=== PATIENT | male | born 1945 | race Caucasian/White ===

== ENCOUNTER 2023-11-10 14:08 | Outpatient (OUT) | payer MEDICARE, SELFPAY ==
[2023-11-10 14:46] LABS: Bilirubin Urine NEGATIVE (NEGATIVE); Blood Urine NEGATIVE (NEGATIVE); Clarity Urine CLEAR (CLEAR); Color Urine YELLOW (YELLOW); Glucose Urine UA 100 mg/dL (NEGATIVE); Ketones Urine NEGATIVE (NEGATIVE); Leukocyte Esterase Urine NEGATIVE (NEGATIVE); Nitrite Urine NEGATIVE (NEGATIVE); Protein Urine NEGATIVE (NEG/TRACE); Specific Gravity Urine >=1.030 (1.005-1.025); Urobilinogen Urine 0.2 EU/dL (0.2-1.0); pH Urine 5.5 (5.0-9.0)
== END 2023-11-10 14:09 | disposition home or self-care (01) ==
LOC: LAB 14:12
PROVIDERS: PCP Nurse Practitioner Family; Visit Provider Nurse Practitioner Family
DX: R41.3 Other amnesia (principal)
CPT/HCPCS: 81003; 87086

== ENCOUNTER 2023-11-19 08:59 | Outpatient (OUT) | payer MEDICARE, SELFPAY ==
--- NOTE | 2023-11-19 09:12 | MR_ITS ---
The [address] [address] Patient Name: ELISABETH SQUIRES MRN: [id number] date: 1945 Sex: M Assigned Patient Location: LAB Current Patient Location: LAB Accession/Order Number: [id number] Exam Date: 11/19/2023 09:40 Report Date: 11/19/2023 10:55 At the request of: JULIUS MIRANDA Procedure: MR angio head wo con EXAM: MR angio head wo con, MR head/brain wo/w con HISTORY: Balance Problems R26.89, Recurrent falls R29.6 COMPARISON: None. TECHNIQUE: Multiplanar multisequence MR imaging of the brain was performed with and without intravenous contrast. 3-D qopq-jg-[id number] noncontrast MRA imaging of the head was performed with maximum intensity projection reformats. FINDINGS: Motion artifact mildly degrades evaluation. Calvarium/skull base: No focal marrow replacing lesion suggestive of neoplasm. Partial bilateral mastoid effusions, greater on the left. Orbits: Bilateral kake ocular lens replacements. Paranasal sinuses: Imaged portions clear Brain: No restricted diffusion. Relatively mild T2 FLAIR signal hyperintensities involving the central pontine and supratentorial white matter which in this age are most commonly relates to sequela small vessel disease. No abnormal intracranial enhancement. Parenchymal volume is grossly appropriate. No mass effect, hemorrhage, or hydrocephalus. Grossly normal flow-related signal in the dural venous sinuses. Anterior circulation: No evidence of aneurysm, significant stenosis, or occlusion. Suspected extremely hypoplastic versus absent right A1 anterior cerebral artery segment. Vertebrobasilar system: No evidence of aneurysm, significant stenosis, or occlusion. Hypoplastic appearance of the partially visualized right V4 vertebral artery. Mild irregular stenosis involving the basilar artery. MR/MR angio head wo con IMPRESSION: 1. No acute ischemia. 2. No large vessel occlusion or hemodynamically significant stenosis involving the intracranial arteries. No visible aneurysm. 3. Minimal senescent change. 4. Nonspecific bilateral mastoid effusions. Electronically authenticated by: ASIF MARRUFO Date: 11/19/2023 10:55
--- NOTE | 2023-11-19 09:13 | MR_ITS ---
The [address] [address] Patient Name: ELISABETH SQUIRES MRN: [id number] date: 1945 Sex: M Assigned Patient Location: LAB Current Patient Location: LAB Accession/Order Number: [id number] Exam Date: 11/19/2023 09:40 Report Date: 11/19/2023 10:55 At the request of: JULIUS MIRANDA Procedure: MR head/brain wo/w con EXAM: MR angio head wo con, MR head/brain wo/w con HISTORY: Balance Problems R26.89, Recurrent falls R29.6 COMPARISON: None. TECHNIQUE: Multiplanar multisequence MR imaging of the brain was performed with and without intravenous contrast. 3-D kbic-rd-sonhlj noncontrast MRA imaging of the head was performed with maximum intensity projection reformats. FINDINGS: Motion artifact mildly degrades evaluation. Calvarium/skull base: No focal marrow replacing lesion suggestive of neoplasm. Partial bilateral mastoid effusions, greater on the left. Orbits: Bilateral [place] ocular lens replacements. Paranasal sinuses: Imaged portions clear Brain: No restricted diffusion. Relatively mild T2 FLAIR signal hyperintensities involving the central pontine and supratentorial white matter which in this age are most commonly relates to sequela small vessel disease. No abnormal intracranial enhancement. Parenchymal volume is grossly appropriate. No mass effect, hemorrhage, or hydrocephalus. Grossly normal flow-related signal in the dural venous sinuses. Anterior circulation: No evidence of aneurysm, significant stenosis, or occlusion. Suspected extremely hypoplastic versus absent right A1 anterior cerebral artery segment. Vertebrobasilar system: No evidence of aneurysm, significant stenosis, or occlusion. Hypoplastic appearance of the partially visualized right V4 vertebral artery. Mild irregular stenosis involving the basilar artery. MR/MR head/brain wo/w con IMPRESSION: 1. No acute ischemia. 2. No large vessel occlusion or hemodynamically significant stenosis involving the intracranial arteries. No visible aneurysm. 3. Minimal senescent change. 4. Nonspecific bilateral mastoid effusions. Electronically authenticated by: ASIF MARRUFO Date: 11/19/2023 10:55
[2023-11-19 09:20] LABS: Estimated GFR (African America >60 (>=60); Estimated GFR (Non-African Ame >60 (>=60)
== END 2023-11-19 09:00 | disposition home or self-care (01) ==
LOC: LAB 09:00
PROVIDERS: PCP Nurse Practitioner Family; Visit Provider Nurse Practitioner Family
DX: R26.89 Other abnormalities of gait and mobility (principal); R29.6 Repeated falls; R47.01 Aphasia; R41.3 Other amnesia
CPT/HCPCS: 36415; 70544; 70553; 82565; A9575

== ENCOUNTER 2023-12-16 09:15 | Outpatient (OUT) | payer MEDICARE, SELFPAY ==
[2023-12-17 15:08] LABS: Albumin 3.6 g/dL (2.9-4.4); Alpha-1-Globulin 0.2 g/dL (0.0-0.4); Alpha-2-Globulin 0.8 g/dL (0.4-1.0); Gamma Globulin 1.1 g/dL (0.4-1.8); Protein, Total 6.6 g/dL (6.0-8.5)
== END 2023-12-16 09:16 | disposition home or self-care (01) ==
LOC: LAB 09:20
PROVIDERS: PCP Nurse Practitioner Family; Visit Provider Psychiatry & Neurology Neurology
DX: G30.9 Alzheimer's disease, unspecified (principal); F02.80 Dementia in other diseases classified elsewhere, unspecified severity, without behavioral disturbance, psychotic disturbance, mood disturbance, and anxiety; R26.89 Other abnormalities of gait and mobility
CPT/HCPCS: 36415; 82607; 82746; 84155; 84165; 84443

== ENCOUNTER 2024-01-27 10:31 | Outpatient (OUT) | payer MEDICARE, SELFPAY ==
--- NOTE | 2024-01-27 10:48 | US_ITS ---
The [address] [address] Patient Name: ELISABETH SQUIRES MRN: [id number] date: 1945 Sex: M Assigned Patient Location: LAB Current Patient Location: Accession/Order Number: [id number] Exam Date: 01/27/2024 11:10 Report Date: 01/28/2024 05:51 At the request of: MARTA LUCAS Procedure: US scrotum EXAMINATION: US scrotum HISTORY: Scrotal Abscess COMPARISON: No relevant comparison available. TECHNIQUE: High-resolution sonographic imaging of the scrotum and contents was performed. FINDINGS: RIGHT: TESTICLE: Homogeneous echotexture. No visible mass. Color Doppler flow is present. Spectral Doppler demonstrates normal arterial waveform and flow, 6/2 cm/s (PSV/EDV), and normal venous wave flow averaging 2 cm/s. EPIDIDYMIS: Heterogeneous increased echogenicity of epididymis. OTHER: 6 x 4 x 3 mm mobile echogenic structure within hemiscrotum, likely a scrotal david. Small hydrocele. LEFT: TESTICLE: Homogeneous echotexture. No visible mass. Color Doppler flow is present. Spectral Doppler demonstrates arterial waveform and flow, 4/2 cm/s (PSV/EDV), and normal venous flow averaging 2 cm/s. EPIDIDYMIS: Contains several small cysts within head of epididymis. Heterogeneous increased echogenicity of epididymis. OTHER: Small hydrocele Final images demonstrate a heterogeneous hypoechoic mass or focal area of skin thickening, 6.2 x 4.4 x 1.8 cm. Some images suggest this is on the right other suggests this is on the left, and may be within the scrotum. US/US scrotum IMPRESSION: 1. Small hydroceles bilaterally. 2. Heterogeneous epididymides bilaterally; nonspecific. 3. Large heterogeneous masslike structure corresponding to area of concern. Today's images do not clearly identify where this area of concern is. Repeat imaging should be performed if needed. Electronically authenticated by: CARRIE SCRUGGS Date: 01/28/2024 05:51
[2024-01-27 11:10] LABS: Hematocrit 39.2 % (42.0-54.0); Mean Corpuscular HGB Conc 33.2 g/dL (29.9-35.2); Mean Corpuscular Hemoglobin 31.7 pg (25.9-34.0); Mean Corpuscular Volume 95.6 fL (80.0-94.0); Mean Platelet Volume 9.8 fL (9.5-13.5); Platelet Count 303 10^3/uL (150-450); Red Cell Distribution Width 12.8 % (11.0-15.0); White Blood Count 19.1 10^3/uL (4.0-11.0)
[2024-01-27 12:50] LABS: Band Neutrophils Absolute 0.2 10^3/uL (0.0-0.3); Basophils Abs Manual 0.38 10^3/uL (0.00-0.10); Lymphocytes Absolute Manual 2.86 10^3/uL (1.20-3.80); Monocytes Absolute Manual 1.91 10^3/uL (0.30-0.80); Segmented Neut Absolute Manual 9.55 10^3/uL (1.4-6.5)
== END 2024-01-27 10:32 | disposition home or self-care (01) ==
LOC: LAB 10:32
PROVIDERS: PCP Nurse Practitioner Family; Visit Provider Urology
DX: N43.3 Hydrocele, unspecified (principal); N45.1 Epididymitis; D72.829 Elevated white blood cell count, unspecified
CPT/HCPCS: 36415; 76870; 85007; 85027

== ENCOUNTER 2024-06-24 09:19 | Outpatient (OUT) | payer OTHER, SELFPAY ==
--- OUTSIDE RECORDS SUMMARY | 2024-06-24 09:24 | XMS_ITS | CCD ---
Author Organization [facility] Care Team Providers Care Lottery Office Manager Name Role Phone AMILCAR MIDDLETON Primary Care Unavailable MISC, DOCTOR Attending Unavailable MISC, DOCTOR Consulting Unavailable MISC, DOCTOR Admitting Unavailable Sonia Salinas Unavailable RITIKA Salinas Primary Care Provider MD Samuel Coker Attending Provider RITIKA Salinas Primary Care Provider MD Samuel Coker Attending Provider AURELIA FRENCH Attending Unavailable RITIKA Salinas Primary Care Provider DO Nicko Grimm Emergency Provider Unavai DO Jc Magallanes Admit Provider DO Jc Brown Attending Provider [phone] RITIKA Salinas Primary Care Provider DO Nicko Grimm Emergency Provider Unavai DO Jc Magallanes Admit Provider MD Zachary Garcia Attending Provider DO Nic Leung Other Provider MD Dao Johnston Other Provider MD Nicko Galvan Admit Provider MD Nicko Galvan Attending Provider SONIA SALINAS Primary Care Physician Garfield LUCAS Attending Unavailable LUCAS, Garfield R Admitting Unavailable LUCAS, Garfield R Attending Unavailable LUCAS, Garfield R Attending Unavailable LUCAS, Garfield R Attending Unavailable LUCAS, Garfield R Admitting Unavailable AURELIA FRENCH Attending Unavailable CHRISSY, TRU Attending Unavailable CHRISSY, TRU Referring Unavailable CHRISSY, TRU Attending Unavailable CHRISSY, TRU Referring Unavailable Samuel Coker Admitting Unavailable John Paul, Samuel Streeter Attending Unavailable Sonia Salinas Primary Care Unavailable Moon Salinasfer Primary Care Unavailable Jc Brown Admitting Unavailable Zachary Garcia Attending UnavailNic Ybarra Consulting Unavailable Dao Johnston Unavailable Nicko Galvan Admitting UnavailNicko Lowry Attending Unavaillilli e Sonia Salinas Primary Care Unavailable Mckenna Campbell Admitting Unavailable Mckenna Campbell Attending Unavailable Sonia Salinas Primary Care Unavailable Brad BRICK BURNER, Sonia Sharif Unavailable Brad BRICK BURNERSonia Primary Care Provider Allergies Allergy Classification Reported Allergen(s) Allergy Type Date of Onset Reaction(s) Facility (1 source) No Known Medication Allergies; Translations: [No Known Medication Allergies] Propensity to adverse reactions (disorder) [facility] Repository Medications Current Medications Medication Drug Class(es) Dates Sig (Normalized) Sig (Original) amoxicillin 875 mg / clavulanate 125 mg oral tablet (1 source) Penicillin-class Antibacterial Start: 04-29-2023 take 1 tablet by mouth every twelve hours Amoxicillin-Pot Clavulanate 875-125 MG 1 tablet Orally every 12 hrs for 10 days Apr, Active aspirin 81 mg chewable tablet (14 sources) Platelet Aggregation Inhibitor, Nonsteroidal Anti-inflammatory Drug Start: 01-27-2024 take 1 mg by mouth every twenty-four hours aspirin 81 mg oral capsule mg cap(s), Oral, q24hr, Refills(s) 0 Start Date: 01/27/24 Status: Ordered Start: 01-13-2024 End: 01-31-2024 take 1 tablet by mouth once daily Aspirin (Children's Aspirin) 81 mg tablet,chewable Active 81 MG PO Daily 90 90 January 31, 2024 9:53am atorvastatin 80 mg oral tablet (14 sources) HMG-CoA Reductase Inhibitor Start: 01-13-2024 End: 01-31-2024 atorvastatin (Lipitor) 80 MG tablet Every evening 01/13/2024 Active azithromycin 250 mg oral tablet (1 source) Macrolide Antimicrobial Start: 07-09-2023 Azithromycin 250 MG 2 tablet on the first day, then 1 tablet daily for 4 days Orally Once a day for 5 day(s) Jul, Active Giselle Back & Body 500-32.5 MG (2 sources) Giselle Back & Bod y 500-32.5 MG as directed Orally Active cefdinir 300 mg oral capsule (6 sources) Cephalosporin Antibacterial Start: 01-27-2024 End: 02-10-2024 take 1 capsule by mouth every twelve hours cefdinir 300 mg Cap 300 mg = 1 cap(s), Oral, q12hr, X 14 day(s), # 28 cap(s), Refills(s) 0, Pharmacy: [facility]/pharmacy #[id number], 180, cm, 01/27/24 13:28:00 EDT, Height/Length Dosing, 101.5, kg, 01/27/24 13:28:00 EDT, Weight Dosing Start Date: 01/27/24 Stop Date: 02/10/24 Status: Ordered Start: 01-26-2024 End: 02-16-2024 take 300 mg by mouth twice daily Cefdinir Discontinued 300 MG PO Twice daily 28 05January 26, 2024 12:00am February 16, 2024 8:53am clopidogrel 75 mg oral tablet (14 sources) [id number] Platelet Inhibitor Start: 01-13-2024 End: 01-31-2024 clopidogrel (Plavix) 75 MG tablet Daily 01/13/2024 Active donepezil hydrochloride 5 mg oral tablet (8 sources) Start: 12-14-2023 End: 12-13-2024 take 5 mg by mouth once daily Donepezil Active 5 MG PO Daily January 26, 2024 12:00am lisinopril 10 mg oral tablet (14 sources) Angiotensin Converting Enzyme Inhibitor Start: 01-13-2024 End: 01-31-2024 lisinopril 10 MG tablet Daily 01/13/2024 Active 24 hr metFORMIN hydrochloride 500 mg extended release oral tablet (18 sources) Biguanide Start: 03-22-2024 take 1 tablet by mouth once daily Metformin Active 0 .ROUTE .COMPLEX March 22, 2024 8:50am TAKE 1 TABLET BY MOUTH DAILY Start: 02-23-2024 End: 03-22-2024 take 500 mg by mouth once daily Metformin Discontinued 500 MG PO Daily February 23, 2024 12:00am March 22, 2024 8:50am Start: 01-13-2024 End: 02-23-2024 metFORMIN (Glucophage) 500 M G tablet Twice daily with meals 01/13/2024 Active Completed/Discontinued Medications Medication Drug Class(es) Dates Sig (Normalized) Sig (Original) aspirin 500 mg / caffeine 32.5 mg oral tablet (9 sources) Platelet Aggregation Inhibitor, Nonsteroidal Anti-inflammatory Drug, Central Nervous System Stimulant, Methylxanthine Start: 10-04-2023 End: 01-13-2024 take 1 tablet by mouth once daily Aspirin-Caffeine (Giselle Back And Body) 500-32.5 mg tablet Discontinued 1 TAB PO Daily October 04, 2023 1:00am January 13, 2024 11:24am azelastine hydrochloride 0.137 mg/actuat metered dose nasal spray (10 sources) Histamine-1 Receptor Antagonist Start: 10-05-2023 End: 01-10-2024 take 137 ug nasal route every twelve hours Azelastine Discontinued 137 MCG INTRANASAL Every 12 hours October 05, 2023 1:00am January 10, 2024 10:31pm administer into each nostril take 1 spray(s) nasa l route in the morning azelastine (Astelin) 0.1 % nasal spray Administer 1 spray into each nostril in the morning and 1 spray before bedtime. Use in each nostril as directed. Active doxycycline hyclate 100 mg oral capsule (9 sources) Tetracycline-class Drug Start: 10-05-2023 End: 11-09-2023 take 100 mg by mouth every twelve hours Doxycycline Hyclate Discontinued 100 MG PO Every 12 hours 28 05October 05, 2023 1:00am November 09, 2023 2:54pm fluticasone propionate 0.05 mg/actuat metered dose nasal spray (12 sources) Corticosteroid Start: 10-04-2023 End: 01-10-2024 Fluticasone Propionate Discontinued 1 SPRAY INTRANASAL Daily October 04, 2023 1:00am January 10, 2024 10:31pm Start: 04-29-2023 take 1-2 spray(s) na riccardo route once daily Fluticasone Propionate 50 MCG/ACT 1-2 spray in each nostril Nasally Once a day for 30 days Apr, Active take 1 spray(s) nasa l route once daily fluticasone (Flonase) 50 MCG/ACT nasal spray Administer 1 spray into each nostril Daily Shake gently. Before first use, prime pump. After use, clean tip and replace cap. Active Problems Active Problems Problem Classification Problem Date Documented Date Episodic/Chronic Chronic obstructive pulmonary disease and bronchiectasis (1 source) Bronchitis, not specified as acute or chronic Episodic Delirium, dementia, and amnestic and other cognitive disorders (17 sources) Vascular dementia ; Translations: [Vascular dementia without behavioral disturbance] Onset: 01-11-2024 01-11-2024 Chronic Diabetes mellitus without complication (17 sources) Type 2 diabetes mellitus; Translations: [Type 2 diabetes mellitus without complications] Onset: 01-11-2024 01-11-2024 Chronic Diseases of white blood cells (8 sources) Leukocytosis; Translations: [Elevated white blood cell count, unspecified] Onset: 01-11-2024 01-13-2024 Chronic Essential hypertension (16 sources) Hypertensive disorder; Translations: [Essential (primary) hypertension] Onset: 01-11-2024 01-11-2024 Chronic Genitourinary symptoms and ill-defined conditions (1 source) Nocturia; Translations: [Nocturia] Onset: 01-27-2024 Episodic Hyperplasia of prostate (3 sources) Benign prostatic hypertrophy with outflow obstruction; Translations: [Benign prostatic hyperplasia with lower urinary tract symptoms] Onset: 01-27-2024 Chronic Occlusion or stenosis of precerebral arteries (20 sources) Carotid artery stenosis; Translations: [Occlusion and stenosis of unspecified carotid artery] Onset: 01-11-2024 01-11-2024 Chronic Other and ill-defined cerebrovascular disease (10 sources) Cerebral atherosclerosis; Translations: [Cerebral atherosclerosis] 01-11-2024 Chronic Other and ill-defined cerebrovascular disease (7 sources) Cerebral atherosclerosis; Translations: [Cerebral atherosclerosis] Onset: 01-11-2024 01-13-2024 Chronic Other circulatory disease (1 source) Stented artery; Translations: [Presence of other vascular implants and grafts] 05-25-2024 Chronic Other circulatory disease (1 source) History of cardiovascular surgery; Translations: [Peripheral vascular angioplasty status] 05-25-2024 Episodic Other circulatory disease (1 source) Peripheral vascular angioplasty status; Translations: [Other postprocedural status] 05-25-2024 Episodic Other connective tissue disease (12 sources) Recurrent falls ; Translations: [Repeated falls] 11-09-2023 Episodic Other diseases of kidney and ureters (1 source) Urinary tract obstruction; Translations: [Other obstructive and reflux uropathy] Onset: 01-27-2024 Episodic Other eye disorders (4 sources) Unspecified ectropion of unspecified eye, unspecified eyelid; Translations: [UNS ECTROPION UNS EYE UNS EYELID] Onset: 06-22-2020 Episodic Other lower respiratory disease (2 sources) Snoring; Translations: [Other respiratory abnormalities] Episodic Other lower respiratory disease (1 source) Apnea, not elsewhere classified Episodic Other lower respiratory disease (9 sources) Snoring; Translations: [Snoring] 10-06-2023 Episodic Other nervous system disorders (11 sources) Aphasia; Translations: [Aphasia] Onset: 12-13-2023 11-09-2023 Chronic Other nervous system disorders (6 sources) Aphasia; Translations: [Aphasia] 11-09-2023 Chronic Other nervous system disorders (7 sources) Other abnormalities of gait and mobility; Translations: [Other symptoms involving nervous and musculoskeletal systems] Onset: 05-25-2024 11-09-2023 Episodic Other screening for suspected conditions (not mental disorders or infectious disease) (12 sources) Encounter for screening for malignant neoplasm of colon; Translations: [Patient encounter status] Onset: 01-27-2024 Episodic Other upper respiratory disease (9 sources) Rhinitis medicamentosa; Translations: [Chronic rhinitis] 10-05-2023 Chronic Other upper respiratory disease (1 source) Chronic rhinitis; Translations: [Chronic rhinitis] 10-05-2023 Chronic Other upper respiratory infections (10 sources) Maxillary sinusitis; Translations: [Chronic maxillary sinusitis] 10-05-2023 Chronic Other upper respiratory infections (1 source) Acute maxillary sinusitis, unspecified Episodic Residual codes; unclassified (1 source) Hypersomnia; Translations: [Hypersomnia, unspecified] 03-07-2024 Chronic Residual codes; unclassified (1 source) Amnesia; Translations: [Other amnesia] 03-07-2024 Episodic Screening and history of mental health and substance abuse codes (2 sources) Ex-smoker; Translations: [Personal history of nicotine dependence] 02-16-2024 Episodic Transient cerebral ischemia (7 sources) Transient cerebral ischemia; Translations: [Transient cerebral ischemic attack, unspecified] Onset: 01-11-2024 01-11-2024 Chronic Past or Other Problems Problem Classification Problem Date Documented Date Episodic/Chronic Inflammatory conditions of male genital organs (11 sources) Abscess of scrotum; Translations: [Inflammatory disorders of scrotum] Onset: 01-25-2024 01-26-2024 Episodic Other connective tissue disease (13 sources) Repeated falls; Translations: [History of fall] Onset: 01-11-2024 11-09-2023 Episodic Other connective tissue disease (2 sources) Falls; Translations: [Repeated falls] Onset: 12-13-2023 12-13-2023 Episodic Other nervous system disorders (11 sources) Impairment of balance; Translations: [Other abnormalities of gait and mobility] Onset: 12-13-2023 11-09-2023 Episodic Other nervous system disorders (2 sources) Abnormal gait; Translations: [Unsteadiness on feet] Onset: 12-13-2023 12-13-2023 Episodic Other non-epithelial cancer of skin (4 sources) Basal cell carcinoma of skin; Translations: [Basal cell carcinoma of skin of left lower eyelid, including canthus] Onset: 09-22-2023 01-27-2024 Episodic Residual codes; unclassified (6 sources) Memory impairment; Translations: [Other amnesia] Onset: 12-13-2023 11-09-2023 Episodic Residual codes; unclassified (8 sources) Other amnesia; Translations: [Memory loss] Onset: 01-11-2024 11-09-2023 Episodic Results Test Name Value Interpretation Reference Range Facility Home sleep teston 06-15-2024 Insufficient data wi th less than 1 hour obtained... Test will need to be repeated. [facility] carotid doppler BIon 10- US carotid doppler [facility] [address] [place], [place] [id number] Ultrasound Report Signed Patient: Dagoberto Squires MR#: [id number] : 1945 Acct:[id number] Age/Sex: 79 / M ADM Date: 05/25/24 Loc: [facility] Room: Type: [facility] Attending Dr: Mckenna Campbell BRICK BURNER-C Ordering Provider: Mckenna Campbell APRN Date of Service: 05/25/24 US/US carotid doppler BI: R26.89 - Other abnormalities of gait and mobility Copies to: Mckenna Campbell APRN CAROTID DUPLEX INDICATION: Surveillance study after right carotid stent. PROCEDURE: Color-flow duplex scanning is used to interrogate the extracranial carotid arterial system, as well as both vertebral arteries. The proximal right internal carotid artery shows a highest peak systolic velocity of 44.5 cm/s with an end-diastolic velocity of 11.2 cm/s . The mid internal carotid artery measures 35 cm/s peak systolic with an end-diastolic velocity of 10.5 cm/s . The distal segment measures 22.4 cm/s peak systolic with an end diastolic velocity of 6.31 cm/s . The velocities of the right common carotid artery are 107 cm/s peak systolic and 13 cm/s end- diastolic proximally and 53.9 cm/s peak systolic and 8.06 cm/s end-diastolic distally. The peak systolic velocity ratio of the internal to the common carotid artery is 0.42 . The right external carotid artery measures 108 cm/s peak systolic. The right vertebral artery is not visualized. The proximal left internal carotid artery shows a highest peak systolic velocity of 89.5 cm/s with an end-diastolic velocity of 20.5 cm/s . The mid internal carotid artery measures 76.4 cm/s peak systolic with an end-diastolic velocity of 24.2 cm/s . The distal segment measures 85.7 cm/s peak systolic with an end diastolic velocity of 25.5 cm/s . The velocities of the left common carotid artery are 101 cm/s peak systolic and 16.8 cm/s end-diastolic proximally and 78.6 cm/s peak systolic and 14.3 cm/s end-diastolic distally. The peak systolic velocity ratio of the internal to the common carotid artery is 0.89 . The left external carotid artery measures 116 cm/s peak systolic. The left vertebral artery is patent at 46.5 cm/s peak systolic with antegrade flow. US/US carotid doppler BI IMPRESSION: NO HEMODYNAMICALLY SIGNIFICANT STENOSIS OF EITHER EXTRACRANIAL INTERNAL CAROTID ARTERY. BOTH VERTEBRAL ARTERIES ARE PATENT WITH ANTEGRADE FLOW. Impression dictated by: Nicko Galvan MD05/26/2024 9:33 AM Dictation Location: [facility]-04 Tech: Venecia Carter Transcribed By: ALEA 05/26/24932 Dictated By: Nicko Galvan MD 05/26/24931 Signed By: 05/26/24932 Normal [facility] Ambulatory Visit Summaryon 0 02-25-2024 Ambulatory Visit Summary Ambulatory Visit Summary DAGOBERTO SQUIRES :1945 Visit Date:02/25/2024 Ambulatory Visit Instructions Your Diagnosis Scrotal abscess BPH with urinary obstruction Your Care Team Attending Physician - Garfield LUCAS MD Primary Care Physician - SONIA SALINAS CNP This Is Your Medications List Contact prescribing physician if questions or concerns aspirin (aspirin 81 mg oral capsule) atorvastatin (atorvastatin 80 mg Tab) clopidogrel (clopidogrel 75 mg Tab) donepezil (donepezil 5 mg Tab) lisinopril (lisinopril 10 mg Tab) metformin (metformin 500 mg ER Tab) Procedures Performed Carotid artery stent (01/25/2024), CE - Cataract extraction. Discharge Vitals Temperature (Temporal Artery) 37 ?C Heart Rate (Peripheral) 68 Respiratory Rate 16 Blood Pressure 134/69 Height 180 cm Height 71 in Weight 101 kg Weight 222.2 lb BMI 31.17 What to do next You Need to Schedule the Following Appointments Follow Up with Garfield LUCAS MD, URL When: Where: [address] [place] [address]- Medications What How Much When Instructions Unchanged aspirin (aspirin 81 mg oral capsule) By Mouth Every 24 hours Contact prescribing physician if questions or concerns Unchanged atorvastatin (atorvastatin 80 mg Tab) By Mouth Every day Contact prescribing physician if questions or concerns Unchanged clopidogrel (clopidogrel 75 mg Tab) By Mouth Every day Contact prescribing physician if questions or concerns Unchanged donepezil (donepezil 5 mg Tab) By Mouth Once a day (at bedtime) Contact prescribing physician if questions or concerns Unchanged lisinopril (lisinopril 10 mg Tab) By Mouth Every day Contact prescribing physician if questions or concerns Unchanged metformin (metformin 500 mg ER Tab) 1 Tablets By Mouth 2 times a day Contact prescribing physician if questions or concerns Allergies No Known Medication Allergies Problems Ongoing - Any problem that you are currently receiving treatment for. Atherosclerotic cerebrovascular disease Basal cell carcinoma BPH with urinary obstruction Frequent falls Hypertension Scrotal abscess Type 2 diabetes mellitus Vascular dementia Patient Survey You may receive a survey via text or e-mail asking about your office visit. Please share your experience with us by completing your survey. We appreciate your feedback and thank you for choosing us for your care. Education Materials Testicular Self-Exam A self-examination of your testicles (testicular self-exam) involves looking at and feeling your testicles for abnormal lumps or swelling. Several things can cause swelling, lumps, or pain in your testicles. Some of these causes are: ? Injuries. ? Inflammation. ? Infection. ? Buildup of fluids around the testicle (hydrocele). ? Twisted testicles (testicular torsion). ? Testicular cancer. You may be at risk for testicular cancer if you have: ? An undescended testicle (cryptorchidism). ? A history of previous testicular cancer. ? A family history of testicular cancer. General tips and recommendations ? The testicles are easiest to examine after a warm bath or shower. They are more difficult to examine when you are cold because the muscles attached to the testicles retract and pull them up higher or into the abdomen. ? A normal testicle is egg-shaped and feels firm. It is smooth and not tender. ? It is normal to feel a firm, spaghetti-like cord at the back of your testicle. This is the spermatic cord. How to do a testicular self-exam 1. Stand and hold your penis away from your body. 2. Look at each testicle to check for changes in appearance, such as swelling or changes in size or shape. 3. Roll each testicle between your thumb and forefinger, feeling the entire testicle. Feel for: ? Lumps. ? Swelling. ? Discomfort. 4. Check the groin area between your abdomen and upper thighs on both sides of your body. Look and feel for any swelling or bumps that are tender. These could be enlarged lymph nodes. Contact a health care provider if: ? You find any bumps or lumps, such as a small, hard, pea-sized lump. ? You find swelling, pain, or soreness. ? You see or feel any other changes in your testicles. Summary ? A self-examination of your testicles (testicular self-exam) involves looking at and feeling your testicles for any changes. ? Check each of your testicles for lumps, swelling, or discomfort. These changes can be caused by many things. ? Check for swelling or tender bumps in your groin area between your lower abdomen and upper thighs. This information is not intended to replace advice given to you by your health care provider. Make sure you discuss any questions you have with your health care provider. Document Revised: 07/01/2020 Document Reviewed: 07/01/2020 [facility] Patient Educati (more content not included)... Normal [facility] Urology Office/Clinic Noteon 02-25-2024 Urology Office/Clinic Note Urology Office/Clinic Note Chief Complaint BPH HPI Staff 1 month to re-examine scrotal abscess. Prior OV: cont Cefdinir 300 mg BID x 2 more weeks due to scrotal abscess. Previous Dx: scrotal abscess, nocturia, BPH with LUTS, Dementia. No urologic procedures. *No maintenance urologic meds. PSA: 01/27/24 - 2.9 Dysuria: no Incomplete bladder emptying: no Hematuria: no Frequency: no Urgency: no Nocturia: pt gets up multiple x throughout the night Stream: good strong Leaking: no Post void dripping: no Wearing pads/ Depends: no Urge incontinence: no Stress incontinence: no Incontinence without Sensory Awareness: no Abdominal pain: no Flank pain: no Sexual complaints: no History of Present Illness Tests reviewed: reviewed UA and PSA. I have reviewed the previous health record information and history for this patient from Dr. Lucas. I have reviewed and verified the staff HPI to be accurate for this encounter. There have been no associated fever, chills, flank pain, or blood in the urine. Denies any urinary infections since last encounter. Review of Systems PHQ Score Initial Depression Screen Score: 0 SCORE ROS - Provider Constitutional: denies weight loss, denies hot flashes. Eyes: denies eye problems. Gastrointestinal: denies nausea, denies vomiting. Cardiovascular: denies chest pain or angina. Integumentary: no dryness Musculoskeletal: denies musculoskeletal symptoms. ENMT: denies otolaryngeal symptoms. Respiratory: no shortness of breath. Heme/Lymph: denies easy bleeding tendency, denies easy bruising tendency. Psychiatric: no confusion, no anxiety. Genitourinary: See HPI. Physical Exam Vitals & Measurements T: 37 ?C(Temporal Artery) HR: 68(Peripheral) RR: 16 BP: 134/69 HT: 71 in HT: 180 cm WT: 101 kg WT: 222.2 lb BMI: 31.17 General Appearance: alert, no distress, well nourished, well developed male. Genitourinary: abscess not present upon exam. Assessment/Plan Pt has dementia. serves as chief historian. 1. Scrotal abscess (N49.2: Inflammatory disorders of scrotum) Hx of abscess. Two different occasions. Tx'd with Gentamicin 160mg IM 01/27/24 and Cefdinir. No concern for Lisseth's at that time. PE: abscess not present upon exam. No current issues or complaints. Follow up PRN or sooner if issues arise. 2. BPH with urinary obstruction (N40.1: Benign prostatic hyperplasia with lower urinary tract symptoms) PSA: 01/27/24 - 2.9 Advised pt and his that his PSA is normal. UA today neg. Not taking any BPH meds. No urinary concerns. Emptying well. Follow-up With When Contact Information SHAYY BARRETO, Garfield Cotter, URL [address] [place] [address]- Additional Instructions: PRN Patient Education Testicular Self-Exam Karuna Bradley, personally scribed for Dr. Lucas on 02/25/2024 09:25:10. . Documentation recorded by the scribKaruna burger, accurately reflects the services(s) I performed and decisions made by me. Authenticated by Dr. Lucas on 02/25/2024 09:27:43. Problem List/Past Medical History Ongoing Atherosclerotic cerebrovascular disease Basal cell carcinoma BPH with urinary obstruction Frequent falls Hypertension Scrotal abscess Type 2 diabetes mellitus Vascular dementia Historical No qualifying data Procedure/Surgical History Carotid artery stent (01/25/2024), CE - Cataract extraction. Medications aspirin 81 mg oral capsule, Oral, q24hr atorvastatin 80 mg Tab, Oral, Daily clopidogrel 75 mg Tab, Oral, Daily donepezil 5 mg Tab, Oral, Once a day (at bedtime) lisinopril 10 mg Tab, Oral, Daily metformin 500 mg ER Tab, 500 mg= 1 tab(s), Oral, BID Allergies No Known Medication Allergies Social History Tobacco Former smoker, quit more than 30 days ago Tobacco Use:. Cigarettes, Household tobacco concerns: No. Yes, 02/25/2024 Family History Breast cancer: Sister. Lab Results Ambulatory Point of Care Results Bilirubin Urine Dipstick: Negative (02/25/24 08:47:00) Blood Urine Dipstick: Negative (02/25/24 08:47:00) Glucose Urine Dipstick: Trace 100 mg/dl (02/25/24 08:47:00) Ketones Urine Dipstick: Negative (02/25/24 08:47:00) Leukocytes Urine Dipstick: Negative (02/25/24 08:47:00) Nitrite Urine Dipstick: Negative (02/25/24 08:47:00) Protein Urine Dipstick: 1+ (30 mg/dl) (02/25/24 08:47:00) Specific [place] Urine Dipstick: >=1.030 (02/25/24 08:47:00) Urine Appearance Urine Dipstick: Clear (02/25/24 08:47:00) Urine Color Urine Dipstick: Yellow (02/25/24 08:47:00) Urobilinogen Urine Dipstick: Normal 0.2-1 EU/dl (02/25/24 08:47:00) pH Urine Dipstick: 5.5 (02/25/24 08:47:00) Normal [facility] Comment on above: Result Comment: Elec tronically Signed By: Garfield LUCAS MD\Date and Time Signed: 02/25/24 09:27 EDT\.br\Electronically Co-Signed By: Karuna Craias\Date and Time Co-Signed: 02/25/24 09:25 EDT Transfer Inon 02-02-2024 Transfer In [id number] Normal [facility] RAD - Ultrasound Reporton RAD - Ultrasound Report [id number] Normal [facility] Basophils/100 WBC Manual cnt (Bld)on 01-27-2024 Basophils/100 WBC (Bld) 2.0 % 0.2-2.0 [facility] CHEMISTRYOrdered By: SYSTEM SYSTEM on 01-27-2024 Prostate specific Ag [Mass/Vol] 2.9 ng/mL Normal 0.1 - 3.5 ng/mL [facility] Comment on above: Interpretive Data: T he concentration of PSA determined by different manufacturers can vary due to differences in assay methods and reagent specificity. Values obtained from different assay methods cannot be used interchangeably. The methodology used for this result was chemiluminescence using [employer] Access Hybritech PSA reagent. Eosinophils/100 WBC Manual c nt (Bld)on 01-27-2024 Eosinophils/100 WBC (Bld) 22.0 % High 0.9-7.0 [facility] Erythrocyte distribution wid th Auto (RBC) [Ratio]on 01-27-2024 Erythrocyte distribution width (RBC) [Ratio] 12.8 % 11.0-15.0 [facility] Hematocrit Auto (Bld) [Volum e fraction]on 01-27-2024 Hematocrit (Bld) [Volume fraction] 39.2 % Low 42.0-54.0 [facility] Hemoglobin [Mass/volume] in Bloodon 01-27-2024 Hemoglobin (Bld) [Mass/Vol] 13.0 g/dL Low 14.0-18.0 [facility] Laboratory - Hematology and Cell countson 01-27-2024 Band form neutrophils/100 WBC (Bld) 1.0 % 0-5 [facility] Lymphocytes/100 WBC (Bld) 15.0 % Low 20.5-60.0 [facility] Monocytes/100 WBC (Bld) 10.0 % 1.7-12.0 [facility] Leukocytes [#/volume] correc guillermina for nucleated erythrocytes in Blood by Automated counon 01-27-2024 WBC corrected for nucl RBC Auto (Bld) [#/Vol] 19.1 10 3/uL High 4.0-11.0 [facility] MCH Auto (RBC) [Entitic mass ]on 01-27-2024 MCH (RBC) [Entitic mass] 31.7 pg 25.9-34.0 [facility] MCHC Auto (RBC) [Mass/Vol]on 01-27-2024 MCHC (RBC) [Mass/Vol] 33.2 g/dL 29.9-35.2 [facility] MCV Auto (RBC) [Entitic vol] on 01-27-2024 MCV (RBC) [Entitic vol] 95.6 fL High 80.0-94.0 [facility] No Panel Informationon 01-26 Absolute Basophils (Manual) 0.38 10 3/uL High 0.00-0.10 [facility] Band Neutrophils # (Manual) 0.2 10 3/uL 0.0-0.3 [facility] Eosinophils # (Manual) 4.20 10 3/uL High 0.00-0.70 [facility] Lymphocytes # (Manual) 2.86 10 3/uL 1.20-3.80 [facility] Monocytes # (Manual) 1.91 10 3/uL High 0.30-0.80 [facility] Segmented Neutrophils # (Manual) 9.55 10 3/uL High 1.4-6.5 [facility] PSA Screen, Totalon 01-27-20 Prostate specific Ag [Mass/Vol] 2.9 ng/mL Normal 0.1-3.5 [facility] Comment on above: Result Comment: The concentration of PSA determined by different manufacturers can vary due to differences in assay methods and reagent specificity. Values obtained from different assay methods cannot be used interchangeably. The methodology used for this result was chemiluminescence using [employer]'s Access Hybritech PSA reagent. Performed By: #### 1 [id number] #### [facility] [address] [place] [address] Patient Educationon 01-27-20 Patient Education Urology Benign Prostatic Hyperplasia Benign prostatic hyperplasia (BPH) is an enlarged prostate gland that is caused by the normal aging process. The prostate may get bigger as a man gets older. The condition is not caused by cancer. The prostate is a walnut-sized gland that is involved in the production of semen. It is located in front of the rectum and below the bladder. The bladder stores urine. The urethra carries stored urine out of the body. An enlarged prostate can press on the urethra. This can make it harder to pass urine. The buildup of urine in the bladder can cause infection. Back pressure and infection may progress to bladder damage and kidney (renal) failure. What are the causes? This condition is part of the normal aging process. However, not all men develop problems from this condition. If the prostate enlarges away from the urethra, urine flow will not be blocked. If it enlarges toward the urethra and compresses it, there will be problems passing urine. What increases the risk? This condition is more likely to develop in men older than 50 years. What are the signs or symptoms? Symptoms of this condition include: ? Getting up often during the night to urinate. ? Needing to urinate frequently during the day. ? Difficulty starting urine flow. ? Decrease in size and strength of your urine stream. ? Leaking (dribbling) after urinating. ? Inability to pass urine. This needs immediate treatment. ? Inability to completely empty your bladder. ? Pain when you pass urine. This is more common if there is also an infection. ? Urinary tract infection (UTI). How is this diagnosed? This condition is diagnosed based on your medical history, a physical exam, and your symptoms. Tests will also be done, such as: ? A post-void bladder scan. This measures any amount of urine that may remain in your bladder after you finish urinating. ? A digital rectal exam. In a rectal exam, your health care provider checks your prostate by putting a lubricated, gloved finger into your rectum to feel the back of your prostate gland. This exam detects the size of your gland and any abnormal lumps or growths. ? An exam of your urine (urinalysis). ? A prostate specific antigen (PSA) screening. This is a blood test used to screen for prostate cancer. ? An ultrasound. This test uses sound waves to electronically produce a picture of your prostate gland. Your health care provider may refer you to a specialist in kidney and prostate diseases (urologist). How is this treated? Once symptoms begin, your health care provider will monitor your condition (active surveillance or watchful waiting). Treatment for this condition will depend on the severity of your condition. Treatment may include: ? Observation and yearly exams. This may be the only treatment needed if your condition and symptoms are mild. ? Medicines to relieve your symptoms, including: ? Medicines to shrink the prostate. ? Medicines to relax the muscle of the prostate. ? Surgery in severe cases. Surgery may include: ? Prostatectomy. In this procedure, the prostate tissue is removed completely through an open incision or with a laparoscope or robotics. ? Transurethral resection of the prostate (TURP). In this procedure, a tool is inserted through the opening at the tip of the penis (urethra). It is used to cut away tissue of the inner core of the prostate. The pieces are removed through the same opening of the penis. This removes the blockage. ? Transurethral incision (TUIP). In this procedure, small cuts are made in the prostate. This lessens the prostate's pressure on the urethra. ? Transurethral microwave thermotherapy (TUMT). This procedure uses microwaves to create heat. The heat destroys and removes a small amount of prostate tissue. ? Transurethral needle ablation (TUNA). This procedure uses radio frequencies to destroy and remove a small amount of prostate tissue. ? Interstitial laser coagulation (ILC). This procedure uses a laser to destroy and remove a small amount of prostate tissue. ? Transurethral electrovaporization (TUVP). This procedure uses electrodes to destroy and remove a small amount of prostate tissue. ? Prostatic urethral lift. This procedure inserts an implant to push the lobes of the prostate away from the urethra. Follow these instructions at home: ? Take tlak-grp-loaekhw and prescription medicines only as told by your health care provider. ? Monitor your symptoms for any changes. Contact your health care provider with any changes. ? Avoid drinking large amounts of liquid before going to bed or out in public. ? Avoid or reduce how much caffeine or alcohol you drink. ? Give yourself time when you urinate. ? Keep all follow-up visits. This is important. Contact a health care provider if: ? You have unexplained back pain. ? Your symptoms do not get better with treatment. ? You develop side effects from the medicine (more content not included)... Normal [facility] Physician Orderon 01-27-2024 Physician Order [id number] Normal [facility] Platelet mean volume Auto (B ld) [Entitic vol]on 01-27-2024 Platelet mean volume (Bld) [Entitic vol] 9.8 fL 9.5-13.5 [facility] Platelets Auto (Bld) [#/Vol] on 01-27-2024 Platelets (Bld) [#/Vol] 303 10 3/uL 150-450 [facility] RBC Auto (Bld) [#/Vol]on RBC (Bld) [#/Vol] 4.10 10 6/uL Low 4.70-6.10 [facility] Segmented neutrophils/100 WB C Manual cnt (Bld)on 01-27-2024 Segmented neutrophils/100 WBC (Bld) 50.0 % [facility] Urology Office/Clinic Noteon 01-27-2024 Urology Office/Clinic Note Chief Complaint scrotal abscess HPI Staff Referral for scrotal abscess from Sonia Salinas NP. Pt spouse states that he has had this abscess for quite a while and this is the second time that it has burst open. Dysuria: no Incomplete bladder emptying: no Hematuria: no Frequency: no Urgency: no Nocturia: multiple x Stream: good steady stream Leaking: no Post void dripping: no Wearing pads/ Depends: no Urge incontinence: no Stress incontinence: no Incontinence without Sensory Awareness: no Abdominal pain: no Flank pain: no Sexual complaints: no History of Present Illness I have reviewed and verified the staff HPI to be accurate for this encounter. [facility] records reviewed, labs, and Scrotal US films reviewed by Dr. Lucas. Review of Systems PHQ Score Initial Depression Screen Score: 0 SCORE ROS - Provider Constitutional: denies weight loss, denies hot flashes. Eyes: denies eye problems. Gastrointestinal: denies nausea, denies vomiting. Cardiovascular: denies chest pain or angina. Integumentary: no dryness Musculoskeletal: denies musculoskeletal symptoms. ENMT: denies otolaryngeal symptoms. Respiratory: no shortness of breath. Heme/Lymph: denies easy bleeding tendency, denies easy bruising tendency. Psychiatric: no confusion, no anxiety. Genitourinary: denies dysuria, denies hematuria, denies discharge, denies urinary frequency, denies urinary hesitancy, moderate nocturia, denies incontinence, denies genital sores, denies decreased libido, and denies erectile dysfunction. Physical Exam Vitals & Measurements T: 37 ?C(Temporal Artery) HR: 85(Peripheral) RR: 16 BP: 137/88 HT: 71 in HT: 180 cm WT: 101.5 kg WT: 223.3 lb BMI: 31.33 General Appearance: alert, no distress, well nourished, well developed male. Head: normocephalic . Eyes: normal orbit and globe. ENMT: normal examination of external ears. Chest: Lungs CTA, respirations demonstrate accessory muscle use. Cardiovascular: regular rate and rhythm. Abdomen: soft, non distended, no tenderness, no mass or organomegaly, no hernia. Genitourinary: normal scrotum, normal testes, normal urethra, normal epididymis, normal vas deferens/spermatic cord. Perineum has a 3 cm indurated subcutaneous collection with no fluctuance. Not currently draining. Below that is a 2cm indurated area without fluctuance that has redness on the skin and an opening that was previously draining. No necrotic areas. Flank Pain: none. Bladder: nonpalpable. Penis: normal shaft, normal glans Lymph Nodes: unremarkable palpation of the cervical area. Skin: warm, dry, no bruising. Psychiatric: cooperative, affect appropriate for age, normal judgement, euthymic mood. Assessment/Plan 1. Scrotal abscess (N49.2: Inflammatory disorders of scrotum) Patients Robyn states this is the second time he has had an abscess rupture. They did not seek treatment for this other than calling for abx. Previous episode was a few years ago. She denies any fever, chills. Patient has dementia, she is answering questions. Wound care evaluated patient, but advised he see her PCP. Patient saw Sonia Salinas CNP and was started on Cefdinir 300mg bid therapy x 10 days. Gentamicin 160mg IM given today in RT Glute. Patient to be on abx x 1 month, and then f/u. Will continue Cefdinir 300mg BID x 2 more weeks. No concern for Lisseth's at this time. 2. Nocturia (R35.1: Nocturia) Moderate, multiple times per night, 4 times per night per . 3. BPH with obstruction/lower urinary tract symptoms (N40.1: Benign prostatic hyperplasia with lower urinary tract symptoms) Patient is not currently taking any prostate medications. Will draw PSA level today. is unsure of last level. UA done today is negative for infection. Other obstructive and reflux uropathy (N13.8: Other obstructive and reflux uropathy) Patient to f/u in 1 month for re-exam. Follow-up With When Contact Information Garfield LUCAS MD, URL In 1 month [facility] [address], [place] [address] [phone] Additional Instructions: Patient Education Benign Prostatic Hyperplasia Testicular Self-Exam Cheyenne Bradley, personally scribed for Dr. Lucas on 01/27/2024 14:05:52. . Documentation recorded by the scriberakesh, accurately reflects the services(s) I performed and decisions made by me. Authenticated by Dr. Lucas on 01/27/2024 15:52:28. Problem List/Past Medical History Ongoing Atherosclerotic cerebrovascular disease Basal cell carcinoma Frequent falls Hypertension Type 2 diabetes mellitus Vascular dementia Historical No qualifying data Procedure/Surgical History Carotid artery stent (01/25/2024), CE - Cataract extraction. Medications aspirin 81 mg oral capsule, Oral, q24hr atorvastatin 80 mg Tab, Oral, Daily clopidogrel 75 mg Tab, Oral, Daily donepezil 5 mg Tab, Oral, Once a day (more content not included)... Normal [facility] Comment on above: Result Comment: Elec tronically Signed By: Garfield LUCAS MD\.br\Date and Time Signed: 01/27/24 15:52 EDT\.br\Electronically Co-Signed By: Cheyenne Morales\Herlindabr\Date and Time Co-Signed: 01/27/24 14:06 EDT Basophils Auto (Bld) [#/Vol] Ordered By: Nicko Galvan on 01-26-2024 Basophils (Bld) [#/Vol] N/A [facility] Basophils/100 WBC Auto (Bld) Ordered By: Nicko Galvan on 01-26-2024 Basophils/100 WBC (Bld) N/A [facility] Diff and CBCon 01-26-2024 Giant Platelet Tally 2 /100{WBC} Normal [facility] Comment on above: Performed By: #### D IFF CBC, PTT, CK, HS TROP, CMP, CBC, PT #### [facility] [address] [place] [address] Mean Corpuscular HGB Conc 33.3 g/dL Normal 32.5-35.6 [facility] Comment on above: Performed By: #### D IFF CBC, PTT, CK, HS TROP, CMP, CBC, PT #### [facility] [address] Platelet Estimate Normal Normal Normal [facility] Comment on above: Performed By: #### D IFF CBC, PTT, CK, HS TROP, CMP, CBC, PT #### [facility] [address] Platelet Morphology Normal Normal Normal [facility] Comment on above: Result Comment: PERF ORMED BY: [place] [address] PATHOLOGIST ASTHMA EDUCATOR DENNIS RODRIGUEZ M.D. Performed By: #### D IFF CBC, PTT, CK, HS TROP, CMP, CBC, PT #### [address] Eosinophils Auto (Bld) [#/Vo l]Ordered By: Nicko Galvan on 01-26-2024 Eosinophils (Bld) [#/Vol] N/A [facility] Eosinophils/100 WBC Auto (Bl d)Ordered By: Nicko Galvan on 01-26-2024 Eosinophils/100 WBC (Bld) N/A [facility] Eosinophils/100 leukocytes i n Blood by Manual countOrdered By: Nicko Galvan on 01-26-2024 Eosinophils/100 WBC (Bld) 15 % High 1-3 [facility] Comment on above: Performed By: #### D IFF CBC, PTT, CK, HS TROP, CMP, CBC, PT #### [facility] [address] Erythrocyte distribution wid th [Ratio] by Automated countOrdered By: Nicko Galvan on 01-26-2024 Erythrocyte distribution width (RBC) [Ratio] 13.8 % Normal 12.0-14.8 [facility] Comment on above: Performed By: #### D IFF CBC, PTT, CK, HS TROP, CMP, CBC, PT #### [facility] [address] Erythrocytes [#/volume] in B lood by Automated countOrdered By: Nicko Galvan on 01-26-2024 RBC (Bld) [#/Vol] 3.83 10*6/uL Low 3.90-5.60 [facility] Comment on above: Performed By: #### D IFF CBC, PTT, CK, HS TROP, CMP, CBC, PT #### [facility] [address] Giant platelets/100 leukocyt es [Ratio] in Blood by Manual countOrdered By: Nicko Galvan on 01-26-2024 Giant platelets/100 WBC Manual cnt (Bld) [Ratio] 2 /100{WBC} [facility] Hematocrit [Volume Fraction] of Blood by Automated countOrdered By: Nicko Galvan on 01-26-2024 Hematocrit (Bld) [Volume fraction] 35.9 % Low 38.8-50.0 [facility] Comment on above: Performed By: #### D IFF CBC, PTT, CK, HS TROP, CMP, CBC, PT #### [facility] [address] Hemoglobin [Mass/volume] in BloodOrdered By: Nicko Galvan on 01-26-2024 Hemoglobin (Bld) [Mass/Vol] 12.0 g/dL Low 13.0-17.0 [facility] Comment on above: Performed By: #### D IFF CBC, PTT, CK, HS TROP, CMP, CBC, PT #### [facility] [address] [place] [address] Leukocytes [#/volume] correc guillermina for nucleated erythrocytes in Blood by Automated counOrdered By: Nicko Galvan on 01-26-2024 WBC corrected for nucl RBC Auto (Bld) [#/Vol] 20.7 10*3/uL High 4.1-10.5 [facility] Leukocytes [#/volume] in Blo od by Automated countOrdered By: Nicko Galvan on 01-26-2024 WBC (Bld) [#/Vol] 20.7 10*3/uL High 4.1-10.5 [facility] Comment on above: Performed By: #### D IFF CBC, PTT, CK, HS TROP, CMP, CBC, PT #### [facility] [address] [place] [address] Lymphocytes Auto (Bld) [#/Vo l]Ordered By: Nicko Galvan on 01-26-2024 Lymphocytes (Bld) [#/Vol] N/A [facility] Lymphocytes/100 WBC Auto (Bl d)Ordered By: Nicko Galvan on 01-26-2024 Lymphocytes/100 WBC (Bld) N/A [facility] Lymphocytes/100 leukocytes i n Blood by Manual countOrdered By: Nicko Galvan on 01-26-2024 Lymphocytes/100 WBC (Bld) 7 % Low 18-42 [facility] Comment on above: Performed By: #### D IFF CBC, PTT, CK, HS TROP, CMP, CBC, PT #### [facility] [address] [place] [address] MCH [Entitic mass] by Automa guillermina countOrdered By: Nicko Galvan on 01-26-2024 MCH (RBC) [Entitic mass] 31.2 pg Normal 27.5-35.2 [facility] Comment on above: Performed By: #### D IFF CBC, PTT, CK, HS TROP, CMP, CBC, PT #### [facility] [address] [place] [address] MCHC Auto (RBC) [Mass/Vol]Or dered By: Nicko Galvan on 01-26-2024 MCHC (RBC) [Mass/Vol] 33.3 g/dL 32.5-35.6 [facility] MCV [Entitic volume] by Auto mated countOrdered By: Nicko Galvan on 01-26-2024 MCV (RBC) [Entitic vol] 93.7 fL Normal 83.5-101 [facility] Comment on above: Performed By: #### D IFF CBC, PTT, CK, HS TROP, CMP, CBC, PT #### [facility] [address] Manual blood segmented neutr ophils/100 leukocytesOrdered By: Nicko Galvan on 01-26-2024 Segmented neutrophils/100 WBC (Bld) 67 % Normal 50-70 [facility] Comment on above: Performed By: #### D IFF CBC, PTT, CK, HS TROP, CMP, CBC, PT #### [facility] [address] [place] [address] Monocytes Auto (Bld) [#/Vol] Ordered By: Nicko Galvan on 01-26-2024 Monocytes (Bld) [#/Vol] N/A [facility] Monocytes/100 WBC Auto (Bld) Ordered By: Nicko Galvan on 01-26-2024 Monocytes/100 WBC (Bld) N/A [facility] Monocytes/100 leukocytes in Blood by Manual countOrdered By: Nicko Galvan on 01-26-2024 Monocytes/100 WBC (Bld) 8 % Normal 2-11 [facility] Comment on above: Performed By: #### D IFF CBC, PTT, CK, HS TROP, CMP, CBC, PT #### [facility] [address] Neutrophils Auto (Bld) [#/Vo l]Ordered By: Nicko Glavan on 01-26-2024 Neutrophils (Bld) [#/Vol] N/A [facility] Neutrophils/100 WBC Auto (Bl d)Ordered By: Nicko Galvan on 01-26-2024 Neutrophils/100 WBC (Bld) N/A [facility] Nucleated erythrocytes [Pres ence] in Blood by Automated countOrdered By: Nicko Galvan on 01-26-2024 Nucleated RBC Auto Ql (Bld) N/A [facility] Peripheral white blood cell differential % bands, microscopic examOrdered By: Nicko Galvan on 01-26-2024 Band form neutrophils/100 WBC (Bld) 3 % Normal 0-5 [facility] Comment on above: Performed By: #### D IFF CBC, PTT, CK, HS TROP, CMP, CBC, PT #### [facility] [address] Platelet adequacy [Presence] in Blood by Light microscopyOrdered By: Nicko Galvan on 01-26-2024 Platelets LM Ql (Bld) Normal Normal [facility] Platelet mean volume [Entiti c volume] in Blood by Automated countOrdered By: Nicko Galvan on 01-26-2024 Platelet mean volume (Bld) [Entitic vol] 7.7 fL Normal 6.6-10.1 [facility] Comment on above: Result Comment: PERF ORMED BY: [place] [address] PATHOLOGIST ASTHMA EDUCATOR DENNIS RODRIGUEZ M.D. Performed By: #### D IFF CBC, PTT, CK, HS TROP, CMP, CBC, PT #### [address] Platelet morphology finding [Identifier] in BloodOrdered By: Nicko Galvan on 01-26-2024 Platelet morphology finding Nom (Bld) Normal Normal [facility] Platelets [#/volume] in Bloo d by Automated countOrdered By: Nicko Galvan on 01-26-2024 Platelets (Bld) [#/Vol] 276 10*3/uL Normal 150-450 [facility] Comment on above: Performed By: #### D IFF CBC, PTT, CK, HS TROP, CMP, CBC, PT #### [address] RBC morphologyOrdered By: Americo Galvan on 01-26-2024 RBC morphology finding Nom (Bld) Normal Normal Normal [facility] Comment on above: Performed By: #### D IFF CBC, PTT, CK, HS TROP, CMP, CBC, PT #### [facility] [address] [place] [id number] [place] Activated Clotting Timeon Activated Clotting Time POC 269 s High 90-139 [facility] Comment on above: Result Comment: Refe rence Range: 90-139 (Non-heparinized) PERFORMED BY: [place] [address] PATHOLOGIST ASTHMA EDUCATOR DENNIS RODRIGUEZ M.D. Performed By: #### D IFF CBC, PTT, CK, HS TROP, CMP, CBC, PT #### [facility] [address] [place] [id number] [facility] Activated Clotting Time POC 140 s High 90-139 [facility] Comment on above: Result Comment: Refe rence Range: 90-139 (Non-heparinized) PERFORMED BY: [place] [address] PATHOLOGIST ASTHMA EDUCATOR DENNIS RODRIGUEZ M.D. Performed By: #### D IFF CBC, PTT, CK, HS TROP, CMP, CBC, PT #### [place] [id number] [facility] Amphetamine Screen Ql (U)Ord ered By: ELIZABETH AGUILAR on 01-25-2024 Amphetamines Ql (U) Negative Negative [facility] Barbiturates [Presence] in U rine by Screen methodOrdered By: ELIZABETH AGUILAR on 01-25-2024 Barbiturates Screen Ql (U) Negative Negative [facility] Benzodiazepines Screen Ql (U )Ordered By: ELIZABETH AGUILAR on 01-25-2024 Benzodiazepines Ql (U) Negative Negative [facility] Benzoylecgonine [Presence] i n Urine by Screen methodOrdered By: ELIZABETH AGUILAR on 01-25-2024 Benzoylecgonine Screen Ql (U) Negative Negative [facility] Blood activated clotting ce e by coagulation assayOrdered By: Nicko Galvan on 01-25-2024 ACT Coag (Bld) 269 s High 90-139 [facility] Comment on above: Reference Range: 90- 139 (Non-heparinized) Cannabinoids [Presence] in U rine by Screen methodOrdered By: ELIZABETH AGUILAR on 01-25-2024 Cannabinoids Screen Ql (U) Positive High Negative [facility] Comment on above: These are unconfirme d results and should not be used for legal purposes. Drug Cut-Off Concentration: AMPH 1000 ng/mL NIMESH 200 ng/mL STEVEN 200 ng/mL COCM 300 ng/mL OP 300 ng/mL PCP 25 ng/mL THC 20 ng/mL Capillary blood glucose lupillo urement by glucometer (mass/volume)Ordered By: Nicko Galvan on 01-25-2024 Glucose [Mass/Vol] 121 mg/dL Normal [facility] Comment on above: Random Glucose Refer ence Range is dependent on time and content of last meal. Glucose of more than 200 mg/dL in a nonstressed, ambulatory subject supports the diagnosis of Diabetes Mellitus. Result Comment: [place] Glucose Reference Range is dependent on time and content of last meal. Glucose of more than 200 mg/dL in a nonstressed, ambulatory subject supports the diagnosis of Diabetes Mellitus. Performed By: #### D IFF CBC, PTT, CK, HS TROP, CMP, CBC, PT #### [facility] [address] [place] [address] [place] Drug Screen,Urineon 01-25-20 24 Amphetamine Screen,Urine Negative Normal Negative [facility] Comment on above: Performed By: #### U RDS #### [facility] [address] [place] [address] [place] Barbiturate Screen,Urine Negative Normal Negative [facility] Comment on above: Performed By: #### U RDS #### [facility] [address] [place] [address] [place] Benzodiazepines Screen,Urine Negative Normal Negative [facility] Comment on above: Performed By: #### U RDS #### [facility] [address] [place] [address] [place] Cannabinoid Screen,Urine Positive High Negative [facility] Comment on above: Result Comment: Thes e are unconfirmed results and should not be used for legal purposes. Drug Cut-Off Concentration: AMPH 1000 ng/mL NIMESH 200 ng/mL STEVEN 200 ng/mL COCM 300 ng/mL OP 300 ng/mL PCP 25 ng/mL THC 20 ng/mL PERFORMED BY: [place] [address] PATHOLOGIST ASTHMA EDUCATOR DENNIS RODRIGUEZ M.D. Performed By: #### U RDS #### [address] Cocaine Screen,Urine Negative Normal Negative [facility] Comment on above: Performed By: #### U RDS #### [address] Opiate Screen,Urine Negative Normal Negative [facility] Comment on above: Performed By: #### U RDS #### [address] Phencyclidine Screen,Urine Negative Normal Negative [facility] Comment on above: Performed By: #### U RDS #### [address] Glucose Poct Glucometerson 0 01-25-2024 Commemt1 Glu2: Cleaned Meter Normal [facility] Comment on above: Result Comment: PERF ORMED BY: [place] [address] PATHOLOGIST ASTHMA EDUCATOR DENNIS RODRIGUEZ M.D. Performed By: #### D IFF CBC, PTT, CK, HS TROP, CMP, CBC, PT #### [address] Commemt1 Glu2: Cleaned Meter Normal [facility] Comment on above: Result Comment: PERF ORMED BY: [place] [address] PATHOLOGIST ASTHMA EDUCATOR DENNIS RODRIGUEZ M.D. Performed By: #### D IFF CBC, PTT, CK, HS TROP, CMP, CBC, PT #### [address] Glucose [Mass/Vol] 124 mg/dL Normal [facility] Comment on above: Result Comment: [place] Glucose Reference Range is dependent on time and content of last meal. Glucose of more than 200 mg/dL in a nonstressed, ambulatory subject supports the diagnosis of Diabetes Mellitus. Performed By: #### D IFF CBC, PTT, CK, HS TROP, CMP, CBC, PT #### [facility] [address] No Panel InformationOrdered By: Nicko Galvan on 01-25-2024 Bedside Glucose Comment Glu2: cleaned meter [facility] Opiates [Presence] in Urine by Screen methodOrdered By: ELIZABETH AGUILAR on 01-25-2024 Opiates Screen Ql (U) Negative Negative [facility] Phencyclidine Screen Ql (U)O rdered By: ELIZABETH AGUILAR on 01-25-2024 Phencyclidine Ql (U) Negative Negative [facility] Automated basophil %Ordered By: Sabrina Lama on 01-13-2024 Basophils/100 WBC (Bld) 1.2 % Normal . [facility] Comment on above: Performed By: #### D IFF CBC, PTT, CK, HS TROP, CMP, CBC, PT #### [facility] [address] Automated basophil countOrde red By: Sabrina Lama on 01-13-2024 Basophils (Bld) [#/Vol] 0.2 10*3/uL Normal 0.0-0.2 [facility] Comment on above: Performed By: #### D IFF CBC, PTT, CK, HS TROP, CMP, CBC, PT #### [address] Automated blood monocyte cou ntOrdered By: Sabrina Lama on 01-13-2024 Monocytes (Bld) [#/Vol] 1.5 10*3/uL High 0.0-0.8 [facility] Comment on above: Performed By: #### D IFF CBC, PTT, CK, HS TROP, CMP, CBC, PT #### [facility] [address] Automated eosinophil %Ordere d By: Sabrina Lama on 01-13-2024 Eosinophils/100 WBC (Bld) 26.0 % Normal . [facility] Comment on above: Performed By: #### D IFF CBC, PTT, CK, HS TROP, CMP, CBC, PT #### [address] Automated eosinophil countOr dered By: Sabrinaletha Lama on 01-13-2024 Eosinophils (Bld) [#/Vol] 4.5 10*3/uL High 0.0-0.45 [facility] Comment on above: Performed By: #### D IFF CBC, PTT, CK, HS TROP, CMP, CBC, PT #### [address] Automated monocyte %Ordered By: Sabrina Lama on 01-13-2024 Monocytes/100 WBC (Bld) 8.9 % Normal . [facility] Comment on above: Performed By: #### D IFF CBC, PTT, CK, HS TROP, CMP, CBC, PT #### [address] Automated neutrophil %Ordere d By: Sabrina Lama on 01-13-2024 Neutrophils/100 WBC (Bld) 48.5 % Normal . [facility] Comment on above: Performed By: #### D IFF CBC, PTT, CK, HS TROP, CMP, CBC, PT #### [address] Basic Metabolic Panelon 06 Creatinine Clr Calc Pharmacy 61.15 Normal [facility] Comment on above: Result Comment: PERF ORMED BY: [place] [address] PATHOLOGIST ASTHMA EDUCATOR DENNIS RODRIGUEZ M.D. Performed By: #### D IFF CBC, PTT, CK, HS TROP, CMP, CBC, PT #### [address] GFR/1.73 sq M.predicted MDRD (S/P/Bld) [Vol rate/Area] 58.003 mL/min/{1.73_m2} Normal [facility] Comment on above: Performed By: #### D IFF CBC, PTT, CK, HS TROP, CMP, CBC, PT #### [facility] [address] Calcium [Mass/volume] in Ser um or PlasmaOrdered By: Sabrina Lama on 01-13-2024 Calcium [Mass/Vol] 9.3 mg/dL Normal 8.6-10.3 [facility] Comment on above: Performed By: #### D IFF CBC, PTT, CK, HS TROP, CMP, CBC, PT #### [facility] [address] Capillary blood glucose lupillo urement by glucometer (mass/volume)Ordered By: Zachary Garcia on 01-13-2024 Glucose [Mass/Vol] 239 mg/dL Normal [facility] Comment on above: Random Glucose Refer ence Range is dependent on time and content of last meal. Glucose of more than 200 mg/dL in a nonstressed, ambulatory subject supports the diagnosis of Diabetes Mellitus. Result Comment: [place] om Glucose Reference Range is dependent on time and content of last meal. Glucose of more than 200 mg/dL in a nonstressed, ambulatory subject supports the diagnosis of Diabetes Mellitus. PERFORMED BY: [place] [address] PATHOLOGIST ASTHMA EDUCATOR DENNIS RODRIGUEZ M.D. Performed By: #### D IFF CBC, PTT, CK, HS TROP, CMP, CBC, PT #### [facility] [address] Carbon dioxide, total [Moles /volume] in Serum or PlasmaOrdered By: Sabrina Lama on 01-13-2024 CO2 [Moles/Vol] 29.2 mmol/L Normal 21.0-31.0 [facility] Comment on above: Performed By: #### D IFF CBC, PTT, CK, HS TROP, CMP, CBC, PT #### [facility] [address] Chloride [Moles/volume] in S liza or PlasmaOrdered By: Sabrina Lama on 01-13-2024 Chloride [Moles/Vol] 102 mmol/L Normal 98-107 [facility] Comment on above: Performed By: #### D IFF CBC, PTT, CK, HS TROP, CMP, CBC, PT #### [facility] [address] Creatinine [Mass/volume] in Serum or PlasmaOrdered By: Sabrina Lama on 01-13-2024 Creatinine [Mass/Vol] 1.28 mg/dL Normal 0.70-1.30 [facility] Comment on above: Performed By: #### D IFF CBC, PTT, CK, HS TROP, CMP, CBC, PT #### [facility] [address] Erythrocyte distribution wid th [Ratio] by Automated countOrdered By: Sabrina Lama on 01-13-2024 Erythrocyte distribution width (RBC) [Ratio] 13.9 % Normal 12.0-14.8 [facility] Comment on above: Performed By: #### D IFF CBC, PTT, CK, HS TROP, CMP, CBC, PT #### [address] Erythrocytes [#/volume] in B lood by Automated countOrdered By: Sabrina Plascencia on 01-13-2024 RBC (Bld) [#/Vol] 4.92 10*6/uL Normal 3.90-5.60 [facility] Comment on above: Performed By: #### D IFF CBC, PTT, CK, HS TROP, CMP, CBC, PT #### [address] Glucose Poct Glucometerson 0 01-13-2024 Glucose [Mass/Vol] 155 mg/dL Normal [facility] Comment on above: Result Comment: [facility] Glucose Reference Range is dependent on time and content of last meal. Glucose of more than 200 mg/dL in a nonstressed, ambulatory subject supports the diagnosis of Diabetes Mellitus. PERFORMED BY: [place] [address] PATHOLOGIST ASTHMA EDUCATOR DENNIS RODRIGUEZ M.D. Performed By: #### D IFF CBC, PTT, CK, HS TROP, CMP, CBC, PT #### [facility] [address] [place] [address] [place] Glucose [Mass/volume] in Ser um or PlasmaOrdered By: Sabrina Lama on 01-13-2024 Glucose [Mass/Vol] 152 mg/dL High 70-100 [facility] Comment on above: ADA recommended refe rence rangeRandom Glucose Reference Range is dependent on time and content of last meal. Glucose of more than 200 mg/dL in a nonstressed, ambulatory subject supports the diagnosis of Diabetes Mellitus. Result Comment: [place] om Glucose Reference Range is dependent on time and content of last meal. Glucose of more than 200 mg/dL in a nonstressed, ambulatory subject supports the diagnosis of Diabetes Mellitus. ADA recommended reference range Performed By: #### D IFF CBC, PTT, CK, HS TROP, CMP, CBC, PT #### [facility] [address] Hematocrit [Volume Fraction] of Blood by Automated countOrdered By: Sabrina Laam on 01-13-2024 Hematocrit (Bld) [Volume fraction] 46.5 % Normal 38.8-50.0 [facility] Comment on above: Performed By: #### D IFF CBC, PTT, CK, HS TROP, CMP, CBC, PT #### [facility] [address] Hemoglobin [Mass/volume] in BloodOrdered By: Sabrina Lama on 01-13-2024 Hemoglobin (Bld) [Mass/Vol] 15.5 g/dL Normal 13.0-17.0 [facility] Comment on above: Performed By: #### D IFF CBC, PTT, CK, HS TROP, CMP, CBC, PT #### [facility] [address] [place] [address] [place] Leukocytes [#/volume] correc guillermina for nucleated erythrocytes in Blood by Automated counOrdered By: Sabrina Lama on 01-13-2024 WBC corrected for nucl RBC Auto (Bld) [#/Vol] 17.3 10*3/uL High 4.1-10.5 [facility] Leukocytes [#/volume] in Blo od by Automated countOrdered By: Sabrina Plascencia on 01-13-2024 WBC (Bld) [#/Vol] 17.3 10*3/uL High 4.1-10.5 [facility] Comment on above: Performed By: #### D IFF CBC, PTT, CK, HS TROP, CMP, CBC, PT #### [facility] [address] Lymphocytes [#/volume] in Bl ood by Automated countOrdered By: Sabrina Plascencia on 01-13-2024 Lymphocytes (Bld) [#/Vol] 2.7 10*3/uL Normal 1.00-4.8 [facility] Comment on above: Performed By: #### D IFF CBC, PTT, CK, HS TROP, CMP, CBC, PT #### [facility] [address] [place] [address] [place] Lymphocytes/100 leukocytes i n Blood by Automated countOrdered By: Sabrina Lama on 01-13-2024 Lymphocytes/100 WBC (Bld) 15.4 % Normal . [facility] Comment on above: Performed By: #### D IFF CBC, PTT, CK, HS TROP, CMP, CBC, PT #### [facility] [address] MCH [Entitic mass] by Automa guillermina countOrdered By: Sabrina Lama on 01-13-2024 MCH (RBC) [Entitic mass] 31.5 pg Normal 27.5-35.2 [facility] Comment on above: Performed By: #### D IFF CBC, PTT, CK, HS TROP, CMP, CBC, PT #### [facility] [address] MCHC Auto (RBC) [Mass/Vol]Or dered By: Sabrina Lama on 01-13-2024 MCHC (RBC) [Mass/Vol] 33.3 g/dL 32.5-35.6 [facility] MCV [Entitic volume] by Auto mated countOrdered By: Sabrina Lama on 01-13-2024 MCV (RBC) [Entitic vol] 94.6 fL Normal 83.5-101 [facility] Comment on above: Performed By: #### D IFF CBC, PTT, CK, HS TROP, CMP, CBC, PT #### [facility] [address] Neutrophils [#/volume] in Bl ood by Automated countOrdered By: Sabrina Plascencia on 01-13-2024 Neutrophils (Bld) [#/Vol] 8.4 10*3/uL High 1.8-7.7 [facility] Comment on above: Performed By: #### D IFF CBC, PTT, CK, HS TROP, CMP, CBC, PT #### [facility] [address] No Panel InformationOrdered By: Sabrina Lama on 01-13-2024 Estimated GFR (CKD-EPI) 58.003 mL/Min [facility] Creatinine Clearance (Chem 61.15 [facility] Nucleated erythrocytes [Pres ence] in Blood by Automated countOrdered By: Sabrina Lama on 01-13-2024 Nucleated RBC Auto Ql (Bld) 0.1 /100{WBC} 0-0.5 [facility] Platelet adequacy [Presence] in Blood by Light microscopyOrdered By: Sabrina Lama on 01-13-2024 Platelets LM Ql (Bld) Normal Normal [facility] Platelet mean volume [Entiti c volume] in Blood by Automated countOrdered By: Sabrina Lama on 01-13-2024 Platelet mean volume (Bld) [Entitic vol] 8.3 fL Normal 6.6-10.1 [facility] Comment on above: Performed By: #### D IFF CBC, PTT, CK, HS TROP, CMP, CBC, PT #### [facility] [address] [place] [address] Platelet morphology finding [Identifier] in BloodOrdered By: Sabrina Plascencia on 01-13-2024 Platelet morphology finding Nom (Bld) Normal Normal [facility] Platelets [#/volume] in Bloo d by Automated countOrdered By: Sabrina Lama on 01-13-2024 Platelets (Bld) [#/Vol] 256 10*3/uL Normal 150-450 [facility] Comment on above: Performed By: #### D IFF CBC, PTT, CK, HS TROP, CMP, CBC, PT #### [address] Potassium [Moles/volume] in Serum or PlasmaOrdered By: Sabrina Lama on 01-13-2024 Potassium [Moles/Vol] 4.2 mmol/L Normal 3.5-5.1 [facility] Comment on above: Performed By: #### D IFF CBC, PTT, CK, HS TROP, CMP, CBC, PT #### [address] RBC morphologyOrdered By: Jael Lama on 01-13-2024 RBC morphology finding Nom (Bld) Normal Normal Normal [facility] Comment on above: Performed By: #### D IFF CBC, PTT, CK, HS TROP, CMP, CBC, PT #### [facility] [address] [place] [address] Scan and CBCon 01-13-2024 Mean Corpuscular HGB Conc 33.3 g/dL Normal 32.5-35.6 [facility] Comment on above: Performed By: #### D IFF CBC, PTT, CK, HS TROP, CMP, CBC, PT #### [address] NRBC% 0.1 /100{WBC} Normal 0-0.5 [facility] Comment on above: Performed By: #### D IFF CBC, PTT, CK, HS TROP, CMP, CBC, PT #### [address] Platelet Estimate Normal Normal Normal [facility] Comment on above: Performed By: #### D IFF CBC, PTT, CK, HS TROP, CMP, CBC, PT #### [address] Platelet Morphology Normal Normal Normal [facility] Comment on above: Result Comment: PERF ORMED BY: [place] [address] PATHOLOGIST ASTHMA EDUCATOR DENNIS RODRIGUEZ M.D. Performed By: #### D IFF CBC, PTT, CK, HS TROP, CMP, CBC, PT #### [address] Serum or plasma anion gap de terminationOrdered By: Sabrina Lama on 01-13-2024 Anion gap [Moles/Vol] 10.0 mmol/L Normal 6.0-15.0 [facility] Comment on above: Performed By: #### D IFF CBC, PTT, CK, HS TROP, CMP, CBC, PT #### [address] Sodium [Moles/volume] in Ser um or PlasmaOrdered By: Sabrina Lama on 01-13-2024 Sodium [Moles/Vol] 137 mmol/L Normal 136-145 [facility] Comment on above: Performed By: #### D IFF CBC, PTT, CK, HS TROP, CMP, CBC, PT #### [address] US carotid doppler BIon 06-0 US carotid doppler BI [facility] Main [place] [address] [place] [address] Ultrasound Report Signed Patient: Dagoberto Squires MR#: [id number] : 1945 Acct:[id number] Age/Sex: 78 / M ADM Date: 01/11/24 Loc: Room: [address] [place] [address] Type: ADM IN Attending Dr: Zachary Garcia MD Ordering Provider: Sabrina Lama APRN Date of Service: 01/12/24 US/US carotid doppler BI: CVA, carotid stenosis Copies to: MD Sabrina Sanchez APRN CAROTID DUPLEX INDICATION: Stroke PROCEDURE: Color-flow duplex scanning is used to interrogate the extracranial carotid arterial system, as well as both vertebral arteries. Both carotid bifurcations show mild to moderate heterogeneous plaque formation. The proximal right internal carotid artery shows a highest peak systolic velocity of 217 cm/s with an end-diastolic velocity of 52.1 cm/s . The mid internal carotid artery measures 174 cm/s peak systolic and 35.7 cm/s end diastolic. The distal segment measures 64.5 cm/s peak systolic with an end diastolic velocity of 15.1 cm/s . The velocities of the right common carotid artery are 95.6 cm/s peak systolic and 12.5 cm/s end-diastolic proximally and 88.3 cm/s peak systolic and 14 cm/s end diastolic distally. The peak systolic velocity ratio of the internal to the common carotid artery is 2.46. The right external carotid artery measures 172 cm/s peak systolic. The right vertebral artery is not well visualized. The proximal left internal carotid artery shows a highest peak systolic velocity of 60.9 cm/s with an end-diastolic velocity of 13.7 cm/s . The mid internal carotid artery measures 70.2 cm/s peak systolic and 18.6 cm/s end diastolic. The distal segment measures 58.4 cm/s peak systolic with an end diastolic velocity of 14.9 cm/s . The velocities of the left common carotid artery are 107 cm/s peak systolic and 19.4 cm/s end-diastolic proximally and 98.2 cm/s peak systolic and 14.3 cm/s end diastolic distally. The peak systolic velocity ratio of the internal to the common carotid artery is 0.71 . The left external carotid artery measures 127 cm/s peak systolic. The left vertebral artery is patent at 39.1 cm/s with antegrade flow. US/US carotid doppler BI IMPRESSION: There is at least 50-69% stenosis of the right extracranial internal carotid artery and likely toward the higher end of that spectrum. There is less than 50% stenosis of the left extracranial internal carotid artery. The right vertebral artery is poorly visualized. The left vertebral artery is patent with antegrade flow. Impression dictated by: Dao Johnston M.D.01/13/2024 12:16 PM Dictation Location: [facility]-04 Tech: Kallieshanna Singh Transcribed By: ALEA 01/13/24 1216 Dictated By: Dao Johnston MD 01/13/24 1214 Signed By: 01/13/24 1216 Normal [facility] Urea nitrogen [Mass/volume] in Serum or PlasmaOrdered By: Sabrina Lama on 01-13-2024 Urea nitrogen [Mass/Vol] 18 mg/dL Normal 7-25 [facility] Comment on above: Performed By: #### D IFF CBC, PTT, CK, HS TROP, CMP, CBC, PT #### [facility] [address] [place] [id number] [facility] Glucose Poct Glucometerson 0 01-12-2024 Glucose [Mass/Vol] 211 mg/dL Normal [facility] Comment on above: Result Comment: [place] om Glucose Reference Range is dependent on time and content of last meal. Glucose of more than 200 mg/dL in a nonstressed, ambulatory subject supports the diagnosis of Diabetes Mellitus. PERFORMED BY: [place] [address] PATHOLOGIST ASTHMA EDUCATOR DENNIS RODRIGUEZ M.D. Performed By: #### D IFF CBC, PTT, CK, HS TROP, CMP, CBC, PT #### [facility] [address] [place] [id number] [facility] Glucose [Mass/Vol] 129 mg/dL Normal [facility] Comment on above: Result Comment: [place] om Glucose Reference Range is dependent on time and content of last meal. Glucose of more than 200 mg/dL in a nonstressed, ambulatory subject supports the diagnosis of Diabetes Mellitus. PERFORMED BY: [place] [address] PATHOLOGIST ASTHMA EDUCATOR DENNIS RODRIGUEZ M.D. Performed By: #### D IFF CBC, PTT, CK, HS TROP, CMP, CBC, PT #### [facility] [address] [place] [id number] [facility] Commemt1 Glu2: Cleaned Meter Normal [facility] Comment on above: Result Comment: PERF ORMED BY: [place] [address] PATHOLOGIST ASTHMA EDUCATOR DENNIS RODRIGUEZ M.D. Performed By: #### G LULS #### Point of Care testing , Glucose [Mass/Vol] 195 mg/dL Normal [facility] Comment on above: Result Comment: [place] om Glucose Reference Range is dependent on time and content of last meal. Glucose of more than 200 mg/dL in a nonstressed, ambulatory subject supports the diagnosis of Diabetes Mellitus. Performed By: #### G LULS #### Point of Care testing , Commemt1 Glu2: Cleaned Meter Normal [facility] Comment on above: Result Comment: PERF ORMED BY: [place] [address] PATHOLOGIST ASTHMA EDUCATOR DENNIS RODRIGUEZ M.D. Performed By: #### D IFF CBC, PTT, CK, HS TROP, CMP, CBC, PT #### [address] Glucose [Mass/Vol] 226 mg/dL Normal [facility] Comment on above: Result Comment: [place] om Glucose Reference Range is dependent on time and content of last meal. Glucose of more than 200 mg/dL in a nonstressed, ambulatory subject supports the diagnosis of Diabetes Mellitus. Performed By: #### D IFF CBC, PTT, CK, HS TROP, CMP, CBC, PT #### [address] Glucose [Mass/Vol] 156 mg/dL Normal [facility] Comment on above: Result Comment: [place] om Glucose Reference Range is dependent on time and content of last meal. Glucose of more than 200 mg/dL in a nonstressed, ambulatory subject supports the diagnosis of Diabetes Mellitus. PERFORMED BY: [place] [address] PATHOLOGIST ASTHMA EDUCATOR DENNIS RODRIGUEZ M.D. Performed By: #### D IFF CBC, PTT, CK, HS TROP, CMP, CBC, PT #### [address] No Panel InformationOrdered By: Zachary Garcia on 01-12-2024 Bedside Glucose Comment Glu2: cleaned meter [facility] A1C with Estimated Average Priya enriquez 01-11-2024 Glucose [Mass/Vol] 180 mg/dL Normal [facility] Comment on above: Result Comment: PERF ORMED BY: [place] [address] PATHOLOGIST ASTHMA EDUCATOR DENNIS RODRIGUEZ M.D. Performed By: #### D IFF CBC, PTT, CK, HS TROP, CMP, CBC, PT #### [address] Anisocytosis [Presence] in B lood by Light microscopyOrdered By: Faiza Mcdonald on 01-11-2024 Anisocytosis Ql (Bld) Slight Normal [facility] Comment on above: Performed By: #### D IFF CBC, PTT, CK, HS TROP, CMP, CBC, PT #### [address] BNP ser/plasOrdered By: Sabrina Lama on 01-11-2024 Natriuretic peptide B (Bld) [Mass/Vol] 38.0 pg/mL Normal 5-100 [facility] Comment on above: Order Comment: Comme nt add on to previuosly drawn labs this a.m. Result Comment: PERF ORMED BY: [place] [address] PATHOLOGIST ASTHMA EDUCATOR DENNIS RODRIGUEZ M.D. Performed By: #### D IFF CBC, PTT, CK, HS TROP, CMP, CBC, PT #### [place] [id number] [facility] Basic Metabolic Panelon Anion gap [Moles/Vol] 8.3 mmol/L Normal 6.0-15.0 [facility] Comment on above: Performed By: #### D IFF CBC, PTT, CK, HS TROP, CMP, CBC, PT #### [place] [id number] [facility] Calcium [Mass/Vol] 9.0 mg/dL Normal 8.6-10.3 [facility] Comment on above: Performed By: #### D IFF CBC, PTT, CK, HS TROP, CMP, CBC, PT #### [facility] [address] Chloride [Moles/Vol] 104 mmol/L Normal 98-107 [facility] Comment on above: Performed By: #### D IFF CBC, PTT, CK, HS TROP, CMP, CBC, PT #### [facility] [address] CO2 [Moles/Vol] 28.6 mmol/L Normal 21.0-31.0 [facility] Comment on above: Performed By: #### D IFF CBC, PTT, CK, HS TROP, CMP, CBC, PT #### [address] Creatinine [Mass/Vol] 1.22 mg/dL Normal 0.70-1.30 [facility] Comment on above: Performed By: #### D IFF CBC, PTT, CK, HS TROP, CMP, CBC, PT #### [address] Creatinine Clr Calc Pharmacy 63.72 Normal [facility] Comment on above: Performed By: #### D IFF CBC, PTT, CK, HS TROP, CMP, CBC, PT #### [address] GFR/1.73 sq M.predicted MDRD (S/P/Bld) [Vol rate/Area] mL/min/{1.73_m2} Normal [facility] Comment on above: Performed By: #### D IFF CBC, PTT, CK, HS TROP, CMP, CBC, PT #### [facility] [address] Glucose [Mass/Vol] 166 mg/dL Significant change up 70-100 [facility] Comment on above: Result Comment: [place] Glucose Reference Range is dependent on time and content of last meal. Glucose of more than 200 mg/dL in a nonstressed, ambulatory subject supports the diagnosis of Diabetes Mellitus. ADA recommended reference range Performed By: #### D IFF CBC, PTT, CK, HS TROP, CMP, CBC, PT #### [address] Potassium [Moles/Vol] 3.9 mmol/L Normal 3.5-5.1 [facility] Comment on above: Performed By: #### D IFF CBC, PTT, CK, HS TROP, CMP, CBC, PT #### [address] Sodium [Moles/Vol] 137 mmol/L Normal 136-145 [facility] Comment on above: Performed By: #### D IFF CBC, PTT, CK, HS TROP, CMP, CBC, PT #### [address] Urea nitrogen [Mass/Vol] 18 mg/dL Normal 7-25 [facility] Comment on above: Performed By: #### D IFF CBC, PTT, CK, HS TROP, CMP, CBC, PT #### [address] Basophils/100 leukocytes in Blood by Manual countOrdered By: Faiza Mcdonald on 01-11-2024 Basophils/100 WBC (Bld) 2 % Normal 0-2 [facility] Comment on above: Performed By: #### D IFF CBC, PTT, CK, HS TROP, CMP, CBC, PT #### [address] angio neckon 01-11-2024 CT angio neck [facility] [address] CT Scan Report Signed Patient: Dagoberto Squires MR#: [id number] : 1945 Acct:[id number] Age/Sex: 78 / M ADM Date: 01/11/24 Loc: Room: [address] [place] [address] Type: ADM INOo Attending Dr: Zachary Garcia MD Copies to: MD Nicko Sanchez DO Ordering Provider: Nicko Grimm DO Date of Service: 01/10/24 CT/CT angio neck: r/o stroke ([id number]) CT/CT angio head: r/o stroke CTA Head and Neck TECHNIQUE: Axial imaging of the head and neck with 2-D and 3-D reconstruction. 90cc of Isovue-370. The CT exam was performed using one or more the following dose reduction techniques: Automated exposure control, adjustment of the MA and/or Kv according to patient size, or use of the iterative reconstruction technique. Stenoses were measured using the NASCET criteria. COMPARISON: None HISTORY: Recent left-sided weakness. Confusion. The visualized aortic arch and great vessels are unremarkable. Subclavian arteries are patent atherosclerosis of aortic arch. Atherosclerosis of the proximal internal carotid arteries and carotid. Concern for high-grade stenosis of the right internal carotid artery at the level of the clinoid. High-grade stenosis proximal right internal carotid artery. No significant stenosis of the left carotid artery. 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 Occlusion of the right vertebral artery at the level of the foramen magnum with reconstitution distal aspect which appears to perfuse via of the PICA. Probable stenosis of the left vertebral artery. High-grade stenosis involves the basilar artery. There is seen with image 36 sequence 8. Large high-grade stenosis of the right P2 segment. Potential high-grade stenosis peripheral right posterior cerebral artery. No significant stenosis of left posterior cerebral artery.. High-grade stenosis of proximal right M2 segment. Image 418. Moderate stenosis branch of the right M2 segment seen with image 406. Moderate stenosis of the left M1 segment. High-grade stenosis left M2 segment at the sylvian fissure. On image 14. 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 Multifocal high-grade stenosis of the left anterior cerebral artery. High-grade stenosis of probable occlusion with reconstitution right anterior cerebral artery. High-grade stenosis peripheral branches left middle cerebral artery. No aneurysm. Occlusion of the right A1 segment.. CT/CT angio head IMPRESSION: Multiple levels of stenoses of the intra and extracranial circulation as stated above. Multiple levels of occlusion of the intracranial And extracranial circulation as stated above. Impression dictated by: Dao Toscano M.D.01/11/2024 8:25 AM Dictation Location: [place] [address] Transcribed By: [facility] 01/11/24 Dictated By: Dao Toscano DO 01/11/24 08 Signed By: 01/11/24 08 Normal [facility] CT head stroke alert wo cono n 01-11-2024 CT head stroke alert wo con [facility] Main [place] [address] [place], [place] [id number] CT Scan Report Signed Patient: Dagoberto Squires MR#: [id number] : 1945 Acct:[id number] Age/Sex: 78 / M ADM Date: 01/11/24 Loc: Room: [address] [place] [address] Type: ADM INOo Attending Dr: Zachary Garcia MD Copies to: MD Nicko Sanchez DO Ordering Provider: Nicko Grimm DO Date of Service: 01/10/24 CT/CT head stroke alert wo con: stroke Unenhanced head CTstroke alert TECHNIQUE: Contiguous axial imaging of the head. The CT exam was performed using one or more the following dose reduction techniques: Automated exposure control, adjustment of the MA and/or Kv according to patient size, or use of the iterative reconstruction technique. COMPARISON: None HISTORY: Fell. Recent left-sided weakness. VENTRICLES: Within normal limits ATROPHY: Mild atrophy BRAIN PARENCHYMA: Decreased density of the white matter is most consistent with chronic small vessel disease. Chronic infarct right basal ganglia. HEMORRHAGE: None HERNIATION: No mass effect or herniation INFARCTION: No recent vascular distribution infarction is seen. EXTRA-AXIAL FLUID COLLECTIONS None MIDBRAIN: Unremarkable BOB: Unremarkable MEDULLA: Unremarkable SINUSES: Unremarkable ORBITS: Grossly unremarkable MASTOIDS: Unremarkable BONY STRUCTURES Intact ADDITIONAL FINDINGS: CT/CT head stroke alert wo con IMPRESSION: No intracranial hemorrhage. Chronic infarct right basal ganglia. Concern for acute CVA may be assessed with MR. Preliminary given per [facility] report. Time report 01/10/2024 at 11:09 PM. Impression dictated by: Dao Toscano M.D.01/11/2024 8:11 AM Dictation Location: [place] [address] Transcribed By: [facility] 01/11/24 08 Dictated By: Dao Toscano DO 01/11/24 08 Signed By: 01/11/24 08 Normal [facility] CT head/brain perfusionon CT head/brain perfusion [facility] Main [place] [address] [place] [address] CT Scan Report Signed Patient: Dagoberto Squires MR#: [id number] : 1945 Acct:[id number] Age/Sex: 78 / M ADM Date: 01/11/24 Loc: 3T Room: [address] [place] [address] Type: ADM IN Attending Dr: Zachary Garcia MD Copies to: MD Faiza Sanchez APRN Ordering Provider: Faiza Mcdonald APRN Date of Service: 01/11/24 CT/CT head/brain perfusion: tia r/o cva CT head/brain perfusion 01/11/2024 1:13 PM SIGN AND SYMPTOMS: tia r/o cva CONTRAST: 15 mL of intravenous Isovue-370 TECHNIQUE: Multidetector CT axial slices of the brain were obtained without IV contrast. Sagittal, coronal, and 3-D reconstructions were performed and viewed on a separate workstation. Dynamic acquisition CT perfusion images were obtained in 18 seperate phases during and after administration of 50 mL Omnipaque 350 intravenously. Arterial and venous time activity curves were generated with regions of interest drawn over the arterial and venous circulations. Color maps for mean transit time, cerebral blood flow, cerebral perfusion, and time to peak perfusion were generated in the axial plane. Dynamic 3-D CT angiography images were reconstructed in sagittal coronal and axial plane and viewed on a separate workstation. CT was performed with one or more of the following dose reduction techniques: Automated exposure control, adjustment of the mA and/or kV according to patient size, or use of iterative reconstruction technique. COMPARISON: CT and CT angiography from the same date FINDINGS: Arterial input function LAURIE selected: Left ICA terminus. Venous outflow function LAURIE: Straight sinus. Parametric maps: CTP characteristics {for area of interest}: + CBF {cerebral blood flow}: Symmetric. + Tmax: Symmetric mild elevation of Tmax diffusely possibly secondary to poor global perfusion (potentially cardiac output related). This appears to be most pronounced along the MCA/ANGEL watershed territories bilaterally. + CBV {cerebral blood volume}: Symmetric. Vascular territory involved: None. Tissue involved: None. Mismatch volume: 183 mL Mismatch ratio: infinite CT/CT head/brain perfusion IMPRESSION: Symmetric mild elevation of Tmax diffusely possibly secondary to poor global perfusion (potentially cardiac output related). This appears to be most pronounced along the MCA/ANGEL watershed territories bilaterally. Mismatch volume: 1 83 mL Mismatch ratio: infinite Impression dictated by: Gómez Alan M.D.01/11/2024 4:36 PM Dictation Location: [place] [address] Transcribed By: ALEA 01/11/24 1636 Dictated By: Gómez Alan II, MD 01/11/24 1632 Signed By: 01/11/24 1636 Normal [facility] Cholesterol [Mass/volume] in Serum or PlasmaOrdered By: Faiza Mcdonald on 01-11-2024 Cholesterol [Mass/Vol] 172 mg/dL Normal 140-200 [facility] Comment on above: Chol less than 200 m g/dl low riskChol 201-239 mg/dl borderline riskChol 240 mg/dl and greater high risk Result Comment: Chol less than 200 mg/dl low risk Chol 201-239 mg/dl borderline risk Chol 240 mg/dl and greater high risk Performed By: #### D IFF CBC, PTT, CK, HS TROP, CMP, CBC, PT #### [address] Cholesterol in LDL Calc [Mas s/Vol]Ordered By: Faiza Mcdonald on 01-11-2024 Cholesterol in LDL [Mass/Vol] 107 mg/dL High 0-100 [facility] Comment on above: LDL ATP III CLASSIFI CATIONLDL less than 100 mg/dL OptimalLDL 100-129 mg/dL Near or above optimalLDL 130-159 mg/dL Borderline highLDL 160-189 mg/dL HighLDL greater than 189 mg/dL Very high Cholesterol in VLDL Calc [Ma ss/Vol]Ordered By: Faiza Mcdonald on 01-11-2024 Cholesterol in VLDL [Mass/Vol] 37 mg/dL [facility] Diff and CBCon 01-11-2024 Erythrocyte distribution width (RBC) [Ratio] 14.0 % Normal 12.0-14.8 [facility] Comment on above: Performed By: #### D IFF CBC, PTT, CK, HS TROP, CMP, CBC, PT #### [facility] [address] Giant Platelet Tally 1 /100{WBC} Normal [facility] Comment on above: Performed By: #### D IFF CBC, PTT, CK, HS TROP, CMP, CBC, PT #### [address] Hematocrit (Bld) [Volume fraction] 40.7 % Normal 38.8-50.0 [facility] Comment on above: Performed By: #### D IFF CBC, PTT, CK, HS TROP, CMP, CBC, PT #### [address] Hemoglobin (Bld) [Mass/Vol] 13.7 g/dL Normal 13.0-17.0 [facility] Comment on above: Performed By: #### D IFF CBC, PTT, CK, HS TROP, CMP, CBC, PT #### [address] Large Platelets Slight Normal [facility] Comment on above: Result Comment: PERF ORMED BY: [place] [address] PATHOLOGIST ASTHMA EDUCATOR DENNIS RODRIGUEZ M.D. Performed By: #### D IFF CBC, PTT, CK, HS TROP, CMP, CBC, PT #### [address] MCH (RBC) [Entitic mass] 31.9 pg Normal 27.5-35.2 [facility] Comment on above: Performed By: #### D IFF CBC, PTT, CK, HS TROP, CMP, CBC, PT #### [address] MCV (RBC) [Entitic vol] 94.7 fL Normal 83.5-101 [facility] Comment on above: Performed By: #### D IFF CBC, PTT, CK, HS TROP, CMP, CBC, PT #### [address] Mean Corpuscular HGB Conc 33.7 g/dL Normal 32.5-35.6 [facility] Comment on above: Performed By: #### D IFF CBC, PTT, CK, HS TROP, CMP, CBC, PT #### [address] Microcytosis Slight Normal [facility] Comment on above: Performed By: #### D IFF CBC, PTT, CK, HS TROP, CMP, CBC, PT #### [address] Monocytes/100 WBC (Bld) 17.43 % Normal 0.00-20.00 [facility] Comment on above: Performed By: #### D IFF CBC, PTT, CK, HS TROP, CMP, CBC, PT #### [address] Myelocytes 2 % High 0-0 [facility] Comment on above: Performed By: #### D IFF CBC, PTT, CK, HS TROP, CMP, CBC, PT #### [address] Platelet Estimate Normal Normal Normal [facility] Comment on above: Performed By: #### D IFF CBC, PTT, CK, HS TROP, CMP, CBC, PT #### [address] Platelet mean volume (Bld) [Entitic vol] 8.2 fL Normal 6.6-10.1 [facility] Comment on above: Performed By: #### D IFF CBC, PTT, CK, HS TROP, CMP, CBC, PT #### [place] [address] [place] Platelets (Bld) [#/Vol] 208 10*3/uL Normal 150-450 [facility] Comment on above: Performed By: #### D IFF CBC, PTT, CK, HS TROP, CMP, CBC, PT #### [place] [address] [place] RBC (Bld) [#/Vol] 4.30 10*6/uL Normal 3.90-5.60 [facility] Comment on above: Performed By: #### D IFF CBC, PTT, CK, HS TROP, CMP, CBC, PT #### [facility] [address] WBC (Bld) [#/Vol] 16.0 10*3/uL High 4.1-10.5 [facility] Comment on above: Performed By: #### D IFF CBC, PTT, CK, HS TROP, CMP, CBC, PT #### [facility] [address] echo transthoracicon [facility] echo transthoracic [facility] Main [place] [address] [place] [address] Echocardiogram Signed Patient: Dagoberto Squires MR#: [id number] : 1945 Acct:[id number] Age/Sex: 78 / M ADM Date: 01/11/24 Loc: Room: [address] [place] [address] Type: ADM INOo Attending Dr: Zachary Garcia MD Ordering Provider: Faiza Mcdonald, RESTORATIVE REHAB AIDE Date of Service: 01/11/2411/30/499 [facility] echo transthoracic: Source of Emboli Copies to: MD Faiza Narvaez, RESTORATIVE REHAB AIDE Weight: 233 lb Performed By: JUAN Woods BSA: 2.3 m2 BP: 189/94 mmHg HR: 52 Reason For Study: Source of Emboli History: No cardiac history per patient Interpretation Summary The left ventricular wall motion is normal. Mild concentric left ventricular hypertrophy. Ejection Fraction = 60-65%. A variety of Doppler measurements indicate impaired left ventricular relaxation, which is associated with grade I/IV or mild diastolic dysfunction. Atrial septum appears to be intact and there is no evidence of flow across the atrial septum either by colorflow Doppler or by agitated saline. There is no comparison study available. Procedure/Quality: A two-dimensional transthoracic echocardiogram with color flow, Doppler and injection of aggitated saline was performed. A two- dimensional transthoracic echocardiogram with color flow and Doppler was performed. The study was technically fair in quality. Left Ventricle: The left ventricular size is normal. Mild concentric left ventricular hypertrophy. Ejection Fraction = 60-65%. A variety of Doppler measurements indicate impaired left ventricular relaxation, which is associated with grade I/IV or mild diastolic dysfunction. The left ventricular wall motion is normal. Left Atrium: The left atrium appears normal in size. Atrial septum appears to be intact and there is no evidence of flow across the atrial septum either by colorflow Doppler or by agitated saline. Right Atrium: The right atrium appears normal in size. Right Ventricle: The right ventricular size, thickness and function are normal. Aortic Valve: The aortic valve is normal in structure and function. No aortic regurgitation is present. Mitral Valve: The mitral valve is normal in structure and function. There is no mitral regurgitation noted. Tricuspid Valve: The tricuspid valve is normal in structure and function. No tricuspid regurgitation. Pulmonic Valve: The pulmonic valve is normal in structure and function. Arteries: The aortic root is normal size. Pericardium/Pleura: No pericardial effusion seen. There is no pleural effusion. IVC/Hepatic Veins: The inferior vena cava is normal in size, with a normal collapsibility index. Measurements with Normals IVSd: 1.8 cm (0.7-1.1 cm)LVIDd: 5.1 cm (3.7-5.4 cm) LVPWd: 1.5 cm (0.7-1.1 cm)LVIDs: 3.5 cm (2.3-3.6 cm) LA dimension: 2.9 cm (2.3-4.0 cm)Ao root diam: 3.5 cm(2.0-3.6 cm) asc Aorta Diam: 3.9 cm(2.1-3.4cm) Doppler with Normals LV V1 max: 120.9 cm/sec (0.7-1.7m/s)MV E max buck: 91.9 cm/sec(0.8-1.3m/s) MV A max buck: 108.8 cm/sec(0.0-0.0m/s) MV E/A: 0.84 (<1.5) MMode/2D Measurements Calculations TAPSE: 3.0 cm FS: 31.2 % Ao root area: LVOT diam: 2.1 cm RV S Buck: EDV(Teich): 9.6 cm2 LVOT area: 3.3 cm2 12.9 cm/sec 121.8 ml ESV(Teich): 50.3 ml EF(Teich): 58.7 % __ LVLd ap4: 7.5 cm SV(MOD-sp4): LAV(MOD-sp4): LA A2 area: 13.4 cm2 EDV(MOD-sp4): 38.7 ml 48.0 ml 55.0 ml LAV(MOD-sp2): LA A4 area: 17.8 cm2 LVLs ap4: 6.5 cm 26.1 ml LA length (vol): ESV(MOD-sp4): 5.4 cm 16.3 ml LA vol: 37.8 ml EF(MOD-sp4): 70.4 % LA vol index: 16.8 ml/m2 Doppler Measurements Calculations MV dec time: E/E' lat: MV dec slope: Ao V2 max: 0.25 sec 13.2 181.3 cm/sec E/E' med: 366.3 cm/sec2 Ao max P.2 mmHg 15.6 Ao mean P.3 mmHg Ao V2 mean: 127.5 cm/sec Ao V2 VTI: 38.7 cm EVAN(I,D): 2.4 cm2 EVAN(V,D): 2.2 cm2 __ LV V1 max P.8 mmHg LV V1 mean P.0 mmHg LV V1 mean: 80.3 cm/sec LV V1 VTI: 27.8 cm Transcribed By: SCV Performed At: 01/11/24 1128 Signed By: Janell Burger MD 01/11/24 1251 Normal [facility] Eosinophils/100 leukocytes i n Blood by Manual countOrdered By: Faiza Mcdonald on 01-11-2024 Eosinophils/100 WBC (Bld) 26 % [address] Comment on above: Performed By: #### D IFF CBC, PTT, CK, HS TROP, CMP, CBC, PT #### [facility] [address] Giant platelets/100 leukocyt es [Ratio] in Blood by Manual countOrdered By: Faiza Mcdonald on 01-11-2024 Giant platelets/100 WBC Manual cnt (Bld) [Ratio] 1 /100{WBC} [facility] Glucose Poct Glucometerson 0 01-11-2024 Glucose [Mass/Vol] 208 mg/dL Normal [facility] Comment on above: Result Comment: [place] Glucose Reference Range is dependent on time and content of last meal. Glucose of more than 200 mg/dL in a nonstressed, ambulatory subject supports the diagnosis of Diabetes Mellitus. PERFORMED BY: [place] [address] PATHOLOGIST ASTHMA EDUCATOR DENNIS RODRIGUEZ M.D. Performed By: #### D IFF CBC, PTT, CK, HS TROP, CMP, CBC, PT #### [facility] [address] Glucose mean value [Mass/vol ume] in Blood Estimated from glycated hemoglobinOrdered By: Faiza Mcdonald on 01-11-2024 Average glucose Estimated from glycated hemoglobin (Bld) [Mass/Vol] 180 mg/dL [facility] Hemoglobin A1c percentageOrd ered By: Faiza Mcdonald on 01-11-2024 HbA1c (Bld) [Mass fraction] 7.9 % High 4.3-5.6 [facility] Comment on above: Increased risk for d iabetes: 5.7 - 6.4diabetes: >6.4glycemic control for adults with diabetes: <7.0 Result Comment: Incr eased risk for diabetes: 5.7 - 6.4 diabetes: >6.4 glycemic control for adults with diabetes: <7.0 Performed By: #### D IFF CBC, PTT, CK, HS TROP, CMP, CBC, PT #### [facility] [address] [place] [id number] [facility] Lipid Panelon 01-11-2024 LDL Cholesterol,Calculated 107 mg/dL High 0-100 [facility] Comment on above: Result Comment: LDL ATP III CLASSIFICATION LDL less than 100 mg/dL Optimal LDL 100-129 mg/dL Near or above optimal LDL 130-159 mg/dL Borderline high LDL 160-189 mg/dL High LDL greater than 189 mg/dL Very high Performed By: #### D IFF CBC, PTT, CK, HS TROP, CMP, CBC, PT #### [facility] [address] Triglyceride w/Reflex 186 mg/dL High 0-149 [facility] Comment on above: Result Comment: TRIG ATP III CLASSIFICATION TRIG less than 150 mg/dL Normal TRIG 150-199 mg/dL Borderline high TRIG 200-500 mg/dL High TRIG greater than 500 mg/dL Very high Standard traceable to the Center for Disease Conrtrol and Prevention (CDC) test method. Performed By: #### D IFF CBC, PTT, CK, HS TROP, CMP, CBC, PT #### [facility] [address] VLDL CHOLESTEROL 37 mg/dL Normal [facility] Comment on above: Performed By: #### D IFF CBC, PTT, CK, HS TROP, CMP, CBC, PT #### [facility] [address] Lymphocytes/100 leukocytes i n Blood by Manual countOrdered By: Faiza Mcdonald on 01-11-2024 Lymphocytes/100 WBC (Bld) 11 % Low 18-42 [facility] Comment on above: Performed By: #### D IFF CBC, PTT, CK, HS TROP, CMP, CBC, PT #### [facility] [address] [place] [id number] [facility] MR head/brain wo conon 01-10 MR head/brain wo [facility] [place] [address] MRI Report Signed Patient: Dagoberto Squires MR#: [id number] : 1945 Acct:[id number] Age/Sex: 78 / M ADM Date: 01/11/24 Loc: 3T Room: [address] [place] [address] Type: ADM IN Attending Dr: Zachary Garcia MD Copies to: MD Faiza Sanchez APRN Ordering Provider: Faiza Mcdonald APRN Date of Service: 01/11/24 MR/MR head/brain wo con: tia r/o cva MR head/brain wo con 01/11/2024 12:40 AM SIGN AND SYMPTOMS: Recent left-sided weakness. Confusion. PROTOCOL: Multiplanar multisequence MR images of the brain were obtained without IV contrast COMPARISON: Studies from the same date FINDINGS: Extra axial spaces: There is diffuse age-related cortical atrophy. Hemorrhage: None. Ventricular system: Within normal limits. Basal cisterns: Within normal limits and not effaced. Cerebral parenchyma: There is diffusion restriction in the right frontal and parietal periventricular white matter along the expected location of the right corticospinal tract consistent with the history of left-sided weakness. There is accompanying edema. This is consistent with acute to subacute ischemia. There is mineralization the deep radiograph. There is a remote lacunar infarcts in the right caudate nucleus, anterior right thalamus, and right subinsular white matter. There is accompanying gliosis along the right temporal periventricular white matter. There is a slightly T2 and T2 FLAIR hyperintense exophytic focus along the ependymal surface of the left frontal and parietal junction within the left lateral ventricle. 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 Midline shift: None.. Cerebellum: Within normal limits. Brainstem: Within normal limits. OTHER: Calvarium: Normal marrow signal. Vascular system: Diminished flow voids are noted in the V4 and V3 segments of the right vertebral artery consistent with slow flow. This corresponds to proximal occlusion on the previous CT angiogram. Visualized Paranasal sinuses: Within normal limits. Visualized Orbits: Within normal limits. Visualized upper cervical spine: Within normal limits. Sella and skull base: Within normal limits. MR/MR head/brain wo con IMPRESSION: There is a small a focus of acute to subacute ischemia corresponding to the corticospinal tract in the right frontal and parietal periventricular white matter with accompanying edema. This corresponds to the history of left-sided weakness. No additional areas of acute to subacute ischemia. Chronic microvascular ischemic changes and remote lacunar infarcts are noted as above. There is a slightly T2 and T2 FLAIR hyperintense exophytic focus along the ependymal surface of the left frontal and parietal junction within the left lateral ventricle. 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 Diminished flow voids are noted in the V4 and V3 segments of the right vertebral artery consistent with slow flow. This corresponds to proximal occlusion on the previous CT angiogram. Impression dictated by: Gómez Alan M.D.01/11/2024 6:15 PM Dictation Location: [place] [address] Transcribed By: ALEA 01/11/241814 Dictated By: Gómez Alan II, MD 01/11/241808 Signed By: 01/11/241814 Normal [facility] Magnesium [Mass/volume] in S liza or PlasmaOrdered By: Faiza Mcdonald on 01-11-2024 Magnesium [Mass/Vol] 1.7 mg/dL Low 1.9-2.7 [facility] Comment on above: Performed By: #### D IFF CBC, PTT, CK, HS TROP, CMP, CBC, PT #### [facility] [address] [place] [address] Manual blood segmented neutr ophils/100 leukocytesOrdered By: Faiza Mcdonald on 01-11-2024 Segmented neutrophils/100 WBC (Bld) 48 % Low 50-70 [facility] Comment on above: Performed By: #### D IFF CBC, PTT, CK, HS TROP, CMP, CBC, PT #### [facility] [address] [place] [address] Microcytes LM Ql (Bld)Ordere d By: Faiza Mcdonald on 01-11-2024 Microcytes Ql (Bld) Slight [facility] Monocyte distribution width [Entitic volume] in Blood by AutomatedOrdered By: Faiza Mcdonald on 01-11-2024 Monocyte distribution width Auto (Bld) [Entitic vol] 17.43 % 0.00-20.00 [facility] Monocytes/100 leukocytes in Blood by Manual countOrdered By: Faiza Mcdonald on 01-11-2024 Monocytes/100 WBC (Bld) 8 % Normal 2-11 [facility] Comment on above: Performed By: #### D IFF CBC, PTT, CK, HS TROP, CMP, CBC, PT #### [facility] [address] Myelocytes/100 WBC Manual cn t (Bld)Ordered By: Faiza Mcdonald on 01-11-2024 Myelocytes/100 WBC (Bld) 2 % High 0-0 [facility] Peripheral white blood cell differential % bands, microscopic examOrdered By: Faiza Mcdonald on 01-11-2024 Band form neutrophils/100 WBC (Bld) 4 % Normal 0-5 [facility] Comment on above: Performed By: #### D IFF CBC, PTT, CK, HS TROP, CMP, CBC, PT #### [facility] [address] Platelets Large [Presence] i n Blood by Light microscopyOrdered By: Faiza Mcdonald on 01-11-2024 Platelets Large LM Ql (Bld) Slight [facility] Serum or plasma high density lipoprotein (HDL) cholesterol measurementOrdered By: Faiza Mcdonald on 01-11-2024 Cholesterol in HDL [Mass/Vol] 28 mg/dL Normal 23-92 [facility] Comment on above: HDL CHOL ATP-III CLA SSIFICATION Cardiovascular RiskHDL > or equal to 60 mg/dL LOWHDL < 40 mg/dL HIGH Result Comment: HDL CHOL ATP-III CLASSIFICATION Cardiovascular Risk HDL > or equal to 60 mg/dL LOW HDL < 40 mg/dL HIGH Performed By: #### D IFF CBC, PTT, CK, HS TROP, CMP, CBC, PT #### [facility] [address] Serum or plasma total choles terol/high density lipoprotein (HDL) cholesterol mass ratOrdered By: Faiza Mcdonald on 01-11-2024 Cholesterol.total/Chol esterol in HDL [Mass ratio] 6.1 {ratio} Normal <5.0 [facility] Comment on above: Result Comment: PERF ORMED BY: [place] [address] PATHOLOGIST ASTHMA EDUCATOR DENNIS RODRIGUEZ M.D. Performed By: #### D IFF CBC, PTT, CK, HS TROP, CMP, CBC, PT #### [facility] [address] [place] [id number] [facility] Triglyceride [Mass/volume] i n Serum or PlasmaOrdered By: Faiza Mcdonald on 01-11-2024 Triglyceride [Mass/Vol] 186 mg/dL High 0-149 [facility] Comment on above: TRIG ATP III CLASSIF ICATIONTRIG less than 150 mg/dL NormalTRIG 150-199 mg/dL Borderline highTRIG 200-500 mg/dL High TRIG greater than 500 mg/dL Very highStandard traceable to the Center for Disease Conrtrol and Prevention (CDC) test method. XR chest 1V portableon 01-10 XR chest 1V portable [facility] Main [place] [address] [place] [address] XRay Report Signed Patient: Dagoberto Squires MR#: [id number] : 1945 Acct:[id number] Age/Sex: 78 / M ADM Date: 01/11/24 Loc: Room: [address] [place] [address] Type: ADM INOo Attending Dr: Zachary Garcia MD Copies to: MD Nicko Sanchez DO Ordering Provider: Nicko Grimm DO Date of Service: 01/10/24 XR/XR chest 1V portable: Neuro Symptoms/Deficit XR chest 1V portable 01/10/2024 10:15 PM SIGNS AND SYMPTOMS: Fall, left-sided weakness, confusion PROTOCOL: Frontal radiographs of the chest COMPARISON: None FINDINGS: The trachea is midline. The heart and mediastinal structures are within normal limits. Interstitial prominence is noted with perihilar vascular prominence suggesting volume overload. The bony thorax is intact. XR/XR chest 1V portable IMPRESSION: Interstitial prominence is noted with perihilar vascular prominence suggesting volume overload. Impression dictated by: Gómez Alan M.D.01/11/2024 8:45 AM Dictation Location: [place] [address] Transcribed By: [facility] 01/11/24 0845 Dictated By: Gómez Alan II, MD 01/11/2444 Signed By: 01/11/24 0845 Normal [facility] XR pre/post mri xrayon 01-10 XR pre/post mri xray [facility] [address] [place] [address] [place] [address] XRay Report Signed Patient: Dagoberto Squires MR#: [id number] : 1945 Acct:[id number] Age/Sex: 78 / M ADM Date: 01/11/24 Loc: Room: [address] [place] [address] Type: ADM IN Attending Dr: Zachary Garcia MD Copies to: Zachary Garcia MD Ordering Provider: Zachary Garcia MD Date of Service: 01/11/24 XR/XR pre/post mri xray: . XR pre/post mri xray 01/11/2024 1:20 PM SIGNS AND SYMPTOMS: . BILAT FEMUR, R/O SHRAPNEL PROTOCOL: Frontal radiographs of the femurs COMPARISON: None FINDINGS: There is no abnormal radiopaque foreign body. The bony structures are grossly intact. The bony ring of the pelvis is intact. No significant soft tissue swelling. XR/XR pre/post mri xray IMPRESSION: There is no abnormal radiopaque foreign body. Impression dictated by: Gómez Alan M.D.01/11/2024 4:37 PM Dictation Location: [place] [address] Transcribed By: [facility] 01/11/24 1637 Dictated By: Gómez Alan II, MD 01/11/24 1636 Signed By: 01/11/24 1637 Normal [facility] Activated partial thrombopla stin time (aPTT) in platelet poor plasma by coagulation aOrdered By: Nicko Grimm on 01-10-2024 aPTT Coag (PPP) [Time] 30.0 s 25.1-36.5 [facility] Comment on above: A hematocrit value g reater than 55% may lead to inaccurate results in coagulation testing. Patients having hematocrit values >55% require a special collection tube for coagulation studies. Please contact the laboratory at [phone] for redraw instructions. Alanine aminotransferase [En zymatic activity/volume] in Serum or PlasmaOrdered By: Nicko Grimm on 01-10-2024 ALT [Catalytic activity/Vol] 8 U/L Normal 7-52 [facility] Comment on above: Performed By: #### D IFF CBC, PTT, CK, HS TROP, CMP, CBC, PT #### [facility] [address] Albumin [Mass/volume] in Ser um or Plasma by Bromocresol green (BCG) dye binding methoOrdered By: Nicko Grimm on 01-10-2024 Albumin BCG dye [Mass/Vol] 3.8 g/dL 3.5-5.7 [facility] Alkaline phosphatase [Enzyma tic activity/volume] in Serum or PlasmaOrdered By: Nicko Grimm on 01-10-2024 ALP [Catalytic activity/Vol] 78 U/L Normal 34-104 [facility] Comment on above: Performed By: #### D IFF CBC, PTT, CK, HS TROP, CMP, CBC, PT #### [facility] [address] [place] [address] Amphetamine Screen Ql (U)Ord ered By: Faiza Mcdonald on 01-10-2024 Amphetamines Ql (U) Negative Negative [facility] Aspartate aminotransferase [ Enzymatic activity/volume] in Serum or PlasmaOrdered By: Nicko Grimm on 01-10-2024 AST [Catalytic activity/Vol] 13 U/L Normal 13-39 [facility] Comment on above: Performed By: #### D IFF CBC, PTT, CK, HS TROP, CMP, CBC, PT #### [facility] [address] [place] [address] Bacteria [Presence] in Urine by AutomatedOrdered By: Nicko Grimm on 01-10-2024 Bacteria Auto Ql (U) None seen [HPF] None Seen [facility] Barbiturates [Presence] in U rine by Screen methodOrdered By: Faiza Mcdonald on 01-10-2024 Barbiturates Screen Ql (U) Negative Negative [facility] Basophils Auto (Bld) [#/Vol] Ordered By: Nicko Grimm on 01-10-2024 Basophils (Bld) [#/Vol] N/A [facility] Basophils/100 WBC Auto (Bld) Ordered By: Nicko Grimm on 01-10-2024 Basophils/100 WBC (Bld) N/A [facility] Basophils/100 leukocytes in Blood by Manual countOrdered By: Nicko Grimm on 01-10-2024 Basophils/100 WBC (Bld) 1 % Normal 0-2 [facility] Comment on above: Performed By: #### D IFF CBC, PTT, CK, HS TROP, CMP, CBC, PT #### [facility] [address] Benzodiazepines Screen Ql (U )Ordered By: Faiza Mcdonald on 01-10-2024 Benzodiazepines Ql (U) Negative Negative [facility] Benzoylecgonine [Presence] i n Urine by Screen methodOrdered By: Faiza Mcdonald on 01-10-2024 Benzoylecgonine Screen Ql (U) Negative Negative [facility] Bilirubin Test strip Ql (U)O rdered By: Nicko Grimm on 01-10-2024 Bilirubin Ql (U) Negative Negative [facility] Bilirubin.total [Mass/volume ] in Serum or PlasmaOrdered By: Nicko Grimm on 01-10-2024 Bilirubin [Mass/Vol] 0.6 mg/dL Normal 0.3-1.0 [facility] Comment on above: Performed By: #### D IFF CBC, PTT, CK, HS TROP, CMP, CBC, PT #### [facility] [address] [place] [id number] [place] Calcium [Mass/volume] in Ser um or PlasmaOrdered By: Nicko Grimm on 01-10-2024 Calcium [Mass/Vol] 9.4 mg/dL Normal 8.6-10.3 [facility] Comment on above: Performed By: #### D IFF CBC, PTT, CK, HS TROP, CMP, CBC, PT #### [facility] [address] [place] [id number] [place] Cannabinoids [Presence] in U rine by Screen methodOrdered By: Faiza Mcdonald on 01-10-2024 Cannabinoids Screen Ql (U) Positive High Negative [facility] Comment on above: These are unconfirme d results and should not be used for legal purposes. Drug Cut-Off Concentration: AMPH 1000 ng/mL NIMESH 200 ng/mL STEVEN 200 ng/mL COCM 300 ng/mL OP 300 ng/mL PCP 25 ng/mL THC 20 ng/mL Capillary blood glucose lupillo urement by glucometer (mass/volume)Ordered By: Nicko Grimm on 01-10-2024 Glucose [Mass/Vol] 215 mg/dL Normal [facility] Comment on above: Random Glucose Refer ence Range is dependent on time and content of last meal. Glucose of more than 200 mg/dL in a nonstressed, ambulatory subject supports the diagnosis of Diabetes Mellitus. Result Comment: [place] om Glucose Reference Range is dependent on time and content of last meal. Glucose of more than 200 mg/dL in a nonstressed, ambulatory subject supports the diagnosis of Diabetes Mellitus. PERFORMED BY: [place] [address] PATHOLOGIST ASTHMA EDUCATOR DENNIS RODRIGUEZ M.D. Performed By: #### D IFF CBC, PTT, CK, HS TROP, CMP, CBC, PT #### [facility] [address] [place] [address] [place] Carbon dioxide, total [Moles /volume] in Serum or PlasmaOrdered By: Nicko Grimm on 01-10-2024 CO2 [Moles/Vol] 29.3 mmol/L Normal 21.0-31.0 [facility] Comment on above: Performed By: #### D IFF CBC, PTT, CK, HS TROP, CMP, CBC, PT #### [facility] [address] [place] [id number] [place] Chloride [Moles/volume] in S liza or PlasmaOrdered By: Nicko Grimm on 01-10-2024 Chloride [Moles/Vol] 100 mmol/L Normal 98-107 [facility] Comment on above: Performed By: #### D IFF CBC, PTT, CK, HS TROP, CMP, CBC, PT #### [facility] [address] [place] [address] [place] Color of Urine by AutoOrdere d By: Nicko Grimm on 01-10-2024 Color (U) Yellow Normal Yellow [facility] Comment on above: Order Comment: Name Collection Type:: Clean-Voided Midstream Performed By: #### D IFF CBC, PTT, CK, HS TROP, CMP, CBC, PT #### [facility] [address] Complete Blood Count Auto Di ffon 01-10-2024 Mean Corpuscular HGB Conc 33.2 g/dL Normal 32.5-35.6 [facility] Comment on above: Performed By: #### D IFF CBC, PTT, CK, HS TROP, CMP, CBC, PT #### [facility] [address] [place] [address] Monocytes/100 WBC (Bld) 20.12 % High 0.00-20.00 [facility] Comment on above: Result Comment: For adults in ED, MDW > 20.0 may be associated with a higher risk of sepsis during the first 12 hrs of hospital admission PERFORMED BY: [place] [address] PATHOLOGIST ASTHMA EDUCATOR DENNIS RODRIGUEZ M.D. Performed By: #### D IFF CBC, PTT, CK, HS TROP, CMP, CBC, PT #### [address] Result Comment: For adults in ED, MDW > 20.0 may be associated with a higher risk of sepsis during the first 12 hrs of hospital admission Comprehensive Metabolic Pane luisito 01-10-2024 Albumin [Mass/Vol] 3.8 g/dL Normal 3.5-5.7 [facility] Comment on above: Performed By: #### D IFF CBC, PTT, CK, HS TROP, CMP, CBC, PT #### [facility] [address] [place] [address] Creatinine Clr Calc Pharmacy 57.26 Normal [facility] Comment on above: Result Comment: PERF ORMED BY: [place] [address] PATHOLOGIST ASTHMA EDUCATOR DENNIS RODRIGUEZ M.D. Performed By: #### D IFF CBC, PTT, CK, HS TROP, CMP, CBC, PT #### [address] GFR/1.73 sq M.predicted MDRD (S/P/Bld) [Vol rate/Area] 52.997 mL/min/{1.73_m2} Normal [facility] Comment on above: Performed By: #### D IFF CBC, PTT, CK, HS TROP, CMP, CBC, PT #### [address] Creatine kinase [Enzymatic a ctivity/volume] in Serum or PlasmaOrdered By: Nicko Grimm on 01-10-2024 CK [Catalytic activity/Vol] 32 U/L Normal 30-223 [facility] Comment on above: Performed By: #### D IFF CBC, PTT, CK, HS TROP, CMP, CBC, PT #### [address] Creatinine [Mass/volume] in Serum or PlasmaOrdered By: Nicko Grimm on 01-10-2024 Creatinine [Mass/Vol] 1.38 mg/dL High 0.70-1.30 [facility] Comment on above: Performed By: #### D IFF CBC, PTT, CK, HS TROP, CMP, CBC, PT #### [address] Diff and CBCon 01-10-2024 Dohle Bodies Slight Normal [facility] Comment on above: Performed By: #### D IFF CBC, PTT, CK, HS TROP, CMP, CBC, PT #### [address] Metamyelocytes 1 % High 0-0 [facility] Comment on above: Performed By: #### D IFF CBC, PTT, CK, HS TROP, CMP, CBC, PT #### [address] Myelocytes 2 % High 0-0 [facility] Comment on above: Performed By: #### D IFF CBC, PTT, CK, HS TROP, CMP, CBC, PT #### [facility] [address] Platelet Estimate Normal Normal Normal [facility] Comment on above: Performed By: #### D IFF CBC, PTT, CK, HS TROP, CMP, CBC, PT #### [facility] [address] Platelet Morphology Normal Normal Normal [facility] Comment on above: Result Comment: PERF ORMED BY: [place] [address] PATHOLOGIST ASTHMA EDUCATOR DENNIS RODRIGUEZ M.D. Performed By: #### D IFF CBC, PTT, CK, HS TROP, CMP, CBC, PT #### [address] Toxic Vacuolation Slight Normal [facility] Comment on above: Performed By: #### D IFF CBC, PTT, CK, HS TROP, CMP, CBC, PT #### [address] Dipstick and Microscopicon 0 01-10-2024 Bacteria,Urine None Seen Normal None Seen [facility] Comment on above: Order Comment: Name Collection Type:: Clean-Voided Midstream Performed By: #### D IFF CBC, PTT, CK, HS TROP, CMP, CBC, PT #### [address] Bilirubin,Urine Negative Normal Negative [facility] Comment on above: Order Comment: Name Collection Type:: Clean-Voided Midstream Performed By: #### D IFF CBC, PTT, CK, HS TROP, CMP, CBC, PT #### [facility] [address] Glucose Ql (U) 500 mg/dL High Normal [facility] Comment on above: Order Comment: Name Collection Type:: Clean-Voided Midstream Performed By: #### D IFF CBC, PTT, CK, HS TROP, CMP, CBC, PT #### [facility] [address] Mucus,Urine Rare Normal [facility] Comment on above: Order Comment: Name Collection Type:: Clean-Voided Midstream Result Comment: PERF ORMED BY: [place] [address] PATHOLOGIST ASTHMA EDUCATOR DENNIS RODRIGUEZ M.D. Performed By: #### D IFF CBC, PTT, CK, HS TROP, CMP, CBC, PT #### [address] Nitrite,Urine Negative Normal Negative [facility] Comment on above: Order Comment: Name Collection Type:: Clean-Voided Midstream Performed By: #### D IFF CBC, PTT, CK, HS TROP, CMP, CBC, PT #### [address] Occult Blood,Urine Negative Normal Negative [facility] Comment on above: Order Comment: Name Collection Type:: Clean-Voided Midstream Result Comment: PERF ORMED BY: [place] [address] PATHOLOGIST ASTHMA EDUCATOR DENNIS RODRIGUEZ M.D. Performed By: #### D IFF CBC, PTT, CK, HS TROP, CMP, CBC, PT #### [address] RBC,Urine 1-2 Normal 0-4 [facility] Comment on above: Order Comment: Name Collection Type:: Clean-Voided Midstream Performed By: #### D IFF CBC, PTT, CK, HS TROP, CMP, CBC, PT #### [address] Specificy [place],Urine 1.043 High 1.001-1.03 0 [facility] Comment on above: Order Comment: Name Collection Type:: Clean-Voided Midstream Performed By: #### D IFF CBC, PTT, CK, HS TROP, CMP, CBC, PT #### [address] Squamous Epithelial Cell,Urine 1-2 Normal 0-2 [facility] Comment on above: Order Comment: Name Collection Type:: Clean-Voided Midstream Performed By: #### D IFF CBC, PTT, CK, HS TROP, CMP, CBC, PT #### [facility] [address] Urobilinogen,Urine Normal Normal Normal [facility] Comment on above: Order Comment: Name Collection Type:: Clean-Voided Midstream Performed By: #### D IFF CBC, PTT, CK, HS TROP, CMP, CBC, PT #### [facility] [address] WBC,Urine 3-4 Normal 0-4 [facility] Comment on above: Order Comment: Name Collection Type:: Clean-Voided Midstream Performed By: #### D IFF CBC, PTT, CK, HS TROP, CMP, CBC, PT #### [facility] [address] Dohle bodies detectionOrdere d By: Nicko Grimm on 01-10-2024 Dohle body LM Ql (Bld) Slight [facility] Drug Screen,Urineon 01-10-20 24 Amphetamine Screen,Urine Negative Normal Negative [facility] Comment on above: Order Comment: Comme nt add on Performed By: #### U RDS #### [address] Barbiturate Screen,Urine Negative Normal Negative [facility] Comment on above: Order Comment: Comme nt add on Performed By: #### U RDS #### [address] Benzodiazepines Screen,Urine Negative Normal Negative [facility] Comment on above: Order Comment: Comme nt add on Performed By: #### U RDS #### [address] Cannabinoid Screen,Urine Positive High Negative [facility] Comment on above: Order Comment: Comme nt add on Result Comment: Thes e are unconfirmed results and should not be used for legal purposes. Drug Cut-Off Concentration: AMPH 1000 ng/mL NIMESH 200 ng/mL STEVEN 200 ng/mL COCM 300 ng/mL OP 300 ng/mL PCP 25 ng/mL THC 20 ng/mL PERFORMED BY: [place] [address] PATHOLOGIST ASTHMA EDUCATOR DENNIS RODRIGUEZ M.D. Performed By: #### U RDS #### [address] Cocaine Screen,Urine Negative Normal Negative [facility] Comment on above: Order Comment: Comme nt add on Performed By: #### U RDS #### [address] Opiate Screen,Urine Negative Normal Negative [facility] Comment on above: Order Comment: Comme nt add on Performed By: #### U RDS #### [address] Phencyclidine Screen,Urine Negative Normal Negative [facility] Comment on above: Order Comment: Comme nt add on Performed By: #### U RDS #### [address] ECG 12 lead ECGon 01-10-2024 ECG 12 lead ECG [facility] [place] [address] [place] [address] Electrocardiograph Report Signed Patient: Dagoberto Squires MR#: [id number] : 1945 Acct:[id number] Age/Sex: 78 / M ADM Date: 01/11/24 Loc: Room: [address] [place] [address] Type: ADM INOo Attending Dr: Jc Brown DO Ordering Provider: Nicko Grimm DO Date of Service: 01/10/2410/30/2208 ECG/ECG 12 lead ECG: stroke Copies to: Test Reason : Blood Pressure : / mmHG Vent. Rate : 090 BPM Atrial Rate : 090 BPM P-R Int : 270 ms QRS Dur : 096 ms QT Int : 338 ms P-R-T Axes : 050 050 078 degrees QTc Int : 413 ms Sinus rhythm with 1st degree AV block Incomplete right bundle branch block Confirmed by Nicko Grimm DO ([id number]) on 01/11/2024 6:53:27 AM Referred By: Electronically Signed By:Nicko Grimm DO Transcribed By: MUS Signed By Nicko Grimm DO 0653 Normal [facility] Eosinophils Auto (Bld) [#/Vo l]Ordered By: Nicko Grimm on 01-10-2024 Eosinophils (Bld) [#/Vol] N/A [facility] Eosinophils/100 WBC Auto (Bl d)Ordered By: Nicko Grimm on 01-10-2024 Eosinophils/100 WBC (Bld) N/A [facility] Eosinophils/100 leukocytes i n Blood by Manual countOrdered By: Nicko Grimm on 01-10-2024 Eosinophils/100 WBC (Bld) 17 % High 1-3 [facility] Comment on above: Performed By: #### D IFF CBC, PTT, CK, HS TROP, CMP, CBC, PT #### [facility] [address] Epithelial cells.squamous [# /area] in Urine sediment by Automated countOrdered By: Nicko Grimm on 01-10-2024 Epithelial cells.squamous Auto (Urine sed) [#/Area] 1-2 [HPF] 0-2 [facility] Erythrocyte distribution wid th [Ratio] by Automated countOrdered By: Nicko Grimm on 01-10-2024 Erythrocyte distribution width (RBC) [Ratio] 14.4 % Normal 12.0-14.8 [facility] Comment on above: Performed By: #### D IFF CBC, PTT, CK, HS TROP, CMP, CBC, PT #### [facility] [address] Erythrocytes [#/area] in Uri ne sediment by Automated countOrdered By: Nicko Grimm on 01-10-2024 RBC Auto (Urine sed) [#/Area] 1-2 [HPF] 0-4 [facility] Erythrocytes [#/volume] in B lood by Automated countOrdered By: Nicko Grimm on 01-10-2024 RBC (Bld) [#/Vol] 4.81 10*6/uL Normal 3.90-5.60 [facility] Comment on above: Performed By: #### D IFF CBC, PTT, CK, HS TROP, CMP, CBC, PT #### [facility] [address] [place] [address] [place] Glucose [Mass/volume] in Ser um or PlasmaOrdered By: Nicko Grimm on 01-10-2024 Glucose [Mass/Vol] 266 mg/dL High 70-100 [facility] Comment on above: ADA recommended refe rence rangeRandom Glucose Reference Range is dependent on time and content of last meal. Glucose of more than 200 mg/dL in a nonstressed, ambulatory subject supports the diagnosis of Diabetes Mellitus. Result Comment: [place] om Glucose Reference Range is dependent on time and content of last meal. Glucose of more than 200 mg/dL in a nonstressed, ambulatory subject supports the diagnosis of Diabetes Mellitus. ADA recommended reference range Performed By: #### D IFF CBC, PTT, CK, HS TROP, CMP, CBC, PT #### [facility] [address] Glucose [Mass/volume] in Uri ne by Test stripOrdered By: Nicko Grimm on 01-10-2024 Glucose Test strip (U) [Mass/Vol] 500 mg/dL High Normal [facility] Hematocrit [Volume Fraction] of Blood by Automated countOrdered By: Nicko Grimm on 01-10-2024 Hematocrit (Bld) [Volume fraction] 45.7 % Normal 38.8-50.0 [facility] Comment on above: Performed By: #### D IFF CBC, PTT, CK, HS TROP, CMP, CBC, PT #### [facility] [address] [place] [id number] [facility] Hemoglobin Test strip Ql (U) Ordered By: Nicko Grimm on 01-10-2024 Hemoglobin Ql (U) Negative Negative [facility] Hemoglobin [Mass/volume] in BloodOrdered By: Nicko Grimm on 01-10-2024 Hemoglobin (Bld) [Mass/Vol] 15.2 g/dL Normal 13.0-17.0 [facility] Comment on above: Performed By: #### D IFF CBC, PTT, CK, HS TROP, CMP, CBC, PT #### [facility] [address] INR in Platelet poor plasma by Coagulation assayOrdered By: Nicko Grimm on 01-10-2024 INR Coag (PPP) [Relative time] 1.0 {INR} Normal [facility] Comment on above: INR Therapeutic Rang e A) Pre- and Peroperative OAT started two weeks before surgery. NOT HIP SURGERY: 1.5 - 2.5 HIP SURGERY: 2 - 3B) Primary and secondary prevention of venous THROMBOSIS: 2 - 3C) Active venous thrombosis, pulmonary embolismand prevention of recurrent venous thrombosis: 2 - 3D) Prevention of arterial thromboembolismincluding patients with mechanical heart valves: 3 - 4.5 Result Comment: INR Therapeutic Range A) Pre- and Peroperative OAT started two weeks before surgery. NOT HIP SURGERY: 1.5 - 2.5 HIP SURGERY: 2 - 3 B) Primary and secondary prevention of venous THROMBOSIS: 2 - 3 C) Active venous thrombosis, pulmonary embolism and prevention of recurrent venous thrombosis: 2 - 3 D) Prevention of arterial thromboembolism including patients with mechanical heart valves: 3 - 4.5 Performed By: #### D IFF CBC, PTT, CK, HS TROP, CMP, CBC, PT #### [facility] [address] [place] [address] [place] Ketones [Presence] in Urine by Test stripOrdered By: Nicko Grimm on 01-10-2024 Ketones Ql (U) Negative Normal Negative [facility] Comment on above: Order Comment: Name Collection Type:: Clean-Voided Midstream Performed By: #### D IFF CBC, PTT, CK, HS TROP, CMP, CBC, PT #### [facility] [address] [place] [address] [place] Leukocyte esterase [Presence ] in Urine by Test stripOrdered By: Nicko Grimm on 01-10-2024 Leukocyte esterase Test strip Ql (U) Negative Normal Negative [facility] Comment on above: Order Comment: Name Collection Type:: Clean-Voided Midstream Performed By: #### D IFF CBC, PTT, CK, HS TROP, CMP, CBC, PT #### [facility] [address] [place] [address] [place] Leukocytes [#/area] in Urine sediment by Automated countOrdered By: Nicko Grimm on 01-10-2024 WBC Auto (Urine sed) [#/Area] 3-4 [HPF] 0-4 [facility] Leukocytes [#/volume] correc guillermina for nucleated erythrocytes in Blood by Automated counOrdered By: Nicko Grimm on 01-10-2024 WBC corrected for nucl RBC Auto (Bld) [#/Vol] 16.1 10*3/uL 4.1-10.5 [facility] Leukocytes [#/volume] in Blo od by Automated countOrdered By: Nicko Grimm on 01-10-2024 WBC (Bld) [#/Vol] 16.1 10*3/uL High 4.1-10.5 [facility] Comment on above: Performed By: #### D IFF CBC, PTT, CK, HS TROP, CMP, CBC, PT #### [facility] [address] [place] [address] Lymphocytes Auto (Bld) [#/Vo l]Ordered By: Nicko Grimm on 01-10-2024 Lymphocytes (Bld) [#/Vol] N/A [facility] Lymphocytes/100 WBC Auto (Bl d)Ordered By: Nicko Grimm on 01-10-2024 Lymphocytes/100 WBC (Bld) N/A [facility] Lymphocytes/100 leukocytes i n Blood by Manual countOrdered By: Nicko Grimm on 01-10-2024 Lymphocytes/100 WBC (Bld) 17 % Low 18-42 [facility] Comment on above: Performed By: #### D IFF CBC, PTT, CK, HS TROP, CMP, CBC, PT #### [facility] [address] MCH [Entitic mass] by Automa guillermina countOrdered By: Nicko Grimm on 01-10-2024 MCH (RBC) [Entitic mass] 31.5 pg Normal 27.5-35.2 [facility] Comment on above: Performed By: #### D IFF CBC, PTT, CK, HS TROP, CMP, CBC, PT #### [facility] [address] MCHC Auto (RBC) [Mass/Vol]Or dered By: Nicko Grimm on 01-10-2024 MCHC (RBC) [Mass/Vol] 33.2 g/dL 32.5-35.6 [facility] MCV [Entitic volume] by Auto mated countOrdered By: Nicko Grimm on 01-10-2024 MCV (RBC) [Entitic vol] 95.0 fL Normal 83.5-101 [facility] Comment on above: Performed By: #### D IFF CBC, PTT, CK, HS TROP, CMP, CBC, PT #### [facility] [address] Manual blood segmented neutr ophils/100 leukocytesOrdered By: Nicko Grimm on 01-10-2024 Segmented neutrophils/100 WBC (Bld) 47 % Low 50-70 [facility] Comment on above: Performed By: #### D IFF CBC, PTT, CK, HS TROP, CMP, CBC, PT #### [facility] [address] Metamyelocytes/100 WBC Manua l cnt (Bld)Ordered By: Nicko Grimm on 01-10-2024 Metamyelocytes/100 WBC (Bld) 1 % High 0-0 [facility] Monocyte distribution width [Entitic volume] in Blood by AutomatedOrdered By: Nicko Grimm on 01-10-2024 Monocyte distribution width Auto (Bld) [Entitic vol] 20.12 % 0.00-20.00 [facility] Comment on above: For adults in ED, MD W > 20.0 may be associated with a higher risk of sepsis during the first 12 hrs of hospital admission Monocytes Auto (Bld) [#/Vol] Ordered By: Nicko Grimm on 01-10-2024 Monocytes (Bld) [#/Vol] N/A [facility] Monocytes/100 WBC Auto (Bld) Ordered By: Nicko Grimm on 01-10-2024 Monocytes/100 WBC (Bld) N/A [facility] Monocytes/100 leukocytes in Blood by Manual countOrdered By: Nicko Grimm on 01-10-2024 Monocytes/100 WBC (Bld) 10 % Normal 2-11 [facility] Comment on above: Performed By: #### D IFF CBC, PTT, CK, HS TROP, CMP, CBC, PT #### [facility] [address] [place] [id number] [facility] Mucus [Presence] in Urine by AutomatedOrdered By: Nicko Grimm on 01-10-2024 Mucus Auto Ql (U) Rare [LPF] [facility] Myelocytes/100 WBC Manual cn t (Bld)Ordered By: Nicko Grimm on 01-10-2024 Myelocytes/100 WBC (Bld) 2 % 0-0 [facility] Neutrophils Auto (Bld) [#/Vo l]Ordered By: Nicko Grimm on 01-10-2024 Neutrophils (Bld) [#/Vol] N/A [facility] Neutrophils/100 WBC Auto (Bl d)Ordered By: Nicko Grimm on 01-10-2024 Neutrophils/100 WBC (Bld) N/A [facility] Nitrite Test strip Ql (U)Ord ered By: Nicko Grimm on 01-10-2024 Nitrite Ql (U) Negative Negative [facility] No Panel InformationOrdered By: Nicko Grimm on 01-10-2024 Estimated GFR (CKD-EPI) 52.997 mL/Min [facility] Creatinine Clearance (Chem 57.26 [facility] Nucleated erythrocytes [Pres ence] in Blood by Automated countOrdered By: Nicko Grimm on 01-10-2024 Nucleated RBC Auto Ql (Bld) N/A [facility] Opiates [Presence] in Urine by Screen methodOrdered By: Faiza Mcdonald on 01-10-2024 Opiates Screen Ql (U) Negative Negative [facility] Partial Thromboplastin Timeo n 01-10-2024 aPTT Coag (Bld) [Time] 30.0 s Normal 25.1-36.5 [facility] Comment on above: Result Comment: A he matocrit value greater than 55% may lead to inaccurate results in coagulation testing. Patients having hematocrit values >55% require a special collection tube for coagulation studies. Please contact the laboratory at [phone] for redraw instructions. PERFORMED BY: [place] [address] PATHOLOGIST ASTHMA EDUCATOR DENNIS RODRIGUEZ M.D. Performed By: #### D IFF CBC, PTT, CK, HS TROP, CMP, CBC, PT #### [facility] [address] [place] [address] Peripheral white blood cell differential % bands, microscopic examOrdered By: Nicko Grimm on 01-10-2024 Band form neutrophils/100 WBC (Bld) 5 % Normal 0-5 [facility] Comment on above: Performed By: #### D IFF CBC, PTT, CK, HS TROP, CMP, CBC, PT #### [facility] [address] [place] [address] Phencyclidine Screen Ql (U)O rdered By: Faiza Mcdonald on 01-10-2024 Phencyclidine Ql (U) Negative Negative [facility] Platelet adequacy [Presence] in Blood by Light microscopyOrdered By: Nicko Grimm on 01-10-2024 Platelets LM Ql (Bld) Normal Normal [facility] Platelet mean volume [Entiti c volume] in Blood by Automated countOrdered By: Nicko Grimm on 01-10-2024 Platelet mean volume (Bld) [Entitic vol] 8.2 fL Normal 6.6-10.1 [facility] Comment on above: Performed By: #### D IFF CBC, PTT, CK, HS TROP, CMP, CBC, PT #### [facility] [address] [place] [address] Platelet morphology finding [Identifier] in BloodOrdered By: Nicko Grimm on 01-10-2024 Platelet morphology finding Nom (Bld) Normal Normal [facility] Platelets [#/volume] in Bloo d by Automated countOrdered By: Nicko Grimm on 01-10-2024 Platelets (Bld) [#/Vol] 226 10*3/uL Normal 150-450 [facility] Comment on above: Performed By: #### D IFF CBC, PTT, CK, HS TROP, CMP, CBC, PT #### [facility] [address] [place] [address] [place] Potassium [Moles/volume] in Serum or PlasmaOrdered By: Nicko Grimm on 01-10-2024 Potassium [Moles/Vol] 4.0 mmol/L Normal 3.5-5.1 [facility] Comment on above: Performed By: #### D IFF CBC, PTT, CK, HS TROP, CMP, CBC, PT #### [facility] [address] [place] [address] [place] Protein [Mass/volume] in Ser um or PlasmaOrdered By: Nicko Grimm on 01-10-2024 Protein [Mass/Vol] 6.7 g/dL Normal 6.4-8.9 [facility] Comment on above: Performed By: #### D IFF CBC, PTT, CK, HS TROP, CMP, CBC, PT #### [facility] [address] [place] [id number] [place] Protein [Mass/volume] in Uri ne by Test stripOrdered By: Nicko Grimm on 01-10-2024 Protein (U) [Mass/Vol] 20 mg/dL High Negative [facility] Comment on above: Order Comment: Name Collection Type:: Clean-Voided Midstream Performed By: #### D IFF CBC, PTT, CK, HS TROP, CMP, CBC, PT #### [facility] [address] [place] [address] [place] Prothrombin time (PT)Ordered By: Nicko Grimm on 01-10-2024 PT Coag (PPP) [Time] 11.9 s Normal 9.0-12.9 [facility] Comment on above: A hematocrit value g reater than 55% may lead to inaccurate results in coagulation testing. Patients having hematocrit values >55% require a special collection tube for coagulation studies. Please contact the laboratory at [phone] for redraw instructions. Result Comment: A he matocrit value greater than 55% may lead to inaccurate results in coagulation testing. Patients having hematocrit values >55% require a special collection tube for coagulation studies. Please contact the laboratory at [phone] for redraw instructions. Performed By: #### D IFF CBC, PTT, CK, HS TROP, CMP, CBC, PT #### [address] RBC morphologyOrdered By: Americo Grimm on 01-10-2024 RBC morphology finding Nom (Bld) Normal Normal Normal [facility] Comment on above: Performed By: #### D IFF CBC, PTT, CK, HS TROP, CMP, CBC, PT #### [address] Serum globulin measurement b y calculation (mass/volume)Ordered By: Nicko Grimm on 01-10-2024 Globulin (S) [Mass/Vol] 2.9 g/dL Normal [facility] Comment on above: Performed By: #### D IFF CBC, PTT, CK, HS TROP, CMP, CBC, PT #### [address] Serum or plasma albumin/glob ulin mass ratioOrdered By: Nicko Girmm on 01-10-2024 Albumin/Globulin [Mass ratio] 1.3 {ratio} Normal [facility] Comment on above: Performed By: #### D IFF CBC, PTT, CK, HS TROP, CMP, CBC, PT #### [address] Serum or plasma anion gap de terminationOrdered By: Nicko Grimm on 01-10-2024 Anion gap [Moles/Vol] 10.7 mmol/L Normal 6.0-15.0 [facility] Comment on above: Performed By: #### D IFF CBC, PTT, CK, HS TROP, CMP, CBC, PT #### [facility] [address] [place] [address] Sodium [Moles/volume] in Ser um or PlasmaOrdered By: Nicko Grimm on 01-10-2024 Sodium [Moles/Vol] 136 mmol/L Normal 136-145 [facility] Comment on above: Performed By: #### D IFF CBC, PTT, CK, HS TROP, CMP, CBC, PT #### [address] Specific gravity Test strip (U) [Rel density]Ordered By: Nicko Grimm on 01-10-2024 Specific gravity (U) [Rel density] 1.043 High 1.001-1.03 0 [facility] Toxic leukocyte vacuolation detectionOrdered By: Nicko Grimm on 01-10-2024 Leukocyte toxic vacuoles LM Ql (Bld) Slight [facility] Troponin I High Sensitivityo n 01-10-2024 Troponin I High Sensitivity 7.1 pg/mL Normal 0.0-20.0 [facility] Comment on above: Result Comment: PERF ORMED BY: [place] [address] PATHOLOGIST ASTHMA EDUCATOR DENNIS RODRIGUEZ M.D. Performed By: #### D IFF CBC, PTT, CK, HS TROP, CMP, CBC, PT #### [address] Troponin I.cardiac [Mass/vol ume] in Serum or Plasma by Detection limit <= 0.01 ng/Ordered By: Nicko Grimm on 01-10-2024 Troponin I.cardiac DL <= 0.01 ng/mL [Mass/Vol] 7.1 pg/mL 0.0-20.0 [facility] Urea nitrogen [Mass/volume] in Serum or PlasmaOrdered By: Nicko Grimm on 01-10-2024 Urea nitrogen [Mass/Vol] 19 mg/dL Normal 7-25 [facility] Comment on above: Performed By: #### D IFF CBC, PTT, CK, HS TROP, CMP, CBC, PT #### [address] Urine appearanceOrdered By: Nicko Grimm on 01-10-2024 Appearance (U) Clear Normal Clear [facility] Comment on above: Order Comment: Name Collection Type:: Clean-Voided Midstream Performed By: #### D IFF CBC, PTT, CK, HS TROP, CMP, CBC, PT #### [address] Urobilinogen Test strip (U) [Mass/Vol]Ordered By: Nicko Grimm on 01-10-2024 Urobilinogen (U) [Mass/Vol] Normal mg/dL Normal [facility] pH of Urine by Test stripOrd ered By: Nicko Grimm on 01-10-2024 pH (U) 5.5 [pH] Normal 5.0-9.0 [facility] Comment on above: Order Comment: Name Collection Type:: Clean-Voided Midstream Performed By: #### D IFF CBC, PTT, CK, HS TROP, CMP, CBC, PT #### [facility] [address] [place] [address] [facility] Albumin [Mass/volume] in Ser um or Plasmaon 12-16-2023 Albumin [Mass/Vol] 3.6 g/dL 2.9-4.4 [facility] - Chemistry and C hemistry - challengeon 12-16-2023 Cobalamin (Vitamin B12) [Mass/Vol] 523.0 pg/mL 193.0-986. 0 [facility] Protein [Mass/Vol] 0.3 g/dL Abnormal Not Observed [facility] TSH Qn 3.230 m[IU]/L 0.358-3.74 0 [facility] No Panel Informationon 12-15 Folate 16.10 ng/mL 8.60-58.90 [facility] Protein Electrophoresis Note Comment . [facility] Comment on above: Protein electrophore sis scan will follow via computer,mail, or salon leader delivery.Performed at: [address] [id number] Director: Sean Lopez PhD, Phone: [phone] Protein [Mass/volume] in Ser um or Plasmaon 12-16-2023 Protein [Mass/Vol] 6.6 g/dL 6.0-8.5 [facility] Serum globulin measurement ( mass/volume)on 12-16-2023 Globulin (S) [Mass/Vol] 3.0 g/dL 2.2-3.9 [facility] Serum or plasma albumin/glob ulin mass ratioon 12-16-2023 Albumin/Globulin [Mass ratio] 1.2 {ratio} 0.7-1.7 [facility] Serum or plasma alpha 1 glob ulin measurement by electrophoresis (mass/volume)on 12-16-2023 Alpha 1 globulin Elph [Mass/Vol] 0.2 g/dL 0.0-0.4 [facility] Serum or plasma alpha 2 glob ulin measurement by electrophoresis (mass/volume)on 12-16-2023 Alpha 2 globulin Elph [Mass/Vol] 0.8 g/dL 0.4-1.0 [facility] Serum or plasma beta globuli n measurement by electrophoresis (mass/volume)on 12-16-2023 Beta globulin Elph [Mass/Vol] 0.9 g/dL 0.7-1.3 [facility] Serum or plasma gamma globul in measurement by electrophoresis (mass/volume)on 12-16-2023 Gamma globulin Elph [Mass/Vol] 1.1 g/dL 0.4-1.8 [facility] Estimated glomerular filtrat ion rate (GFR) non- Americanon 11-19-2023 GFR/1.73 sq M.predicted among non-blacks MDRD (S/P/Bld) [Vol rate/Area] mL/min/{1.73_m2} >=60 [facility] - Chemistry and C hemistry - challengeon 11-19-2023 Creatinine [Mass/Vol] 1.18 mg/dL 0.70-1.30 [facility] GFR/1.73 sq M.predicted MDRD (S/P/Bld) [Vol rate/Area] mL/min/{1.73_m2} >=60 [facility] Automated urine specific gra vity by refractometryon 11-10-2023 Specific gravity Refractometry automated (U) [Rel density] >=1.030 1.005-1.02 5 [facility] Bilirubin Auto test strip (U ) [Mass/Vol]on 11-10-2023 Bilirubin (U) [Mass/Vol] Negative NEGATIVE [facility] Color Auto (U)on 11-10-2023 Color (U) YELLOW YELLOW [facility] Glucose [Mass/volume] in Uri ne by Test stripon 11-10-2023 Glucose Test strip (U) [Mass/Vol] 100 mg/dL NEGATIVE [facility] Ketones Auto test strip (U) [Mass/Vol]on 11-10-2023 Ketones (U) [Mass/Vol] Negative NEGATIVE [facility] Protein Auto test strip (U) [Mass/Vol]on 11-10-2023 Protein (U) [Mass/Vol] Negative NEG/TRACE [facility] Specific gravity Auto test s trip (U) [Rel density]on 11-10-2023 Specific gravity (U) [Rel density] CLEAR CLEAR [facility] Urine hemoglobin detection b y automated test stripon 11-10-2023 Hemoglobin Auto test strip Ql (U) Negative NEGATIVE [facility] Urine nitrite detection by a utomated test stripon 11-10-2023 Nitrite Auto test strip Ql (U) Negative NEGATIVE [facility] Urobilinogen Auto test strip (U) [Mass/Vol]on 11-10-2023 Urobilinogen Qn (U) 0.2 {Erma'U}/dL 0.2-1.0 [facility] pH Auto test strip (U)on pH (U) 5.5 [pH] 5.0-9.0 [facility] Luisito 09-22-2023 L Specimen: [id number] Received: 09/22/23 Status: JOSE ANTONIO Hayniecy Num: [id number] Spec Type: Surgical Subm Dr: Samuel Coker MD Tissues: A Skin-Other than Cyst, tag, debridement or plastic repair (LT LOWER EYELID) Procedures: HE/7, Gross/Micro L4 Age/ Patient Sex Location Account Attending Physician Dagoberto Squires 78/M [place] [id number] Samuel Coker MD SPEC NUM: [id number] RECD: 09/22/23 STATUS: JOSE ANTONIO CONTRERAS NUM: [id number] KIRILL: 09/22/[address]: Samuel Coker MD ENTERED: 09/22/[address] [facility] [address]: SPEC TYPE: Surgical DEPT: S ENTERED BY: [id number] RECV BY: [id number] ORDERED: HE/7, Gross/Micro L4 ORDERED: HE/7, Gross/Micro L4 Pathological Diagnosis Skin, left lower eyelid, excisional biopsy: - Basal cell carcinoma of the large nodular type, in all sections - Superior medial margin is free but very close (A1) - Inferior lateral margin is very close or minimally positive (A1) - The margins of the remaining middle sections are all negative, but very close to the deep margin (A2?A3) Clinical Information Basal cell carcinoma; excision today for reconstruction surgery tomorrow - STAT Gross Description Received in formalin labeled with the patient's name, date of and left lower eyelid is an irregularly shaped adams skin excision, 1.2 x 0.9 cm with a depth of 0.1 cm. The specimen is oriented as follows: Short superior, long lateral. There is a nodular hassan-adams central papule, 0.7 x 0.7 cm. The papule is approximately 0.1 cm from all margins. The specimen is inked as follows: Lateral edge blue, inferior medial green, superior medial black. The specimen is serially sectioned from superior to inferior and entirely submitted. Entirely submitted in 3 cassettes as follows: A1 - Superior and inferior tips en face A2-A3 - Remainder from superior to inferior respectively Specimen: [id number] Received: 09/22/23 Status: JOSE ANTONIO Contreras Num: [id number] Spec Type: Surgical Subm Dr: Samuel Coker MD Tissues: A Skin-Other than Cyst, tag, debridement or plastic repair (LT LOWER EYELID) Procedures: , Gross/Micro L4 Patient: Dagoberto Squires [id number] (Continued) Specimen: [id number] Received: 09/22/23 (Continued) Signed (signature on file) Lorena Lopez MD 09/23/231721 Specimen: [id number] Received: 09/22/23 Status: JOSE ANTONIO Contreras Num: [id number] Spec Type: Surgical Subm Dr: Samuel Coker MD Tissues: A Skin-Other than Cyst, tag, debridement or plastic repair (LT LOWER EYELID) Procedures: [place] MORE/Marycruz Velásquez Patient: Dagoberto Squires [id number] (Continued) Specimen: [id number] Received: 09/22/23 (Continued) Microscopic Description 3 H E sections are reviewed A1-A2 1 H E sections are reviewed A3 CPT Codes 67855 Specimen: [id number] Received: 09/22/23 Status: JOSE ANTONIO Contreras Num: [id number] Spec Type: Surgical Subm Dr: Samuel Coker MD Tissues: A Skin-Other than Cyst, tag, debridement or plastic repair (LT LOWER EYELID) Procedures: [place] MORE/Marycruz L4 Patient: Dagoberto Squires [id number] (Continued) Signed (signature on file) Juancho-Cesar Lopez MD 09/23/23 1722 Normal [facility] CBC AUTO DIFFon 06-22-2020 Basophils (Bld) [#/Vol] 0.1 103/ul Normal 0.0-0.[address] [facility] Comment on above: Performed By: #### C BC #### [facility] [address] [place] [address] Marcus Karyna Basophils/100 WBC (Bld) 0.7 % Normal 0.2-2.[address] [facility] Comment on above: Performed By: #### C BC #### [facility] [address] [place] [address] Marcus Karyna Eosinophils (Bld) [#/Vol] 0.5 103/ul Normal 0.0-0.[address] [facility] Comment on above: Performed By: #### C BC #### [facility] [address] [place], [place] [address] Marcus Karyna Eosinophils/100 WBC (Bld) 4.5 % Normal 0.9-7.[address] [facility] Comment on above: Performed By: #### C BC #### [facility] [address] [place], [place] [phone] Marcus Karyna Erythrocyte distribution width (RBC) [Ratio] 12.9 % Normal 11.0-15.[address] [facility] Comment on above: Performed By: #### C BC #### [facility] [address] [place], [place] [address] Marcus Karyna Hematocrit (Bld) [Volume fraction] 50.2 % Normal 42.0-54.[address] [facility] Comment on above: Performed By: #### C BC #### [facility] [address] [place], [place] [address] Macrus Karyna Hemoglobin (Bld) [Mass/Vol] 17.0 g/dL Normal 14.0-18.0 [facility] Comment on above: Performed By: #### C BC #### [facility] [address] [id number] Marcus Karyna IG # 0.12 10e3/ul Critically high 0.00-0.[address] [facility] Comment on above: Performed By: #### C BC #### [facility] [address] [id number] Marcus Karyna IG % 1.0 % Critically high 0.0-0.[address] [facility] Comment on above: Performed By: #### C BC #### [facility] Laboratory [address] [id number] Marcus Karyna Lymphocytes (Bld) [#/Vol] 3.7 103/ul Normal 1.2-3.[address] [facility] Comment on above: Performed By: #### C BC #### [facility] Laboratory [address] [place], [place] [id number] Marcus Karyna Lymphocytes/100 WBC (Bld) 31.8 % Normal 20.5-60.[address] [facility] Comment on above: Performed By: #### C BC #### [facility] Laboratory [address] [place], [place] [id number] Marcus Karyna MANUAL DIFF REQ NO Normal [facility] Comment on above: Performed By: #### C BC #### [facility] Laboratory [address] [place], [place] [id number] Marcus Karyna MCH (RBC) [Entitic mass] 32.8 pg Normal 25.9-34.[address] [facility] Comment on above: Performed By: #### C BC #### [facility] Laboratory [address] [place], [place] [phone] Marcus Karyna MCHC (RBC) [Mass/Vol] 33.9 g/dL Normal 29.9-35.2 [facility] Comment on above: Performed By: #### C BC #### [facility] Laboratory [address] [place], [place] [phone] Marcus Karyna MCV (RBC) [Entitic vol] 96.9 fL Critically high 80.0-94.[address] [facility] Comment on above: Performed By: #### C BC #### [facility] Laboratory [address] [place], [place] [address] Marcus Karyna Monocytes (Bld) [#/Vol] 1.1 103/ul Critically high 0.3-0.[address] [facility] Comment on above: Performed By: #### C BC #### [facility] Laboratory [address] [place], [place] [address] Marcus Karyna Monocytes/100 WBC (Bld) 9.5 % Normal 1.7-12.[address] [facility] Comment on above: Performed By: #### C BC #### [facility] Laboratory [address] [place] [id number] Marcus Karyna Neutrophils (Bld) [#/Vol] 6.1 103/ul Normal 1.4-6.[address] [facility] Comment on above: Performed By: #### C BC #### [facility] Laboratory [address] [place] [address] Marcus Karyna Neutrophils/100 WBC (Bld) 52.5 % Normal 43.0-75.[address] [facility] Comment on above: Performed By: #### C BC #### [facility] Laboratory [address] [place] [id number] Marcus Karyna Platelet mean volume (Bld) [Entitic vol] 9.7 fL Normal 9.5-13.[address] [facility] Comment on above: Performed By: #### C BC #### [facility] Laboratory [address] [place] [id number] Marcus Karyna Platelets (Bld) [#/Vol] 235 103/ul Normal 150-450 [facility] Comment on above: Performed By: #### C BC #### [facility] Laboratory [address] [place] [id number] Marcus Karyna RBC (Bld) [#/Vol] 5.18 106/ul Normal 4.70-6.10 [facility] Comment on above: Performed By: #### C BC #### [facility] Laboratory [address] [place] [id number] Marcus Karyna WBC (Bld) [#/Vol] 11.7 103/ul Critically high 4.0-11.0 [facility] Comment on above: Performed By: #### C BC #### [facility] Laboratory [address] [address] Marcus Troncoso Vital Signs Date Time Vital Sign Value Performing Clinician Facility 05-25-2024 11:50-0400 Body height 180.34 cm [facility] 05-25-2024 11:50-0400 Body mass index (BMI) [Ratio] 31 kg/m2 [facility] 05-25-2024 11:50-0400 Body temperature 98.2 [degF] [facility] 05-25-2024 11:50-0400 Body weight 101 kg [facility] 05-25-2024 11:50-0400 Diastolic blood pressure 92 mm[Hg] [facility] 05-25-2024 11:50-0400 Heart rate 60 /min [facility] 05-25-2024 11:50-0400 Respiratory rate 16 /min [facility] 05-25-2024 11:50-0400 SaO2% (BldA) [Mass fraction] 96 % [facility] 05-25-2024 11:50-0400 Systolic blood pressure 146 mm[Hg] [facility] 02-25-2024 08:40-0400 Blood Pressure Location Garfield LUCAS [facility] 02-25-2024 08:40-0400 Body temperature 98.6 [degF] Garfield LUCAS [facility] 02-25-2024 08:40-0400 Diastolic blood pressure 69 mm[Hg] Garfield LUCAS [facility] 02-25-2024 08:40-0400 Heart rate 68 /min Garfield LUCAS [facility] 02-25-2024 08:40-0400 Respiratory rate 16 /min Garfield LUCAS [facility] 02-25-2024 08:40-0400 Systolic blood pressure 134 mm[Hg] Garfield SHAYY [facility] 02-16-2024 08:54-0400 Body height 180.34 cm [facility] Stevensonacher Work Phone: [facility] 02-16-2024 08:54-0400 Body mass index (BMI) [Ratio] 31.1 kg/m2 [facility]a Vallerbacher Work Phone: [facility] 02-16-2024 08:54-0400 Body temperature 97.8 [degF] [facility] Stevensonacher Work Phone: [facility] 02-16-2024 08:54-0400 Body weight 101.15 kg [facility]a Stevensonacher Work Phone: [facility] 02-16-2024 08:54-0400 Diastolic blood pressure 68 mm[Hg] [facility] Stevensonacher Work Phone: [facility] 02-16-2024 08:54-0400 Heart rate 76 /min [facility] Stevensonacher Work Phone: [facility] 02-16-2024 08:54-0400 Respiratory rate 16 /min [facility] Stevensonacher Work Phone: [facility] 02-16-2024 08:54-0400 SaO2% (BldA) [Mass fraction] 96 % [facility]a Vallerbacher Work Phone: [facility] 02-16-2024 08:54-0400 Systolic blood pressure 116 mm[Hg] [facility] Vallerbacher Work Phone: [facility] 01-27-2024 13:21-0400 Blood Pressure Location Garfield LUCAS [facility] 01-27-2024 13:21-0400 Body temperature 98.6 [degF] Garfield LUCAS [facility] 01-27-2024 13:21-0400 Diastolic blood pressure 88 mm[Hg] Garfield LUCAS [facility] 01-27-2024 13:21-0400 Heart rate 85 /min Garfieldkayleigh LUCAS [facility] 01-27-2024 13:21-0400 Respiratory rate 16 /min Garfield LUCAS [facility] 01-27-2024 13:21-0400 Systolic blood pressure 137 mm[Hg] Garfield LUCAS [facility] 01-26-2024 13:51-0400 Body height 180.34 cm RITIKA Salinas Work Phone: [facility] 01-26-2024 13:51-0400 Body mass index (BMI) [Ratio] 33 kg/m2 RITIKA Salinas Work Phone: [facility] 01-26-2024 13:51-0400 Body weight 107.5 kg RITIKA Salinas Work Phone: [facility] 01-26-2024 13:51-0400 Diastolic blood pressure 60 mm[Hg] RITIKA Salinas Work Phone: [facility] 01-26-2024 13:51-0400 Heart rate 97 /min RITIKA Salinas Work Phone: [facility] 01-26-2024 13:51-0400 SaO2% (BldA) [Mass fraction] 95 % [facility] Salinas Work Phone: [facility] 01-26-2024 13:51-0400 Systolic blood pressure 118 mm[Hg] [facility] Stevensonacher Work Phone: [facility] 01-26-2024 11:00-0400 Diastolic blood pressure 63 mm[Hg] [facility] Stevensonacher Work Phone: [facility] 01-26-2024 11:00-0400 Heart rate 77 /min [facility] Stevensonacher Work Phone: [facility] 01-26-2024 11:00-0400 Respiratory rate 25 /min [facility] Stevensonacher Work Phone: [facility] 01-26-2024 11:00-0400 SaO2% (BldA) [Mass fraction] 98 % [facility] Stevensonacher Work Phone: [facility] 01-26-2024 11:00-0400 Systolic blood pressure 134 mm[Hg] [facility] Stevensonacher Work Phone: [facility] 01-26-2024 08:00-0400 Body temperature 98.6 [degF] [facility] Stevensonacher Work Phone: [facility] 01-26-2024 06:00-0400 Body weight 101.2 kg [facility] A[facility]etha Barahonar Work Phone: [facility] 01-25-2024 14:13-0400 Inhaled oxygen flow rate 6 L/min [facility] Stevensonacher Work Phone: [facility] 01-25-2024 12:28-0400 Body height 180.34 cm [facility]a Barahonar Work Phone: [facility] 01-25-2024 12:28-0400 Body mass index (BMI) [Ratio] 31.1 kg/m2 [facility]a Barahonar Work Phone: [facility] 01-17-2024 12:24-0400 Body height 180.34 cm [facility] Sonia Leonardrbacher Work Phone: [facility] 01-17-2024 12:24-0400 Body mass index (BMI) [Ratio] 29.5 kg/m2 [facility] Sonia Leonardrbacher Work Phone: [facility] 01-17-2024 12:24-0400 Body temperature 98 [degF] [facility] Sonia Leonardrbacher Work Phone: [facility] 01-17-2024 12:24-0400 Body weight 96.16 kg [facility] Sonia Leonardrbacher Work Phone: [facility] 01-17-2024 12:24-0400 Diastolic blood pressure 82 mm[Hg] [facility]a Vallerbacher Work Phone: [facility] 01-17-2024 12:24-0400 SaO2% (BldA) [Mass fraction] 96 % [facility] Sonia Leonardrbacher Work Phone: [facility] 01-17-2024 12:24-0400 Systolic blood pressure 136 mm[Hg] [facility] Sonia Leonardrbacher Work Phone: [facility] 01-13-2024 12:01-0400 Body temperature 98 [degF] RITIKA Mustafafer Leonardrbacher Work Phone: [facility] 01-13-2024 12:01-0400 Diastolic blood pressure 77 mm[Hg] [facility]a Vallerbacher Work Phone: [facility] 01-13-2024 12:01-0400 Heart rate 88 /min [facility]a Vallerbacher Work Phone: [facility] 01-13-2024 12:01-0400 Respiratory rate 14 /min [facility]a Vallerbacher Work Phone: [facility] 01-13-2024 12:01-0400 SaO2% (BldA) [Mass fraction] 96 % [facility]a MustafaSonia Leonardrbacher Work Phone: [facility] 01-13-2024 12:01-0400 Systolic blood pressure 146 mm[Hg] [facility]a GamezSonia Leonardrbacher Work Phone: [facility] 01-13-2024 06:00-0400 Body weight 107.2 kg [facility]a Vallerbacher Work Phone: [facility] 01-11-2024 10:45-0400 Body height 180.34 cm [facility]etha MustafaSonia Leonardrbacher Work Phone: [facility] 01-11-2024 02:02-0400 Body height 180.34 cm [facility]a MustafaSonia Leonardrbacher Work Phone: [facility] 01-11-2024 02:02-0400 Body temperature 98.3 [degF] [facility]a MustafaSonia Leonardrbacher Work Phone: [facility] 01-11-2024 02:02-0400 Body weight 105.7 kg [facility] Sonia Leonardrbacher Work Phone: [facility] 01-11-2024 02:02-0400 Diastolic blood pressure 84 mm[Hg] [facility]a Vallerbacher Work Phone: [facility] 01-11-2024 02:02-0400 Heart rate 78 /min [facility]a Vallerbacher Work Phone: [facility] 01-11-2024 02:02-0400 Respiratory rate 22 /min [facility]a Vallerbacher Work Phone: [facility] 01-11-2024 02:02-0400 SaO2% (BldA) [Mass fraction] 96 % [facility]a Vallerbacher Work Phone: [facility] 01-11-2024 02:02-0400 Systolic blood pressure 171 mm[Hg] [facility] Sonia Leonardrbacher Work Phone: [facility] 11-09-2023 14:53-0400 Body height 180.34 cm [facility] Sonia Leonardrbacher Work Phone: [facility] 11-09-2023 14:53-0400 Body mass index (BMI) [Ratio] 32.8 kg/m2 [facility] Sonia Leonardrbacher Work Phone: [facility] 11-09-2023 14:53-0400 Body weight 106.59 kg [facility] Sonia Leonardrbacher Work Phone: [facility] 11-09-2023 14:53-0400 Diastolic blood pressure 78 mm[Hg] [facility] Sonia Leonardrbacher Work Phone: [facility] 11-09-2023 14:53-0400 Heart rate 77 /min [facility] Sonia Elvaacher Work Phone: [facility] 11-09-2023 14:53-0400 SaO2% (BldA) [Mass fraction] 97 % [facility] Sonia Elvaacher Work Phone: [facility] 11-09-2023 14:53-0400 Systolic blood pressure 124 mm[Hg] [facility] Sonia Leonardrbacher Work Phone: [facility] 10-05-2023 11:31-0500 Body height 180.34 cm [facility] Sonia Leonardrbacher Work Phone: [facility] 10-05-2023 11:31-0500 Body mass index (BMI) [Ratio] 33.2 kg/m2 [facility] Sonia Leonardrbacher Work Phone: [facility] 10-05-2023 11:31-0500 Body weight 107.95 kg [facility] A[facility]etha MustafaSonia Leonardrbacher Work Phone: [facility] 10-05-2023 11:31-0500 Diastolic blood pressure 76 mm[Hg] [facility] Sonia Elvashanikavahe Work Phone: [facility] 10-05-2023 11:31-0500 Heart rate 77 /min [facility] Sonia Stevensonacher Work Phone: [facility] 10-05-2023 11:31-0500 SaO2% (BldA) [Mass fraction] 95 % [facility] Sonia Stevensonacher Work Phone: [facility] 10-05-2023 11:31-0500 Systolic blood pressure 124 mm[Hg] [facility] Sonia Stevensonacher Work Phone: [facility] 07-09-2023 10:30-0500 Body height 180.34 cm Sonia Brad Other [facility] 07-09-2023 10:30-0500 Body mass index (BMI) [Ratio] 32.07 kg/m2 Sonia Junr Other [facility] [employer] Other 07-09-2023 10:30-0500 Body weight 104.33 kg Sonia Junr Other [employer] Other 07-09-2023 10:30-0500 Body weight 104.32 kg RITIKA Sonia Vallegayleacher Work Phone: [facility] 07-09-2023 10:30-0500 Diastolic blood pressure 86 mm[Hg] Sonia Elvaacher Other [facility] 07-09-2023 10:30-0500 SaO2% (BldA) [Mass fraction] 95 % Sonia Elvaacher Other [employer] [facility] [employer] Other 07-09-2023 10:30-0500 Systolic blood pressure 126 mm[Hg] Sonia Stevensonacher Other [facility] 04-29-2023 10:30-0400 Body height 180.34 cm Sonia Salinas Other [employer] Other 04-29-2023 10:30-0400 Body mass index (BMI) [Ratio] 31.8 kg/m2 Sonia Salinas Other [employer] Other 04-29-2023 10:30-0400 Body weight 103.42 kg Sonia Salinas Other [employer] Other 04-29-2023 10:30-0400 Diastolic blood pressure 70 mm[Hg] Sonia Salinas Other [employer] Other 04-29-2023 10:30-0400 SaO2% (BldA) [Mass fraction] 96 % Sonia Salinas Other [employer] Other 04-29-2023 10:30-0400 Systolic blood pressure 118 mm[Hg] Sonia Salinas Other [employer] Other Encounters Encounter Date Encounter Type Care Provider Facility Start: 05-25-2024 End: 05-25-2024 Patient encounter procedure [facility] V[facility] Surgery Work Phone: Start: 05-25-2024 End: 05-25-2024 ambulatory Mckenna Campbell [facility] Work Phone: Start: 03-08-2024 End: 03-08-2024 ambulatory AURELIA FRENCH Not Available Start: 03-07-2024 End: 03-07-2024 ambulatory TRU SOLITARIO Not Available Start: 03-07-2024 End: 03-07-2024 Patient encounter procedure Tru Solitario DO Work Phone: [facility] Comment on above: Hypersomnia; Memory loss Start: 02-25-2024 End: 02-25-2024 ambulatory Garfield LUCAS Facility:[facility] Start: 02-25-2024 End: 02-25-2024 Patient encounter procedure Garfield R LUCAS [facility] Start: 02-16-2024 End: 02-16-2024 ambulatory RITIKA Salinas Work Phone: [facility] Work Phone: Start: 02-16-2024 End: 02-16-2024 Patient encounter procedure RITIKA Salinas Work Phone: [facility] Vascular Surgery Work Phone: Start: 02-08-2024 End: 02-08-2024 ambulatory TRU SOLITARIO Not Available Start: 01-27-2024 End: 01-27-2024 Lab Drop off Garfield R SHAYY [facility] Start: 01-27-2024 End: 01-27-2024 ambulatory Garfield Vahe LUCAS Facility[facility] Start: 01-27-2024 End: 01-27-2024 Patient encounter procedure Garfield LUCAS [facility] Start: 01-27-2024 Non-patient / Non-visit RITIKA Salinas Work Phone: [facility] Work Phone: Start: 01-27-2024 ambulatory Garfield LUCAS Facility :[facility] Start: 01-26-2024 End: 01-26-2024 ambulatory RITIKA Salinas Work Phone: [facility] Work Phone: Start: 01-26-2024 End: 01-26-2024 Patient encounter procedure [facility] Sonia Vallerbacher Work Phone: [facility] Work Phone: Start: 01-25-2024 Non-patient / Non-visit [facility] Faheem Vallerbacher Work Phone: [facility] Vascular Surgery Work Phone: Start: 01-25-2024 End: 01-26-2024 Evaluation and management of inpatient [facility] Sonia Vallerbacher Work Phone: [facility] [place] [facility] Work Phone: Start: 01-17-2024 Non-patient / Non-visit [facility] Faheem Vallerbacher Work Phone: [facility] Work Phone: Start: 01-17-2024 End: 01-17-2024 ambulatory [facility] Sonia Vallerbacher Work Phone: [facility] Work Phone: Start: 01-17-2024 End: 01-17-2024 Patient encounter procedure [facility] Sonia Vallerbacher Work Phone: [facility] Vascular Surgery Work Phone: Start: 01-12-2024 End: 01-13-2024 Non-patient / Non-visit [facility] Sonia Vallerbacher Work Phone: [facility] Vascular Surgery Work Phone: Start: 01-11-2024 End: 01-13-2024 Evaluation and management of inpatient [facility] Sonia Vallerbacher Work Phone: [facility] Work Phone: Start: 01-11-2024 Evaluation and management of inpatient [facility] Sonia Vallerbacher Work Phone: [facility] Work Phone: Start: 01-11-2024 observation encounter [facility] Vera Salinas Work Phone: [facility] Work Phone: Start: 12-22-2023 End: 12-22-2023 ambulatory AURELIA FRENCH Not Available Start: 12-21-2023 End: 12-21-2023 ambulatory TRU CHRISSY Not Available Start: 12-16-2023 Non-patient / Non-visit [facility]a Salinas Work Phone: [facility] Work Phone: Start: 12-14-2023 End: 12-14-2023 ambulatory TRU CHRISSY Not Available Start: 12-02-2023 End: 12-02-2023 ambulatory AURELIA Chante FRENCH Not Available Start: 12-02-2023 End: 12-02-2023 ambulatory AURELIA A GILLIAN Not Available Start: 11-19-2023 Non-patient / Non-visit [facility]a Salinas Work Phone: [facility] Work Phone: Start: 11-10-2023 Non-patient / Non-visit RITIKA Salinas Work Phone: [facility] Work Phone: Start: 11-09-2023 End: 11-09-2023 ambulatory RITIKA Salinas Work Phone: [facility] Work Phone: Start: 11-09-2023 End: 11-09-2023 Patient encounter procedure RITIKA Salinas Work Phone: [facility] Work Phone: Start: 10-05-2023 End: 10-05-2023 Patient encounter procedure [facility] [employer] Sonia Brad Work Phone: [facility] Work Phone: Start: 09-22-2023 End: 09-22-2023 Departed Referred RITIKA Scott Brad Work Phone: [facility] [place] Work Phone: Start: 09-22-2023 End: 09-22-2023 ambulatory [facility] A[facility]a Scott Brad Work Phone: [facility] [place] [facility] Work Phone: Start: 07-09-2023 End: 07-09-2023 ambulatory Sonia Salinas Other [employer] Other Start: 07-09-2023 Patient encounter procedure Sonia Salinas [facility] Start: 07-09-2023 End: 07-09-2023 Patient encounter procedure RITIKA Scott Brad Work Phone: [facility] Work Phone: Start: 04-29-2023 End: 04-29-2023 ambulatory Sonia Brad Other [employer] Other Start: 04-29-2023 Office outpatient ne w 20 minutes Sonia Salinas [facility] Start: 06-22-2020 End: 06-23-2020 Patient encounter procedure [facility] Facility: Procedures Date Procedure Procedure Detail Performing Clinician Start: 06-15-2024 HOME SLEEP TEST Tru Solitario DO Work Phone: Start: 01-25-2024 Insertion of carotid artery stent RITIKA Salinas Work Phone: Start: 01-25-2024 Carotid stent (physi [place] object) Garfield LUCAS Start: 01-12-2024 Doppler ultrasonogra phy of bilateral carotid arteries [facility] Sonia Vallegayleshanikavahe Work Phone: Start: 01-11-2024 XR pre/post mri xray AP RN Sonia Brad Work Phone: Start: 01-11-2024 CT of brain perfusion A PRN Sonia Brad Work Phone: Start: 01-11-2024 MRI of head [facility] [employer] Moon ernst Brad Work Phone: Start: 01-10-2024 CT angiography of head [employer] [employer] Sonia Brad Work Phone: Start: 01-10-2024 CT angiography of ne ck vessels [facility] A[facility]a Scott Brad Work Phone: Start: 01-10-2024 Plain chest X-ray RITIKA Scott Brad Work Phone: Start: 01-10-2024 CT of head without contrast [facility] Sonia Brad Work Phone: Extraction of cataract Patri mamadou LUCAS Plan of Treatment Date Care Activity Detail Author Start: 01-26-2024 [facility] Start: 01-25-2024 Cerebral Embolic Filtration, Extracorporeal Flow Reversal Circuit from Right Common Carotid Artery, Percutaneous Approach, [employer] Cerebral Embolic Filtration, Extracorporeal Flow Reversal Circuit from Right Common Carotid Artery, Percutaneous Approach, [employer] [facility] Start: 01-25-2024 Dilation of Right Internal Carotid Artery with Intraluminal Device, Percutaneous Approach Dilation of Right Internal Carotid Artery with Intraluminal Device, Percutaneous Approach [facility] Start: 01-13-2024 [facility] Start: 01-11-2024 Referral to vascular surgeon [facility] Start: 01-11-2024 CT of brain perfusion CT head/brain perfusion [facility] Start: 01-11-2024 MRI of head MR head/brain wo con [facility] Start: 01-11-2024 [facility] Start: 01-11-2024 Physical therapy procedure [facility] Start: 01-11-2024 Referral to neurologist [facility] Start: 01-11-2024 Referral to occupational therapist [facility] Start: 01-11-2024 [facility] Start: 01-11-2024 Hospital admission [facility] Start: 01-10-2024 CT angiography of head [facility] Start: 01-10-2024 CT angiography of neck vessels [facility] Start: 01-10-2024 Plain chest X-ray XR chest 1V portable [facility] Start: 01-10-2024 XR Chest Single view [facility] Start: 01-10-2024 CT Head WO contrast [facility] Start: 01-10-2024 CT of head without contrast CT head stroke alert wo con [facility] Start: 01-10-2024 Telemedicine consultation with patient [facility] Start: 11-09-2023 Patient referral [facility] Work Phone: Anion gap measurement [facility] Bacteria identified in Urine by Culture [facility] Basophils [#/volume] in Blood by Automated count [facility] Basophils/100 leukoc ytes in Blood by Automated count [facility] Calculated LDL cholesterol level [facility] Cholesterol.total/Ch olest nikole in HDL [Mass Ratio] in Serum or Plasma [facility] Eosinophils/100 leukocytes in Blood by Automated count [facility] Erythrocyte distribu tion width [Ratio] by Automated count [facility] Erythrocytes [#/volu me] in Blood [facility] Glucose measurement estimated from glycated hemoglobin [facility] Hematocrit [Volume Fraction] of Blood [facility] Hemoglobin [Mass/vol ume] in Blood [facility] Leukocytes [#/volume ] corrected for nucleated erythrocytes in Blood by Automated coun [facility] Leukocytes [#/volume ] in Blood [facility] Lymphocytes [#/volum e] in Blood by Automated count [facility] Lymphocytes/100 leukocytes in Blood by Automated count [facility] MCH [Entitic mass] b y Automated count [facility] MCHC [Mass/volume] b y Automated count [facility] MCV [Entitic volume] by Automated count [facility] Monocytes [#/volume] in Blood by Automated count [facility] Monocytes/100 leukoc ytes in Blood by Automated count [facility] MR Unspecified body region [facility] Neutrophils [#/volum e] in Blood by Automated count [facility] Neutrophils/100 leukocytes in Blood by Automated count [facility] Nucleated erythrocyt es [Presence] in Blood by Automated count [facility] Patient Education [facility] Work Phone: Patient referral [facility] Work Phone: Platelet mean volume [Entitic volume] in Blood by Automated count [facility] Platelets [#/volume] in Blood [facility] US Scrotum and testicle [facility] US.doppler Carotid arteries - bilateral [facility] VLDL cholesterol measurement [facility] Immunizations Immunization Date Immunization Notes Care Provider Fa cility 09-04-2023 Fluzone QIV High-Dos e 65YR+ RESTORATIVE REHAB AIDE Sonia Salinas Work Phone: [facility] 06-22-2022 Fluzone QIV High-Dos e 65YR+ RESTORATIVE REHAB AIDE Sonia Salinas Work Phone: [facility] 06-22-2022 influenza, seasonal, injectable Sonia Salinas Other [facility] 02-19-2022 COVID-19 Pfizer Sonia erazo Other [facility] 06-02-2021 Do not use COVID-19 Pfizer 2 dose Sonia Salinas Other [facility] 06-02-2021 Fluzone QIV High-Dos e 65YR+ RESTORAT[employer] REH[employer] AIDE Sonia Salinas Work Phone: [facility] 10-11-2020 Do not use COVID-19 Pfizer 2 dose Sonia Salinas Other [facility] 09-16-2020 Do not use COVID-19 Pfizer 2 dose Sonia Salinas Other [facility] 06-11-2013 influenza, seasonal, injectable Sonia Salinas Other [facility] Payers Date Payer Category Payer Medicare (Managed Care) [employer] [id number] 2024 Medicare [id number] 2024 Medicare [id number] 2023 [facility] [id number] 2023 Self-pay [id number] 2023 Medicare [id number] 2023 Medicare [id number] 2021 Medicare [id number] 1959 Medicare [id number] 1945 Unknown [id number] 2.16.840.1.857562.3.579.2. 593 1945 Unknown [id number] 2.16.840.1.869754.3.579.2. 1259 1945 Unknown [id number] 2.16.840.1.426007.3.579.2. 727 1945 Unknown [id number] 2.16.840.1.297145.3.579.2. 727 1945 Unknown [id number] 2.16.840.1.306039.3.579.2. 727 1945 Unknown [id number] 2.16.840.1.928631.3.579.2. 727 1945 Unknown [id number] 2.16.840.1.891482.3.579.2. 1259 1945 Unknown [id number] 2.16.840.1.801510.3.579.2. 125 1945 Unknown [id number] 2.16.840.1.007684.3.579.2. 1259 1945 Unknown [id number] 2.16.840.1.777307.3.579.2. 1258 1945 Unknown [id number] 2.16840.1.771734.3.579.2. 1259 1945 Unknown [id number] 2.16.840.1.812933.3.579.2. 1259 Medicare AARP Medicare [employer] vantage [facility] [id number] Unknown [id number] 2.840.1.223368.3.579.2. 531 Unknown [id number] 2.16840.1.028190.3.579.2. 531 Unknown [id number] 2.16840.1.619609.3.579.2. 531 Unknown [id number] 2.16840.1.735184.3.579.2. 531 Social History Date Type Detail Facility Start: 02-08-2024 Sex Assigned At F [facility] Start: 1945 Sex Assigned At Male F [facility] Start: 10-05-2023 End: 01-12-2024 Tobacco smoking status NHIS Never smoked tobacco (finding) [facility] Start: 12-14-2023 End: 01-25-2024 Tobacco smoking status TXIS Ex-smoker (finding) [facility] History of tobacco use Current smoker [facility] History of tobacco use Cigarette Smoker [facility] Start: 12-14-2023 Tobacco use and exposure Smokeless tobacco non-user [facility] Start: 02-08-2024 Alcoholic beverage intake Ex-drinker (finding) [facility] Start: 02-08-2024 History of Social function [facility] Start: 1945 Sex assigned at Not on file [facility] NEGATED: Highlighted rowStart: NINF History of tobacco use Passive smoker [facility] Medical Equipment Procedure Code Equipment Code Equipment Original Text Equipment Identifier Dates Transcarotid artery revascularization (TCAR) STENT ENROUTE [id number] TCAR FDA Start: 01-25-2024 Transcarotid artery revascularization (TCAR) STENT ENROUTE 10X40 TCAR FDA Start: 01-25-2024 Transcarotid artery revascularization (TCAR) STENT ENROUTE 10X40 TCAR FDA Start: 01-25-2024 Goals Date Patient Goal Desired Activity /State Functional Status Date Assessment Result Facility 02-25-2024 Functional Status N/A [facility] 01-27-2024 Functional Status N/A [facility] 01-26-2024 Functional status Patient at Baseline [facility] Work Phone: 01-13-2024 Functional status Patient at Baseline [facility] Work Phone: 01-11-2024 Functional status Patient at Baseline [facility] Work Phone: Mental Status Date Assessment Result Facility 01-26-2024 Cognitive function Cognitive Sta tus Patient at Baseline [facility] Work Phone: 01-13-2024 Cognitive function Cognitive Sta tus Patient at Baseline [facility] Work Phone: 01-11-2024 Cognitive function Cognitive Sta tus Patient Not at Baseline [facility] Work Phone: Clinical Notes 04-29-2023 to 03-07-2024 THOMPSON Puri - 03/07/2024 3:45 PM EDT Note Date & Type Note Facility 03-07-2024 History of Present illness Narrative Reason for Appointment: HST Patient: Dagoberto Squires : 1945 Reason for Home Sleep Study: Sleep disturbances Ordering Physician: Dr. Tru Solitario Treasury Assistant: Lauro ORDOÑEZ(R) Pick-up Comments: Procedure was explained to the female performance architect picking up HST device, who expressed understanding. Patient's female performance architect was instructed how to use device and informed to return completed questionnaire with device tomorrow morning...... 03/07/24 Treasury Assistant: Lauro WHELANR) Drop-Off Comments: Patient returned HST device. Study data was successfully uploaded, however, questionnaire was not completed and thus not imported to patient's chart...... 03/08/24 INSUFFICIENT DATA (LESS THAN 1 HOUR) WITH NO CHARGE PER DR. SOLITARIO.... Patient will need to repeat............ Lauro ORDOÑEZ(R) 06/15/24 documented in this encounter [facility] 02-25-2024 Hospital Discharge instructions Patient Education 02/25/2024 09:24:43 Testicular Self-Exam Testicular Self-Exam A self-examination of your testicles (testicular self-exam) involves looking at and feeling your testicles for abnormal lumps or swelling. Several things can cause swelling, lumps, or pain in your testicles. Some of these causes are: Injuries. Inflammation. Infection. Buildup of fluids around the testicle (hydrocele). Twisted testicles (testicular torsion). Testicular cancer. You may be at risk for testicular cancer if you have: ?An undescended testicle (cryptorchidism). ?A history of previous testicular cancer. ?A family history of testicular cancer. General tips and recommendations The testicles are easiest to examine after a warm bath or shower. They are more difficult to examine when you are cold because the muscles attached to the testicles retract and pull them up higher or into the abdomen. A normal testicle is egg-shaped and feels firm. It is smooth and not tender. It is normal to feel a firm, spaghetti-like cord at the back of your testicle. This is the spermatic cord. How to do a testicular self-exam 1.Stand and hold your penis away from your body. 2.Look at each testicle to check for changes in appearance, such as swelling or changes in size or shape. 3.Roll each testicle between your thumb and forefinger, feeling the entire testicle. Feel for: Lumps. Swelling. Discomfort. 4.Check the groin area between your abdomen and upper thighs on both sides of your body. Look and feel for any swelling or bumps that are tender. These could be enlarged lymph nodes. Contact a health care provider if: You find any bumps or lumps, such as a small, hard, pea-sized lump. You find swelling, pain, or soreness. You see or feel any other changes in your testicles. Summary A self-examination of your testicles (testicular self-exam) involves looking at and feeling your testicles for any changes. Check each of your testicles for lumps, swelling, or discomfort. These changes can be caused by many things. Check for swelling or tender bumps in your groin area between your lower abdomen and upper thighs. This information is not intended to replace advice given to you by your health care provider. Make sure you discuss any questions you have with your health care provider. Document Revised: 07/01/2020 Document Reviewed: 07/01/2020 [email or web address] Patient Education 2022 [place]. Follow Up Care 01/27/2024 14:08:28 With:SHAYY BARRETO, Garfield Cotter, URL Address: [address] [place] [id number] When: Unknown [facility] 02-25-2024 Note Patient Education Urology Testicular Self-Exam A self-examination of your testicles (testicular self-exam) involves looking at and feeling your testicles for abnormal lumps or swelling. Several things can cause swelling, lumps, or pain in your testicles. Some of these causes are: ? Injuries. ? Inflammation. ? Infection. ? Buildup of fluids around the testicle (hydrocele). ? Twisted testicles (testicular torsion). ? Testicular cancer. You may be at risk for testicular cancer if you have: ? An undescended testicle (cryptorchidism). ? A history of previous testicular cancer. ? A family history of testicular cancer. General tips and recommendations ? The testicles are easiest to examine after a warm bath or shower. They are more difficult to examine when you are cold because the muscles attached to the testicles retract and pull them up higher or into the abdomen. ? A normal testicle is egg-shaped and feels firm. It is smooth and not tender. ? It is normal to feel a firm, spaghetti-like cord at the back of your testicle. This is the spermatic cord. How to do a testicular self-exam 1. Stand and hold your penis away from your body. 2. Look at each testicle to check for changes in appearance, such as swelling or changes in size or shape. 3. Roll each testicle between your thumb and forefinger, feeling the entire testicle. Feel for: ? Lumps. ? Swelling. ? Discomfort. 4. Check the groin area between your abdomen and upper thighs on both sides of your body. Look and feel for any swelling or bumps that are tender. These could be enlarged lymph nodes. Contact a health care provider if: ? You find any bumps or lumps, such as a small, hard, pea-sized lump. ? You find swelling, pain, or soreness. ? You see or feel any other changes in your testicles. Summary ? A self-examination of your testicles (testicular self-exam) involves looking at and feeling your testicles for any changes. ? Check each of your testicles for lumps, swelling, or discomfort. These changes can be caused by many things. ? Check for swelling or tender bumps in your groin area between your lower abdomen and upper thighs. This information is not intended to replace advice given to you by your health care provider. Make sure you discuss any questions you have with your health care provider. Document Revised: 07/01/2020 Document Reviewed: 07/01/2020 Elsevier Patient Education ? 2022 [place]. [facility] 01-27-2024 Hospital Discharge instructions Patient Education 01/27/2024 13:40:36 Benign Prostatic Hyperplasia Benign Prostatic Hyperplasia Benign prostatic hyperplasia (BPH) is an enlarged prostate gland that is caused by the normal aging process. The prostate may get bigger as a man gets older. The condition is not caused by cancer. The prostate is a walnut-sized gland that is involved in the production of semen. It is located in front of the rectum and below the bladder. The bladder stores urine. The urethra carries stored urine out of the body. An enlarged prostate can press on the urethra. This can make it harder to pass urine. The buildup of urine in the bladder can cause infection. Back pressure and infection may progress to bladder damage and kidney (renal) failure. What are the causes? This condition is part of the normal aging process. However, not all men develop problems from this condition. If the prostate enlarges away from the urethra, urine flow will not be blocked. If it enlarges toward the urethra and compresses it, there will be problems passing urine. What increases the risk? This condition is more likely to develop in men older than 50 years. What are the signs or symptoms? Symptoms of this condition include: Getting up often during the night to urinate. Needing to urinate frequently during the day. Difficulty starting urine flow. Decrease in size and strength of your urine stream. Leaking (dribbling) after urinating. Inability to pass urine. This needs immediate treatment. Inability to completely empty your bladder. Pain when you pass urine. This is more common if there is also an infection. Urinary tract infection (UTI). How is this diagnosed? This condition is diagnosed based on your medical history, a physical exam, and your symptoms. Tests will also be done, such as: A post-void bladder scan. This measures any amount of urine that may remain in your bladder after you finish urinating. A digital rectal exam. In a rectal exam, your health care provider checks your prostate by putting a lubricated, gloved finger into your rectum to feel the back of your prostate gland. This exam detects the size of your gland and any abnormal lumps or growths. An exam of your urine (urinalysis). A prostate specific antigen (PSA) screening. This is a blood test used to screen for prostate cancer. An ultrasound. This test uses sound waves to electronically produce a picture of your prostate gland. Your health care provider may refer you to a specialist in kidney and prostate diseases (urologist). How is this treated? Once symptoms begin, your health care provider will monitor your condition (active surveillance or watchful waiting). Treatment for this condition will depend on the severity of your condition. Treatment may include: Observation and yearly exams. This may be the only treatment needed if your condition and symptoms are mild. Medicines to relieve your symptoms, including: ?Medicines to shrink the prostate. ?Medicines to relax the muscle of the prostate. Surgery in severe cases. Surgery may include: ?Prostatectomy. In this procedure, the prostate tissue is removed completely through an open incision or with a laparoscope or robotics. ?Transurethral resection of the prostate (TURP). In this procedure, a tool is inserted through the opening at the tip of the penis (urethra). It is used to cut away tissue of the inner core of the prostate. The pieces are removed through the same opening of the penis. This removes the blockage. ?Transurethral incision (TUIP). In this procedure, small cuts are made in the prostate. This lessens the prostate's pressure on the urethra. ?Transurethral microwave thermotherapy (TUMT). This procedure uses microwaves to create heat. The heat destroys and removes a small amount of prostate tissue. ?Transurethral needle ablation (TUNA). This procedure uses radio frequencies to destroy and remove a small amount of prostate tissue. ?Interstitial laser coagulation (ILC). This procedure uses a laser to destroy and remove a small amount of prostate tissue. ?Transurethral electrovaporization (TUVP). This procedure uses electrodes to destroy and remove a small amount of prostate tissue. ?Prostatic urethral lift. This procedure inserts an implant to push the lobes of the prostate away from the urethra. Follow these instructions at home: Take [id number] and prescription medicines only as told by your health care provider. Monitor your symptoms for any changes. Contact your health care provider with any changes. Avoid drinking large amounts of liquid before going to bed or out in public. Avoid or reduce how much caffeine or alcohol you drink. Give yourself time when you urinate. Keep all follow-up visits. This is important. Contact a health care provider if: You have unexplained back pain. Your symptoms do not get better with treatment. You develop side effects from the medicine you are taking. Your urine becomes very dark or has a bad smell. Your lower abdomen becomes distended and you have trouble passing urine. Get help right away if: You have a fever or chills. You suddenly cannot urinate. You feel light-headed or very dizzy, or you faint. There are large amounts of blood or clots in your urine. Your urinary problems become hard to manage. You develop moderate to severe low back or flank pain. The flank is the side of your body between the ribs and the hip. These symptoms may be an emergency. Get help right away. Call 911. Do not wait to see if the symptoms will go away. Do not drive yourself to the hospital. Summary Benign prostatic hyperplasia (BPH) is an enlarged prostate that is caused by the normal aging process. It is not caused by cancer. An enlarged prostate can press on the urethra. This can make it hard to pass urine. This condition is more likely to develop in men older than 50 years. Get help right away if you suddenly cannot urinate. This information is not intended to replace advice given to you by your health care provider. Make sure you discuss any questions you have with your health care provider. Document Revised: 02/11/2022 Document Reviewed: 02/11/2022 [email or web address] Patient Education 2022 [place]. 01/27/2024 13:40:29 Testicular Self-Exam Testicular Self-Exam A self-examination of your testicles (testicular self-exam) involves looking at and feeling your testicles for abnormal lumps or swelling. Several things can cause swelling, lumps, or pain in your testicles. Some of these causes are: Injuries. Inflammation. Infection. Buildup of fluids around the testicle (hydrocele). Twisted testicles (testicular torsion). Testicular cancer. You may be at risk for testicular cancer if you have: ?An undescended testicle (cryptorchidism). ?A history of previous testicular cancer. ?A family history of testicular cancer. General tips and recommendations The testicles are easiest to examine after a warm bath or shower. They are more difficult to examine when you are cold because the muscles attached to the testicles retract and pull them up higher or into the abdomen. A normal testicle is egg-shaped and feels firm. It is smooth and not tender. It is normal to feel a firm, spaghetti-like cord at the back of your testicle. This is the spermatic cord. How to do a testicular self-exam 1.Stand and hold your penis away from your body. 2.Look at each testicle to check for changes in appearance, such as swelling or changes in size or shape. 3.Roll each testicle between your thumb and forefinger, feeling the entire testicle. Feel for: Lumps. Swelling. Discomfort. 4.Check the groin area between your abdomen and upper thighs on both sides of your body. Look and feel for any swelling or bumps that are tender. These could be enlarged lymph nodes. Contact a health care provider if: You find any bumps or lumps, such as a small, hard, pea-sized lump. You find swelling, pain, or soreness. You see or feel any other changes in your testicles. Summary A self-examination of your testicles (testicular self-exam) involves looking at and feeling your testicles for any changes. Check each of your testicles for lumps, swelling, or discomfort. These changes can be caused by many things. Check for swelling or tender bumps in your groin area between your lower abdomen and upper thighs. This information is not intended to replace advice given to you by your health care provider. Make sure you discuss any questions you have with your health care provider. Document Revised: 07/01/2020 Document Reviewed: 07/01/2020 [email or web address] Patient Education 2022 [place]. Follow Up Care 01/27/2024 09:11:18 With:SHAYY BARRETO, Garfield Cotter, URL Address: [facility] [address] [place] [phone] When:Within 1 Month(s) [facility] 01-26-2024 Discharge summary Note Date/Time January 26, 2024 8:47am [facility] [address] [place] [id number] Discharge Summary Signed Patient: Dagoberto Squires MR#: [id number] : 1945 Acct:[id number] Age/Sex: 78 / M Adm Date: 4 Loc: Room: 7E1812-[address]: Nicko Galvan MD Copies to: RITIKA Goyal APRN, [employer] Nicko Galvan MD~ Providers Date of Discharge: 01/26/24 Discharging Provider: Mckenna Campbell Additional Discharging Provider: Nicko Galvan Primary Care Provider: Sonia Salinas Discharge Diagnosis (1) Symptomatic stenosis of right carotid artery: (2) Scrotal abscess: Final Diagnosis Final Discharge Diagnosis: same Summary Hospital Course Hospital course: Patient underwent right transcarotid arterial revascularization yesterday for symptomatic right high-grade ICA stenosis. He denies any hemispheric symptoms whatsoever. He is chewing and swallowing without issue. He has been up and about in the room a little bit through the evening and states readiness for discharge home. During the evening, nursing notified vascular of possible GI bleed as he did have some bleeding in the bed. Once the patient was cleaned up it was discovered that he had a scrotal abscess which had ruptured. I did question thepatient on this this morning and he denied any knowledge of having a scrotal abscess prior to this time. He denied any pain associated with a developing abscess. He denied any recent fever or chills. Nursing has consulted wound care to be seen here in the hospital. I did speak with his primary care provider's office this morning and have arranged for follow-up in their office for further evaluation of the scrotal abscess later this afternoon at 2:00. Time Spent with Patient Time spent providing/coordinating discharge services (# min): 35 Surgeries and Procedures Operation Date: 01/25/24 11:00 Actual Procedures p OR Right TCAR(Right) - Nicko Galvan MD Discharge Plan Discharge Plan Patient Disposition: Home Comment: Rest. Take it easy. Avoid strenuous activity x 2 weeks. Diet: Regular Additional Instructions: May shower. Allow water to naturally run off incision sites. Do not soak in water, no bathtub, no swimming, no hot tubs. Wash incision site with warm soapywater daily, pat dry. Observe for signs or symptoms of infection and report anyissues that present. Instructions: How to Prevent Surgical Site Infections, Carotid Artery Stenting (DC), Surgical Wound (DC), Carotid Artery Stenosis (DC), Carotid Artery Disease (DC), Know your Meds Prescriptions: Continued aspirin [Children's Aspirin] 81 mg Tablet,Chewable 81 mg PO DAILY Qty: 30 0RF atorvastatin 80 mg Tablet 80 mg PO QPM Qty: 30 0RF clopidogrel 75 mg Tablet 75 mg PO DAILY Qty: 30 0RF lisinopril 10 mg Tablet 10 mg PO DAILY Qty: 30 0RF metformin 500 mg tablet 500 mg PO BID.WITH.MEALS Qty: 60 0RF Follow Up: Sonia Salinas APRN, BRICK BURNER-C [Primary Care Provider] - 01/26/24 2:00 pm (It is important to keep this appointment for proper evaluation and treatment of scrotal abscess.) Nicko Galvan MD [Active Staff] - 02/16/24 8:45 am (Please call the office to reschedule this appointment if this time does not work for you. Please call with additional questions or concerns. Thank you.) Exam Physical Exam Vital Signs: Temp Pulse Resp BP Pulse Ox O2 Del Method O2 Flow Rate 99.1 F H 71 26 H 128/69 93 L Room Air 6 01/26/24 04:00 01/26/24 08:00 01/26/24 08:00 01/26/24 08:00 01/26/24 08:00 01/26/24 08:00 01/25/24 14:13 Narrative: 78-year-old male, no acute distress. He is alert and oriented x 3. He has no shortness of breath with our conversation. Vital signs on the bedsidemonitor are stable. No facial asymmetry, tongue is midline, neck is supple, no JVD, no carotid bruit. He has a right TCAR incision is stable with no palpable hematoma. Mild amount of bruising and edema noted. His heart shows regular rate and rhythm, no murmur. Lung sounds are clear throughout bilaterally. Bilateral lower extremities with no edema. His right groin puncture site is stable with no palpable hematoma. Small amount of bruising noted. No continueddrainage from abscess to posterior scrotal region. It is quite tender for him. Const General: cooperative, comfortable and no acute distress Diagnostic Studies Completed and Pending Studies Labs on day of discharge: 01/26/24 03:45: Corrected WBC 20.7 H, Uncorrected WBC Count 20.7 H, RBC 3.83 L, Hgb 12.0 L, Hct 35.9 L, MCV 93.7, MCH 31.2, MCHC 33.3, RDW 13.8, Plt Count 276, MPV 7.7, Neut % (Auto) N/A, Lymph % (Auto) N/A, [place] % (Auto) N/A, Eos % (Auto) N/A, Baso % (Auto) N/A, Nucleat RBC Rel Count N/A, Neut # (Auto) N/A, Lymph # (Auto) N/A, [place] # (Auto) N/A, Eos # (Auto) N/A, Baso # (Auto) N/A, Band Neutrophils % 3, Lymphocytes % 7 L, Monocytes % 8, Eosinophils % 15 H, SegmentedNeutrophils 67, Platelet Estimate Normal, Giant Platelets 2, Plt Morphology Comment Normal, RBC Morphology Normal 01/25/24 14:34: POC Glucose 121, POC Glucose Comment Glu2: cleaned meter 01/25/24 13:22: Activated Clotting Time 269 H 01/25/24 12:54: Activated Clotting Time 140 H 01/25/24 12:24: POC Glucose 124, POC Glucose Comment Glu2: cleaned meter 01/25/24 10:10: Urine Opiates Screen Negative, Ur Barbiturates Screen Negative, Ur Phencyclidine Scrn Negative, Ur Amphetamines Screen Negative, U Benzodiazepines Scrn Negative, Urine Cocaine Screen Negative, U Marijuana (THC) Screen Positive H Documented By: Mckenna Campbell APRN 01/26/24 0 846 Signed By: <Electronically signed by RIITKA Campbell> 01/26/24 0908 <Electronically signed by Nicko Galvan MD> 01/26/24 0856 [facility] Work Phone: 1(729) 137-673506-18-2024 [facility] Consult note Author Dao Johnston [facility] January 13, 2024 11:34am Note Date/Time January 12, 2024 3:28p m [facility] [address] [place] [address] Vascular Surgery Consult Note Signed Patient: Dagoberto Squires MR#: [id number] : 1945 Acct:[id number] Age/Sex: 78 / M Adm Date: 4 Loc: 3T Room: [address] [place] [address] Type: ADM IN Attending Dr: Zachary Garcia MD Copies to: MD Mckenna Sanchez APRN Jeffrey L Buehrer, MD Jennifer Rohrbacher, RITIKA, TOMB MAKER HELPER~ HPI Consult HPI Reason for consult: carotid stenosis History of present illness: Mr. Squires is a 78-year-old male came through the emergency department on 01/10/2024 with concerns for a stroke. According to the family he was at a get together when he went to get up to go to the bathroom and had a fall. He was unable to get up after falling, the family noticed some left-sidedweakness and facial drooping and he was brought through the emergency departmentfor evaluation. This patient does have some mild dementia according to the family but he does answer my questions appropriately while we are in the room today. He does have some drooping over the right eye but the family tells me that this has been ongoing for some time and he has been working with a surgeon with a couple previous blepharoplasty procedures. Today he tells me that he feels he has returned to normal. He denies any ongoing hemispheric weakness. He denies any aphasia or amaurosis fugax. CTA of the head and neck showed high-grade stenosis of the right ICA. He has no significant stenosis on the left. Vascular surgery has been consulted for further evaluation and management. cc:: CC: Zachary Garcia MD Data of Consult Consult date: 01/12/2024 Requesting Physician: Zachary Garcia MD Review of Systems Review of Systems All other systems reviewed & are negative unless noted below or in HPI [facility] Medical History Vascular dementia Injected eye, right Retina Basal cell carcinoma Below left eye Surgical History H/O cataract extraction Family History Father Mother Social History Smoking Status: Never smoker Substance Use Type: Marijuana Allergies & Active Medications Medications and Allergies Allergies No Known Allergies Allergy (Verified 01/10/24 22:31) Exam Physical Exam Vital Signs: Temp Pulse Resp BP Pulse Ox O2 Del Method 97.7 F 85 18 138/77 95 Room Air 01/12/24 12:00 01/12/24 12:00 01/12/24 12:00 01/12/24 12:00 01/12/24 12:00 01/12/24 14:21 Narrative: 78-year-old male, no acute distress. He is resting comfortably in hisbed this afternoon on my rounds with family at bedside. He does have slight drooping to the right eye which he tells me is his normal. His heart shows regular rate and rhythm, no murmur. Lung sounds are diminished bilaterally. His abdomen is soft, nontender, nondistended. Bilateral lower extremities with no edema. Today he moves all extremities equally. Results - Vascular Surgery Labs 01/11/24 05:52 01/11/24 05:52 Labs: Laboratory Results - last 24 hr 01/11/24 01/12/24 01/12/24 16:27 06:41 11:41 POC Glucose 208 156 226 POC Glucose Comment Glu2: cleaned meter 01/12/24 13:09 POC Glucose 195 POC Glucose Comment Glu2: cleaned meter PT 11.9 Seconds (9.0-12.9) 01/10/24 22:13 APTT 30.0 Seconds (25.1-36.5) 01/10/24 22:13 A&P - Vascular (1) Symptomatic stenosis of right carotid artery: Plan: Currently, patient not experiencing any hemispheric weakness and has returned tohis baseline. CTA of the head and neck showed high-grade stenosis of the right ICA, occlusion of the right vertebral artery, and probable stenosis of the left vertebral artery. I will obtain ultrasound of the carotid arteries for comparison of imaging. We will send imaging to [facility] and evaluate for likely intervention. This can be done on an outpatient basis. We will plan to see him early next week in the office and plan for likely intervention. I did have a lengthy discussion with the patient and the family in the room today and all of their questions were addressed. They deny any additional questions. Documented By: Mckenna Campbell APRN 01/12/24 1 527 Signed By: <Electronically signed by RIITKA Campbell> 01/12/24 1536 <Electronically signed by MD Dao Johnston> 01/13/24 1134 [facility] Work Phone: 1(622) 999-636306-05-2024 Progress note Author Zachary Garcia [facility] January 12, 2024 5:19pm Note Date/Time January 11, 2024 1:15p m [facility] [address] [place] [address] Hospitalist Progress Note Signed Patient: Dagoberto Squires MR#: [id number] : 1945 Acct:[id number] Age/Sex: 78 / M Adm Date: 4 Loc: 3T Room: [address] [place] [address] Type: ADM IN Attending Dr: Zachary Garcia MD Copies to: ~ Date of Service: 01/11/2024 Subjective Subjective Narrative: Patient seen and examined. He is up in chair, just finished eating breakfast, at 100%, indicates he had eggs and rubin. No visitors present. He follows command for exam. With questioning some of his confusion becomes apparent - indicates he lives at home with his . Aware he is in hospital cannot state why. States it is December of 2020. Offers no complaints. No headache, dizziness, visual disturbance, weakness, chest pain or dyspnea. Exam Physical Exam Vital Signs: Temp Pulse Resp BP Pulse Ox O2 Del Method 98.2 F 63 16 189/94 H 96 Room Air 01/11/24 08:00 01/11/24 08:00 01/11/24 08:00 01/11/24 08:00 01/11/24 08:00 01/11/24 08:00 Narrative: CONST- alert, in chair, elderly male CARD- RRR no abnormal heart tones PULM- dimin without wheeze or rhonchi, RA ABD- S/NT, NABS, round/ obese EXTREM- no edema BLE, calves nontender NEURO- A&Ox2, speech clear, tongue midline, equal facial symmetry, no paresthesias MS- MAEx4, equal strength Objective Lab Results 01/11/24 05:52 01/11/24 05:52 Meds Allergies and Active Meds Allergies No Known Allergies Allergy (Verified 01/10/24 22:31) Active Meds: Active Medications Generic Name Dose Route Start Last Admin Trade Name Freq PRN Reason Stop Dose Admin Acetaminophen 1,000 mg 01/11/24 00:30 Acetaminophen 500 Mg Tablet PO 01/10/25 00:29 Q6HR PRN Pain Scale 1 - 3 or fever Aspirin 81 mg 01/11/24 09:00 01/11/24 09:03 Aspirin 81 Mg Tab.Chew PO 01/10/25 08:59 81 mg DAILY LENNOX Administration Atorvastatin Calcium 80 mg 01/11/24 00:35 01/11/24 02:40 Atorvastatin 80 Mg Tablet PO 01/10/25 00:34 80 mg QPM LENNOX Administration Enoxaparin Sodium 40 mg 01/11/24 10:00 Enoxaparin 40 Mg/0.4 Ml Syringe SUBCUT 01/10/25 09:59 DAILY@10 LENNOX Sodium Chloride 0 ml 01/10/24 22:10 01/10/24 22:30 Sodium Chloride 0.9 % 10 Ml Syringe IV-PUSH 01/09/25 22:09 10 ml PRN PRN Administration Flush A&P - Hospitalist Assessment/Plan (1) Brain TIA: (2) Frequent falls: (3) Memory changes: (4) T2DM (type 2 diabetes mellitus): (5) Hypertension: (6) Vascular dementia: (7) Symptomatic stenosis of right carotid artery: (8) Atherosclerotic cerebrovascular disease: Plan TIA r/o CVA Left sided weakness Right carotid stenosis, Cerebrovascular atherosclerosis Dyslipidemia Frequent falls Dementia -neurology consult pending. Recently seen by Dr Solitario outpatient with new Dx: Alzheimer and rx donepezil 12/15 though appears not filled -CT head- nonacute without hemorrhage, chronic infarct right basal ganglia; CTA head/neck- multiple levels of stenosis of intra and extracranial degbyhhnuxn-odsd-qaudx stenosis at the proximal right ICA and in the clinoid segment, partial right vertebral artery occlusion with reconstitution at the C2 level, and the high-grade stenosis involves the basilar artery, and mention is made of large high-grade stenosis of the right P2 segme, and moderate stenosis in a branch of the right M2 segment t, and moderate stenosis of the left M1 segment, and high-grade stenosis of the left M2 segment, and moderate to high-grade stenosis at the origin of the left ANGEL, and multifocal high-grade stenosisof the left ANGEL, and occlusion of the right A1 segment. -cerebral perfusion scan pending -echo- EF 60-65%, LVDD, negative bubble study -MRI brain- pending. Recent outpatient MRI/MRA brain 11/19/23 negative for occlusion, suspected hypoplastic vs absent right A1 cerebral artery segment, hypoplastic appearance partially visualized right V4 vertebral artery, mild irregular stenosis involving basilar artery. -leukocytosis 16.0, UA and CXR noninfectious, A1c 7.9, chol 172 LDL 197, UDS positive THC -recent B12 523 12/16/23, recent TSH 3.23 12/16/23, recent folate 16.1 -therapy evals -ASA and atorvastatin, clopidogrel added per neurology -vascular surgery consult pending -patient would benefit from outpatient polysomnogram r/o MELISSA, though documented outpatient he previously refused with reported loud snoring T2DM with hyperglycemia, newly diagnosed -A1c 7.9 and glucosuria -fingerstick and SSIC. Will add PO med on discharge Elevated blood pressure with no prior history of documented hypertension and on no chronic medications -will allow some permissive hypertension for now with multiple areas of high- grade stenosis noted on CTA head/neck -hydralazine prn -trend BPs and consider addition of med ongoing however higher pressures assist cerebral perfusion which may have been contributory to neuro events Hypomagnesemia -replete Chest xray with interstitial prominence - no hypoxia crackles or respiratory symptoms, does not clinically appear volume overloaded. BNP 38 Discussed findings with Robyn - she indicates he has not started donepezil as she was concerned with side effects- has been giving him herbals. She also is aware of undiagnosed DM indicating he has all the symptoms and does not eatwell. BPs have not previously been elevated, checks at home and primary care visits do not demonstrate elevations. She also indicates he refused sleep study. Recently stopped smoking. Also updated her on lipds. Discussed currenttreatment recommendations, pending vascular and neurology consults as well as radiology read of MRI. Patient changed to inpatient status with need to initiate DM treatment, further trend BP and initiate meds, vascular evaluations of significant stenosis carotid/ cerebral systems. Case d/w Dr Garcia Attending attestation: Patient was personally seen by me on the day of encounter. I reviewed his history and performed paniagua elements of exam and formulated the plan of care and confirmed the practitioners note above. Documented By: Sabrina Lama APRN 11/30 0942 Signed By: <Electronically signed by RITIKA Lama> 01/11/24 1449 <Electronically signed by Zachary Garcia MD> 01/12/24 1196 [facility] Work Phone: 1([phone]) 718-422306-05-2024 Progress note Author Zachary Garcia [facility] January 12, 2024 5:18pm Note Date/Time January 12, 2024 9:16a m [facility] [address] [place] [address] Hospitalist Progress Note Signed Patient: Dagoberto Squires MR#: [id number] : 1945 Acct:[id number] Age/Sex: 78 / M Adm Date: 4 Loc: Room: [address] [place] [address] Type: ADM IN Attending Dr: Zachary Garcia MD Copies to: ~ Date of Service: 01/12/2024 Subjective Subjective Narrative: Patient seen and examined. No visitors present. Patient offers no complaints. Remains oriented to place and self, thought it was 2008 and thought he was in [place]. Denies pain or dyspnea. Denies weakness. Slept well. Ate breakfast and fed self. Nursing indicates he was up multiple times to bathroom overnight. Exam Physical Exam Vital Signs: Temp Pulse Resp BP Pulse Ox O2 Del Method 97.7 F 88 18 208/96 H 96 Room Air 01/12/24 07:35 01/12/24 07:35 01/12/24 07:35 01/12/24 07:35 01/12/24 07:35 01/12/24 08:00 Narrative: CONST- alert, in bed, elderly male CARD- RRR no abnormal heart tones PULM- dimin without wheeze or rhonchi, RA ABD- S/NT, NABS, round/ obese EXTREM- no edema BLE, calves nontender NEURO- A&Ox2, speech clear, tongue midline, equal facial symmetry, no paresthesias MS- MAEx4, equal strength Objective Lab Results 01/11/24 05:52 01/11/24 05:52 Meds Allergies and Active Meds Allergies No Known Allergies Allergy (Verified 01/10/24 22:31) Active Meds: Active Medications Generic Name Dose Route Start Last Admin Trade Name Flynn PRN Reason Stop Dose Admin Acetaminophen 1,000 mg 01/11/24 00:30 Acetaminophen 500 Mg Tablet PO 01/10/25 00:29 Q6HR PRN Pain Scale 1 - 3 or fever Aspirin 81 mg 01/11/24 09:00 01/12/24 07:39 Aspirin 81 Mg Tab.Chew PO 01/10/25 08:59 81 mg DAILY LENNOX Administration Atorvastatin Calcium 80 mg 01/11/24 00:35 01/11/24 22:15 Atorvastatin 80 Mg Tablet PO 01/10/25 00:34 80 mg QPM LENNOX Administration Clopidogrel Bisulfate 75 mg 01/11/24 13:45 01/12/24 07:39 Clopidogrel Bisulfate 75 Mg Tablet PO 01/10/25 13:44 75 mg DAILY LENNOX Administration Enoxaparin Sodium 40 mg 01/11/24 10:00 01/12/24 07:38 Enoxaparin 40 Mg/0.4 Ml Syringe SUBCUT 01/10/25 09:59 40 mg DAILY@10 LENNOX Administration Hydralazine HCl 10 mg 01/11/24 13:50 01/12/24 07:44 Hydralazine 20 Mg/Ml Vial IV-PUSH 01/10/25 13:49 10 mg Q4H PRN Administration Hypertension Insulin Aspart 0 units 01/11/24 16:30 01/12/24 07:39 Insulin Aspart 300 Units/3 Ml Insuln.Pen SUBCUT 01/10/25 16:29 2 units ACHS LENNOX Administration Protocol Lisinopril 10 mg 01/12/24 09:00 Lisinopril 10 Mg Tablet PO 01/11/25 08:59 DAILY LENNOX Sodium Chloride 0 ml 01/10/24 22:10 01/11/24 23:53 Sodium Chloride 0.9 % 10 Ml Syringe IV-PUSH 01/09/25 22:09 10 ml PRN PRN Administration Flush A&P - Hospitalist Assessment/Plan (1) Brain TIA: (2) Carotid stenosis: (3) Frequent falls: (4) Memory changes: (5) T2DM (type 2 diabetes mellitus): (6) Hypertension: (7) Vascular dementia: (8) Symptomatic stenosis of right carotid artery: (9) Atherosclerotic cerebrovascular disease: Plan CVA Left sided weakness, improved Right carotid stenosis, Cerebrovascular atherosclerosis Dyslipidemia Frequent falls Dementia -neurology consult appreciated. Recently seen by Dr Solitario outpatient with new Dx: Alzheimer and rx donepezil 12/15 spouse did not fill concerned for side effects -CT head- nonacute without hemorrhage, chronic infarct right basal ganglia; CTA head/neck- multiple levels of stenosis of intra and extracranial fvsrgpjezbq-jser-hiyzj stenosis at the proximal right ICA and in the clinoid segment, partial right vertebral artery occlusion with reconstitution at the C2 level, and the high-grade stenosis involves the basilar artery, and mention is made of large high-grade stenosis of the right P2 segme, and moderate stenosis in a branch of the right M2 segment t, and moderate stenosis of the left M1 segment, and high-grade stenosis of the left M2 segment, and moderate to high-grade stenosis at the origin of the left ANGEL, and multifocal high-grade stenosisof the left ANGEL, and occlusion of the right A1 segment. -cerebral perfusion scan- poor global perfusion most pronounced along MCA/ANGEL watershed territories bilaterally -echo- EF 60-65%, LVDD, negative bubble study -MRI brain- Small focus acute/subacute ischemia corresponding to corticospinal tract in right frontal and parietal periventricular white matter with accompanying edema, chronic microvascular ischemic changes and remote lacunar infarcts, left frontal/parietal junction within left lateral ventricle suspiicious for small subependymoma, diminished flow voids V4 and V3 segments right vertebral artery consistent with slow flow (Recent outpatient MRI/MRA brain 11/19/23 negative for occlusion, suspected hypoplastic vs absent right A1 cerebral artery segment, hypoplastic appearance partially visualized right V4 vertebral artery, mild irregular stenosis involving basilar artery) -leukocytosis 16.0, UA and CXR noninfectious, A1c 7.9, chol 172 LDL 197, UDS positive THC -recent B12 523 12/16/23, recent TSH 3.23 12/16/23, recent folate 16.1 -therapy evals recommendations for homegoing -ASA and atorvastatin, clopidogrel added per neurology -vascular surgery consult- discussed telephonically with Dr Aragon 01/11, stabilize new DM and HTN, probably good candidate for TCAR urgently next week. BRICK BURNER to see pt today -patient would benefit from outpatient polysomnogram r/o MELISSA, though documented outpatient he previously refused with reported loud snoring T2DM with hyperglycemia, newly diagnosed -A1c 7.9 and glucosuria -fingerstick and SSIC. Will add PO med on discharge Elevated blood pressure with no prior history of documented hypertension and on no chronic medications -will allow some permissive hypertension for now with multiple areas of high- grade stenosis noted on CTA head/neck -hydralazine prn -trend BPs and consider addition of med ongoing however higher pressures assist cerebral perfusion which may have been contributory to neuro events -lisinopril added 01/11 with BP elevations documented ongoing Hypomagnesemia -replete Chest xray with interstitial prominence - no hypoxia crackles or respiratory symptoms, does not clinically appear volume overloaded. BNP 38 Spoke with Robyn today and updated on findings of MRI and discussion with vascular surgery. Questions, concerns addressed Attending attestation: Patient was personally seen by me on the day of encounter. I reviewed his history and performed paniagua elements of exam and formulated the plan of care and confirmed the nurse practitioner's note above. Documented By: Sabrina Lama APRN 12/30 0916 Signed By: <Electronically signed by RITIKA Lama> 01/12/24 1035 <Electronically signed by Zachary Garcia MD> 01/12/24 5247 [facility] Work Phone: 1(410) 159-311306-05-2024 Progress note Author Nic Leung [facility] January 12, 2024 12:58pm Note Date/Time January 12, 2024 11:25 am [facility] [address] [place] [address] Neurology Progress Note Signed Patient: Dagoberto Squires MR#: [id number] : 1945 Acct:[id number] Age/Sex: 78 / M Adm Date: 4 Loc: 3T Room: [address] [place] [address] Type: ADM IN Attending Dr: Zachary Garcia MD Copies to: ~ Date of Service: 01/12/2024 Exam Physical Exam Vital Signs: Temp Pulse Resp BP Pulse Ox O2 Del Method 97.7 F 88 18 184/90 H 96 Room Air 01/12/24 07:35 01/12/24 07:35 01/12/24 07:35 01/12/24 10:21 01/12/24 07:35 01/12/24 08:00 Objective Vital Signs Vital Signs: Vital Signs - 24 hr 01/11/24 12:00 01/11/24 16:00 01/11/24 20:00 Temperature 97.9 F Pulse Rate 64 68 64 Respiratory Rate 16 16 18 Blood Pressure 165/87 H 177/93 H 167/81 H 02 Sat by Pulse Oximetry 95 96 96 Oxygen Delivery Method Room Air Room Air Room Air 01/11/24 20:00 01/11/24 23:35 01/12/24 00:23 Temperature 97.5 F L Pulse Rate 67 Respiratory Rate 18 Blood Pressure 188/86 H 02 Sat by Pulse Oximetry 95 Oxygen Delivery Method Room Air Room Air Room Air 01/12/24 04:49 01/12/24 07:35 01/12/24 08:00 Temperature 97.5 F L 97.7 F Pulse Rate 85 88 Respiratory Rate 17 18 Blood Pressure 180/86 H 208/96 H 02 Sat by Pulse Oximetry 95 96 Oxygen Delivery Method Room Air Room Air Room Air 01/12/24 10:21 Temperature Pulse Rate Respiratory Rate Blood Pressure 184/90 H 02 Sat by Pulse Oximetry Oxygen Delivery Method Labs 01/11/24 05:52 01/11/24 05:52 Therapy Recommendations Therapy Recommendations: OT Recommendations OT Recommended Discharge Home Location PT Recommendations PT Recommended Discharge Home Location Assessment/Plan (1) Symptomatic stenosis of right carotid artery: (2) Brain TIA: Plan CONSULT REASON: Stroke symptoms SUBJECTIVE: No return of any left-sided weakness symptoms. No overnight events. Nothing toadd review of systems. EXAMINATION: In no distress. No deformities or trauma. Limbs seem well-perfused. No significant edema. Normal work of breathing. Visualized skin is generally intact and without lesions. Affect normal. He is alert. Attention impaired. Follows simple commands without issue. Speech fluent, mumbling, likely nondysarthric, but sometimes unintelligible. Pupils are equal and reactive. Ocular motility is full. No nystagmus. Facial sensation is normal. Hearing issomewhat reduced. Facial strength is normal. Tongue is midline. Muscle bulk, tone, and strength are normal. I am not demonstrating any limb drift at this time. No tremors. Reflexes hypoactive throughout. Light touch is normal. Vibratory sensation is absent distal to mid shins bilaterally. No limb dysmetriaor ataxia. DATA REVIEW: -CT head shows a chronic lacunar infarct in the superior right basal ganglia area almost periventricularly -CTA head and neck high-grade stenosis at the proximal right ICA and in the clinoid segment, partial right vertebral artery occlusion with reconstitution atthe C2 level, and the high-grade stenosis involves the basilar artery, and mention is made of large high-grade stenosis of the right P2 segment, and moderate stenosis in a branch of the right M2 segment t, and moderate stenosis of the left M1 segment, and high-grade stenosis of the left M2 segment, and moderate to high-grade stenosis at the origin of the left ANGEL, and multifocal high-grade stenosis of the left ANGEL, and occlusion of the right A1 segment. -MRI brain without contrast shows a small area of diffusion restriction periventricularly in the right frontal lobe ASSESSMENT: Acute ischemic stroke of a small amount right frontal periventricular white matter, presenting with left hemiparesis and facial weakness that has improved. CT angiography reveals severe multifocal intracranial and extracranial atherosclerotic changes and varying degrees of stenosis of multiple arteries, asdescribed in the report. Most of those will require medical management. He does have a high-grade short segment stenosis at the proximal right ICA that might warrant intervention (symptomatic right internal carotid artery stenosis). PLAN: 1. Continue the aspirin 81 mg daily and clopidogrel 75 mg daily, both started here 2. Continue the atorvastatin 80 mg daily that was started here 3. Vascular surgery input, especially regarding possible intervention upon the high-grade stenosis at the proximal right ICA. 4. No other recommendations from neurology standpoint at this time Documented By: Nic Leung DO 01/12/24 1123 Signed By: <Electronically signed by Nic Leung DO> 01/12/24 1258 [facility] Work Phone: [phone] History and physical note Author Jc Brown [facility] January 12, 2024 4:30am Note Date/Time January 11, 2024 7:55p ashish [facility] [address] [place] [address] Hospitalist H&P Signed Patient: Dagoberto Squires MR#: [id number] : 1945 Acct:[id number] Age/Sex: 78 / M Adm Date: 4 Loc: 3T Room: [address] [place] [address] Type: ADM IN Attending Dr: Zachary Garcia MD Copies to: MD Sonia Sanchez, RESTORATIVE REHAB AIDE, TOMB MAKER HELPER RITIKA Ponce, DO~ HPI DATE OF EXAMINATION: 01/11/24 CHIEF COMPLAINT: fall, altered mental status HISTORY OF PRESENT ILLNESS: Addendum entered and electronically signed by Faiza Mcdonald APRN 01/11/24 19:52: adding addendum Original Note: HPI DATE OF EXAMINATION: 01/11/24 CHIEF COMPLAINT: fall and left sided weakness HISTORY OF PRESENT ILLNESS: Mr. Squires is a 78 year old male that denies a significant past medical history that presents to the emergency room for a fall and left sided weakness at home. When asked the patient why he is here he states because my and my neighbor brought me here. is not currently present. Patient is alert and oriented to self and place. States he remembers falling in the bathroom tonight and could not get up off the floor. He denies chest pain, shortness of breath, fever, chills, nausea or vomiting. Denies any numbness or tingling. He denies history of heart disease or stroke. CT of the head showed no acute CVA, mass effect, intracranial hemorrhage or skull fracture, chronic infarct to the right basal ganglia, mild age-related parenchymal volume loss and mild subcortical and deep white matter ischemic changes. CTA of the head shows multiple areas of moderate to high-grade stenosis, no aneurysm, CTA of the neck shows atherosclerosis in the aortic arch,proximal internal carotid arteries and carotid bulbs bilaterally, high-grade stenosis to the proximal right internal carotid artery, proximal right vertebralartery is occluded with reconstitution at the level of C2, occlusion of the right vertebral artery at the level of foramen magnum with reconstitution at thedistal aspect which appears to perfuse via PICA, probable stenosis to the left vertebral artery. Chest x-ray shows no acute process.CBC has leukocytosis with white blood cell count of 16.1. Coags unremarkable. CMP with a creatinine of 1.3, glucose 266, otherwise unremarkable. UA with clear, yellow urine, specificgravity 1.043, 20 protein, 500 glucose, negative for infection. NIH score was 3. Patient was medicated with 324 of aspirin. He will be admitted as observation to the [facility] telemetry floor. ? Review of Systems Review of Systems Review of systems: A 10 point review of systems was obtained, negative unless noted in the HPI or below. [facility] Medical History (Updated 01/11/24 @ 14:48 by Sabrina Lama APRN) Vascular dementia Injected eye, right Retina Basal cell carcinoma Below left eye Surgical History H/O cataract extraction Family History Father Mother Social History Smoking Status: Never smoker Substance Use Type: Marijuana Meds Medications and Allergies Allergies No Known Allergies Allergy (Verified 01/10/24 22:31) Home Medications aspirin-caffeine 500 mg-32.5 mg tablet (Giselle Back and Body) 1 tab PO DAILY 10/04/23 [History Confirmed 01/10/24] Exam Physical Exam Vital Signs: Temp Pulse Resp BP Pulse Ox O2 Del Method 98.2 F 68 16 177/93 H 96 Room Air 01/11/24 08:00 01/11/24 16:00 01/11/24 16:00 01/11/24 16:00 01/11/24 16:00 01/11/24 16:00 Narrative: CONST- Appears well -developed and well nourished. Morbidly obese?BMI 33.6 HEAD - Normocephalic and atraumatic EENT-Sclera nonicteric, conjunctive are non-erythemic, moist oral mucosa, pharynx clear NECK-Supple, no cervical lymphadenopathy CARDIAC-normal rate, regular rhythm, S1 & S2. PULM-diminished without wheeze or rhonchi, RA, no accessory muscle use or cough noted ABD - Soft. Bowel sounds are normal. No distention. No tenderness EXTREM-no edema BLE calves, nontender SKIN- W/D good turgor MS- MAEX4 spontaneously with equal strength NEURO- A&Ox2, disoriented to time, speech clear and tongue midline, equal facialsymmetry, no focal motor deficits PSYCH-Mood, affect, and behavior appropriate Results - Hospitalist H&P Lab Results Labs: Laboratory Last Values Corrected WBC 16.0 X10E3/uL (4.1-10.5) H 01/11/24 05:52 Uncorrected WBC Count 16.0 x10E3/uL (4.1-10.5) H 01/11/24 05:52 RBC 4.30 X10E6/uL (3.90-5.60) 01/11/24 05:52 Hgb 13.7 g/dL (13.0-17.0) 01/11/24 05:52 Hct 40.7 % (38.8-50.0) 01/11/24 05:52 MCV 94.7 fl (83.5-101) 01/11/24 05:52 MCH 31.9 pg (27.5-35.2) 01/11/24 05:52 MCHC 33.7 g/dL (32.5-35.6) 01/11/24 05:52 RDW 14.0 % (12.0-14.8) 01/11/24 05:52 Plt Count 208 x10E3/uL (150-450) 01/11/24 05:52 MPV 8.2 fl (6.6-10.1) 01/11/24 05:52 Neut % (Auto) N/A 01/11/24 05:52 Lymph % (Auto) N/A 01/11/24 05:52 [place] % (Auto) N/A 01/11/24 05:52 Eos % (Auto) N/A 01/11/24 05:52 Baso % (Auto) N/A 01/11/24 05:52 Nucleat RBC Rel Count N/A 01/11/24 05:52 Neut # (Auto) N/A 01/11/24 05:52 Lymph # (Auto) N/A 01/11/24 05:52 [place] # (Auto) N/A 01/11/24 05:52 Eos # (Auto) N/A 01/11/24 05:52 Baso # (Auto) N/A 01/11/24 05:52 Band Neutrophils % 4 % (0-5) 01/11/24 05:52 Lymphocytes % 11 % (18-42) L 01/11/24 05:52 Monocytes % 8 % (2-11) 01/11/24 05:52 Eosinophils % 26 % (1-3) H 01/11/24 05:52 Basophils % 2 % (0-2) 01/11/24 05:52 Metamyelocytes % 1 % (0-0) H 01/10/24 22:13 Myelocytes % 2 % (0-0) H 01/11/24 05:52 Segmented Neutrophils 48 % (50-70) L 01/11/24 05:52 Monocyte Dist Width 17.43 % (0.00-20.00) 01/11/24 05:52 Toxic Vacuolation Slight 01/10/24 22:13 Dohle Bodies Slight 01/10/24 22:13 Platelet Estimate Normal (Normal) 01/11/24 05:52 Large Platelets Slight 01/11/24 05:52 Giant Platelets 1 /100 WBC 01/11/24 05:52 Plt Morphology Comment N/A 01/11/24 05:52 RBC Morphology N/A 01/11/24 05:52 Anisocytosis Slight 01/11/24 05:52 Microcytosis Slight 01/11/24 05:52 PT 11.9 Seconds (9.0-12.9) 01/10/24 22:13 INR 1.0 01/10/24 22:13 APTT 30.0 Seconds (25.1-36.5) 01/10/24 22:13 PHA Creatinine Clear 63.72 01/11/24 05:52 Sodium 137 mmol/L (136-145) 01/11/24 05:52 Potassium 3.9 mmol/L (3.5-5.1) 01/11/24 05:52 Chloride 104 mmol/L (98-107) 01/11/24 05:52 Carbon Dioxide 28.6 mmol/L (21.0-31.0) 01/11/24 05:52 Anion Gap 8.3 mEq/L (6.0-15.0) 01/11/24 05:52 BUN 18 mg/dL (7-25) 01/11/24 05:52 Creatinine 1.22 mg/dL (0.70-1.30) 01/11/24 05:52 Est GFR (CKD-EPI) > 60.0 mL/Min 01/11/24 05:52 Glucose 166 mg/dL (70-100) H D 01/11/24 05:52 POC Glucose 208 mg/dl 01/11/24 16:27 Estimat Average Glucose 180 mg/dL 01/11/24 05:52 Hemoglobin A1c 7.9 % (4.3-5.6) H 01/11/24 05:52 Calcium 9.0 mg/dL (8.6-10.3) 01/11/24 05:52 Magnesium 1.7 mg/dL (1.9-2.7) L 01/11/24 05:52 Total Bilirubin 0.6 mg/dl (0.3-1.0) 01/10/24 22:13 AST 13 U/L (13-39) 01/10/24 22:13 ALT 8 U/L (7-52) 01/10/24 22:13 Alkaline Phosphatase 78 U/L (34-104) 01/10/24 22:13 Total Creatine Kinase 32 U/L (30-223) 01/10/24 22:13 Troponin I High Sens 7.1 pg/mL (0.0-20.0) 01/10/24 22:13 B-Natriuretic Peptide 38.0 pg/mL (5-100) 01/11/24 05:52 Total Protein 6.7 gm/dL (6.4-8.9) 01/10/24 22:13 Albumin 3.8 gm/dL (3.5-5.7) 01/10/24 22:13 Globulin 2.9 gm/dL 01/10/24 22:13 Albumin/Globulin Ratio 1.3 01/10/24 22:13 Triglycerides 186 mg/dL (0-149) H 01/11/24 05:52 Cholesterol 172 mg/dL (140-200) 01/11/24 05:52 LDL Cholesterol, Calc 107 mg/dL (0-100) H 01/11/24 05:52 VLDL Cholesterol 37 mg/dL 01/11/24 05:52 HDL Cholesterol 28 mg/dL (23-92) 01/11/24 05:52 Cholesterol/HDL Ratio 6.1 (<5.0) 01/11/24 05:52 Urine Color Yellow (Yellow) 01/10/24 23:30 Urine Appearance Clear (Clear) 01/10/24 23:30 Urine pH 5.5 (5.0-9.0) 01/10/24 23:30 Ur Specific [place] 1.043 (1.001-1.030) H 01/10/24 23:30 Urine Protein 20 mg/dL (Negative) H 01/10/24 23:30 Urine Glucose (UA) 500 mg/dL (Normal) H 01/10/24 23:30 Urine Ketones Negative (Negative) 01/10/24 23:30 Urine Occult Blood Negative (Negative) 01/10/24 23:30 Urine Nitrite Negative (Negative) 01/10/24 23:30 Urine Bilirubin Negative (Negative) 01/10/24 23:30 Urine Urobilinogen Normal mg/dL (Normal) 01/10/24 23:30 Ur Leukocyte Esterase Negative (Negative) 01/10/24 23:30 Urine RBC 1-2 /HPF (0-4) 01/10/24 23:30 Urine WBC 3-4 /HPF (0-4) 01/10/24 23:30 Ur Squamous Epith Cells 1-2 /HPF (0-2) 01/10/24 23:30 Urine Bacteria None seen /HPF (None Seen) 01/10/24 23:30 Urine Mucus Rare /LPF 01/10/24 23:30 Urine Opiates Screen Negative (Negative) 01/10/24 23:30 Ur Barbiturates Screen Negative (Negative) 01/10/24 23:30 Ur Phencyclidine Scrn Negative (Negative) 01/10/24 23:30 Ur Amphetamines Screen Negative (Negative) 01/10/24 23:30 U Benzodiazepines Scrn Negative (Negative) 01/10/24 23:30 Urine Cocaine Screen Negative (Negative) 01/10/24 23:30 U Marijuana (THC) Screen Positive (Negative) H 01/10/24 23:30 Assessment & Plan Assessment/Plan (1) Brain TIA: (2) Carotid stenosis: (3) Frequent falls: Plan (1) Brain TIA: (2) Frequent falls: (3) Carotid stenosis: (4) Memory changes: Plan TIA r/o CVA ? Consult neurology ? MRI of the brain in a.m., CT perfusion scan in a.m. ? Echo in a.m., bubble study please ? Consult PT/OT ? CBC, BMP, magnesium, lipid profile, A1c in a.m. ? Urine tox screen-pending ? Atorvastatin, low-dose aspirin Frequent falls Memory changes ? Patient has seen neurology as an outpatient, had previous MRI/MRI brain on 11/19/23 that was negative for occlusion, suspected hypoplastic versus absent right A1 anterior cerebral artery segment, hypoplastic appearance of the partially visualized right v4 vertebral artery, mild irregular stenosis involving the the basilar artery ? Fall precautions DVT PPx-SCDs, enoxaparin Diet order-regular CODE STATUS-full code I reviewed the history, formulated the plan of care and confirmed the Nurse Practitioner's assessment and plan after discussion with her about the case. - Jc Brown DO IP vs OBS Justification Based on differential dx, clinical care plan, and risk of adverse events, if untreated, in my clinical judgement this patient requires an acute care setting as: OBSERVATION because of an expectation of an under 2 midnight stay. Estimated length of stay (# of days): 1 Documented By: Faiza Mcdonald APRN 01/11/241953 Signed By: <Electronically signed by RITIKA Mcdonald> 01/11/241958 <Electronically signed by cJ Brown DO> 01/12/24 0430 [facility] Work Phone: [phone] 162-809906-04-2024 History and physical note Author Faiza Mcdonald [facility] January 11, 2024 7:52pm Note Date/Time January 11, 2024 12:40 am [facility] [address] [place] [address] Hospitalist H&P Signed Patient: Dagoberto Squires MR#: [id number] : 1945 Acct:[id number] Age/Sex: 78 / M Adm Date: 4 Loc: Room: [address] [place] [address] Type: ADM IN Attending Dr: Zachary Garcia MD Copies to: MD Sonia Sanchez, RESTORATIVE REHAB AIDE, BRIAN Mcdonald APRN~ Documented By: Faiza Mcdonald APRN 01/11/24 004 Signed By: [facility] Work Phone: 1(809) 571-809106-04-2024 Consult note Author Nic Leung [facility] January 11, 2024 1:44pm Note Date/Time January 11, 2024 12:01 pm [facility] [address] [place] [id number] Neurology Consult Note Signed Patient: Dagoberto Squires MR#: [id number] : 1945 Acct:[id number] Age/Sex: 78 / M Adm Date: 4 Loc: 3T Room: [address] [place] [address] Type: ADM INOo Attending Dr: Zachary Garcia MD Copies to: DO Zachary Sy MD Jennifer Rohrbacher, RESTORATIVE REHAB AIDE, TOMB MAKER HELPER~ HPI Consult Date: 01/11/24 [employer]asification Plant Operator: Nic Leung DO [facility] Medical History Injected eye, right Basal cell carcinoma Surgical History H/O cataract extraction Family History Father Mother Social History Smoking Status: Never smoker Substance Use Type: Marijuana Meds Medications and Allergies Allergies No Known Allergies Allergy (Verified 01/10/24 22:31) Home Medications aspirin-caffeine 500 mg-32.5 mg tablet (Giselle Back and Body) 1 tab PO DAILY 10/04/23 [History Confirmed 01/10/24] Exam Physical Exam Vital Signs: Temp Pulse Resp BP Pulse Ox O2 Del Method 98.2 F 63 16 189/94 H 96 Room Air 01/11/24 08:00 01/11/24 08:00 01/11/24 08:00 01/11/24 08:00 01/11/24 08:00 01/11/24 08:00 Results - Neuro Laboratory Findings 01/11/24 05:52 01/11/24 05:52 Lab Results: Hemoglobin A1c 7.9 % (4.3-5.6) H 01/11/24 05:52 Diagnostic Findings Imaging/Impressions: ITS Impressions Head CT 01/10/24 22:09 IMPRESSION: No intracranial hemorrhage. Chronic infarct right basal ganglia. Concern for acute CVA may be assessed with MR. Preliminary given per [place] report. Time report 01/10/2024 at 11:09 PM. Impression dictated by: Dao Toscano M.D.01/11/2024 8:11 AM Dictation Location: [place] [address] Chest X-Ray 01/10/24 22:14 IMPRESSION: Interstitial prominence is noted with perihilar vascular prominence suggesting volume overload. Impression dictated by: Gómez Alan M.D.01/11/2024 8:45 AM Dictation Location: [place] [address] Head CTA 01/10/24 22:14 IMPRESSION: Multiple levels of stenoses of the intra and extracranial circulation as stated above. Multiple levels of occlusion of the intracranial And extracranial circulation as stated above. Impression dictated by: Dao Toscano M.D.01/11/2024 8:25 AM Dictation Location: [facility]08 Therapy Recommendations Therapy Recommendations: PT Recommendations PT Recommended Discharge Home Location Assessment/Plan (1) Symptomatic stenosis of right carotid artery: (2) Brain TIA: Plan CONSULT REASON: Stroke symptoms HPI: Al is a 78-year-old man. It does not like he taking any prescribed medications at home. He was at home with his and daughter. Seated in a chair in the dining room. His daughter left to run an errand for 20 minutes or something like that. During that time, he seemed to go limp on the left and fell out of the chair to the left. His said he was a little shaky. He could not violin repairer with his left hand. And his left leg did not have any power. She could not get him up off the floor. When the daughter arrived back they were able to sit him up. They noticed some left-sided facial weakness as well. He was brought here for evaluation. In the emergency department note it was said that he had no memory of the fall and could not remember his own age. His tells me that she thinks he has dementia and his memory has been getting quite bad. In the emergency department symptoms seem better but he was still demonstrating left lower extremity drift. CT of the head was performed and was without any acute findings. CTA of the head and neck showed a lot of dramatic vascular abnormalities. At the time of my encounter this afternoon he is without complaints. The left side feels strong to him like the right side does. Nothing else to add to review of systems. EXAMINATION: In no distress. No deformities or trauma. Limbs seem well-perfused. No significant edema. Normal work of breathing. Visualized skin is generally intact and without lesions. Affect normal. He is alert. Attention impaired. Follows simple commands without issue. Speech fluent, mumbling, likely nondysarthric, but sometimes unintelligible. Pupils are equal and reactive. Ocular motility is full. No nystagmus. Facial sensation is normal. Hearing issomewhat reduced. Facial strength is normal. Tongue is midline. Muscle bulk, tone, and strength are normal. I am not demonstrating any limb drift at this time. No tremors. Reflexes hypoactive throughout. Light touch is normal. Vibratory sensation is absent distal to mid shins bilaterally. No limb dysmetriaor ataxia. DATA REVIEW: -CT head shows a chronic lacunar infarct in the superior right basal ganglia area almost periventricularly -CTA head and neck high-grade stenosis at the proximal right ICA and in the clinoid segment, partial right vertebral artery occlusion with reconstitution atthe C2 level, and the high-grade stenosis involves the basilar artery, and mention is made of large high-grade stenosis of the right P2 segme, and moderatestenosis in a branch of the right M2 segment t, and moderate stenosis of the left M1 segment, and high-grade stenosis of the left M2 segment, and moderate tohigh-grade stenosis at the origin of the left ANGEL, and multifocal high-grade stenosis of the left ANGEL, and occlusion of the right A1 segment. ASSESSMENT: Left hemiparesis and facial weakness that gradually resolved, concerning for right hemispheric stroke or TIA. CT angiography reveals severe multifocal intracranial and extracranial atherosclerotic changes and varying degrees of stenosis of multiple arteries, as described in the report. Most of those will require medical management. He does have a high-grade short segment stenosis atthe proximal right ICA that might warrant intervention - his left hemibody symptoms qualify that as a symptomatic carotid artery stenosis. PLAN: 1. Continue the aspirin that was started here 81 mg daily 2. Adding clopidogrel 75 mg daily 3. Continue the atorvastatin 80 mg daily that was started here 4. MRI brain without contrast pending 5. Vascular surgery input, especially regarding possible intervention upon the high-grade stenosis at the proximal right ICA. Documented By: Nic Leung DO 01/11/24 1156 Signed By: <Electronically signed by Nic Leung DO> 01/11/24 7212 [facility] Work Phone: [phone]) 450-777312-01-2023 Evaluation note* Encounter Date Diagnosis Assessment Notes Treatment Notes Treatment Clinical Notes Jul, Medicare annual wellness visit, initial (ICD-10 - Z00.00) Personalized health advice was given to the beneficiary with a referral, if appropriate, to health education of preventative counseling services or programs aimed at reducing identified risk factors and improving self-management or community-based lifestyle interventions to reduce health risks and promote self-management and wellness, including weight loss, physical activity, smoking cessation, fall prevention and nutrition. A written plan for screenings discussed, including colonoscopy, mammography, flu vaccination, other vaccinations if at risk, routine lab studies, eye exams, glaucoma screening, skin checks, risk factors for medical problems discussed, including BP control, obesity, and need for consistent exercise. Advanced care planning reviewed. Counseling was provided here today - specifically in regard to any positively answered questions as noted above. Jul, Screening for colon cancer (ICD-10 - Z12.11) Discussed with patient the colon cancer screening options including cologuard and colonoscopy. Risks and benefits of each discussed. Patient declines both options for screening, even despite the risks for not following up with screenings. Jul, Loud snoring (ICD-10 - R06.83) Discussed with pt that symptoms are consistent with sleep apnea, and that would receommned testing for sleep apnea. He declines further testing and does not want to pursure sleep apnea testing. Jul, Witnessed episode of apnea (ICD-10 - R06.81) Jul, Bronchitis (ICD-10 - J40) Discussed diagnosis with patient. Patient to start Zithromax. Patient to take Zithromax daily with food as prescribed. Finish entire course of antibiotic. Increase fluids and rest. [id number] antipyretics as needed. Warning signs and symptoms reviewed with patient today. Patient to go immediately to the ER should she experience any of these. Patient to notify office should her symptoms persist and not improve. Patient verbalizes understanding and agrees to treatment plan. [employer] Other 09-21-2023 Evaluation note* Encounter Date Diagnosis Assessment Notes Treatment Notes Treatment Clinical Notes Apr, Acute non-recurrent maxillary sinusitis (ICD-10 - J01.00) Will tx tody for bacterial sinusitis based on physical exam and duration of symptoms. Take antibiotic as prescribed, complete entire course of therapy even if symptoms resolve. Take Flonase and wean off the afrin as this medication is to not be used on daily basis as can cause rebound symptoms. Supportive care as directed, push fluids and rest, Tylenol/Motrin as directed for aches/fever, warm moist compress over sinuses several times a day, cool mist humidifier, nasal saline spray as directed. Symptoms should improve in the next 3 days, if symptoms persist follow up. Immediate eval for warning s/sx as discussed. Patient verbalizes understanding and is agreeable to treatment plan. [employer] Other Evaluation + Plan note Future Appointments Appointment Date:02/25/2024 08:45:00 AM Scheduled Provider:Garfield LUCAS MD Location:[facility] Appointment Type:URO Office Visit [facility] evaluation noteNo assessment information available [facility] Work Phone: evaluation note* Diagnosis Onset Date Resolution Status Loud snoring acute Maxillary sinusitis acute Rhinitis medicamentosa acute Screening for colon cancer a cute Aphasia acute Balance problem acute Frequent falls acute Memory changes acute [facility] Work Phone: evaluation note* Diagnosis Onset Date Resolution Status Aphasia acute Balance problem acute Frequent falls acute Memory changes acute Brain TIA acute Carotid stenosis acute Frequent falls acute Memory changes acute [facility] Work Phone: evaluation note* Diagnosis Onset Date Resolution Status Aphasia acute Balance problem acute Frequent falls acute Memory changes acute Atherosclerotic cerebrovascular disease acute Brain TIA acute Carotid stenosis acute Frequent falls acute Hypertension acute Memory changes acute Symptomatic stenosis of right carotid artery acute T2DM (type 2 diabetes mellitus) acute Vascular dementia acute [facility] Work Phone: Evaluation note* Diagnosis Onset Date Resolution Status Aphasia acute Balance problem acute Frequent falls acute Atherosclerotic cerebrovascular disease acute Frequent falls acute Hypertension acute Symptomatic stenosis of right carotid artery acute T2DM (type 2 diabetes mellitus) acute Vascular dementia acute Symptomatic stenosis of right carotid artery acute [facility] Work Phone: evaluation note* Diagnosis Onset Date Resolution Status Aphasia acute Balance problem acute Frequent falls acute Atherosclerotic cerebrovascular disease acute Frequent falls acute Hypertension acute Symptomatic stenosis of right carotid artery acute T2DM (type 2 diabetes mellitus) acute Vascular dementia acute Symptomatic stenosis of right carotid artery acute Scrotal abscess acute [facility] Work Phone: Evaluation note* Diagnosis Onset Date Resolution Status Atherosclerotic cerebrovascular disease acute Frequent falls acute Hypertension acute Symptomatic stenosis of right carotid artery acute T2DM (type 2 diabetes mellitus) acute Vascular dementia acute Symptomatic stenosis of right carotid artery acute Atherosclerotic cerebrovascular disease acute Scrotal abscess acute Symptomatic stenosis of right carotid artery acute T2DM (type 2 diabetes mellitus) acute Vascular dementia acute [facility] Work Phone: Evaluation note* Diagnosis Onset Date Resolution Status History of transcarotid artery revascularization (TCAR ) acute [facility] Work Phone: Evaluation note* Diagnosis Hypersomnia Hypersomnia, unspecified Memory loss documented in this encounter [facility] - Reported* Type Description Date Surgical History Eye surgery- cataracts [employer] Other Hospital course Narrative No data available for this section [facility] Hospital Discharge instructionsAmbulatory Orders* Referral to Neurology Location: None Selected [facility] Work Phone: Hospital Discharge instructions No data available for this section [facility] No data available for this section [facility] reason for visit Narrative* Other Medical (Routine) - Closed Specialty Diagnoses / Procedures Referred By Contac t Referred To Contact Osteopathic Medicine Diagnoses Hypersomnia Memory loss Procedures Home sleep test Tru Solitario DO [address] [place] [address] Phone: tel: fax: Referral ID Status Reason Start Date Expiration Date Visits Re quested Visits Authorized [id number] Closed 02/24/2024 08/22/2024 1 1 [facility] Summary Purpose Family History Relationship Condition Age at Onset Recorded Date/T salena father Unknown Not Specified Unknown Relationship Condition Age at Onset Recorded Date/T salena father Unknown mother Unknown Advance Directives Advance Directive Response Recorded Date/ Time Advance Directives No September 06, 2018 3:18pm Advance Directive Response Recorded Date/ Time Advance Directives No September 06, 2018 4:18pm Chief Complaint and Reason for Visit Chief Complaint Annual Chief Complaint basal cell carcinoma On-Going Cough/ Check Up Check Up Reason for Visit Loud snoring Maxillary sinusitis Rhinitis medicamentosa Screening for colon cancer Aphasia Balance problem Frequent falls Memory changes Chief Complaint Check Up stroke symptoms Reason for Visit Aphasia Balance problem Frequent falls Memory changes Brain TIA Carotid stenosis Frequent falls Memory changes Chief Complaint Check Up stroke symptoms stroke symptoms Reason for Visit Aphasia Balance problem Frequent falls Memory changes Atherosclerotic cerebrovascular disease Brain TIA Carotid stenosis Frequent falls Hypertension Memory changes Symptomatic stenosis of right carotid artery T2DM (type 2 diabetes mellitus) Vascular dementia Chief Complaint Check Up stroke symptoms stroke symptoms [facility] F/[facility] Reason for Visit Aphasia Balance problem Frequent falls Memory changes Atherosclerotic cerebrovascular disease Brain TIA Carotid stenosis Frequent falls Hypertension Memory changes Symptomatic stenosis of right carotid artery T2DM (type 2 diabetes mellitus) Vascular dementia Chief Complaint Check Up stroke symptoms stroke symptoms [facility] F/U Amb Documentation carotid stenosis carotid stenosis Reason for Visit Aphasia Balance problem Frequent falls Atherosclerotic cerebrovascular disease Frequent falls Hypertension Symptomatic stenosis of right carotid artery T2DM (type 2 diabetes mellitus) Vascular dementia Symptomatic stenosis of right carotid artery Chief Complaint Check Up stroke symptoms stroke symptoms [facility] F/U Amb Documentation carotid stenosis carotid stenosis hosp d/c, abcess Reason for Visit Aphasia Balance problem Frequent falls Atherosclerotic cerebrovascular disease Frequent falls Hypertension Symptomatic stenosis of right carotid artery T2DM (type 2 diabetes mellitus) Vascular dementia Symptomatic stenosis of right carotid artery Scrotal abscess Chief Complaint stroke symptoms stroke symptoms [facility] F/U Amb Documentation carotid stenosis carotid stenosis hosp d/c, abcess 3 week f/u tcar Reason for Visit Atherosclerotic cere brovascular disease Frequent falls Hypertension Symptomatic stenosis of right carotid artery T2DM (type 2 diabetes mellitus) Vascular dementia Symptomatic stenosis of right carotid artery Atherosclerotic cerebrovascular disease Scrotal abscess Symptomatic stenosis of right carotid artery T2DM (type 2 diabetes mellitus) Vascular dementia Chief Complaint 3 month follow up; C arotid U/S at 11:00am Chief Complaint 3 month follow up; C arotid U/S at 11:00am Reason for Visit History of transcaro tid artery revascularization (TCAR) Additional Source Comments (unrecognized sect ion and content) No Status Records FoundNo Status Records FoundNo Status Records FoundNo Status Records FoundNo Status Records FoundNo Status Records Found INFORMATION SOURCE (unrecogn ized section and content) DATE CREATED AUTHOR 06/28/2020 [facility] DATE CREATED AUTHOR AUTHOR'S ORGANIZ ATION 12/04/2023 [facility] EP[facility] DATE CREATED AUTHOR AUTHOR'S ORGANIZ ATION 02/06/2024 [facility] DATE CREATED AUTHOR AUTHOR'S ORGANIZ ATION 02/26/2024 [facility] DATE CREATED AUTHOR AUTHOR'S ORGANIZ ATION 03/10/2024 [facility] EPIC DATE CREATED AUTHOR AUTHOR'S ORGANIZ ATION 05/27/2024 [facility] REASON FOR VISIT (unrecogniz ed section and content) Establish, C[facility]Annual Care Teams (unrecognized sec tion and content) Team Status: Active Member Role Status Dates Sonia Salinas APRN [facility] Primary Care Provider Active Team Status: Inactive Member Role Status Dates Sonia Salinas APRN [facility] Attending Provider Act joaquina Start: July 09, 2023 End: July 09, 2023 Team Status: Inactive Member Role Status Dates Sonia Salinas APRN [facility] Primary Care Provider Active Start: September 222023 End: September 22, 2023 Samuel Coker MD Attending Provider Active Start: September 22, 2023 End: September 22, 2023 Team Status: Inactive Member Role Status Dates Sonia Salinas APRN [facility] Primary Care Provider, Attending Provider Active Start: October 05, 2023 End: October 05, 2023 Team Status: Inactive Member Role Status Dates Sonia Salinas APRN [facility] Primary Care Provider, Attending Provider Active Start: November 09, 2023 End: November 09, 2023 Team Status: Active Member Role Status Dates Sonia Salinas APRN [facility] Primary Care Provider, Attending Provider Active Start: November 10, 2023 Team Status: Active Member Role Status Dates Sonia Salinas APRN [facility] Primary Care Provider, Attending Provider Active Start: November 19, 2023 Team Status: Active Member Role Status Dates Sonia Salinas APRN [facility] Primary Care Provider Active Start: December 16, 2023 Tru Solitario DO Attending Provider Active Sta rt: December 16, 2023 Team Status: Active Member Role Status Dates Sonia Salinas APRN [facility] Primary Care Provider Active Start: January 10 Nicko Grimm DO Emergency Provider Active Start: January 11, 2024 Jc Brown DO Admit Provider, Atte nding Provider Active Start: January 11, 2024 Team Status: Inactive Member Role Status Dates Sonia Salinas APRN [facility] Primary Care Provider Active Start: January 11, 2024 End: January 13, 2024 Nicko Grimm DO Emergency Provider Active Start: January 11, 2024 End: January 13, 2024 Jc Brown DO Admit Provider Active Start: January 11, 2024 End: January 13, 2024 Zachary Garcia MD Attending Provider Active Start: January 11, 2024 End: January 13, 2024 Nic Leung DO Other Provider Active Start: January 11, 2024 End: January 13, 2024 Dao Johnston MD Other Provider Active Start : January 11, 2024 End: January 13, 2024 Team Status: Active Member Role Status Dates Sonia Salinas APRN [facility] Primary Care Provider Active Start: January 12, 2024 Nicko Grimm DO Emergency Provider Active Start: January 12, 2024 Jc Brown DO Admit Provider Active Start: January 12, 2024 Zachary Garcia MD Other Provider Active Start: January 12, 2024 Nic Leung DO Other Provider Active Start: January 12, 2024 Dao Johnston MD Other Provider Active Start : January 12, 2024 Mckenna Campbell NP-C Attending Provider Active Start: January 12, 2024 Team Status: Inactive Member Role Status Dates Sonia Salinas APRN [facility] Primary Care Provider Active Start: January 17, 2024 End: January 17, 2024 Dao Johnston MD Attending Provider Active S tart: January 17, 2024 End: January 17, 2024 Team Status: Active Member Role Status Dates Sonia Salinas APRN [facility] Primary Care Provider Active Start: January 17, 2024 Teresa Cowan LPN Attending Provider Active St art: January 17, 2024 Team Status: Inactive Member Role Status Dates Sonia Salinas APRN [facility] Primary Care Provider Active Start: January 25, 2024 End: January 26, 2024 Nicko Galvan MD Admit Provider , Attending Provider Active Start: January 25, 2024 End: January 26, 2024 Team Status: Active Member Role Status Dates Sonia Salinas APRN [facility] Primary Care Provider Active Start: January 25, 2024 Nicko Galvan MD Admit Provider , Attending Provider, Other Provider Active Start: January 25, 2024 Team Status: Inactive Member Role Status Dates Sonia Salinas APRN [facility] Primary Care Provider, Attending Provider Active Start: January 26, 2024 End: January 26, 2024 Team Status: Active Member Role Status Dates Sonia Salinas APRN [facility] Primary Care Provider Active Start: January 12, 2024 End: January 13, 2024 Nicko Grimm DO Emergency Provider Active Start: January 12, 2024 End: January 13, 2024 Jc Brown DO Admit Provider Active Start: January 12, 2024 End: January 13, 2024 Zachary Garcia MD Other Provider Active Start: January 12, 2024 End: January 13, 2024 Nic Leung DO Other Provider Active Start: January 12, 2024 End: January 13, 2024 Dao Johnston MD Other Provider Active Start : January 12, 2024 End: January 13, 2024 Mckenna Campbell [facility]-C Attending Provider Active Start: January 12, 2024 End: January 13, 2024 Team Status: Active Member Role Status Dates Sonia Salinas APRN [facility] Primary Care Provider Active Start: January 27, 2024 Sabrina Lama APRN Attending Provider Active Start: January 27, 2024 Team Status: Inactive Member Role Status Dates Sonia Salinas APRN [facility] Primary Care Provider Active Start: February 16, 2024 End: February 16, 2024 Nicko Galvan MD Attending Provider Active Start: February 16, 2024 End: February 16, 2024 Team Status: Inactive Member Role Status Dates Sonia Salinas APRN [facility] Primary Care Provider Active Start: May End: May 25, 2024 Nicko Galvan MD Attending Provider Active Start: May 25, 2024 End: May 25, 2024 [employer] Relationship Specialty Start Date End Date Sonia Salinas NP [address] [place] [id number] PCP - General Family Medicine 01/18/24 Sonia Salinas NP [address] [place] [id number] Referring Physician Family Medicine 12/14/23 Goals (unrecognized section and content) Goals may be documented in a n alternate section FOR RECORDS PERTAINING TO PATIENTS WHO ARE OR HAVE BEEN ENROLLED IN A CHEMICAL DEPENDENCY/SUBSTANCEABUSE PROGRAM, SOME INFORMATION MAY BE OMITTED. This clinical summary was aggregated from multiple sources. Caution should be exercised in using it in the provision of clinical care. This summary normalizes information from multiple sources, and as a consequence, information in this document may materially change the coding, format and clinical context of patient data. In addition, data may be omitted in some cases. CLINICAL DECISIONS SHOULD BE BASED ON THE PRIMARY CLINICAL RECORDS. [employer] provides no warranty or guarantee of the accuracy or completeness of information in this document.
[2024-06-24 09:47] LABS: Mean Corpuscular HGB Conc 34.1 g/dL (29.9-35.2); Mean Corpuscular Volume 93.6 fL (80.0-94.0); Mean Platelet Volume 9.7 fL (9.5-13.5); Platelet Count 253 10^3/uL (150-450); Red Blood Count 4.38 10^6/uL (4.70-6.10); Red Cell Distribution Width 12.9 % (11.0-15.0); White Blood Count 15.1 10^3/uL (4.0-11.0)
[2024-06-24 10:09] LABS: Eosinophils Absolute Manual 1.66 10^3/uL (0.00-0.70); Lymphocytes Absolute Manual 2.41 10^3/uL (1.20-3.80); Segmented Neut Absolute Manual 10.11 10^3/uL (1.4-6.5)
[2024-06-24 10:21] LABS: Alanine Aminotransferase 17 U/L (16-63); Albumin Globulin Ratio 0.9; Alkaline Phosphatase 120 U/L (46-116); Anion Gap 9.7; Aspartate Amino Transferase 17 U/L (15-37); BUN Creatinine Ratio 13.7; Bilirubin Total 0.7 mg/dL (0.2-1.0); Calcium 9.4 mg/dL (8.5-10.1); Carbon Dioxide 33.4 mmol/L (21.0-32.0); Chloride 101 mmol/L (98-107); Chol HDL Ratio 2.8; Cholesterol 116 mg/dL (<=200); Estimated GFR (African America 37 (>=60 mL/min/1.73m^2); Estimated GFR (Non-African Ame 31 (>=60 mL/min/1.73m^2); Free T3 1.59 pg/mL (2.18-3.98); Globulin 3.3 g/dL; Glucose 156 mg/dL (74-106); HDL Cholesterol 42 mg/dL (40-60); LDL Cholesterol Calculated 58.6 mg/dL; Potassium 4.1 mmol/L (3.5-5.1); Sodium 140 mmol/L (136-145); Thyroid Stimulating Hormone 2.352 uIU/mL (0.358-3.740); Total Protein 6.3 g/dL (6.4-8.2); Triglycerides 77 mg/dL (<=150); VLDL CHOLESTEROL 15.4 mg/dL
[2024-06-24 10:24] LABS: Estimated Average Glucose 143 mg/dL; Glycohemoglobin A1C 6.6 % (4.5-6.2)
[2024-06-24 10:45] LABS: Prostate Specific Antigen Scrn 2.14 ng/mL (<=4.00)
== END 2024-06-24 09:20 | disposition home or self-care (01) ==
LOC: LAB 09:21
PROVIDERS: PCP Family Medicine; Visit Provider Family Medicine
DX: F03.90 Unspecified dementia, unspecified severity, without behavioral disturbance, psychotic disturbance, mood disturbance, and anxiety (principal); I10 Essential (primary) hypertension; I63.9 Cerebral infarction, unspecified; I77.9 Disorder of arteries and arterioles, unspecified; E78.5 Hyperlipidemia, unspecified; R53.83 Other fatigue; R73.09 Other abnormal glucose; Z12.12 Encounter for screening for malignant neoplasm of rectum; E03.9 Hypothyroidism, unspecified; Z12.5 Encounter for screening for malignant neoplasm of prostate
CPT/HCPCS: 36415; 80053; 80061; 83036; 84436; 84443; 84481; 85007; 85027; G0103

== ENCOUNTER 2024-07-27 09:05 | Outpatient (OUT) | payer OTHER, SELFPAY ==
--- OUTSIDE RECORDS SUMMARY | 2024-07-27 09:28 | XMS_ITS | CCD ---
Author Organization [facility] Care Team Providers [facility] Attendant Name Role Phone AMILCAR MIDDLETON Primary Care Unavailable MISC, DOCTOR Attending Unavailable MISC, DOCTOR Consulting Unavailable MISC, DOCTOR Admitting Unavailable Sonia Salinas Unavailable [phone] RITIKA Salinas Primary Care Provider MD Samuel Coker Attending Provider RITIKA Salinas Primary Care Provider MD Samuel Coker Attending Provider AURELIA FRENCH Attending Unavailable RITIKA Salinas Primary Care Provider DO Nicko Grimm Emergency Provider Unavai DO Jc Magallanes Admit Provider DO Jc Brown Attending Provider [phone] RITIKA Salinas Primary Care Provider DO Nicko Grimm Emergency Provider Unavai DO Jc Magallanes Admit Provider MD Zachary Garcia Attending Provider DO Nic Leung Other Provider MD Dao Johnston Other Provider MD Nicko Galvan Admit Provider MD Nicko Galvan Attending Provider SONIA SALINAS Primary Care Physician [phone] Garfield LUCAS Attending Unavailable LUCAS, Garfield R [...] Unavailable Sonia Salinas Primary Care Unavailable Brad SLOT FLOORPERSON, Sonia Sharif Unavailable Brad SLOT FLOORPERSONSonia Primary Care Provider Allergies Allergy Classification Reported Allergen(s) Allergy Type Date of Onset Reaction(s) Facility (1 source) No Known Medication Allergies; Translations: [No Known Medication Allergies] Propensity to adverse reactions (disorder) [facility] Repository Medications Current Medications Medication [...] day(s), # 28 cap(s), Refills(s) 0, Pharmacy: [facility]/pharmacy #[id number], 180, cm, 01/27/24 13:28:00 EDT, Height/Length [...] obtained... Test will need to be repeated. [facility] carotid doppler BIon 10- US carotid doppler [facility] [address] [place], [place] [id number] Ultrasound Report Signed Patient: Dagoberto Squires MR#: [id number] : 1945 Acct:[id number] Age/Sex: 79 / M ADM Date: 05/25/24 Loc: [facility] Room: Type: [facility] Attending Dr: Mckenna Campbell SLOT FLOORPERSON-C Ordering Provider: Mckenna Campbell APRN Date of [...] Nicko Galvan MD05/26/2024 9:33 AM Dictation Location: [facility]-04 Tech: Venecia Carter Transcribed By: ALEA 05/26/24932 Dictated By: Nicko Galvan MD 05/26/24931 Signed By: 05/26/24932 Normal [facility] Ambulatory Visit Summaryon 0 02-25-2024 [...] with Garfield LUCAS MD, URL When: Where: [address] [place] [address]- Medications What How Much When Instructions Unchanged [...] Patient Educati (more content not included)... Normal [facility] Urology Office/Clinic Noteon 02-25-2024 Urology [...] Information SHAYY BARRETO, Garfield Cotter, URL [address] [place] [address]- Additional Instructions: PRN Patient Education Testicular Self-Exam [...] Dipstick: 1+ (30 mg/dl) (02/25/24 08:47:00) Specific Zirconia Urine Dipstick: >=1.030 (02/25/24 08:47:00) Urine Appearance Urine Dipstick: Clear (02/25/24 08:47:00) Urine Color Urine Dipstick: Yellow (02/25/24 08:47:00) Urobilinogen Urine Dipstick: Normal 0.2-1 EU/dl (02/25/24 08:47:00) pH Urine Dipstick: 5.5 (02/25/24 08:47:00) Normal [facility] Comment on above: Result Comment: Elec tronically Signed By: Garfield LUCAS MD\Date and Time Signed: 02/25/24 09:27 EDT\.br\Electronically Co-Signed By: Karuna Carias\Date and Time Co-Signed: 02/25/24 09:25 EDT Transfer Inon 02-02-2024 Transfer In [id number] Normal [facility] RAD - Ultrasound Reporton RAD - Ultrasound Report [id number]#[id number] Normal [facility] Basophils/100 WBC Manual cnt (Bld)on 01-27-2024 Basophils/100 WBC (Bld) 2.0 % 0.2-2.0 [facility] CHEMISTRYOrdered By: SYSTEM SYSTEM on 01-27-2024 [...] used for this result was chemiluminescence using [employer]'s Access Hybritech PSA reagent. Eosinophils/100 WBC Manual c nt (Bld)on 01-27-2024 Eosinophils/100 WBC (Bld) 22.0 % High 0.9-7.0 [facility] Erythrocyte distribution wid th Auto (RBC) [Ratio]on 01-27-2024 Erythrocyte distribution width (RBC) [Ratio] 12.8 % 11.0-15.0 [facility] Hematocrit Auto (Bld) [Volum e fraction]on 01-27-2024 Hematocrit (Bld) [Volume fraction] 39.2 % Low 42.0-54.0 [facility] Hemoglobin [Mass/volume] in Bloodon 01-27-2024 Hemoglobin (Bld) [Mass/Vol] 13.0 g/dL Low 14.0-18.0 [facility] Laboratory - Hematology and Cell countson 01-27-2024 Band form neutrophils/100 WBC (Bld) 1.0 % 0-5 [facility] Lymphocytes/100 WBC (Bld) 15.0 % Low 20.5-60.0 [facility] Monocytes/100 WBC (Bld) 10.0 % 1.7-12.0 [facility] Leukocytes [#/volume] correc guillermina for nucleated erythrocytes in Blood by Automated counon 01-27-2024 WBC corrected for nucl RBC Auto (Bld) [#/Vol] 19.1 10 3/uL High 4.0-11.0 [facility] MCH Auto (RBC) [Entitic mass ]on 01-27-2024 MCH (RBC) [Entitic mass] 31.7 pg 25.9-34.0 [facility] MCHC Auto (RBC) [Mass/Vol]on 01-27-2024 MCHC (RBC) [Mass/Vol] 33.2 g/dL 29.9-35.2 [facility] MCV Auto (RBC) [Entitic vol] on 01-27-2024 MCV (RBC) [Entitic vol] 95.6 fL High 80.0-94.0 [facility] No Panel Informationon 01-26 Absolute Basophils (Manual) 0.38 10 3/uL High 0.00-0.10 [facility] Band Neutrophils # (Manual) 0.2 10 3/uL 0.0-0.3 [facility] Eosinophils # (Manual) 4.20 10 3/uL High 0.00-0.70 [facility] Lymphocytes # (Manual) 2.86 10 3/uL 1.20-3.80 [facility] Monocytes # (Manual) 1.91 10 3/uL High 0.30-0.80 [facility] Segmented Neutrophils # (Manual) 9.55 10 3/uL High 1.4-6.5 [facility] PSA Screen, Totalon 01-27-20 Prostate specific Ag [Mass/Vol] 2.9 ng/mL Normal 0.1-3.5 [facility] Comment on above: Result Comment: The concentration of PSA determined by different manufacturers can vary due to differences in assay methods and reagent specificity. Values obtained from different assay methods cannot be used interchangeably. The methodology used for this result was chemiluminescence using [employer]'s Access Hybritech PSA reagent. Performed By: #### 1 [id number] #### [facility] [address] [place] [address] Patient Educationon 01-27-20 Patient Education Urology Benign [...] Follow these instructions at home: ? Take skps-[id number] and prescription medicines only as told by [...] the medicine (more content not included)... Normal [facility] Physician Orderon 01-27-2024 Physician Order [id number] Normal [facility] Platelet mean volume Auto (B ld) [Entitic vol]on 01-27-2024 Platelet mean volume (Bld) [Entitic vol] 9.8 fL 9.5-13.5 [facility] Platelets Auto (Bld) [#/Vol] on 01-27-2024 Platelets (Bld) [#/Vol] 303 10 3/uL 150-450 [facility] RBC Auto (Bld) [#/Vol]on RBC (Bld) [#/Vol] 4.10 10 6/uL Low 4.70-6.10 [facility] Segmented neutrophils/100 WB C Manual cnt (Bld)on 01-27-2024 Segmented neutrophils/100 WBC (Bld) 50.0 % [facility] Urology Office/Clinic Noteon 01-27-2024 Urology Office/Clinic [...] HPI to be accurate for this encounter. [facility] records reviewed, labs, and Scrotal US films [...] [facility] [address], [place] [address] [phone] Additional Instructions: Patient Education Benign Prostatic Hyperplasia [...] a day (more content not included)... Normal [facility] Comment on above: Result Comment: Elec tronically Signed By: Garfield LUCAS MD\.br\Date and Time Signed: 01/27/24 15:52 EDT\.br\Electronically Co-Signed By: Cheyenne Morales\Herlindabr\Date and Time Co-Signed: 01/27/24 14:06 EDT Basophils Auto (Bld) [#/Vol] Ordered By: Nicko Galvan on 01-26-2024 Basophils (Bld) [#/Vol] N/A [facility] Basophils/100 WBC Auto (Bld) Ordered By: Nicko Galvan on 01-26-2024 Basophils/100 WBC (Bld) N/A [facility] Diff and CBCon 01-26-2024 Giant Platelet Tally 2 /100{WBC} Normal [facility] Comment on above: Performed By: #### D IFF CBC, PTT, CK, HS TROP, CMP, CBC, PT #### [facility] [address] [place] [address] Mean Corpuscular HGB Conc 33.3 g/dL Normal 32.5-35.6 [facility] Comment on above: Performed By: #### D IFF CBC, PTT, CK, HS TROP, CMP, CBC, PT #### [facility] [address] Platelet Estimate Normal Normal Normal [facility] Comment on above: Performed By: #### D IFF CBC, PTT, CK, HS TROP, CMP, CBC, PT #### [facility] [address] Platelet Morphology Normal Normal Normal [facility] Comment on above: Result Comment: PERF ORMED BY: [place] [address] PATHOLOGIST AGRICULTURAL ECONOMICS TEACHER DENNIS RODRIGUEZ M.D. Performed By: #### D IFF CBC, PTT, CK, HS TROP, CMP, CBC, PT #### [address] Eosinophils Auto (Bld) [#/Vo l]Ordered By: Nicko Galvan on 01-26-2024 Eosinophils (Bld) [#/Vol] N/A [facility] Eosinophils/100 WBC Auto (Bl d)Ordered By: Nicko Galvan on 01-26-2024 Eosinophils/100 WBC (Bld) N/A [facility] Eosinophils/100 leukocytes i n Blood by Manual countOrdered By: Nicko Galvan on 01-26-2024 Eosinophils/100 WBC (Bld) 15 % High 1-3 [facility] Comment on above: Performed By: #### D IFF CBC, PTT, CK, HS TROP, CMP, CBC, PT #### [facility] [address] Erythrocyte distribution wid th [Ratio] by Automated countOrdered By: Nicko Galvan on 01-26-2024 Erythrocyte distribution width (RBC) [Ratio] 13.8 % Normal 12.0-14.8 [facility] Comment on above: Performed By: #### D IFF CBC, PTT, CK, HS TROP, CMP, CBC, PT #### [facility] [address] Erythrocytes [#/volume] in B lood by Automated countOrdered By: Nicko Galvan on 01-26-2024 RBC (Bld) [#/Vol] 3.83 10*6/uL Low 3.90-5.60 [facility] Comment on above: Performed By: #### D IFF CBC, PTT, CK, HS TROP, CMP, CBC, PT #### [facility] [address] Giant platelets/100 leukocyt es [Ratio] in Blood by Manual countOrdered By: Nicko Galavn on 01-26-2024 Giant platelets/100 WBC Manual cnt (Bld) [Ratio] 2 /100{WBC} [facility] Hematocrit [Volume Fraction] of Blood by Automated countOrdered By: Nicko Galvan on 01-26-2024 Hematocrit (Bld) [Volume fraction] 35.9 % Low 38.8-50.0 [facility] Comment on above: Performed By: #### D IFF CBC, PTT, CK, HS TROP, CMP, CBC, PT #### [facility] [address] Hemoglobin [Mass/volume] in BloodOrdered By: Nicko Galvan on 01-26-2024 Hemoglobin (Bld) [Mass/Vol] 12.0 g/dL Low 13.0-17.0 [facility] Comment on above: Performed By: #### D IFF CBC, PTT, CK, HS TROP, CMP, CBC, PT #### [facility] [address] [place] [address] Leukocytes [#/volume] correc guillermina for nucleated erythrocytes in Blood by Automated counOrdered By: Nicko Galvan on 01-26-2024 WBC corrected for nucl RBC Auto (Bld) [#/Vol] 20.7 10*3/uL High 4.1-10.5 [facility] Leukocytes [#/volume] in Blo od by Automated countOrdered By: Nicko Galvan on 01-26-2024 WBC (Bld) [#/Vol] 20.7 10*3/uL High 4.1-10.5 [facility] Comment on above: Performed By: #### D IFF CBC, PTT, CK, HS TROP, CMP, CBC, PT #### [facility] [address] [place] [address] Lymphocytes Auto (Bld) [#/Vo l]Ordered By: Nicko Galvan on 01-26-2024 Lymphocytes (Bld) [#/Vol] N/A [facility] Lymphocytes/100 WBC Auto (Bl d)Ordered By: Nicko Galvan on 01-26-2024 Lymphocytes/100 WBC (Bld) N/A [facility] Lymphocytes/100 leukocytes i n Blood by Manual countOrdered By: Nicko Galvan on 01-26-2024 Lymphocytes/100 WBC (Bld) 7 % Low 18-42 [facility] Comment on above: Performed By: #### D IFF CBC, PTT, CK, HS TROP, CMP, CBC, PT #### [facility] [address] [place] [address] MCH [Entitic mass] by Automa guillermina countOrdered By: Nicko Galvan on 01-26-2024 MCH (RBC) [Entitic mass] 31.2 pg Normal 27.5-35.2 [facility] Comment on above: Performed By: #### D IFF CBC, PTT, CK, HS TROP, CMP, CBC, PT #### [facility] [address] [place] [address] MCHC Auto (RBC) [Mass/Vol]Or dered By: Nicko Galvan on 01-26-2024 MCHC (RBC) [Mass/Vol] 33.3 g/dL 32.5-35.6 [facility] MCV [Entitic volume] by Auto mated countOrdered By: Nicko Galvan on 01-26-2024 MCV (RBC) [Entitic vol] 93.7 fL Normal 83.5-101 [facility] Comment on above: Performed By: #### D IFF CBC, PTT, CK, HS TROP, CMP, CBC, PT #### [facility] [address] Manual blood segmented neutr ophils/100 leukocytesOrdered By: Nicko Galvan on 01-26-2024 Segmented neutrophils/100 WBC (Bld) 67 % Normal 50-70 [facility] Comment on above: Performed By: #### D IFF CBC, PTT, CK, HS TROP, CMP, CBC, PT #### [facility] [address] [place] [address] Monocytes Auto (Bld) [#/Vol] Ordered By: Nicko Galvan on 01-26-2024 Monocytes (Bld) [#/Vol] N/A [facility] Monocytes/100 WBC Auto (Bld) Ordered By: Nicko Galvan on 01-26-2024 Monocytes/100 WBC (Bld) N/A [facility] Monocytes/100 leukocytes in Blood by Manual countOrdered By: Nicko Galvan on 01-26-2024 Monocytes/100 WBC (Bld) 8 % Normal 2-11 [facility] Comment on above: Performed By: #### D IFF CBC, PTT, CK, HS TROP, CMP, CBC, PT #### [facility] [address] Neutrophils Auto (Bld) [#/Vo l]Ordered By: Nicko Galvan on 01-26-2024 Neutrophils (Bld) [#/Vol] N/A [facility] Neutrophils/100 WBC Auto (Bl d)Ordered By: Nicko Galvan on 01-26-2024 Neutrophils/100 WBC (Bld) N/A [facility] Nucleated erythrocytes [Pres ence] in Blood by Automated countOrdered By: Nicko Galvan on 01-26-2024 Nucleated RBC Auto Ql (Bld) N/A [facility] Peripheral white blood cell differential % bands, microscopic examOrdered By: Nicko Galvan on 01-26-2024 Band form neutrophils/100 WBC (Bld) 3 % Normal 0-5 [facility] Comment on above: Performed By: #### D IFF CBC, PTT, CK, HS TROP, CMP, CBC, PT #### [facility] [address] Platelet adequacy [Presence] in Blood by Light microscopyOrdered By: Nicko Galvan on 01-26-2024 Platelets LM Ql (Bld) Normal Normal [facility] Platelet mean volume [Entiti c volume] in Blood by Automated countOrdered By: Nicko Galvan on 01-26-2024 Platelet mean volume (Bld) [Entitic vol] 7.7 fL Normal 6.6-10.1 [facility] Comment on above: Result Comment: PERF ORMED BY: [place] [address] PATHOLOGIST AGRICULTURAL ECONOMICS TEACHER DENNIS RODRIGUEZ M.D. Performed By: #### D IFF CBC, PTT, CK, HS TROP, CMP, CBC, PT #### [address] Platelet morphology finding [Identifier] in BloodOrdered By: Nicko Galvan on 01-26-2024 Platelet morphology finding Nom (Bld) Normal Normal [facility] Platelets [#/volume] in Bloo d by Automated countOrdered By: Nicko Galvan on 01-26-2024 Platelets (Bld) [#/Vol] 276 10*3/uL Normal 150-450 [facility] Comment on above: Performed By: #### D IFF CBC, PTT, CK, HS TROP, CMP, CBC, PT #### [address] RBC morphologyOrdered By: Americo Galvan on 01-26-2024 RBC morphology finding Nom (Bld) Normal Normal Normal [facility] Comment on above: Performed By: #### D IFF CBC, PTT, CK, HS TROP, CMP, CBC, PT #### [facility] [address] [place] [id number] [place] Activated Clotting Timeon Activated Clotting Time POC 269 s High 90-139 [facility] Comment on above: Result Comment: Refe rence Range: 90-139 (Non-heparinized) PERFORMED BY: [place] [address] PATHOLOGIST AGRICULTURAL ECONOMICS TEACHER DENNIS RODRIGUEZ M.D. Performed By: #### D IFF CBC, PTT, CK, HS TROP, CMP, CBC, PT #### [facility] [address] [place] [id number] [facility] Activated Clotting Time POC 140 s High 90-139 [facility] Comment on above: Result Comment: Refe rence Range: 90-139 (Non-heparinized) PERFORMED BY: [place] [address] PATHOLOGIST AGRICULTURAL ECONOMICS TEACHER DENNIS RODRIGUEZ M.D. Performed By: #### D IFF CBC, PTT, CK, HS TROP, CMP, CBC, PT #### [place] [id number] [facility] Amphetamine Screen Ql (U)Ord ered By: ELIZABETH AGUILAR on 01-25-2024 Amphetamines Ql (U) Negative Negative [facility] Barbiturates [Presence] in U rine by Screen methodOrdered By: ELIZABETH AGUILAR on 01-25-2024 Barbiturates Screen Ql (U) Negative Negative [facility] Benzodiazepines Screen Ql (U )Ordered By: ELIZABETH AGUILAR on 01-25-2024 Benzodiazepines Ql (U) Negative Negative [facility] Benzoylecgonine [Presence] i n Urine by Screen methodOrdered By: ELIZABETH AGUILAR on 01-25-2024 Benzoylecgonine Screen Ql (U) Negative Negative [facility] Blood activated clotting ce e by coagulation assayOrdered By: Nicko Galvan on 01-25-2024 ACT Coag (Bld) 269 s High 90-139 [facility] Comment on above: Reference Range: 90- 139 (Non-heparinized) Cannabinoids [Presence] in U rine by Screen methodOrdered By: ELIZABETH AGUILAR on 01-25-2024 Cannabinoids Screen Ql (U) Positive High Negative [facility] Comment on above: These are unconfirme d results and should not be used for legal purposes. Drug Cut-Off Concentration: AMPH 1000 ng/mL NIMESH 200 ng/mL STEVEN 200 ng/mL COCM 300 ng/mL OP 300 ng/mL PCP 25 ng/mL THC 20 ng/mL Capillary blood glucose lupillo urement by glucometer (mass/volume)Ordered By: Nicko Galvan on 01-25-2024 Glucose [Mass/Vol] 121 mg/dL Normal [facility] Comment on above: Random Glucose Refer ence Range is dependent on time and content of last meal. Glucose of more than 200 mg/dL in a nonstressed, ambulatory subject supports the diagnosis of Diabetes Mellitus. Result Comment: [place] Glucose Reference Range is dependent on time and content of last meal. Glucose of more than 200 mg/dL in a nonstressed, ambulatory subject supports the diagnosis of Diabetes Mellitus. Performed By: #### D IFF CBC, PTT, CK, HS TROP, CMP, CBC, PT #### [facility] [address] [place] [address] [place] Drug Screen,Urineon 01-25-20 24 Amphetamine Screen,Urine Negative Normal Negative [facility] Comment on above: Performed By: #### U RDS #### [facility] [address] [place] [address] [place] Barbiturate Screen,Urine Negative Normal Negative [facility] Comment on above: Performed By: #### U RDS #### [facility] [address] [place] [address] [place] Benzodiazepines Screen,Urine Negative Normal Negative [facility] Comment on above: Performed By: #### U RDS #### [facility] [address] [place] [address] [place] Cannabinoid Screen,Urine Positive High Negative [facility] Comment on above: Result Comment: Thes e are unconfirmed results and should not be used for legal purposes. Drug Cut-Off Concentration: AMPH 1000 ng/mL NIMESH 200 ng/mL STEVEN 200 ng/mL COCM 300 ng/mL OP 300 ng/mL PCP 25 ng/mL THC 20 ng/mL PERFORMED BY: [place] [address] PATHOLOGIST AGRICULTURAL ECONOMICS TEACHER DENNIS RODRIGUEZ M.D. Performed By: #### U RDS #### [address] Cocaine Screen,Urine Negative Normal Negative [facility] Comment on above: Performed By: #### U RDS #### [address] Opiate Screen,Urine Negative Normal Negative [facility] Comment on above: Performed By: #### U RDS #### [address] Phencyclidine Screen,Urine Negative Normal Negative [facility] Comment on above: Performed By: #### U RDS #### [address] Glucose Poct Glucometerson 0 01-25-2024 Commemt1 Glu2: Cleaned Meter Normal [facility] Comment on above: Result Comment: PERF ORMED BY: [place] [address] PATHOLOGIST AGRICULTURAL ECONOMICS TEACHER DENNIS RODRIGUEZ M.D. Performed By: #### D IFF CBC, PTT, CK, HS TROP, CMP, CBC, PT #### [address] Commemt1 Glu2: Cleaned Meter Normal [facility] Comment on above: Result Comment: PERF ORMED BY: [place] [address] PATHOLOGIST AGRICULTURAL ECONOMICS TEACHER DENNIS RODRIGUEZ M.D. Performed By: #### D IFF CBC, PTT, CK, HS TROP, CMP, CBC, PT #### [address] Glucose [Mass/Vol] 124 mg/dL Normal [facility] Comment on above: Result Comment: [place] Glucose Reference Range is dependent on time and content of last meal. Glucose of more than 200 mg/dL in a nonstressed, ambulatory subject supports the diagnosis of Diabetes Mellitus. Performed By: #### D IFF CBC, PTT, CK, HS TROP, CMP, CBC, PT #### [facility] [address] No Panel InformationOrdered By: Nicko Galvan on 01-25-2024 Bedside Glucose Comment Glu2: cleaned meter [facility] Opiates [Presence] in Urine by Screen methodOrdered By: ELIZABETH AGUILAR on 01-25-2024 Opiates Screen Ql (U) Negative Negative [facility] Phencyclidine Screen Ql (U)O rdered By: ELIZABETH AGUILAR on 01-25-2024 Phencyclidine Ql (U) Negative Negative [facility] Automated basophil %Ordered By: Sabrina Lama on 01-13-2024 Basophils/100 WBC (Bld) 1.2 % Normal . [facility] Comment on above: Performed By: #### D IFF CBC, PTT, CK, HS TROP, CMP, CBC, PT #### [facility] [address] Automated basophil countOrde red By: Sabrina Lama on 01-13-2024 Basophils (Bld) [#/Vol] 0.2 10*3/uL Normal 0.0-0.2 [facility] Comment on above: Performed By: #### D IFF CBC, PTT, CK, HS TROP, CMP, CBC, PT #### [address] Automated blood monocyte cou ntOrdered By: Sabrina Lama on 01-13-2024 Monocytes (Bld) [#/Vol] 1.5 10*3/uL High 0.0-0.8 [facility] Comment on above: Performed By: #### D IFF CBC, PTT, CK, HS TROP, CMP, CBC, PT #### [facility] [address] Automated eosinophil %Ordere d By: Sabrina Lama on 01-13-2024 Eosinophils/100 WBC (Bld) 26.0 % Normal . [facility] Comment on above: Performed By: #### D IFF CBC, PTT, CK, HS TROP, CMP, CBC, PT #### [address] Automated eosinophil countOr dered By: Sabrinaletha Lama on 01-13-2024 Eosinophils (Bld) [#/Vol] 4.5 10*3/uL High 0.0-0.45 [facility] Comment on above: Performed By: #### D IFF CBC, PTT, CK, HS TROP, CMP, CBC, PT #### [address] Automated monocyte %Ordered By: Sabrina Lama on 01-13-2024 Monocytes/100 WBC (Bld) 8.9 % Normal . [facility] Comment on above: Performed By: #### D IFF CBC, PTT, CK, HS TROP, CMP, CBC, PT #### [address] Automated neutrophil %Ordere d By: Sabrina Lama on 01-13-2024 Neutrophils/100 WBC (Bld) 48.5 % Normal . [facility] Comment on above: Performed By: #### D IFF CBC, PTT, CK, HS TROP, CMP, CBC, PT #### [address] Basic Metabolic Panelon 06 Creatinine Clr Calc Pharmacy 61.15 Normal [facility] Comment on above: Result Comment: PERF ORMED BY: [place] [address] PATHOLOGIST AGRICULTURAL ECONOMICS TEACHER DENNIS RODRIGUEZ M.D. Performed By: #### D IFF CBC, PTT, CK, HS TROP, CMP, CBC, PT #### [address] GFR/1.73 sq M.predicted MDRD (S/P/Bld) [Vol rate/Area] 58.003 mL/min/{1.73_m2} Normal [facility] Comment on above: Performed By: #### D IFF CBC, PTT, CK, HS TROP, CMP, CBC, PT #### [facility] [address] Calcium [Mass/volume] in Ser um or PlasmaOrdered By: Sabrina Lama on 01-13-2024 Calcium [Mass/Vol] 9.3 mg/dL Normal 8.6-10.3 [facility] Comment on above: Performed By: #### D IFF CBC, PTT, CK, HS TROP, CMP, CBC, PT #### [facility] [address] Capillary blood glucose lupillo urement by glucometer (mass/volume)Ordered By: Zachary Garcia on 01-13-2024 Glucose [Mass/Vol] 239 mg/dL Normal [facility] Comment on above: Random Glucose Refer ence Range is dependent on time and content of last meal. Glucose of more than 200 mg/dL in a nonstressed, ambulatory subject supports the diagnosis of Diabetes Mellitus. Result Comment: [place] om Glucose Reference Range is dependent on time and content of last meal. Glucose of more than 200 mg/dL in a nonstressed, ambulatory subject supports the diagnosis of Diabetes Mellitus. PERFORMED BY: [place] [address] PATHOLOGIST AGRICULTURAL ECONOMICS TEACHER DENNIS RODRIGUEZ M.D. Performed By: #### D IFF CBC, PTT, CK, HS TROP, CMP, CBC, PT #### [facility] [address] Carbon dioxide, total [Moles /volume] in Serum or PlasmaOrdered By: Sabrina Lama on 01-13-2024 CO2 [Moles/Vol] 29.2 mmol/L Normal 21.0-31.0 [facility] Comment on above: Performed By: #### D IFF CBC, PTT, CK, HS TROP, CMP, CBC, PT #### [facility] [address] Chloride [Moles/volume] in S liza or PlasmaOrdered By: Sabrina Lama on 01-13-2024 Chloride [Moles/Vol] 102 mmol/L Normal 98-107 [facility] Comment on above: Performed By: #### D IFF CBC, PTT, CK, HS TROP, CMP, CBC, PT #### [facility] [address] Creatinine [Mass/volume] in Serum or PlasmaOrdered By: Sabrina Lama on 01-13-2024 Creatinine [Mass/Vol] 1.28 mg/dL Normal 0.70-1.30 [facility] Comment on above: Performed By: #### D IFF CBC, PTT, CK, HS TROP, CMP, CBC, PT #### [facility] [address] Erythrocyte distribution wid th [Ratio] by Automated countOrdered By: Sabrina Lama on 01-13-2024 Erythrocyte distribution width (RBC) [Ratio] 13.9 % Normal 12.0-14.8 [facility] Comment on above: Performed By: #### D IFF CBC, PTT, CK, HS TROP, CMP, CBC, PT #### [address] Erythrocytes [#/volume] in B lood by Automated countOrdered By: Sabrina Plascencia on 01-13-2024 RBC (Bld) [#/Vol] 4.92 10*6/uL Normal 3.90-5.60 [facility] Comment on above: Performed By: #### D IFF CBC, PTT, CK, HS TROP, CMP, CBC, PT #### [address] Glucose Poct Glucometerson 0 01-13-2024 Glucose [Mass/Vol] 155 mg/dL Normal [facility] Comment on above: Result Comment: [facility] Glucose Reference Range is dependent on time and content of last meal. Glucose of more than 200 mg/dL in a nonstressed, ambulatory subject supports the diagnosis of Diabetes Mellitus. PERFORMED BY: [place] [address] PATHOLOGIST AGRICULTURAL ECONOMICS TEACHER DENNIS RODRIGUEZ M.D. Performed By: #### D IFF CBC, PTT, CK, HS TROP, CMP, CBC, PT #### [facility] [address] [place] [address] [place] Glucose [Mass/volume] in Ser um or PlasmaOrdered By: Sabrina Lama on 01-13-2024 Glucose [Mass/Vol] 152 mg/dL High 70-100 [facility] Comment on above: ADA recommended refe rence rangeRandom Glucose Reference Range is dependent on time and content of last meal. Glucose of more than 200 mg/dL in a nonstressed, ambulatory subject supports the diagnosis of Diabetes Mellitus. Result Comment: [place] om Glucose Reference Range is dependent on time and content of last meal. Glucose of more than 200 mg/dL in a nonstressed, ambulatory subject supports the diagnosis of Diabetes Mellitus. ADA recommended reference range Performed By: #### D IFF CBC, PTT, CK, HS TROP, CMP, CBC, PT #### [facility] [address] Hematocrit [Volume Fraction] of Blood by Automated countOrdered By: Sabrina Lama on 01-13-2024 Hematocrit (Bld) [Volume fraction] 46.5 % Normal 38.8-50.0 [facility] Comment on above: Performed By: #### D IFF CBC, PTT, CK, HS TROP, CMP, CBC, PT #### [facility] [address] Hemoglobin [Mass/volume] in BloodOrdered By: Sabrina Lama on 01-13-2024 Hemoglobin (Bld) [Mass/Vol] 15.5 g/dL Normal 13.0-17.0 [facility] Comment on above: Performed By: #### D IFF CBC, PTT, CK, HS TROP, CMP, CBC, PT #### [facility] [address] [place] [address] [place] Leukocytes [#/volume] correc guillermina for nucleated erythrocytes in Blood by Automated counOrdered By: Sabrina Lama on 01-13-2024 WBC corrected for nucl RBC Auto (Bld) [#/Vol] 17.3 10*3/uL High 4.1-10.5 [facility] Leukocytes [#/volume] in Blo od by Automated countOrdered By: Sabrina Plascencia on 01-13-2024 WBC (Bld) [#/Vol] 17.3 10*3/uL High 4.1-10.5 [facility] Comment on above: Performed By: #### D IFF CBC, PTT, CK, HS TROP, CMP, CBC, PT #### [facility] [address] Lymphocytes [#/volume] in Bl ood by Automated countOrdered By: Sabrina Plascencia on 01-13-2024 Lymphocytes (Bld) [#/Vol] 2.7 10*3/uL Normal 1.00-4.8 [facility] Comment on above: Performed By: #### D IFF CBC, PTT, CK, HS TROP, CMP, CBC, PT #### [facility] [address] [place] [address] [place] Lymphocytes/100 leukocytes i n Blood by Automated countOrdered By: Sabrina Lama on 01-13-2024 Lymphocytes/100 WBC (Bld) 15.4 % Normal . [facility] Comment on above: Performed By: #### D IFF CBC, PTT, CK, HS TROP, CMP, CBC, PT #### [facility] [address] MCH [Entitic mass] by Automa guillermina countOrdered By: Sabrina Lama on 01-13-2024 MCH (RBC) [Entitic mass] 31.5 pg Normal 27.5-35.2 [facility] Comment on above: Performed By: #### D IFF CBC, PTT, CK, HS TROP, CMP, CBC, PT #### [facility] [address] MCHC Auto (RBC) [Mass/Vol]Or dered By: Sabrina Lama on 01-13-2024 MCHC (RBC) [Mass/Vol] 33.3 g/dL 32.5-35.6 [facility] MCV [Entitic volume] by Auto mated countOrdered By: Sabrina Lama on 01-13-2024 MCV (RBC) [Entitic vol] 94.6 fL Normal 83.5-101 [facility] Comment on above: Performed By: #### D IFF CBC, PTT, CK, HS TROP, CMP, CBC, PT #### [facility] [address] Neutrophils [#/volume] in Bl ood by Automated countOrdered By: Sabrina Plascencia on 01-13-2024 Neutrophils (Bld) [#/Vol] 8.4 10*3/uL High 1.8-7.7 [facility] Comment on above: Performed By: #### D IFF CBC, PTT, CK, HS TROP, CMP, CBC, PT #### [facility] [address] No Panel InformationOrdered By: Sabrina Lama on 01-13-2024 Estimated GFR (CKD-EPI) 58.003 mL/Min [facility] Creatinine Clearance (Chem 61.15 [facility] Nucleated erythrocytes [Pres ence] in Blood by Automated countOrdered By: Sabrina Lama on 01-13-2024 Nucleated RBC Auto Ql (Bld) 0.1 /100{WBC} 0-0.5 [facility] Platelet adequacy [Presence] in Blood by Light microscopyOrdered By: Sabrina Lama on 01-13-2024 Platelets LM Ql (Bld) Normal Normal [facility] Platelet mean volume [Entiti c volume] in Blood by Automated countOrdered By: Sabrina Lama on 01-13-2024 Platelet mean volume (Bld) [Entitic vol] 8.3 fL Normal 6.6-10.1 [facility] Comment on above: Performed By: #### D IFF CBC, PTT, CK, HS TROP, CMP, CBC, PT #### [facility] [address] [place] [address] Platelet morphology finding [Identifier] in BloodOrdered By: Sabrina Plascencia on 01-13-2024 Platelet morphology finding Nom (Bld) Normal Normal [facility] Platelets [#/volume] in Bloo d by Automated countOrdered By: Sabrina Lama on 01-13-2024 Platelets (Bld) [#/Vol] 256 10*3/uL Normal 150-450 [facility] Comment on above: Performed By: #### D IFF CBC, PTT, CK, HS TROP, CMP, CBC, PT #### [address] Potassium [Moles/volume] in Serum or PlasmaOrdered By: Sabrina Lama on 01-13-2024 Potassium [Moles/Vol] 4.2 mmol/L Normal 3.5-5.1 [facility] Comment on above: Performed By: #### D IFF CBC, PTT, CK, HS TROP, CMP, CBC, PT #### [address] RBC morphologyOrdered By: Jael Lama on 01-13-2024 RBC morphology finding Nom (Bld) Normal Normal Normal [facility] Comment on above: Performed By: #### D IFF CBC, PTT, CK, HS TROP, CMP, CBC, PT #### [facility] [address] [place] [address] Scan and CBCon 01-13-2024 Mean Corpuscular HGB Conc 33.3 g/dL Normal 32.5-35.6 [facility] Comment on above: Performed By: #### D IFF CBC, PTT, CK, HS TROP, CMP, CBC, PT #### [address] NRBC% 0.1 /100{WBC} Normal 0-0.5 [facility] Comment on above: Performed By: #### D IFF CBC, PTT, CK, HS TROP, CMP, CBC, PT #### [address] Platelet Estimate Normal Normal Normal [facility] Comment on above: Performed By: #### D IFF CBC, PTT, CK, HS TROP, CMP, CBC, PT #### [address] Platelet Morphology Normal Normal Normal [facility] Comment on above: Result Comment: PERF ORMED BY: [place] [address] PATHOLOGIST AGRICULTURAL ECONOMICS TEACHER DENNIS RODRIGUEZ M.D. Performed By: #### D IFF CBC, PTT, CK, HS TROP, CMP, CBC, PT #### [address] Serum or plasma anion gap de terminationOrdered By: Sabrina Lama on 01-13-2024 Anion gap [Moles/Vol] 10.0 mmol/L Normal 6.0-15.0 [facility] Comment on above: Performed By: #### D IFF CBC, PTT, CK, HS TROP, CMP, CBC, PT #### [address] Sodium [Moles/volume] in Ser um or PlasmaOrdered By: Sabrina Lama on 01-13-2024 Sodium [Moles/Vol] 137 mmol/L Normal 136-145 [facility] Comment on above: Performed By: #### D IFF CBC, PTT, CK, HS TROP, CMP, CBC, PT #### [address] US carotid doppler BIon 06-0 US carotid doppler BI [facility] [place] [address] [place] [address] Ultrasound Report Signed Patient: Dagoberto Squires MR#: [id number] : 1945 Acct:[id number] Age/Sex: 78 / M ADM Date: 01/11/24 Loc: Room: [address] [place] [address] Type: ADM IN Attending Dr: Zachary Garcia [...] Dao Johnston M.D.01/13/2024 12:16 PM Dictation Location: [facility]04 Tech: Kallieshanna Singh Transcribed By: ALEA 01/13/24 1216 Dictated By: Dao Johnston MD 01/13/24 1214 Signed By: 01/13/24 1216 Normal [facility] Urea nitrogen [Mass/volume] in Serum or PlasmaOrdered By: Sabrina Lama on 01-13-2024 Urea nitrogen [Mass/Vol] 18 mg/dL Normal 7-25 [facility] Comment on above: Performed By: #### D IFF CBC, PTT, CK, HS TROP, CMP, CBC, PT #### [facility] [address] [place] [id number] [facility] Glucose Poct Glucometerson 0 01-12-2024 Glucose [Mass/Vol] 211 mg/dL Normal [facility] Comment on above: Result Comment: [place] om Glucose Reference Range is dependent on time and content of last meal. Glucose of more than 200 mg/dL in a nonstressed, ambulatory subject supports the diagnosis of Diabetes Mellitus. PERFORMED BY: [place] [address] PATHOLOGIST AGRICULTURAL ECONOMICS TEACHER DENNIS RODRIGUEZ M.D. Performed By: #### D IFF CBC, PTT, CK, HS TROP, CMP, CBC, PT #### [facility] [address] [place] [id number] [facility] Glucose [Mass/Vol] 129 mg/dL Normal [facility] Comment on above: Result Comment: [place] om Glucose Reference Range is dependent on time and content of last meal. Glucose of more than 200 mg/dL in a nonstressed, ambulatory subject supports the diagnosis of Diabetes Mellitus. PERFORMED BY: [place] [address] PATHOLOGIST AGRICULTURAL ECONOMICS TEACHER DENNIS RODRIGUEZ M.D. Performed By: #### D IFF CBC, PTT, CK, HS TROP, CMP, CBC, PT #### [facility] [address] [place] [id number] [facility] Commemt1 Glu2: Cleaned Meter Normal [facility] Comment on above: Result Comment: PERF ORMED BY: [place] [address] PATHOLOGIST AGRICULTURAL ECONOMICS TEACHER DENNIS RODRIGUEZ M.D. Performed By: #### G LULS #### Point of Care testing , Glucose [Mass/Vol] 195 mg/dL Normal [facility] Comment on above: Result Comment: [place] om Glucose Reference Range is dependent on time and content of last meal. Glucose of more than 200 mg/dL in a nonstressed, ambulatory subject supports the diagnosis of Diabetes Mellitus. Performed By: #### G LULS #### Point of Care testing , Commemt1 Glu2: Cleaned Meter Normal [facility] Comment on above: Result Comment: PERF ORMED BY: [place] [address] PATHOLOGIST AGRICULTURAL ECONOMICS TEACHER DENNIS RODRIGUEZ M.D. Performed By: #### D IFF CBC, PTT, CK, HS TROP, CMP, CBC, PT #### [address] Glucose [Mass/Vol] 226 mg/dL Normal [facility] Comment on above: Result Comment: [place] om Glucose Reference Range is dependent on time and content of last meal. Glucose of more than 200 mg/dL in a nonstressed, ambulatory subject supports the diagnosis of Diabetes Mellitus. Performed By: #### D IFF CBC, PTT, CK, HS TROP, CMP, CBC, PT #### [address] Glucose [Mass/Vol] 156 mg/dL Normal [facility] Comment on above: Result Comment: [place] om Glucose Reference Range is dependent on time and content of last meal. Glucose of more than 200 mg/dL in a nonstressed, ambulatory subject supports the diagnosis of Diabetes Mellitus. PERFORMED BY: [place] [address] PATHOLOGIST AGRICULTURAL ECONOMICS TEACHER DENNIS RODRIGUEZ M.D. Performed By: #### D IFF CBC, PTT, CK, HS TROP, CMP, CBC, PT #### [address] No Panel InformationOrdered By: Zachary Garcia on 01-12-2024 Bedside Glucose Comment Glu2: cleaned meter [facility] A1C with Estimated Average Priya enriquez 01-11-2024 Glucose [Mass/Vol] 180 mg/dL Normal [facility] Comment on above: Result Comment: PERF ORMED BY: [place] [address] PATHOLOGIST AGRICULTURAL ECONOMICS TEACHER DENNIS RODRIGUEZ M.D. Performed By: #### D IFF CBC, PTT, CK, HS TROP, CMP, CBC, PT #### [address] Anisocytosis [Presence] in B lood by Light microscopyOrdered By: Faiza Mcdonald on 01-11-2024 Anisocytosis Ql (Bld) Slight Normal [facility] Comment on above: Performed By: #### D IFF CBC, PTT, CK, HS TROP, CMP, CBC, PT #### [address] BNP ser/plasOrdered By: Sabrina Lama on 01-11-2024 Natriuretic peptide B (Bld) [Mass/Vol] 38.0 pg/mL Normal 5-100 [facility] Comment on above: Order Comment: Comme nt add on to previuosly drawn labs this a.m. Result Comment: PERF ORMED BY: [place] [address] PATHOLOGIST AGRICULTURAL ECONOMICS TEACHER DENNIS RODRIGUEZ M.D. Performed By: #### D IFF CBC, PTT, CK, HS TROP, CMP, CBC, PT #### [place] [id number] [facility] Basic Metabolic Panelon Anion gap [Moles/Vol] 8.3 mmol/L Normal 6.0-15.0 [facility] Comment on above: Performed By: #### D IFF CBC, PTT, CK, HS TROP, CMP, CBC, PT #### [place] [id number] [facility] Calcium [Mass/Vol] 9.0 mg/dL Normal 8.6-10.3 [facility] Comment on above: Performed By: #### D IFF CBC, PTT, CK, HS TROP, CMP, CBC, PT #### [facility] [address] Chloride [Moles/Vol] 104 mmol/L Normal 98-107 [facility] Comment on above: Performed By: #### D IFF CBC, PTT, CK, HS TROP, CMP, CBC, PT #### [facility] [address] CO2 [Moles/Vol] 28.6 mmol/L Normal 21.0-31.0 [facility] Comment on above: Performed By: #### D IFF CBC, PTT, CK, HS TROP, CMP, CBC, PT #### [address] Creatinine [Mass/Vol] 1.22 mg/dL Normal 0.70-1.30 [facility] Comment on above: Performed By: #### D IFF CBC, PTT, CK, HS TROP, CMP, CBC, PT #### [address] Creatinine Clr Calc Pharmacy 63.72 Normal [facility] Comment on above: Performed By: #### D IFF CBC, PTT, CK, HS TROP, CMP, CBC, PT #### [address] GFR/1.73 sq M.predicted MDRD (S/P/Bld) [Vol rate/Area] mL/min/{1.73_m2} Normal [facility] Comment on above: Performed By: #### D IFF CBC, PTT, CK, HS TROP, CMP, CBC, PT #### [facility] [address] Glucose [Mass/Vol] 166 mg/dL Significant change up 70-100 [facility] Comment on above: Result Comment: [place] Glucose Reference Range is dependent on time and content of last meal. Glucose of more than 200 mg/dL in a nonstressed, ambulatory subject supports the diagnosis of Diabetes Mellitus. ADA recommended reference range Performed By: #### D IFF CBC, PTT, CK, HS TROP, CMP, CBC, PT #### [address] Potassium [Moles/Vol] 3.9 mmol/L Normal 3.5-5.1 [facility] Comment on above: Performed By: #### D IFF CBC, PTT, CK, HS TROP, CMP, CBC, PT #### [address] Sodium [Moles/Vol] 137 mmol/L Normal 136-145 [facility] Comment on above: Performed By: #### D IFF CBC, PTT, CK, HS TROP, CMP, CBC, PT #### [address] Urea nitrogen [Mass/Vol] 18 mg/dL Normal 7-25 [facility] Comment on above: Performed By: #### D IFF CBC, PTT, CK, HS TROP, CMP, CBC, PT #### [address] Basophils/100 leukocytes in Blood by Manual countOrdered By: Faiza Mcdonald on 01-11-2024 Basophils/100 WBC (Bld) 2 % Normal 0-2 [facility] Comment on above: Performed By: #### D IFF CBC, PTT, CK, HS TROP, CMP, CBC, PT #### [address] angio neckon 01-11-2024 CT angio neck [facility] [place] [address] CT Scan Report Signed Patient: Dagoberto Squires MR#: [id number] : 1945 Acct:[id number] Age/Sex: 78 / M ADM Date: 01/11/24 Loc: Room: [address] [place] [address] Type: ADM INOo Attending Dr: Zachary Garcia MD Copies to: MD Nicko Sanchez DO Ordering Provider: Nicko Grimm DO Date of Service: 01/10/24 CT/CT angio neck: r/o stroke ([id number]) CT/CT angio head: r/o stroke CTA Head [...] Dao Toscano M.D.01/11/2024 8:25 AM Dictation Location: [place] [address] Transcribed By: [facility] 01/11/24 Dictated By: Dao Toscano DO 01/11/24 08 Signed By: 01/11/24 08 Normal [facility] CT head stroke alert wo cono n 01-11-2024 CT head stroke alert wo con [facility] [place] [address] [place], [place] [id number] CT Scan Report Signed Patient: Dagoberto Squires MR#: [id number] : 1945 Acct:[id number] Age/Sex: 78 / M ADM Date: 01/11/24 Loc: Room: [address] [place] [address] Type: ADM INOo Attending Dr: Zachray Garcia MD Copies to: MD Nicko Sanchez [...] Dao Toscano M.D.01/11/2024 8:11 AM Dictation Location: [place] [address] Transcribed By: [facility] 01/11/24 08 Dictated By: Dao Toscano DO 01/11/24 08 Signed By: 01/11/24 08 Normal [facility] CT head/brain perfusionon CT head/brain perfusion [facility] [place] [address] [place] [address] CT Scan Report Signed Patient: Dagoberto Squires MR#: [id number] : 1945 Acct:[id number] Age/Sex: 78 / M ADM Date: 01/11/24 Loc: 3T Room: [address] [place] [address] Type: ADM IN Attending Dr: Zachary Garcia [...] Gómez Alan M.D.01/11/2024 4:36 PM Dictation Location: [place] [address] Transcribed By: ALEA 01/11/24 1636 Dictated By: Gómez Alan II, MD 01/11/24 1632 Signed By: 01/11/24 1636 Normal [facility] Cholesterol [Mass/volume] in Serum or PlasmaOrdered By: Faiza Mcdonald on 01-11-2024 Cholesterol [Mass/Vol] 172 mg/dL Normal 140-200 [facility] Comment on above: Chol less than 200 m g/dl low riskChol 201-239 mg/dl borderline riskChol 240 mg/dl and greater high risk Result Comment: Chol less than 200 mg/dl low risk Chol 201-239 mg/dl borderline risk Chol 240 mg/dl and greater high risk Performed By: #### D IFF CBC, PTT, CK, HS TROP, CMP, CBC, PT #### [address] Cholesterol in LDL Calc [Mas s/Vol]Ordered By: Faiza Mcdonald on 01-11-2024 Cholesterol in LDL [Mass/Vol] 107 mg/dL High 0-100 [facility] Comment on above: LDL ATP III CLASSIFI CATIONLDL less than 100 mg/dL OptimalLDL 100-129 mg/dL Near or above optimalLDL 130-159 mg/dL Borderline highLDL 160-189 mg/dL HighLDL greater than 189 mg/dL Very high Cholesterol in VLDL Calc [Ma ss/Vol]Ordered By: Faiza Mcdonald on 01-11-2024 Cholesterol in VLDL [Mass/Vol] 37 mg/dL [facility] Diff and CBCon 01-11-2024 Erythrocyte distribution width (RBC) [Ratio] 14.0 % Normal 12.0-14.8 [facility] Comment on above: Performed By: #### D IFF CBC, PTT, CK, HS TROP, CMP, CBC, PT #### [facility] [address] Giant Platelet Tally 1 /100{WBC} Normal [facility] Comment on above: Performed By: #### D IFF CBC, PTT, CK, HS TROP, CMP, CBC, PT #### [address] Hematocrit (Bld) [Volume fraction] 40.7 % Normal 38.8-50.0 [facility] Comment on above: Performed By: #### D IFF CBC, PTT, CK, HS TROP, CMP, CBC, PT #### [address] Hemoglobin (Bld) [Mass/Vol] 13.7 g/dL Normal 13.0-17.0 [facility] Comment on above: Performed By: #### D IFF CBC, PTT, CK, HS TROP, CMP, CBC, PT #### [address] Large Platelets Slight Normal [facility] Comment on above: Result Comment: PERF ORMED BY: [place] [address] PATHOLOGIST AGRICULTURAL ECONOMICS TEACHER DENNIS RODRIGUEZ M.D. Performed By: #### D IFF CBC, PTT, CK, HS TROP, CMP, CBC, PT #### [address] MCH (RBC) [Entitic mass] 31.9 pg Normal 27.5-35.2 [facility] Comment on above: Performed By: #### D IFF CBC, PTT, CK, HS TROP, CMP, CBC, PT #### [address] MCV (RBC) [Entitic vol] 94.7 fL Normal 83.5-101 [facility] Comment on above: Performed By: #### D IFF CBC, PTT, CK, HS TROP, CMP, CBC, PT #### [address] Mean Corpuscular HGB Conc 33.7 g/dL Normal 32.5-35.6 [facility] Comment on above: Performed By: #### D IFF CBC, PTT, CK, HS TROP, CMP, CBC, PT #### [address] Microcytosis Slight Normal [facility] Comment on above: Performed By: #### D IFF CBC, PTT, CK, HS TROP, CMP, CBC, PT #### [address] Monocytes/100 WBC (Bld) 17.43 % Normal 0.00-20.00 [facility] Comment on above: Performed By: #### D IFF CBC, PTT, CK, HS TROP, CMP, CBC, PT #### [address] Myelocytes 2 % High 0-0 [facility] [facility] Comment on above: Performed By: #### D IFF CBC, PTT, CK, HS TROP, CMP, CBC, PT #### [address] Platelet Estimate Normal Normal Normal [facility] Comment on above: Performed By: #### D IFF CBC, PTT, CK, HS TROP, CMP, CBC, PT #### [address] Platelet mean volume (Bld) [Entitic vol] 8.2 fL Normal 6.6-10.1 [facility] Comment on above: Performed By: #### D IFF CBC, PTT, CK, HS TROP, CMP, CBC, PT #### [place] [address] [place] Platelets (Bld) [#/Vol] 208 10*3/uL Normal 150-450 [facility] Comment on above: Performed By: #### D IFF CBC, PTT, CK, HS TROP, CMP, CBC, PT #### [place] [address] [place] RBC (Bld) [#/Vol] 4.30 10*6/uL Normal 3.90-5.60 [facility] Comment on above: Performed By: #### D IFF CBC, PTT, CK, HS TROP, CMP, CBC, PT #### [facility] [address] WBC (Bld) [#/Vol] 16.0 10*3/uL High 4.1-10.5 [facility] Comment on above: Performed By: #### D IFF CBC, PTT, CK, HS TROP, CMP, CBC, PT #### [facility] [address] echo transthoracicon [facility] echo transthoracic [facility] Main [place] [address] [place] [address] Echocardiogram Signed Patient: Dagoberto Squires MR#: [id number] : 1945 Acct:[id number] Age/Sex: 78 / M ADM Date: 01/11/24 Loc: Room: [address] [place] [address] Type: ADM INOo Attending Dr: Zachary Garcia MD Ordering Provider: Faiza Mcdonald, LIGHTING TECHNICIAN Date of Service: 01/11/2411/30/499 [facility] echo transthoracic: Source of Emboli Copies to: MD Faiza Narvaez, LIGHTING TECHNICIAN Weight: 233 lb Performed By: JUAN Woods [...] Janell Burger MD 01/11/24 1251 Normal [facility] Eosinophils/100 leukocytes i n Blood by Manual countOrdered By: Faiza Mcdonald on 01-11-2024 Eosinophils/100 WBC (Bld) 26 % [address] Comment on above: Performed By: #### D IFF CBC, PTT, CK, HS TROP, CMP, CBC, PT #### [facility] [address] Giant platelets/100 leukocyt es [Ratio] in Blood by Manual countOrdered By: Faiza Mcdonald on 01-11-2024 Giant platelets/100 WBC Manual cnt (Bld) [Ratio] 1 /100{WBC} [facility] Glucose Poct Glucometerson 0 01-11-2024 Glucose [Mass/Vol] 208 mg/dL Normal [facility] Comment on above: Result Comment: [place] Glucose Reference Range is dependent on time and content of last meal. Glucose of more than 200 mg/dL in a nonstressed, ambulatory subject supports the diagnosis of Diabetes Mellitus. PERFORMED BY: [place] [address] PATHOLOGIST AGRICULTURAL ECONOMICS TEACHER DENNIS RODRIGUEZ M.D. Performed By: #### D IFF CBC, PTT, CK, HS TROP, CMP, CBC, PT #### [facility] [address] Glucose mean value [Mass/vol ume] in Blood Estimated from glycated hemoglobinOrdered By: Faiza Mcdonald on 01-11-2024 Average glucose Estimated from glycated hemoglobin (Bld) [Mass/Vol] 180 mg/dL [facility] Hemoglobin A1c percentageOrd ered By: Faiza Mcdonald on 01-11-2024 HbA1c (Bld) [Mass fraction] 7.9 % High 4.3-5.6 [facility] Comment on above: Increased risk for d iabetes: 5.7 - 6.4diabetes: >6.4glycemic control for adults with diabetes: <7.0 Result Comment: Incr eased risk for diabetes: 5.7 - 6.4 diabetes: >6.4 glycemic control for adults with diabetes: <7.0 Performed By: #### D IFF CBC, PTT, CK, HS TROP, CMP, CBC, PT #### [facility] [address] [place] [id number] [facility] Lipid Panelon 01-11-2024 LDL Cholesterol,Calculated 107 mg/dL High 0-100 [facility] Comment on above: Result Comment: LDL ATP III CLASSIFICATION LDL less than 100 mg/dL Optimal LDL 100-129 mg/dL Near or above optimal LDL 130-159 mg/dL Borderline high LDL 160-189 mg/dL High LDL greater than 189 mg/dL Very high Performed By: #### D IFF CBC, PTT, CK, HS TROP, CMP, CBC, PT #### [facility] [address] Triglyceride w/Reflex 186 mg/dL High 0-149 [facility] Comment on above: Result Comment: TRIG ATP III CLASSIFICATION TRIG less than 150 mg/dL Normal TRIG 150-199 mg/dL Borderline high TRIG 200-500 mg/dL High TRIG greater than 500 mg/dL Very high Standard traceable to the Center for Disease Conrtrol and Prevention (CDC) test method. Performed By: #### D IFF CBC, PTT, CK, HS TROP, CMP, CBC, PT #### [facility] [address] VLDL CHOLESTEROL 37 mg/dL Normal [facility] Comment on above: Performed By: #### D IFF CBC, PTT, CK, HS TROP, CMP, CBC, PT #### [facility] [address] Lymphocytes/100 leukocytes i n Blood by Manual countOrdered By: Faiza Mcdonald on 01-11-2024 Lymphocytes/100 WBC (Bld) 11 % Low 18-42 [facility] Comment on above: Performed By: #### D IFF CBC, PTT, CK, HS TROP, CMP, CBC, PT #### [facility] [address] [place] [id number] [facility] MR head/brain wo conon 01-10 MR head/brain wo [facility] [place] [address] MRI Report Signed Patient: Dagoberto Squires MR#: [id number] : 1945 Acct:[id number] Age/Sex: 78 / M ADM Date: 01/11/24 Loc: 3T Room: [address] [place] [address] Type: ADM IN Attending Dr: Zachary Garcia [...] Gómez Alan M.D.01/11/2024 6:15 PM Dictation Location: [place] [address] Transcribed By: ALEA 01/11/241814 Dictated By: Gómez Alan II, MD 01/11/241808 Signed By: 01/11/241814 Normal [facility] Magnesium [Mass/volume] in S liza or PlasmaOrdered By: Faiza Mcdonald on 01-11-2024 Magnesium [Mass/Vol] 1.7 mg/dL Low 1.9-2.7 [facility] Comment on above: Performed By: #### D IFF CBC, PTT, CK, HS TROP, CMP, CBC, PT #### [facility] [address] [place] [address] Manual blood segmented neutr ophils/100 leukocytesOrdered By: Faiza Mcdonald on 01-11-2024 Segmented neutrophils/100 WBC (Bld) 48 % Low 50-70 [facility] Comment on above: Performed By: #### D IFF CBC, PTT, CK, HS TROP, CMP, CBC, PT #### [facility] [address] [place] [address] Microcytes LM Ql (Bld)Ordere d By: Faiza Mcdonald on 01-11-2024 Microcytes Ql (Bld) Slight [facility] Monocyte distribution width [Entitic volume] in Blood by AutomatedOrdered By: Faiza Mcdonald on 01-11-2024 Monocyte distribution width Auto (Bld) [Entitic vol] 17.43 % 0.00-20.00 [facility] Monocytes/100 leukocytes in Blood by Manual countOrdered By: Faiza Mcdonald on 01-11-2024 Monocytes/100 WBC (Bld) 8 % Normal 2-11 [facility] Comment on above: Performed By: #### D IFF CBC, PTT, CK, HS TROP, CMP, CBC, PT #### [facility] [address] Myelocytes/100 WBC Manual cn t (Bld)Ordered By: Faiza Mcdonald on 01-11-2024 Myelocytes/100 WBC (Bld) 2 % High 0-0 [facility] Peripheral white blood cell differential % bands, microscopic examOrdered By: Faiza Mcdonald on 01-11-2024 Band form neutrophils/100 WBC (Bld) 4 % Normal 0-5 [facility] Comment on above: Performed By: #### D IFF CBC, PTT, CK, HS TROP, CMP, CBC, PT #### [facility] [address] Platelets Large [Presence] i n Blood by Light microscopyOrdered By: Faiza Mcdonald on 01-11-2024 Platelets Large LM Ql (Bld) Slight [facility] Serum or plasma high density lipoprotein (HDL) cholesterol measurementOrdered By: Faiza Mcdonald on 01-11-2024 Cholesterol in HDL [Mass/Vol] 28 mg/dL Normal 23-92 [facility] Comment on above: HDL CHOL ATP-III CLA SSIFICATION Cardiovascular RiskHDL > or equal to 60 mg/dL LOWHDL < 40 mg/dL HIGH Result Comment: HDL CHOL ATP-III CLASSIFICATION Cardiovascular Risk HDL > or equal to 60 mg/dL LOW HDL < 40 mg/dL HIGH Performed By: #### D IFF CBC, PTT, CK, HS TROP, CMP, CBC, PT #### [facility] [address] Serum or plasma total choles terol/high density lipoprotein (HDL) cholesterol mass ratOrdered By: Faiza Mcdonald on 01-11-2024 Cholesterol.total/Chol esterol in HDL [Mass ratio] 6.1 {ratio} Normal <5.0 [facility] Comment on above: Result Comment: PERF ORMED BY: [place] [address] PATHOLOGIST AGRICULTURAL ECONOMICS TEACHER DENNIS RODRIGUEZ M.D. Performed By: #### D IFF CBC, PTT, CK, HS TROP, CMP, CBC, PT #### [facility] [address] [place] [id number] [facility] Triglyceride [Mass/volume] i n Serum or PlasmaOrdered By: Faiza Mcdonald on 01-11-2024 Triglyceride [Mass/Vol] 186 mg/dL High 0-149 [facility] Comment on above: TRIG ATP III CLASSIF ICATIONTRIG less than 150 mg/dL NormalTRIG 150-199 mg/dL Borderline highTRIG 200-500 mg/dL High TRIG greater than 500 mg/dL Very highStandard traceable to the Center for Disease Conrtrol and Prevention (CDC) test method. XR chest 1V portableon 01-10 XR chest 1V portable [facility] Main [place] [address] [place] [address] XRay Report Signed Patient: Dagoberto Squires MR#: [id number] : 1945 Acct:[id number] Age/Sex: 78 / M ADM Date: 01/11/24 Loc: Room: [address] [place] [address] Type: ADM INOo Attending Dr: Zachary Garcia [...] Gómez Alan M.D.01/11/2024 8:45 AM Dictation Location: [place] [address] Transcribed By: [facility] 01/11/24 0845 Dictated By: Gómez Alan II, MD 01/11/2444 Signed By: 01/11/24 0845 Normal [facility] XR pre/post mri xrayon 01-10 XR pre/post mri xray [facility] Main [place] [address] [place] [address] XRay Report Signed Patient: Dagoberto Squires MR#: [id number] : 1945 Acct:[id number] Age/Sex: 78 / M ADM Date: 01/11/24 Loc: Room: [address] [place] [address] Type: ADM IN Attending Dr: Zachary Garcia [...] Gómez Alan M.D.01/11/2024 4:37 PM Dictation Location: [place] [address] Transcribed By: [facility] 01/11/24 1637 Dictated By: Gómez Alan II, MD 01/11/24 1636 Signed By: 01/11/24 1637 Normal [facility] Activated partial thrombopla stin time (aPTT) in platelet poor plasma by coagulation aOrdered By: Nicko Grimm on 01-10-2024 aPTT Coag (PPP) [Time] 30.0 s 25.1-36.5 [facility] Comment on above: A hematocrit value g reater than 55% may lead to inaccurate results in coagulation testing. Patients having hematocrit values >55% require a special collection tube for coagulation studies. Please contact the laboratory at [phone] for redraw instructions. Alanine aminotransferase [En zymatic activity/volume] in Serum or PlasmaOrdered By: Nicko Grimm on 01-10-2024 ALT [Catalytic activity/Vol] 8 U/L Normal 7-52 [facility] Comment on above: Performed By: #### D IFF CBC, PTT, CK, HS TROP, CMP, CBC, PT #### [facility] [address] Albumin [Mass/volume] in Ser um or Plasma by Bromocresol green (BCG) dye binding methoOrdered By: Nicko Grimm on 01-10-2024 Albumin BCG dye [Mass/Vol] 3.8 g/dL 3.5-5.7 [facility] Alkaline phosphatase [Enzyma tic activity/volume] in Serum or PlasmaOrdered By: Nicko Grimm on 01-10-2024 ALP [Catalytic activity/Vol] 78 U/L Normal 34-104 [facility] Comment on above: Performed By: #### D IFF CBC, PTT, CK, HS TROP, CMP, CBC, PT #### [facility] [address] [place] [address] Amphetamine Screen Ql (U)Ord ered By: Faiza Mcdonald on 01-10-2024 Amphetamines Ql (U) Negative Negative [facility] Aspartate aminotransferase [ Enzymatic activity/volume] in Serum or PlasmaOrdered By: Nicko Grimm on 01-10-2024 AST [Catalytic activity/Vol] 13 U/L Normal 13-39 [facility] Comment on above: Performed By: #### D IFF CBC, PTT, CK, HS TROP, CMP, CBC, PT #### [facility] [address] [place] [address] Bacteria [Presence] in Urine by AutomatedOrdered By: Nicko Grimm on 01-10-2024 Bacteria Auto Ql (U) None seen [HPF] None Seen [facility] Barbiturates [Presence] in U rine by Screen methodOrdered By: Faiza Mcdonald on 01-10-2024 Barbiturates Screen Ql (U) Negative Negative [facility] Basophils Auto (Bld) [#/Vol] Ordered By: Nicko Grimm on 01-10-2024 Basophils (Bld) [#/Vol] N/A [facility] Basophils/100 WBC Auto (Bld) Ordered By: Nicko Grimm on 01-10-2024 Basophils/100 WBC (Bld) N/A [facility] Basophils/100 leukocytes in Blood by Manual countOrdered By: Nicko Grimm on 01-10-2024 Basophils/100 WBC (Bld) 1 % Normal 0-2 [facility] Comment on above: Performed By: #### D IFF CBC, PTT, CK, HS TROP, CMP, CBC, PT #### [facility] [address] Benzodiazepines Screen Ql (U )Ordered By: Faiza Mcdonald on 01-10-2024 Benzodiazepines Ql (U) Negative Negative [facility] Benzoylecgonine [Presence] i n Urine by Screen methodOrdered By: Faiza Mcdonald on 01-10-2024 Benzoylecgonine Screen Ql (U) Negative Negative [facility] Bilirubin Test strip Ql (U)O rdered By: Nicko Grimm on 01-10-2024 Bilirubin Ql (U) Negative Negative [facility] Bilirubin.total [Mass/volume ] in Serum or PlasmaOrdered By: Nicko Grimm on 01-10-2024 Bilirubin [Mass/Vol] 0.6 mg/dL Normal 0.3-1.0 [facility] Comment on above: Performed By: #### D IFF CBC, PTT, CK, HS TROP, CMP, CBC, PT #### [facility] [address] [place] [id number] [place] Calcium [Mass/volume] in Ser um or PlasmaOrdered By: Nicko Grimm on 01-10-2024 Calcium [Mass/Vol] 9.4 mg/dL Normal 8.6-10.3 [facility] Comment on above: Performed By: #### D IFF CBC, PTT, CK, HS TROP, CMP, CBC, PT #### [facility] [address] [place] [id number] [place] Cannabinoids [Presence] in U rine by Screen methodOrdered By: Faiza Mcdonald on 01-10-2024 Cannabinoids Screen Ql (U) Positive High Negative [facility] Comment on above: These are unconfirme d results and should not be used for legal purposes. Drug Cut-Off Concentration: AMPH 1000 ng/mL NIMESH 200 ng/mL STEVEN 200 ng/mL COCM 300 ng/mL OP 300 ng/mL PCP 25 ng/mL THC 20 ng/mL Capillary blood glucose lupillo urement by glucometer (mass/volume)Ordered By: Nicko Grimm on 01-10-2024 Glucose [Mass/Vol] 215 mg/dL Normal [facility] Comment on above: Random Glucose Refer ence Range is dependent on time and content of last meal. Glucose of more than 200 mg/dL in a nonstressed, ambulatory subject supports the diagnosis of Diabetes Mellitus. Result Comment: [place] om Glucose Reference Range is dependent on time and content of last meal. Glucose of more than 200 mg/dL in a nonstressed, ambulatory subject supports the diagnosis of Diabetes Mellitus. PERFORMED BY: [place] [address] PATHOLOGIST AGRICULTURAL ECONOMICS TEACHER DENNIS RODRIGUEZ M.D. Performed By: #### D IFF CBC, PTT, CK, HS TROP, CMP, CBC, PT #### [facility] [address] [place] [address] [place] Carbon dioxide, total [Moles /volume] in Serum or PlasmaOrdered By: Nicko Grimm on 01-10-2024 CO2 [Moles/Vol] 29.3 mmol/L Normal 21.0-31.0 [facility] Comment on above: Performed By: #### D IFF CBC, PTT, CK, HS TROP, CMP, CBC, PT #### [facility] [address] [place] [id number] [place] Chloride [Moles/volume] in S liza or PlasmaOrdered By: Nicko Grimm on 01-10-2024 Chloride [Moles/Vol] 100 mmol/L Normal 98-107 [facility] Comment on above: Performed By: #### D IFF CBC, PTT, CK, HS TROP, CMP, CBC, PT #### [facility] [address] [place] [address] [place] Color of Urine by AutoOrdere d By: Nicko Grimm on 01-10-2024 Color (U) Yellow Normal Yellow [facility] Comment on above: Order Comment: Name Collection Type:: Clean-Voided Midstream Performed By: #### D IFF CBC, PTT, CK, HS TROP, CMP, CBC, PT #### [facility] [address] Complete Blood Count Auto Di ffon 01-10-2024 Mean Corpuscular HGB Conc 33.2 g/dL Normal 32.5-35.6 [facility] Comment on above: Performed By: #### D IFF CBC, PTT, CK, HS TROP, CMP, CBC, PT #### [facility] [address] [place] [address] Monocytes/100 WBC (Bld) 20.12 % High 0.00-20.00 [facility] Comment on above: Result Comment: For adults in ED, MDW > 20.0 may be associated with a higher risk of sepsis during the first 12 hrs of hospital admission PERFORMED BY: [place] [address] PATHOLOGIST AGRICULTURAL ECONOMICS TEACHER DENNIS RODRIGUEZ M.D. Performed By: #### D IFF CBC, PTT, CK, HS TROP, CMP, CBC, PT #### [address] Result Comment: For adults in ED, MDW > 20.0 may be associated with a higher risk of sepsis during the first 12 hrs of hospital admission Comprehensive Metabolic Pane luisito 01-10-2024 Albumin [Mass/Vol] 3.8 g/dL Normal 3.5-5.7 [facility] Comment on above: Performed By: #### D IFF CBC, PTT, CK, HS TROP, CMP, CBC, PT #### [facility] [address] [place] [address] Creatinine Clr Calc Pharmacy 57.26 Normal [facility] Comment on above: Result Comment: PERF ORMED BY: [place] [address] PATHOLOGIST AGRICULTURAL ECONOMICS TEACHER DENNIS RODRIGUEZ M.D. Performed By: #### D IFF CBC, PTT, CK, HS TROP, CMP, CBC, PT #### [address] GFR/1.73 sq M.predicted MDRD (S/P/Bld) [Vol rate/Area] 52.997 mL/min/{1.73_m2} Normal [facility] Comment on above: Performed By: #### D IFF CBC, PTT, CK, HS TROP, CMP, CBC, PT #### [address] Creatine kinase [Enzymatic a ctivity/volume] in Serum or PlasmaOrdered By: Nicko Grimm on 01-10-2024 CK [Catalytic activity/Vol] 32 U/L Normal 30-223 [facility] Comment on above: Performed By: #### D IFF CBC, PTT, CK, HS TROP, CMP, CBC, PT #### [address] Creatinine [Mass/volume] in Serum or PlasmaOrdered By: Nicko Grimm on 01-10-2024 Creatinine [Mass/Vol] 1.38 mg/dL High 0.70-1.30 [facility] Comment on above: Performed By: #### D IFF CBC, PTT, CK, HS TROP, CMP, CBC, PT #### [address] Diff and CBCon 01-10-2024 Dohle Bodies Slight Normal [facility] Comment on above: Performed By: #### D IFF CBC, PTT, CK, HS TROP, CMP, CBC, PT #### [address] Metamyelocytes 1 % High 0-0 [facility] Comment on above: Performed By: #### D IFF CBC, PTT, CK, HS TROP, CMP, CBC, PT #### [address] Myelocytes 2 % High 0-0 [facility] Comment on above: Performed By: #### D IFF CBC, PTT, CK, HS TROP, CMP, CBC, PT #### [facility] [address] Platelet Estimate Normal Normal Normal [facility] Comment on above: Performed By: #### D IFF CBC, PTT, CK, HS TROP, CMP, CBC, PT #### [facility] [address] Platelet Morphology Normal Normal Normal [facility] Comment on above: Result Comment: PERF ORMED BY: [place] [address] PATHOLOGIST AGRICULTURAL ECONOMICS TEACHER DENNIS RODRIGUEZ M.D. Performed By: #### D IFF CBC, PTT, CK, HS TROP, CMP, CBC, PT #### [address] Toxic Vacuolation Slight Normal [facility] Comment on above: Performed By: #### D IFF CBC, PTT, CK, HS TROP, CMP, CBC, PT #### [address] Dipstick and Microscopicon 0 01-10-2024 Bacteria,Urine None Seen Normal None Seen [facility] Comment on above: Order Comment: Name Collection Type:: Clean-Voided Midstream Performed By: #### D IFF CBC, PTT, CK, HS TROP, CMP, CBC, PT #### [address] Bilirubin,Urine Negative Normal Negative [facility] Comment on above: Order Comment: Name Collection Type:: Clean-Voided Midstream Performed By: #### D IFF CBC, PTT, CK, HS TROP, CMP, CBC, PT #### [facility] [address] Glucose Ql (U) 500 mg/dL High Normal [facility] Comment on above: Order Comment: Name Collection Type:: Clean-Voided Midstream Performed By: #### D IFF CBC, PTT, CK, HS TROP, CMP, CBC, PT #### [facility] [address] Mucus,Urine Rare Normal [facility] Comment on above: Order Comment: Name Collection Type:: Clean-Voided Midstream Result Comment: PERF ORMED BY: [place] [address] PATHOLOGIST AGRICULTURAL ECONOMICS TEACHER DENNIS RODRIGUEZ M.D. Performed By: #### D IFF CBC, PTT, CK, HS TROP, CMP, CBC, PT #### [address] Nitrite,Urine Negative Normal Negative [facility] Comment on above: Order Comment: Name Collection Type:: Clean-Voided Midstream Performed By: #### D IFF CBC, PTT, CK, HS TROP, CMP, CBC, PT #### [address] Occult Blood,Urine Negative Normal Negative [facility] Comment on above: Order Comment: Name Collection Type:: Clean-Voided Midstream Result Comment: PERF ORMED BY: [place] [address] PATHOLOGIST AGRICULTURAL ECONOMICS TEACHER DENNIS RODRIGUEZ M.D. Performed By: #### D IFF CBC, PTT, CK, HS TROP, CMP, CBC, PT #### [address] RBC,Urine 1-2 Normal 0-4 [facility] Comment on above: Order Comment: Name Collection Type:: Clean-Voided Midstream Performed By: #### D IFF CBC, PTT, CK, HS TROP, CMP, CBC, PT #### [address] Specificy Zirconia,Urine 1.043 High 1.001-1.03 0 [facility] Comment on above: Order Comment: Name Collection Type:: Clean-Voided Midstream Performed By: #### D IFF CBC, PTT, CK, HS TROP, CMP, CBC, PT #### [address] Squamous Epithelial Cell,Urine 1-2 Normal 0-2 [facility] Comment on above: Order Comment: Name Collection Type:: Clean-Voided Midstream Performed By: #### D IFF CBC, PTT, CK, HS TROP, CMP, CBC, PT #### [facility] [address] Urobilinogen,Urine Normal Normal Normal [facility] Comment on above: Order Comment: Name Collection Type:: Clean-Voided Midstream Performed By: #### D IFF CBC, PTT, CK, HS TROP, CMP, CBC, PT #### [facility] [address] WBC,Urine 3-4 Normal 0-4 [facility] Comment on above: Order Comment: Name Collection Type:: Clean-Voided Midstream Performed By: #### D IFF CBC, PTT, CK, HS TROP, CMP, CBC, PT #### [facility] [address] Dohle bodies detectionOrdere d By: Nicko Grimm on 01-10-2024 Dohle body LM Ql (Bld) Slight [facility] Drug Screen,Urineon 01-10-20 24 Amphetamine Screen,Urine Negative Normal Negative [facility] Comment on above: Order Comment: Comme nt add on Performed By: #### U RDS #### [address] Barbiturate Screen,Urine Negative Normal Negative [facility] Comment on above: Order Comment: Comme nt add on Performed By: #### U RDS #### [address] Benzodiazepines Screen,Urine Negative Normal Negative [facility] Comment on above: Order Comment: Comme nt add on Performed By: #### U RDS #### [address] Cannabinoid Screen,Urine Positive High Negative [facility] Comment on above: Order Comment: Comme nt add on Result Comment: Thes e are unconfirmed results and should not be used for legal purposes. Drug Cut-Off Concentration: AMPH 1000 ng/mL NIMESH 200 ng/mL STEVEN 200 ng/mL COCM 300 ng/mL OP 300 ng/mL PCP 25 ng/mL THC 20 ng/mL PERFORMED BY: [place] [address] PATHOLOGIST AGRICULTURAL ECONOMICS TEACHER DENNIS RODRIGUEZ M.D. Performed By: #### U RDS #### [address] Cocaine Screen,Urine Negative Normal Negative [facility] Comment on above: Order Comment: Comme nt add on Performed By: #### U RDS #### [address] Opiate Screen,Urine Negative Normal Negative [facility] Comment on above: Order Comment: Comme nt add on Performed By: #### U RDS #### [address] Phencyclidine Screen,Urine Negative Normal Negative [facility] Comment on above: Order Comment: Comme nt add on Performed By: #### U RDS #### [address] ECG 12 lead ECGon 01-10-2024 ECG 12 lead ECG [facility] [place] [address] [place] [address] Electrocardiograph Report Signed Patient: Dagoberto Squires MR#: [id number] : 1945 Acct:[id number] Age/Sex: 78 / M ADM Date: 01/11/24 Loc: Room: [address] [place] [address] Type: ADM INOo Attending Dr: Jc Brown [...] branch block Confirmed by Nicko Grimm DO ([id number]) on 01/11/2024 6:53:27 AM Referred By: Electronically Signed By:Nicko Grimm DO Transcribed By: MUS Signed By Nicko Grimm DO [id number] Normal [facility] Eosinophils Auto (Bld) [#/Vo l]Ordered By: Nicko Grimm on 01-10-2024 Eosinophils (Bld) [#/Vol] N/A [facility] Eosinophils/100 WBC Auto (Bl d)Ordered By: Nicko Grimm on 01-10-2024 Eosinophils/100 WBC (Bld) N/A [facility] Eosinophils/100 leukocytes i n Blood by Manual countOrdered By: Nicko Grimm on 01-10-2024 Eosinophils/100 WBC (Bld) 17 % High 1-3 [facility] Comment on above: Performed By: #### D IFF CBC, PTT, CK, HS TROP, CMP, CBC, PT #### [facility] [address] Epithelial cells.squamous [# /area] in Urine sediment by Automated countOrdered By: Nicko Grimm on 01-10-2024 Epithelial cells.squamous Auto (Urine sed) [#/Area] 1-2 [HPF] 0-2 [facility] Erythrocyte distribution wid th [Ratio] by Automated countOrdered By: Nicko Grimm on 01-10-2024 Erythrocyte distribution width (RBC) [Ratio] 14.4 % Normal 12.0-14.8 [facility] Comment on above: Performed By: #### D IFF CBC, PTT, CK, HS TROP, CMP, CBC, PT #### [facility] [address] Erythrocytes [#/area] in Uri ne sediment by Automated countOrdered By: Nicko Grimm on 01-10-2024 RBC Auto (Urine sed) [#/Area] 1-2 [HPF] 0-4 [facility] Erythrocytes [#/volume] in B lood by Automated countOrdered By: Nicko Grimm on 01-10-2024 RBC (Bld) [#/Vol] 4.81 10*6/uL Normal 3.90-5.60 [facility] Comment on above: Performed By: #### D IFF CBC, PTT, CK, HS TROP, CMP, CBC, PT #### [facility] [address] [place] [address] [place] Glucose [Mass/volume] in Ser um or PlasmaOrdered By: Nicko Grimm on 01-10-2024 Glucose [Mass/Vol] 266 mg/dL High 70-100 [facility] Comment on above: ADA recommended refe rence rangeRandom Glucose Reference Range is dependent on time and content of last meal. Glucose of more than 200 mg/dL in a nonstressed, ambulatory subject supports the diagnosis of Diabetes Mellitus. Result Comment: [place] om Glucose Reference Range is dependent on time and content of last meal. Glucose of more than 200 mg/dL in a nonstressed, ambulatory subject supports the diagnosis of Diabetes Mellitus. ADA recommended reference range Performed By: #### D IFF CBC, PTT, CK, HS TROP, CMP, CBC, PT #### [facility] [address] Glucose [Mass/volume] in Uri ne by Test stripOrdered By: Nicko Grimm on 01-10-2024 Glucose Test strip (U) [Mass/Vol] 500 mg/dL High Normal [facility] Hematocrit [Volume Fraction] of Blood by Automated countOrdered By: Nicko Grimm on 01-10-2024 Hematocrit (Bld) [Volume fraction] 45.7 % Normal 38.8-50.0 [facility] Comment on above: Performed By: #### D IFF CBC, PTT, CK, HS TROP, CMP, CBC, PT #### [facility] [address] [place] [id number] [facility] Hemoglobin Test strip Ql (U) Ordered By: Nicko Grimm on 01-10-2024 Hemoglobin Ql (U) Negative Negative [facility] Hemoglobin [Mass/volume] in BloodOrdered By: Nicko Grimm on 01-10-2024 Hemoglobin (Bld) [Mass/Vol] 15.2 g/dL Normal 13.0-17.0 [facility] Comment on above: Performed By: #### D IFF CBC, PTT, CK, HS TROP, CMP, CBC, PT #### [facility] [address] INR in Platelet poor plasma by Coagulation assayOrdered By: Nicko Grimm on 01-10-2024 INR Coag (PPP) [Relative time] 1.0 {INR} Normal [facility] Comment on above: INR Therapeutic Rang [...] CK, HS TROP, CMP, CBC, PT #### [facility] [address] [place] [address] [place] Ketones [Presence] in Urine by Test stripOrdered By: Nicko Grimm on 01-10-2024 Ketones Ql (U) Negative Normal Negative [facility] Comment on above: Order Comment: Name Collection Type:: Clean-Voided Midstream Performed By: #### D IFF CBC, PTT, CK, HS TROP, CMP, CBC, PT #### [facility] [address] [place] [address] [place] Leukocyte esterase [Presence ] in Urine by Test stripOrdered By: Nicko Grimm on 01-10-2024 Leukocyte esterase Test strip Ql (U) Negative Normal Negative [facility] Comment on above: Order Comment: Name Collection Type:: Clean-Voided Midstream Performed By: #### D IFF CBC, PTT, CK, HS TROP, CMP, CBC, PT #### [facility] [address] [place] [address] [place] Leukocytes [#/area] in Urine sediment by Automated countOrdered By: Nicko Grimm on 01-10-2024 WBC Auto (Urine sed) [#/Area] 3-4 [HPF] 0-4 [facility] Leukocytes [#/volume] correc guillermina for nucleated erythrocytes in Blood by Automated counOrdered By: Nicko Grimm on 01-10-2024 WBC corrected for nucl RBC Auto (Bld) [#/Vol] 16.1 10*3/uL 4.1-10.5 [facility] Leukocytes [#/volume] in Blo od by Automated countOrdered By: Nicko Grimm on 01-10-2024 WBC (Bld) [#/Vol] 16.1 10*3/uL High 4.1-10.5 [facility] Comment on above: Performed By: #### D IFF CBC, PTT, CK, HS TROP, CMP, CBC, PT #### [facility] [address] [place] [address] Lymphocytes Auto (Bld) [#/Vo l]Ordered By: Nicko Grimm on 01-10-2024 Lymphocytes (Bld) [#/Vol] N/A [facility] Lymphocytes/100 WBC Auto (Bl d)Ordered By: Nicko Grimm on 01-10-2024 Lymphocytes/100 WBC (Bld) N/A [facility] Lymphocytes/100 leukocytes i n Blood by Manual countOrdered By: Nicko Grimm on 01-10-2024 Lymphocytes/100 WBC (Bld) 17 % Low 18-42 [facility] Comment on above: Performed By: #### D IFF CBC, PTT, CK, HS TROP, CMP, CBC, PT #### [facility] [address] MCH [Entitic mass] by Automa guillermina countOrdered By: Nicko Grimm on 01-10-2024 MCH (RBC) [Entitic mass] 31.5 pg Normal 27.5-35.2 [facility] Comment on above: Performed By: #### D IFF CBC, PTT, CK, HS TROP, CMP, CBC, PT #### [facility] [address] MCHC Auto (RBC) [Mass/Vol]Or dered By: Nicko Grimm on 01-10-2024 MCHC (RBC) [Mass/Vol] 33.2 g/dL 32.5-35.6 [facility] MCV [Entitic volume] by Auto mated countOrdered By: Nicko Grimm on 01-10-2024 MCV (RBC) [Entitic vol] 95.0 fL Normal 83.5-101 [facility] Comment on above: Performed By: #### D IFF CBC, PTT, CK, HS TROP, CMP, CBC, PT #### [facility] [address] Manual blood segmented neutr ophils/100 leukocytesOrdered By: Nicko Grimm on 01-10-2024 Segmented neutrophils/100 WBC (Bld) 47 % Low 50-70 [facility] Comment on above: Performed By: #### D IFF CBC, PTT, CK, HS TROP, CMP, CBC, PT #### [facility] [address] Metamyelocytes/100 WBC Manua l cnt (Bld)Ordered By: Nicko Grimm on 01-10-2024 Metamyelocytes/100 WBC (Bld) 1 % High 0-0 [facility] Monocyte distribution width [Entitic volume] in Blood by AutomatedOrdered By: Nicko Grimm on 01-10-2024 Monocyte distribution width Auto (Bld) [Entitic vol] 20.12 % 0.00-20.00 [facility] Comment on above: For adults in ED, MD W > 20.0 may be associated with a higher risk of sepsis during the first 12 hrs of hospital admission Monocytes Auto (Bld) [#/Vol] Ordered By: Nicko Grimm on 01-10-2024 Monocytes (Bld) [#/Vol] N/A [facility] Monocytes/100 WBC Auto (Bld) Ordered By: Nicko Grimm on 01-10-2024 Monocytes/100 WBC (Bld) N/A [facility] Monocytes/100 leukocytes in Blood by Manual countOrdered By: Nicko Grimm on 01-10-2024 Monocytes/100 WBC (Bld) 10 % Normal 2-11 [facility] Comment on above: Performed By: #### D IFF CBC, PTT, CK, HS TROP, CMP, CBC, PT #### [facility] [address] [place] [id number] [facility] Mucus [Presence] in Urine by AutomatedOrdered By: Nicko Grimm on 01-10-2024 Mucus Auto Ql (U) Rare [LPF] [facility] Myelocytes/100 WBC Manual cn t (Bld)Ordered By: Nicko Grimm on 01-10-2024 Myelocytes/100 WBC (Bld) 2 % 0-0 [facility] Neutrophils Auto (Bld) [#/Vo l]Ordered By: Nicko Grimm on 01-10-2024 Neutrophils (Bld) [#/Vol] N/A [facility] Neutrophils/100 WBC Auto (Bl d)Ordered By: Nicko Grimm on 01-10-2024 Neutrophils/100 WBC (Bld) N/A [facility] Nitrite Test strip Ql (U)Ord ered By: Nicko Grimm on 01-10-2024 Nitrite Ql (U) Negative Negative [facility] No Panel InformationOrdered By: Nicko Grimm on 01-10-2024 Estimated GFR (CKD-EPI) 52.997 mL/Min [facility] Creatinine Clearance (Chem 57.26 [facility] Nucleated erythrocytes [Pres ence] in Blood by Automated countOrdered By: Nicko Grimm on 01-10-2024 Nucleated RBC Auto Ql (Bld) N/A [facility] Opiates [Presence] in Urine by Screen methodOrdered By: Faiza Mcdonald on 01-10-2024 Opiates Screen Ql (U) Negative Negative [facility] Partial Thromboplastin Timeo n 01-10-2024 aPTT Coag (Bld) [Time] 30.0 s Normal 25.1-36.5 [facility] Comment on above: Result Comment: A he matocrit value greater than 55% may lead to inaccurate results in coagulation testing. Patients having hematocrit values >55% require a special collection tube for coagulation studies. Please contact the laboratory at [phone] for redraw instructions. PERFORMED BY: [place] [address] PATHOLOGIST AGRICULTURAL ECONOMICS TEACHER DENNIS RODRIGUEZ M.D. Performed By: #### D IFF CBC, PTT, CK, HS TROP, CMP, CBC, PT #### [facility] [address] [place] [address] Peripheral white blood cell differential % bands, microscopic examOrdered By: Nicko Grimm on 01-10-2024 Band form neutrophils/100 WBC (Bld) 5 % Normal 0-5 [facility] Comment on above: Performed By: #### D IFF CBC, PTT, CK, HS TROP, CMP, CBC, PT #### [facility] [address] [place] [address] Phencyclidine Screen Ql (U)O rdered By: Faiza Mcdonald on 01-10-2024 Phencyclidine Ql (U) Negative Negative [facility] Platelet adequacy [Presence] in Blood by Light microscopyOrdered By: Nicko Grimm on 01-10-2024 Platelets LM Ql (Bld) Normal Normal [facility] Platelet mean volume [Entiti c volume] in Blood by Automated countOrdered By: Nicko Grimm on 01-10-2024 Platelet mean volume (Bld) [Entitic vol] 8.2 fL Normal 6.6-10.1 [facility] Comment on above: Performed By: #### D IFF CBC, PTT, CK, HS TROP, CMP, CBC, PT #### [facility] [address] [place] [address] Platelet morphology finding [Identifier] in BloodOrdered By: Nicko Grimm on 01-10-2024 Platelet morphology finding Nom (Bld) Normal Normal [facility] Platelets [#/volume] in Bloo d by Automated countOrdered By: Nicko Grimm on 01-10-2024 Platelets (Bld) [#/Vol] 226 10*3/uL Normal 150-450 [facility] Comment on above: Performed By: #### D IFF CBC, PTT, CK, HS TROP, CMP, CBC, PT #### [facility] [address] [place] [address] [place] Potassium [Moles/volume] in Serum or PlasmaOrdered By: Nicko Grimm on 01-10-2024 Potassium [Moles/Vol] 4.0 mmol/L Normal 3.5-5.1 [facility] Comment on above: Performed By: #### D IFF CBC, PTT, CK, HS TROP, CMP, CBC, PT #### [facility] [address] [place] [address] [place] Protein [Mass/volume] in Ser um or PlasmaOrdered By: Nicko Grimm on 01-10-2024 Protein [Mass/Vol] 6.7 g/dL Normal 6.4-8.9 [facility] Comment on above: Performed By: #### D IFF CBC, PTT, CK, HS TROP, CMP, CBC, PT #### [facility] [address] [place] [id number] [place] Protein [Mass/volume] in Uri ne by Test stripOrdered By: Nicko Grimm on 01-10-2024 Protein (U) [Mass/Vol] 20 mg/dL High Negative [facility] Comment on above: Order Comment: Name Collection Type:: Clean-Voided Midstream Performed By: #### D IFF CBC, PTT, CK, HS TROP, CMP, CBC, PT #### [facility] [address] [place] [address] [place] Prothrombin time (PT)Ordered By: Nicko Grimm on 01-10-2024 PT Coag (PPP) [Time] 11.9 s Normal 9.0-12.9 [facility] Comment on above: A hematocrit value g reater than 55% may lead to inaccurate results in coagulation testing. Patients having hematocrit values >55% require a special collection tube for coagulation studies. Please contact the laboratory at [phone] for redraw instructions. Result Comment: A he matocrit value greater than 55% may lead to inaccurate results in coagulation testing. Patients having hematocrit values >55% require a special collection tube for coagulation studies. Please contact the laboratory at [phone] for redraw instructions. Performed By: #### D IFF CBC, PTT, CK, HS TROP, CMP, CBC, PT #### [address] RBC morphologyOrdered By: Americo Grimm on 01-10-2024 RBC morphology finding Nom (Bld) Normal Normal Normal [facility] Comment on above: Performed By: #### D IFF CBC, PTT, CK, HS TROP, CMP, CBC, PT #### [address] Serum globulin measurement b y calculation (mass/volume)Ordered By: Nicko Grimm on 01-10-2024 Globulin (S) [Mass/Vol] 2.9 g/dL Normal [facility] Comment on above: Performed By: #### D IFF CBC, PTT, CK, HS TROP, CMP, CBC, PT #### [address] Serum or plasma albumin/glob ulin mass ratioOrdered By: Nicko Grimm on 01-10-2024 Albumin/Globulin [Mass ratio] 1.3 {ratio} Normal [facility] Comment on above: Performed By: #### D IFF CBC, PTT, CK, HS TROP, CMP, CBC, PT #### [address] Serum or plasma anion gap de terminationOrdered By: Nicko Grimm on 01-10-2024 Anion gap [Moles/Vol] 10.7 mmol/L Normal 6.0-15.0 [facility] Comment on above: Performed By: #### D IFF CBC, PTT, CK, HS TROP, CMP, CBC, PT #### [facility] [address] [place] [address] Sodium [Moles/volume] in Ser um or PlasmaOrdered By: Nicko Grimm on 01-10-2024 Sodium [Moles/Vol] 136 mmol/L Normal 136-145 [facility] Comment on above: Performed By: #### D IFF CBC, PTT, CK, HS TROP, CMP, CBC, PT #### [address] Specific gravity Test strip (U) [Rel density]Ordered By: Nicko Grimm on 01-10-2024 Specific gravity (U) [Rel density] 1.043 High 1.001-1.03 0 [facility] Toxic leukocyte vacuolation detectionOrdered By: Nicko Grimm on 01-10-2024 Leukocyte toxic vacuoles LM Ql (Bld) Slight [facility] Troponin I High Sensitivityo n 01-10-2024 Troponin I High Sensitivity 7.1 pg/mL Normal 0.0-20.0 [facility] Comment on above: Result Comment: PERF ORMED BY: [place] [address] PATHOLOGIST AGRICULTURAL ECONOMICS TEACHER DENNIS RODRIGUEZ M.D. Performed By: #### D IFF CBC, PTT, CK, HS TROP, CMP, CBC, PT #### [address] Troponin I.cardiac [Mass/vol ume] in Serum or Plasma by Detection limit <= 0.01 ng/Ordered By: Nicko Grimm on 01-10-2024 Troponin I.cardiac DL <= 0.01 ng/mL [Mass/Vol] 7.1 pg/mL 0.0-20.0 [facility] Urea nitrogen [Mass/volume] in Serum or PlasmaOrdered By: Nicko Grimm on 01-10-2024 Urea nitrogen [Mass/Vol] 19 mg/dL Normal 7-25 [facility] Comment on above: Performed By: #### D IFF CBC, PTT, CK, HS TROP, CMP, CBC, PT #### [address] Urine appearanceOrdered By: Nicko Grimm on 01-10-2024 Appearance (U) Clear Normal Clear [facility] Comment on above: Order Comment: Name Collection Type:: Clean-Voided Midstream Performed By: #### D IFF CBC, PTT, CK, HS TROP, CMP, CBC, PT #### [address] Urobilinogen Test strip (U) [Mass/Vol]Ordered By: Nicko Grimm on 01-10-2024 Urobilinogen (U) [Mass/Vol] Normal mg/dL Normal [facility] pH of Urine by Test stripOrd ered By: Nicko Grimm on 01-10-2024 pH (U) 5.5 [pH] Normal 5.0-9.0 [facility] Comment on above: Order Comment: Name Collection Type:: Clean-Voided Midstream Performed By: #### D IFF CBC, PTT, CK, HS TROP, CMP, CBC, PT #### [facility] [address] [place] [address] [facility] Albumin [Mass/volume] in Ser um or Plasmaon 12-16-2023 Albumin [Mass/Vol] 3.6 g/dL 2.9-4.4 [facility] Laboratory - Chemistry and C hemistry - challengeon 12-16-2023 Cobalamin (Vitamin B12) [Mass/Vol] 523.0 pg/mL 193.0-986. 0 [facility] Protein [Mass/Vol] 0.3 g/dL Abnormal Not Observed [facility] TSH Qn 3.230 m[IU]/L 0.358-3.74 0 [facility] No Panel Informationon 12-15 Folate 16.10 ng/mL 8.60-58.90 [facility] Protein Electrophoresis Note Comment . [facility] Comment on above: Protein electrophore sis scan will follow via computer,mail, or endodontic assistant delivery.Performed at: [address] [id number] Director: Sean Lopez PhD, Phone: [phone] Protein [Mass/volume] in Ser um or Plasmaon 12-16-2023 Protein [Mass/Vol] 6.6 g/dL 6.0-8.5 [facility] Serum globulin measurement ( mass/volume)on 12-16-2023 Globulin (S) [Mass/Vol] 3.0 g/dL 2.2-3.9 [facility] Serum or plasma albumin/glob ulin mass ratioon 12-16-2023 Albumin/Globulin [Mass ratio] 1.2 {ratio} 0.7-1.7 [facility] Serum or plasma alpha 1 glob ulin measurement by electrophoresis (mass/volume)on 12-16-2023 Alpha 1 globulin Elph [Mass/Vol] 0.2 g/dL 0.0-0.4 [facility] Serum or plasma alpha 2 glob ulin measurement by electrophoresis (mass/volume)on 12-16-2023 Alpha 2 globulin Elph [Mass/Vol] 0.8 g/dL 0.4-1.0 [facility] Serum or plasma beta globuli n measurement by electrophoresis (mass/volume)on 12-16-2023 Beta globulin Elph [Mass/Vol] 0.9 g/dL 0.7-1.3 [facility] Serum or plasma gamma globul in measurement by electrophoresis (mass/volume)on 12-16-2023 Gamma globulin Elph [Mass/Vol] 1.1 g/dL 0.4-1.8 [facility] Estimated glomerular filtrat ion rate (GFR) non- Americanon 11-19-2023 GFR/1.73 sq M.predicted among non-blacks MDRD (S/P/Bld) [Vol rate/Area] mL/min/{1.73_m2} >=60 [facility] Laboratory - Chemistry and C hemistry - challengeon 11-19-2023 Creatinine [Mass/Vol] 1.18 mg/dL 0.70-1.30 [facility] GFR/1.73 sq M.predicted MDRD (S/P/Bld) [Vol rate/Area] mL/min/{1.73_m2} >=60 [facility] Automated urine specific gra vity by refractometryon 11-10-2023 Specific gravity Refractometry automated (U) [Rel density] >=1.030 1.005-1.02 5 [facility] Bilirubin Auto test strip (U ) [Mass/Vol]on 11-10-2023 Bilirubin (U) [Mass/Vol] Negative NEGATIVE [facility] Color Auto (U)on 11-10-2023 Color (U) YELLOW YELLOW [facility] Glucose [Mass/volume] in Uri ne by Test stripon 11-10-2023 Glucose Test strip (U) [Mass/Vol] 100 mg/dL NEGATIVE [facility] Ketones Auto test strip (U) [Mass/Vol]on 11-10-2023 Ketones (U) [Mass/Vol] Negative NEGATIVE [facility] Protein Auto test strip (U) [Mass/Vol]on 11-10-2023 Protein (U) [Mass/Vol] Negative NEG/TRACE [facility] Specific gravity Auto test s trip (U) [Rel density]on 11-10-2023 Specific gravity (U) [Rel density] CLEAR CLEAR [facility] Urine hemoglobin detection b y automated test stripon 11-10-2023 Hemoglobin Auto test strip Ql (U) Negative NEGATIVE [facility] Urine nitrite detection by a utomated test stripon 11-10-2023 Nitrite Auto test strip Ql (U) Negative NEGATIVE [facility] Urobilinogen Auto test strip (U) [Mass/Vol]on 11-10-2023 Urobilinogen Qn (U) 0.2 {Erma'U}/dL 0.2-1.0 [facility] pH Auto test strip (U)on pH (U) 5.5 [pH] 5.0-9.0 [facility] Luisito 09-22-2023 L Specimen: [id number] Received: 09/22/23 Status: JOSE ANTONIO Hayniecy Num: [id number] Spec Type: Surgical Subm Dr: Samuel Coker MD Tissues: A Skin-Other than Cyst, tag, debridement or plastic repair (LT LOWER EYELID) Procedures: HE/7, Gross/Micro L4 Age/ Patient Sex Location Account Attending Physician Dagoberto Squires 78/M [place] [id number] Samuel Coker MD SPEC NUM: [id number] RECD: 09/22/23 STATUS: JOSE ANTONIO CONTRERAS NUM: [id number] KIRILL: 09/22/[address]: Samuel Coker MD ENTERED: 09/22/[address] [facility] [address]: SPEC TYPE: Surgical DEPT: S ENTERED BY: [id number] RECV BY: [id number] ORDERED: HE/7, Gross/Micro L4 ORDERED: HE/7, Gross/Micro [...] Received: 09/22/23 Status: JOSE ANTONIO Contreras Num: [id number] Spec Type: Surgical Subm Dr: Samuel Coker MD Tissues: A Skin-Other than Cyst, tag, debridement or plastic repair (LT LOWER EYELID) Procedures: , Gross/Micro L4 Patient: Dagoberto Squires [id number] (Continued) Specimen: [id number] Received: 09/22/23 (Continued) Signed (signature on file) Lorena Lopez MD 09/23/231721 Specimen: [id number] Received: 09/22/23 Status: JOSE ANTONIO Contreras Num: [id number] Spec Type: Surgical Subm Dr: Samuel Coker MD Tissues: A Skin-Other than Cyst, tag, debridement or plastic repair (LT LOWER EYELID) Procedures: [place] MORE/Marycruz Velásquez Patient: Dagoberto Squires [id number] (Continued) Specimen: [id number] Received: 09/22/23 (Continued) Microscopic Description 3 H E sections are reviewed A1-A2 1 H E sections are reviewed A3 CPT Codes 98916 Specimen: [id number] Received: 09/22/23 Status: JOSE ANTONIO Contreras Num: [id number] Spec Type: Surgical Subm Dr: Samuel Coker MD Tissues: A Skin-Other than Cyst, tag, debridement or plastic repair (LT LOWER EYELID) Procedures: [place] MORE/Marycruz L4 Patient: Dagoberto Squires [id number] (Continued) Signed (signature on file) Juancho-Cesar Lopez MD 09/23/23 1722 Normal [facility] CBC AUTO DIFFon 06-22-2020 Basophils (Bld) [#/Vol] 0.1 103/ul Normal 0.0-0.1 [facility] Comment on above: Performed By: #### C BC #### [facility] [address] [place] [address] Marcus Karyna Basophils/100 WBC (Bld) 0.7 % Normal 0.2-2.0 [facility] Comment on above: Performed By: #### C BC #### [facility] [address] [place] [address] Marcus Karyna Eosinophils (Bld) [#/Vol] 0.5 103/ul Normal 0.0-0.7 [facility] Comment on above: Performed By: #### C BC #### [facility] [address] [place], [place] [id number] Marcus Karyna Eosinophils/100 WBC (Bld) 4.5 % Normal 0.9-7.0 [facility] Comment on above: Performed By: #### C BC #### [facility] [address] [place], [place] [id number] Marcus Karyna Erythrocyte distribution width (RBC) [Ratio] 12.9 % Normal 11.0-15.0 [facility] Comment on above: Performed By: #### C BC #### [facility] [address] [place], [place] [id number] Marcus Karyna Hematocrit (Bld) [Volume fraction] 50.2 % Normal 42.0-54.0 [facility] Comment on above: Performed By: #### C BC #### [facility] [address] [place], [place] [id number] Marcus Karyna Hemoglobin (Bld) [Mass/Vol] 17.0 g/dL Normal 14.0-18.0 [facility] Comment on above: Performed By: #### C BC #### [facility] [address] [id number] Marcus Karyna IG # 0.12 [id number]/ul Critically high 0.00-0.03 [facility] Comment on above: Performed By: #### C BC #### [facility] [address] [id number] Marcus Karyna IG % 1.0 % Critically high 0.0-0.5 [facility] Comment on above: Performed By: #### C BC #### [facility] [address] [id number] Marcus Karyna Lymphocytes (Bld) [#/Vol] 3.7 103/ul Normal 1.2-3.8 [facility] Comment on above: Performed By: #### C BC #### [facility] [address] [place], [place] [id number] Marcus Karyna Lymphocytes/100 WBC (Bld) 31.8 % Normal 20.5-60.0 [facility] Comment on above: Performed By: #### C BC #### [facility] [address] [place], [place] [id number] Marcus Karyna MANUAL DIFF REQ NO Normal [facility] Comment on above: Performed By: #### C BC #### [facility] [address] [place], [place] [id number] Marcus Karyna MCH (RBC) [Entitic mass] 32.8 pg Normal 25.9-34.0 [facility] Comment on above: Performed By: #### C BC #### [facility] [address] [place], [place] [id number] Marcus Karyna MCHC (RBC) [Mass/Vol] 33.9 g/dL Normal 29.9-35.2 [facility] Comment on above: Performed By: #### C BC #### [facility] [address] [place], [place] [id number] Marcus Karyna MCV (RBC) [Entitic vol] 96.9 fL Critically high 80.0-94.0 [facility] Comment on above: Performed By: #### C BC #### [facility] [address], [place] [address] Marcus Karyna Monocytes (Bld) [#/Vol] 1.1 103/ul Critically high 0.3-0.8 [facility] Comment on above: Performed By: #### C BC #### [facility] [address], [place] [address] Marcus Karyna Monocytes/100 WBC (Bld) 9.5 % Normal 1.7-12.0 [facility] Comment on above: Performed By: #### C BC #### [facility] [address] [place] [phone] Marcus Karyna Neutrophils (Bld) [#/Vol] 6.1 103/ul Normal 1.4-6.5 [facility] Comment on above: Performed By: #### C BC #### [facility] [address] [place] [phone] Marcus Karyna Neutrophils/100 WBC (Bld) 52.5 % Normal 43.0-75.0 [facility] Comment on above: Performed By: #### C BC #### [facility] [address] [place] [id number] Marcus Karyna Platelet mean volume (Bld) [Entitic vol] 9.7 fL Normal 9.5-13.5 [facility] Comment on above: Performed By: #### C BC #### [facility] [address] [place] [id number] Marcus Karyna Platelets (Bld) [#/Vol] 235 103/ul Normal 150-450 [facility] Comment on above: Performed By: #### C BC #### [facility] [address] [place] [address] Marcus Karyna RBC (Bld) [#/Vol] 5.18 106/ul Normal 4.70-6.10 [facility] Comment on above: Performed By: #### C BC #### [facility] [address] [place] [id number] Marcus Karyna WBC (Bld) [#/Vol] 11.7 103/ul Critically high 4.0-11.0 [facility] Comment on above: Performed By: #### C BC #### [facility] [address] [id number] Marcus Troncoso Vital Signs Date Time Vital Sign Value Performing Clinician Facility 05-25-2024 11:50-0400 Body height 180.34 cm [facility] 05-25-2024 11:50-0400 Body mass index (BMI) [Ratio] 31 kg/m2 [facility] 05-25-2024 11:50-0400 Body temperature 98.2 [degF] [facility] 05-25-2024 11:50-0400 Body weight 101 kg [facility] 05-25-2024 11:50-0400 Diastolic blood pressure 92 mm[Hg] [facility] 05-25-2024 11:50-0400 Heart rate 60 /min [facility] 05-25-2024 11:50-0400 Respiratory rate 16 /min [facility] 05-25-2024 11:50-0400 SaO2% (BldA) [Mass fraction] 96 % [facility] 05-25-2024 11:50-0400 Systolic blood pressure 146 mm[Hg] [facility] 02-25-2024 08:40-0400 Blood Pressure Location Garfield LUCAS [facility] 02-25-2024 08:40-0400 Body temperature 98.6 [degF] Garfield LUCAS [facility] 02-25-2024 08:40-0400 Diastolic blood pressure 69 mm[Hg] Garfield LUCAS [facility] 02-25-2024 08:40-0400 Heart rate 68 /min Garfield LUCAS [facility] 02-25-2024 08:40-0400 Respiratory rate 16 /min Garfield LUCAS [facility] 02-25-2024 08:40-0400 Systolic blood pressure 134 mm[Hg] Garfield SHAYY [facility] 02-16-2024 08:54-0400 Body height 180.34 cm LIGHTING TECHNICIANLetha Stevensonacher Work Phone: [facility] 02-16-2024 08:54-0400 Body mass index (BMI) [Ratio] 31.1 kg/m2 LIGHTING TECHNICIANLetha Vallerbacher Work Phone: [facility] 02-16-2024 08:54-0400 Body temperature 97.8 [degF] LIGHTING TECHNICIANLetha Stevensonacher Work Phone: [facility] 02-16-2024 08:54-0400 Body weight 101.15 kg LIGHTING TECHNICIANLetha Stevensonacher Work Phone: [facility] 02-16-2024 08:54-0400 Diastolic blood pressure 68 mm[Hg] LIGHTING TECHNICIANLetha Stevensonacher Work Phone: [facility] 02-16-2024 08:54-0400 Heart rate 76 /min LIGHTING TECHNICIANLetha Stevensonacher Work Phone: [facility] 02-16-2024 08:54-0400 Respiratory rate 16 /min LIGHTING TECHNICIANLetha Stevensonacher Work Phone: [facility] 02-16-2024 08:54-0400 SaO2% (BldA) [Mass fraction] 96 % LIGHTING TECHNICIANLetha Vallerbacher Work Phone: [facility] 02-16-2024 08:54-0400 Systolic blood pressure 116 mm[Hg] LIGHTING TECHNICIANLetha Vallerbacher Work Phone: [facility] 01-27-2024 13:21-0400 Blood Pressure Location Garfield LUCAS [facility] 01-27-2024 13:21-0400 Body temperature 98.6 [degF] Garfield LUCAS [facility] 01-27-2024 13:21-0400 Diastolic blood pressure 88 mm[Hg] Garfield LUCAS [facility] 01-27-2024 13:21-0400 Heart rate 85 /min Garfieldkayleigh LUCAS [facility] 01-27-2024 13:21-0400 Respiratory rate 16 /min Garfield LUCAS [facility] 01-27-2024 13:21-0400 Systolic blood pressure 137 mm[Hg] Garfield LUCAS [facility] 01-26-2024 13:51-0400 Body height 180.34 cm RITIKA Salinas Work Phone: [facility] 01-26-2024 13:51-0400 Body mass index (BMI) [Ratio] 33 kg/m2 RITIKA Salinas Work Phone: [facility] 01-26-2024 13:51-0400 Body weight 107.5 kg RITIKA Salinas Work Phone: [facility] 01-26-2024 13:51-0400 Diastolic blood pressure 60 mm[Hg] RITIKA Salinas Work Phone: [facility] 01-26-2024 13:51-0400 Heart rate 97 /min RITIKA Salinas Work Phone: [facility] 01-26-2024 13:51-0400 SaO2% (BldA) [Mass fraction] 95 % LIGHTING TECHNICIANLetha Salinas Work Phone: [facility] 01-26-2024 13:51-0400 Systolic blood pressure 118 mm[Hg] LIGHTING TECHNICIANLetha Stevensonacher Work Phone: [facility] 01-26-2024 11:00-0400 Diastolic blood pressure 63 mm[Hg] LIGHTING TECHNICIANLetha Stevensonacher Work Phone: [facility] 01-26-2024 11:00-0400 Heart rate 77 /min LIGHTING TECHNICIANLetha Stevensonacher Work Phone: [facility] 01-26-2024 11:00-0400 Respiratory rate 25 /min LIGHTING TECHNICIANLetha Stevensonacher Work Phone: [facility] 01-26-2024 11:00-0400 SaO2% (BldA) [Mass fraction] 98 % LIGHTING TECHNICIANLetha Stevensonacher Work Phone: [facility] 01-26-2024 11:00-0400 Systolic blood pressure 134 mm[Hg] LIGHTING TECHNICIANLetha Stevensonacher Work Phone: [facility] 01-26-2024 08:00-0400 Body temperature 98.6 [degF] LIGHTING TECHNICIANLetha Stevensonacher Work Phone: [facility] 01-26-2024 06:00-0400 Body weight 101.2 kg LIGHTING TECHNICIANLetha Barahonar Work Phone: [facility] 01-25-2024 14:13-0400 Inhaled oxygen flow rate 6 L/min LIGHTING TECHNICIANLetha Stevensonacher Work Phone: [facility] 01-25-2024 12:28-0400 Body height 180.34 cm LIGHTING TECHNICIANLetha Barahonar Work Phone: [facility] 01-25-2024 12:28-0400 Body mass index (BMI) [Ratio] 31.1 kg/m2 LIGHTING TECHNICIANLetha Barahonar Work Phone: [facility] 01-17-2024 12:24-0400 Body height 180.34 cm LIGHTING TECHNICIAN Sonia Loenardrbacher Work Phone: [facility] 01-17-2024 12:24-0400 Body mass index (BMI) [Ratio] 29.5 kg/m2 LIGHTING TECHNICIAN Sonia Leonardrbacher Work Phone: [facility] 01-17-2024 12:24-0400 Body temperature 98 [degF] LIGHTING TECHNICIAN Sonia Leonardrbacher Work Phone: [facility] 01-17-2024 12:24-0400 Body weight 96.16 kg LIGHTING TECHNICIAN Sonia Leonardrbacher Work Phone: [facility] 01-17-2024 12:24-0400 Diastolic blood pressure 82 mm[Hg] LIGHTING TECHNICIANLetha Vallerbacher Work Phone: [facility] 01-17-2024 12:24-0400 SaO2% (BldA) [Mass fraction] 96 % LIGHTING TECHNICIAN Sonia Leonardrbacher Work Phone: [facility] 01-17-2024 12:24-0400 Systolic blood pressure 136 mm[Hg] LIGHTING TECHNICIAN Sonia Leonardrbacher Work Phone: [facility] 01-13-2024 12:01-0400 Body temperature 98 [degF] RITIKA Mustafafer Leonardrbacher Work Phone: [facility] 01-13-2024 12:01-0400 Diastolic blood pressure 77 mm[Hg] LIGHTING TECHNICIANLetha Vallerbacher Work Phone: [facility] 01-13-2024 12:01-0400 Heart rate 88 /min LIGHTING TECHNICIANLetha Vallerbacher Work Phone: [facility] 01-13-2024 12:01-0400 Respiratory rate 14 /min LIGHTING TECHNICIANLetha Vallerbacher Work Phone: [facility] 01-13-2024 12:01-0400 SaO2% (BldA) [Mass fraction] 96 % LIGHTING TECHNICIANLetha MustafaSonia Leonardrbacher Work Phone: [facility] 01-13-2024 12:01-0400 Systolic blood pressure 146 mm[Hg] LIGHTING TECHNICIANLetha GamezSonia Leonardrbacher Work Phone: [facility] 01-13-2024 06:00-0400 Body weight 107.2 kg LIGHTING TECHNICIANLetha Vallerbacher Work Phone: [facility] 01-11-2024 10:45-0400 Body height 180.34 cm LIGHTING TECHNICIANLetha MustafaSonia Leonardrbacher Work Phone: [facility] 01-11-2024 02:02-0400 Body height 180.34 cm LIGHTING TECHNICIANLetha MustafaSonia Leonardrbacher Work Phone: [facility] 01-11-2024 02:02-0400 Body temperature 98.3 [degF] LIGHTING TECHNICIANLetha MustafaSonia Leonardrbacher Work Phone: [facility] 01-11-2024 02:02-0400 Body weight 105.7 kg LIGHTING TECHNICIAN Sonia Leonardrbacher Work Phone: [facility] 01-11-2024 02:02-0400 Diastolic blood pressure 84 mm[Hg] LIGHTING TECHNICIANLetha Vallerbacher Work Phone: [facility] 01-11-2024 02:02-0400 Heart rate 78 /min LIGHTING TECHNICIANLetha Vallerbacher Work Phone: [facility] 01-11-2024 02:02-0400 Respiratory rate 22 /min LIGHTING TECHNICIANLetha Vallerbacher Work Phone: [facility] 01-11-2024 02:02-0400 SaO2% (BldA) [Mass fraction] 96 % LIGHTING TECHNICIANLetha Vallerbacher Work Phone: [facility] 01-11-2024 02:02-0400 Systolic blood pressure 171 mm[Hg] LIGHTING TECHNICIAN Sonia Leonardrbacher Work Phone: [facility] 11-09-2023 14:53-0400 Body height 180.34 cm LIGHTING TECHNICIAN Sonia Leonardrbacher Work Phone: [facility] 11-09-2023 14:53-0400 Body mass index (BMI) [Ratio] 32.8 kg/m2 LIGHTING TECHNICIAN Sonia Leonardrbacher Work Phone: [facility] 11-09-2023 14:53-0400 Body weight 106.59 kg LIGHTING TECHNICIAN Sonia Leonardrbacher Work Phone: [facility] 11-09-2023 14:53-0400 Diastolic blood pressure 78 mm[Hg] LIGHTING TECHNICIAN Sonia Leonardrbacher Work Phone: [facility] 11-09-2023 14:53-0400 Heart rate 77 /min LIGHTING TECHNICIAN Sonia Elvaacher Work Phone: [facility] 11-09-2023 14:53-0400 SaO2% (BldA) [Mass fraction] 97 % LIGHTING TECHNICIAN Sonia Elvaacher Work Phone: [facility] 11-09-2023 14:53-0400 Systolic blood pressure 124 mm[Hg] LIGHTING TECHNICIAN Sonia Leonardrbacher Work Phone: [facility] 10-05-2023 11:31-0500 Body height 180.34 cm LIGHTING TECHNICIAN Sonia Leonardrbacher Work Phone: [facility] 10-05-2023 11:31-0500 Body mass index (BMI) [Ratio] 33.2 kg/m2 LIGHTING TECHNICIAN Sonia Leonardrbacher Work Phone: [facility] 10-05-2023 11:31-0500 Body weight 107.95 kg LIGHTING TECHNICIANLetha MustafaSonia Leonardrbacher Work Phone: [facility] 10-05-2023 11:31-0500 Diastolic blood pressure 76 mm[Hg] LIGHTING TECHNICIAN Sonia Elvashanikavahe Work Phone: [facility] 10-05-2023 11:31-0500 Heart rate 77 /min LIGHTING TECHNICIAN Sonia Stevensonacher Work Phone: [facility] 10-05-2023 11:31-0500 SaO2% (BldA) [Mass fraction] 95 % LIGHTING TECHNICIAN Sonia Stevensnoacher Work Phone: [facility] 10-05-2023 11:31-0500 Systolic blood pressure 124 mm[Hg] LIGHTING TECHNICIAN Sonia Stevensonacher Work Phone: [facility] 07-09-2023 10:30-0500 Body height 180.34 cm Sonia Brad Other [facility] 07-09-2023 10:30-0500 Body mass index (BMI) [Ratio] 32.07 kg/m2 Sonia Junr Other [facility] [employer] Other 07-09-2023 10:30-0500 Body weight 104.33 kg Sonia Junr Other [employer] Other 07-09-2023 10:30-0500 Body weight 104.32 kg RITIKA Sonia Vallegayleacher Work Phone: [facility] 07-09-2023 10:30-0500 Diastolic blood pressure 86 mm[Hg] Sonia Elvaacher Other [facility] 07-09-2023 10:30-0500 SaO2% (BldA) [Mass fraction] 95 % Sonia Elvaacher Other [employer] [facility] [employer] Other 07-09-2023 10:30-0500 Systolic blood pressure 126 mm[Hg] Sonia Stevensonacher Other [facility] 04-29-2023 10:30-0400 Body height 180.34 cm Sonia Salinas Other [employer] Other 04-29-2023 10:30-0400 Body mass index (BMI) [Ratio] 31.8 kg/m2 Sonia Salinas Other [employer] Other 04-29-2023 10:30-0400 Body weight 103.42 kg Sonia Salinas Other [employer] Other 04-29-2023 10:30-0400 Diastolic blood pressure 70 mm[Hg] Sonia Salinas Other [employer] Other 04-29-2023 10:30-0400 SaO2% (BldA) [Mass fraction] 96 % Sonia Salinas Other [employer] Other 04-29-2023 10:30-0400 Systolic blood pressure 118 mm[Hg] Sonia Salinas Other [employer] Other Encounters Encounter Date Encounter Type Care Provider Facility Start: 05-25-2024 End: 05-25-2024 Patient encounter procedure [facility] V[facility] Surgery Work Phone: Start: 05-25-2024 End: 05-25-2024 ambulatory Mckenna Campbell [facility] Work Phone: Start: 03-08-2024 End: 03-08-2024 ambulatory AURELIA FRENCH Not Available Start: 03-07-2024 End: 03-07-2024 ambulatory TRU SOLITARIO Not Available Start: 03-07-2024 End: 03-07-2024 Patient encounter procedure Tru Solitario DO Work Phone: [facility] Comment on above: Hypersomnia; Memory loss Start: 02-25-2024 End: 02-25-2024 ambulatory Garfield LUCAS Facility:[facility] Start: 02-25-2024 End: 02-25-2024 Patient encounter procedure Garfield R LUCAS [facility] Start: 02-16-2024 End: 02-16-2024 ambulatory RITIKA Salinas Work Phone: [facility] Work Phone: Start: 02-16-2024 End: 02-16-2024 Patient encounter procedure RITIKA Salinas Work Phone: [facility] Vascular Surgery Work Phone: Start: 02-08-2024 End: 02-08-2024 ambulatory TRU SOLITARIO Not Available Start: 01-27-2024 End: 01-27-2024 Lab Drop off Garfield R SHAYY [facility] Start: 01-27-2024 End: 01-27-2024 ambulatory Garfield Vahe LUCAS Facility:[facility] Start: 01-27-2024 End: 01-27-2024 Patient encounter procedure Garfield LUCAS [facility] Start: 01-27-2024 Non-patient / Non-visit RITIKA Salinas Work Phone: [facility] Work Phone: Start: 01-27-2024 ambulatory Garfield LUCAS Facility :[facility] Start: 01-26-2024 End: 01-26-2024 ambulatory RITIKA Salinas Work Phone: [facility] Work Phone: Start: 01-26-2024 End: 01-26-2024 Patient encounter procedure LIGHTING TECHNICIAN Sonia Vallerbacher Work Phone: [facility] Work Phone: Start: 01-25-2024 Non-patient / Non-visit LIGHTING TECHNICIAN Faheem Vallerbacher Work Phone: [facility] Vascular Surgery Work Phone: Start: 01-25-2024 End: 01-26-2024 Evaluation and management of inpatient LIGHTING TECHNICIAN Sonia Vallerbacher Work Phone: [facility] Work Phone: Start: 01-17-2024 Non-patient / Non-visit LIGHTING TECHNICIAN Faheem Vallerbacher Work Phone: [facility] Work Phone: Start: 01-17-2024 End: 01-17-2024 ambulatory LIGHTING TECHNICIAN Sonia Vallerbacher Work Phone: [facility] Work Phone: Start: 01-17-2024 End: 01-17-2024 Patient encounter procedure LIGHTING TECHNICIAN Sonia Vallerbacher Work Phone: [facility] Vascular Surgery Work Phone: Start: 01-12-2024 End: 01-13-2024 Non-patient / Non-visit LIGHTING TECHNICIAN Sonia Vallerbacher Work Phone: [facility] Vascular Surgery Work Phone: Start: 01-11-2024 End: 01-13-2024 Evaluation and management of inpatient LIGHTING TECHNICIAN Sonia Vallerbacher Work Phone: [facility] Work Phone: Start: 01-11-2024 Evaluation and management of inpatient LIGHTING TECHNICIAN Sonia Vallerbacher Work Phone: [facility] Work Phone: Start: 01-11-2024 observation encounter LIGHTING TECHNICIAN Vera Salinas Work Phone: [facility] Work Phone: Start: 12-22-2023 End: 12-22-2023 ambulatory AURELIA FRENCH Not Available Start: 12-21-2023 End: 12-21-2023 ambulatory TRU CHRISSY Not Available Start: 12-16-2023 Non-patient / Non-visit LIGHTING TECHNICIANLetha Salinas Work Phone: [facility] Work Phone: Start: 12-14-2023 End: 12-14-2023 ambulatory TRU CHRISSY Not Available Start: 12-02-2023 End: 12-02-2023 ambulatory AURELIA Chante FRENCH Not Available Start: 12-02-2023 End: 12-02-2023 ambulatory AURELIA A GILLIAN Not Available Start: 11-19-2023 Non-patient / Non-visit LIGHTING TECHNICIANLetha Salinas Work Phone: [facility] Work Phone: Start: 11-10-2023 Non-patient / Non-visit RITIKA Salinas Work Phone: [facility] Work Phone: Start: 11-09-2023 End: 11-09-2023 ambulatory RITIKA Salinas Work Phone: [facility] Work Phone: Start: 11-09-2023 End: 11-09-2023 Patient encounter procedure RITIKA Salinas Work Phone: [facility] Work Phone: Start: 10-05-2023 End: 10-05-2023 Patient encounter procedure LIGHTING TECHNICIAN Sonia Brad Work Phone: [facility] Work Phone: Start: 09-22-2023 End: 09-22-2023 Departed Referred RITIKA Scott Brad Work Phone: [facility] [place] Work Phone: Start: 09-22-2023 End: 09-22-2023 ambulatory LIGHTING TECHNICIANLetha Scott Brad Work Phone: [facility] Work Phone: Start: 07-09-2023 End: 07-09-2023 ambulatory Sonia Salinas Other [employer] Other Start: 07-09-2023 Patient encounter procedure Sonia Salinas [facility] Start: 07-09-2023 End: 07-09-2023 Patient encounter procedure RITIKA Scott Brad Work Phone: [facility] Work Phone: Start: 04-29-2023 End: 04-29-2023 ambulatory Sonia Brad Other [employer] Other Start: 04-29-2023 Office outpatient ne w 20 minutes Sonia Salinas [facility] Start: 06-22-2020 End: 06-23-2020 Patient encounter procedure [facility] Facility: Procedures Date Procedure Procedure Detail Performing Clinician Start: 06-15-2024 HOME SLEEP TEST Tru Solitario DO Work Phone: Start: 01-25-2024 Insertion of carotid artery stent RITIKA Salinas Work Phone: Start: 01-25-2024 Carotid stent (physi [place] object) Garfield LUCAS Start: 01-12-2024 Doppler ultrasonogra phy of bilateral carotid arteries LIGHTING TECHNICIAN Sonia Vallegayleshanikavahe Work Phone: Start: 01-11-2024 XR pre/post mri xray AP RN Sonia Brad Work Phone: Start: 01-11-2024 CT of brain perfusion A PRN Sonia Brad Work Phone: Start: 01-11-2024 MRI of head LIGHTING TECHNICIAN Moon ernst Brad Work Phone: Start: 01-10-2024 CT angiography of head LIGHTING TECHNICIAN Sonia Brad Work Phone: Start: 01-10-2024 CT angiography of ne ck vessels LIGHTING TECHNICIANLetha Scott Brad Work Phone: Start: 01-10-2024 Plain chest X-ray RITIKA Scott Brad Work Phone: Start: 01-10-2024 CT of head without contrast LIGHTING TECHNICIAN Sonia Brad Work Phone: Extraction of cataract Patri mamadou LUCAS Plan of Treatment Date Care Activity Detail Author Start: 01-26-2024 [facility] Start: 01-25-2024 Cerebral Embolic Filtration, Extracorporeal Flow Reversal Circuit from Right Common Carotid Artery, Percutaneous Approach, [employer] Cerebral Embolic Filtration, Extracorporeal Flow Reversal Circuit from Right Common Carotid Artery, Percutaneous Approach, [employer] [facility] Start: 01-25-2024 Dilation of Right Internal Carotid Artery with Intraluminal Device, Percutaneous Approach Dilation of Right Internal Carotid Artery with Intraluminal Device, Percutaneous Approach [facility] Start: 01-13-2024 [facility] [facility] Start: 01-11-2024 Referral to vascular surgeon [facility] Start: 01-11-2024 CT of brain perfusion CT head/brain perfusion [facility] Start: 01-11-2024 MRI of head MR head/brain wo con [facility] Start: 01-11-2024 [facility] Start: 01-11-2024 Physical therapy procedure [facility] Start: 01-11-2024 Referral to neurologist [facility] Start: 01-11-2024 Referral to occupational therapist [facility] Start: 01-11-2024 [facility] Start: 01-11-2024 Hospital admission [facility] Start: 01-10-2024 CT angiography of head [facility] Start: 01-10-2024 CT angiography of neck vessels [facility] Start: 01-10-2024 Plain chest X-ray XR chest 1V portable [facility] Start: 01-10-2024 XR Chest Single view [facility] Start: 01-10-2024 CT Head WO contrast [facility] Start: 01-10-2024 CT of head without contrast CT head stroke alert wo con [facility] Start: 01-10-2024 Telemedicine consultation with patient [facility] Start: 11-09-2023 Patient referral [facility] Work Phone: Anion gap measurement [facility] Bacteria identified in Urine by Culture [facility] Basophils [#/volume] in Blood by Automated count [facility] Basophils/100 leukoc ytes in Blood by Automated count [facility] Calculated LDL cholesterol level [facility] Cholesterol.total/Ch olest nikole in HDL [Mass Ratio] in Serum or Plasma [facility] Eosinophils/100 leukocytes in Blood by Automated count [facility] Erythrocyte distribu tion width [Ratio] by Automated count [facility] Erythrocytes [#/volu me] in Blood [facility] Glucose measurement estimated from glycated hemoglobin [facility] Hematocrit [Volume Fraction] of Blood [facility] Hemoglobin [Mass/vol ume] in Blood [facility] Leukocytes [#/volume ] corrected for nucleated erythrocytes in Blood by Automated coun [facility] Leukocytes [#/volume ] in Blood [facility] Lymphocytes [#/volum e] in Blood by Automated count [facility] Lymphocytes/100 leukocytes in Blood by Automated count [facility] MCH [Entitic mass] b y Automated count [facility] MCHC [Mass/volume] b y Automated count [facility] MCV [Entitic volume] by Automated count [facility] Monocytes [#/volume] in Blood by Automated count [facility] Monocytes/100 leukoc ytes in Blood by Automated count [facility] MR Unspecified body region [facility] Neutrophils [#/volum e] in Blood by Automated count [facility] Neutrophils/100 leukocytes in Blood by Automated count [facility] Nucleated erythrocyt es [Presence] in Blood by Automated count [facility] Patient Education [facility] Work Phone: Patient referral [facility] Work Phone: Platelet mean volume [Entitic volume] in Blood by Automated count [facility] Platelets [#/volume] in Blood [facility] US Scrotum and testicle [facility] US.doppler Carotid arteries - bilateral [facility] VLDL cholesterol measurement [facility] Immunizations Immunization Date Immunization Notes Care Provider Fa cility 09-04-2023 Fluzone QIV High-Dos e 65YR+ LIGHTING TECHNICIAN Sonia Salinas Work Phone: [facility] 06-22-2022 Fluzone QIV High-Dos e 65YR+ LIGHTING TECHNICIAN Sonia Salinas Work Phone: [facility] 06-22-2022 influenza, seasonal, injectable Sonia Salinas Other [facility] 02-19-2022 COVID-19 Pfizer Sonia erazo Other [facility] 06-02-2021 Do not use COVID-19 Pfizer 2 dose Sonia Salinas Other [facility] 06-02-2021 Fluzone QIV High-Dos e 65YR+ LIGHTING TECHNICIAN Sonia Salinas Work Phone: [facility] 10-11-2020 Do not use COVID-19 Pfizer 2 dose Sonia Salinas Other [facility] 09-16-2020 Do not use COVID-19 Pfizer 2 dose Sonia Salinas Other [facility] 06-11-2013 influenza, seasonal, injectable Sonia Salinas Other [facility] Payers Date Payer Category Payer Medicare (Managed Care) [employer] [id number] 2024 Medicare [id number] 2024 Medicare [id number] 2023 [email or web address]] [id number] 2023 Self-pay [id number] 2023 Medicare [id number] 2023 Medicare [id number] 2021 Medicare [id number] 1959 Medicare [id number] 1945 Unknown [id number] 2.16.840.1.320688.3.579.2. 593 1945 Unknown [id number] 2.16.840.1.893449.3.579.2. 1259 1945 Unknown [id number] 2.16.840.1.262331.3.579.2. 727 1945 Unknown [id number] 2.16.840.1.789829.3.579.2. 727 1945 Unknown [id number] 2.16.840.1.355007.3.579.2. 727 1945 Unknown [id number] 2.16.840.1.936976.3.579.2. 727 1945 Unknown [id number] 2.16.840.1.893929.3.579.2. 1259 1945 Unknown [id number] 2.16.840.1.044454.3.579.2. 125 1945 Unknown [id number] 2.16.840.1.966638.3.579.2. 1259 1947 Unknown [id number] 2.16.840.1.455193.3.579.2. 1258 1945 Unknown [id number] 2.16840.1.474480.3.579.2. 1259 1945 Unknown [id number] 2.16.840.1.148879.3.579.2. 1259 Medicare AARP Medicare Ad vantage [facility] [id number] Unknown [id number] 2.840.1.494926.3.579.2. 531 Unknown [id number] 2.16840.1.971608.3.579.2. 531 Unknown [id number] 2.16840.1.070368.3.579.2. 531 Unknown [id number] 2.16840.1.572514.3.579.2. 531 Social History Date Type Detail Facility Start: 02-08-2024 Sex Assigned At F [facility] Start: 1945 Sex Assigned At Male F [facility] Start: 10-05-2023 End: 01-12-2024 Tobacco smoking status NHIS Never smoked tobacco (finding) [facility] Start: 12-14-2023 End: 01-25-2024 Tobacco smoking status TXIS Ex-smoker (finding) [facility] History of tobacco use Current smoker [facility] History of tobacco use Cigarette Smoker [facility] Start: 12-14-2023 Tobacco use and exposure Smokeless tobacco non-user [facility] Start: 02-08-2024 Alcoholic beverage intake Ex-drinker (finding) [facility] Start: 02-08-2024 History of Social function [facility] Start: 1945 Sex assigned at Not on file N [facility] NEGATED: Highlighted rowStart: NINF History of tobacco use Passive smoker [facility] Medical Equipment Procedure Code Equipment [...] 02-25-2024 Functional Status N/A [facility] 01-27-2024 Functional Status N/A [facility] 01-26-2024 Functional status Patient at Baseline [facility] Work Phone: 01-13-2024 Functional status Patient at Baseline [facility] Work Phone: 01-11-2024 Functional status Patient at Baseline [facility] Work Phone: Mental Status Date Assessment Result Facility 01-26-2024 Cognitive function Cognitive Sta tus Patient at Baseline [facility] Work Phone: 01-13-2024 Cognitive function Cognitive Sta tus Patient at Baseline [facility] Work Phone: 01-11-2024 Cognitive function Cognitive Sta tus Patient Not at Baseline [facility] Work Phone: Clinical Notes 04-29-2023 to 03-07-2024 THOMPSON Puri - 03/07/2024 3:45 PM EDT Note Date & Type Note Facility 03-07-2024 History of Present illness Narrative Reason for Appointment: HST Patient: Dagoberto Squires : 1945 Reason for Home Sleep Study: Sleep disturbances Ordering Physician: Dr. Tru Solitario Pharmaceutical Sales: Lauro ORDOÑEZ(R) Pick-up Comments: Procedure was explained to the female auto mechanic supervisor picking up HST device, who expressed understanding. Patient's female auto mechanic supervisor was instructed how to use device and informed to return completed questionnaire with device tomorrow morning...... 03/07/24 Pharmaceutical Sales: Lauro WHELANR) Drop-Off Comments: Patient returned HST device. Study data was successfully uploaded, however, questionnaire was not completed and thus not imported to patient's chart...... 03/08/24 INSUFFICIENT DATA (LESS THAN 1 HOUR) WITH NO CHARGE PER DR. SOLITARIO.... Patient will need to repeat............ Lauro ORDOÑEZ(R) 06/15/24 documented in this encounter [facility] 02-25-2024 Hospital Discharge instructions Patient Education 02/25/2024 [...] provider. Document Revised: 07/01/2020 Document Reviewed: 07/01/2020 Emida Patient Education 2022 [employer]. Follow Up Care 01/27/2024 14:08:28 With:SHAYY BARRETO, Garfield Cotter, URL Address: [address] [place] [address]- When: Unknown [facility] 02-25-2024 Note Patient Education Urology Testicular [...] Reviewed: 07/01/2020 Elsevier Patient Education ? 2022 [employer]. [facility] 01-27-2024 Hospital Discharge instructions Patient [...] urethra. Follow these instructions at home: Take zhbi-igz-oykcctt and prescription medicines only as told by [...] provider. Document Revised: 02/11/2022 Document Reviewed: 02/11/2022 Emida Patient Education 2022 [employer]ian. 01/27/2024 13:40:29 Testicular Self-Exam Testicular Self-Exam A [...] provider. Document Revised: 07/01/2020 Document Reviewed: 07/01/2020 Emida Patient Education 2022 [employer]ujian. Follow Up Care 01/27/2024 09:11:18 With:SHAYY BARRETO, Garfield Cotter, URL Address: [facility] [address] [place] [address]- [phone] When:Within 1 Month(s) [facility] 01-26-2024 Discharge summary Note Date/Time January 26, 2024 8:47am [facility] [address] [place] [address] Discharge Summary Signed Patient: Dagoberto Squires MR#: [id number] : 1945 Acct:[id number] Age/Sex: 78 / M Adm Date: 4 Loc: Room: 5A4879-[address]: Nicko Galvan MD Copies to: RITIKA Goyal APRN, STATE COMPTROLLER Nicko Galvan MD~ Providers Date of Discharge: [...] 60 0RF Follow Up: Sonia Salinas APRN, SLOT FLOORPERSON-C [Primary Care Provider] - 01/26/24 2:00 pm [...] % (Auto) N/A, Lymph % (Auto) N/A, [place] % (Auto) N/A, Eos % (Auto) N/A, Baso % (Auto) N/A, Nucleat RBC Rel Count N/A, Neut # (Auto) N/A, Lymph # (Auto) N/A, [place] # (Auto) N/A, Eos # (Auto) N/A, [...] 0 846 Signed By: <Electronically signed by RITIKA Campbell> 01/26/24 0908 <Electronically signed by Nicko Galvan MD> 01/26/24 0856 [facility] Work Phone: 1(471) 655-201906-18-2024 [facility] Consult note Author Dao Johnston [facility] January 13, 2024 11:34am Note Date/Time January 12, 2024 3:28p m [facility] [address] [place] [address] Vascular Surgery Consult Note Signed Patient: Dagoberto Squires MR#: [id number] : 1945 Acct:[id number] Age/Sex: 78 / M Adm Date: 4 Loc: 3T Room: [address] [place] [address] Type: ADM IN Attending Dr: Zachary Garcia MD Copies to: MD Mckenna Sanchez APRN Jeffrey L Buehrer, MD Jennifer Rohrbacher, RITIKA, STATE COMPTROLLER~ HPI Consult HPI Reason for consult: carotid [...] negative unless noted below or in HPI [facility] Medical History Vascular dementia Injected eye, [...] of imaging. We will send imaging to [facility] and evaluate for likely intervention. This [...] 1 527 Signed By: <Electronically signed by RITIKA Campbell> 01/12/24 1536 <Electronically signed by MD Dao Johnston> 01/13/24 1134 [facility] Work Phone: 1(108) 356-642006-05-2024 Progress note Author Zachary Garcia [facility] January 12, 2024 5:19pm Note Date/Time January 11, 2024 1:15p m [facility] [address] [place] [address] Hospitalist Progress Note Signed Patient: Dagoberto Squires MR#: [id number] : 1945 Acct:[id number] Age/Sex: 78 / M Adm Date: 4 Loc: 3T Room: [address] [place] [address] Type: ADM IN Attending Dr: Zachary Garcia [...] levels of stenosis of intra and extracranial mecksnncxjb-ggkq-yawch stenosis at the proximal right ICA and [...] above. Documented By: Sabrina Lama APRN 11/30 0953 Signed By: <Electronically signed by RITIKA Lama> 01/11/24 1449 <Electronically signed by Zachary Garcia MD> 01/12/24 3906 [facility] Work Phone: 1(992) 543-870706-05-2024 Progress note Author Zachary Garcia [facility] January 12, 2024 5:18pm Note Date/Time January 12, 2024 9:16a m [facility] [address] [place] [address] Hospitalist Progress Note Signed Patient: Dagoberto Squires MR#: [id number] : 1945 Acct:[id number] Age/Sex: 78 / M Adm Date: 4 Loc: Room: [address] [place] [address] Type: ADM IN Attending Dr: Zachary Garcia MD Copies to: ~ Date of Service: 01/12/2024 Subjective Subjective Narrative: Patient seen and examined. No visitors present. Patient offers no complaints. Remains oriented to place and self, thought it was 2008 and thought he was in [place]. Denies pain or dyspnea. Denies weakness. Slept [...] levels of stenosis of intra and extracranial toghezwrarf-kirc-hnhma stenosis at the proximal right ICA and [...] good candidate for TCAR urgently next week. SLOT FLOORPERSON to see pt today -patient would benefit [...] <Electronically signed by Zachary Garcia MD> 01/12/24 1984 [facility] Work Phone: 1(223) 305-302006-05-2024 Progress note Author Nic Leung [facility] January 12, 2024 12:58pm Note Date/Time January 12, 2024 11:25 am [facility] [address] [place] [address] Neurology Progress Note Signed Patient: Dagoberto Squires MR#: [id number] : 1945 Acct:[id number] Age/Sex: 78 / M Adm Date: 4 Loc: 3T Room: [address] [place] [address] Type: ADM IN Attending Dr: Zachary Garcia [...] stenosis at the origin of the left ANGLE, and multifocal high-grade stenosis of the left [...] signed by Nic Leung DO> 01/12/24 1258 [facility] Work Phone: 1(714) 188-775106-05-2024 History and physical note Author Jc Brown [facility] January 12, 2024 4:30am Note Date/Time January 11, 2024 7:55p ashish [facility] [address] [place] [address] Hospitalist H&P Signed Patient: Dagoberto Squires MR#: [id number] : 1945 Acct:[id number] Age/Sex: 78 / M Adm Date: 4 Loc: 3T Room: [address] [place] [address] Type: ADM IN Attending Dr: Zachary Garcia MD Copies to: MD Sonia Sanchez, LIGHTING TECHNICIAN, STATE COMPTROLLER RITIKA Ponce, DO~ HPI DATE OF EXAMINATION: [...] will be admitted as observation to the [facility] telemetry floor. ? Review of Systems Review of Systems Review of systems: A 10 point review of systems was obtained, negative unless noted in the HPI or below. [facility] Medical History (Updated 01/11/24 @ 14:48 [...] 05:52 Lymph % (Auto) N/A 01/11/24 05:52 [place] % (Auto) N/A 01/11/24 05:52 Eos % (Auto) N/A 01/11/24 05:52 Baso % (Auto) N/A 01/11/24 05:52 Nucleat RBC Rel Count N/A 01/11/24 05:52 Neut # (Auto) N/A 01/11/24 05:52 Lymph # (Auto) N/A 01/11/24 05:52 [place] # (Auto) N/A 01/11/24 05:52 Eos # [...] pH 5.5 (5.0-9.0) 01/10/24 23:30 Ur Specific Zirconia 1.043 (1.001-1.030) H 01/10/24 23:30 Urine Protein [...] by RITIKA Mcdonald> 01/11/241958 <Electronically signed by Jc Brown DO> 01/12/24 0430 [facility] Work Phone: 1(510) 619-377606-04-2024 History and physical note Author Faiza Mcdonald [facility] January 11, 2024 7:52pm Note Date/Time January 11, 2024 12:40 am [facility] [address] [place] [address] Hospitalist H&P Signed Patient: Dagoberto Squires MR#: [id number] : 1945 Acct:[id number] Age/Sex: 78 / M Adm Date: 4 Loc: Room: [address] [place] [address] Type: ADM IN Attending Dr: Zachary Garcia MD Copies to: MD Sonia Sanchez, LIGHTING TECHNICIAN, BRIAN Mcdonald APRN~ Documented By: Faiza Mcdonald APRN 01/11/24 004 Signed By: [facility] Work Phone: 1(553) 386-865306-04-2024 Consult note Author Nic Leung [facility] January 11, 2024 1:44pm Note Date/Time January 11, 2024 12:01 pm [facility] [address] [place] [address] Neurology Consult Note Signed Patient: Dagoberto Squires MR#: [id number] : 1945 Acct:[id number] Age/Sex: 78 / M Adm Date: 4 Loc: 3T Room: [address] [place] [address] Type: ADM INOo Attending Dr: Zachary Garcia MD Copies to: DO Zachary Sy MD Jennifer Rohrbacher, LIGHTING TECHNICIAN, STATE COMPTROLLER~ HPI Consult Date: 01/11/24 Post Anesthesia Room Nurse: Nic Leung DO [facility] Medical History Injected eye, right Basal [...] Dao Toscano M.D.01/11/2024 8:11 AM Dictation Location: [place] [address] Chest X-Ray 01/10/24 22:14 IMPRESSION: Interstitial prominence is noted with perihilar vascular prominence suggesting volume overload. Impression dictated by: Gómez Alan M.D.01/11/2024 8:45 AM Dictation Location: [place] [address] Head CTA 01/10/24 22:14 IMPRESSION: Multiple levels of stenoses of the intra and extracranial circulation as stated above. Multiple levels of occlusion of the intracranial And extracranial circulation as stated above. Impression dictated by: Dao Toscano M.D.01/11/2024 8:25 AM Dictation Location: [facility] Therapy Recommendations Therapy Recommendations: PT Recommendations [...] was a little shaky. 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 And his left [...] <Electronically signed by Nic Leung DO> 01/11/24 1716 [facility] Work Phone: 1(710) 159-826612-01-2023 Evaluation note* Encounter Date Diagnosis Assessment Notes [...] course of antibiotic. Increase fluids and rest. Iblv-yil-hjtdeqw antipyretics as needed. Warning signs and symptoms reviewed with patient today. Patient to go immediately to the ER should she experience any of these. Patient to notify office should her symptoms persist and not improve. Patient verbalizes understanding and agrees to treatment plan. [facility] Other 09-21-2023 Evaluation note* Encounter Date Diagnosis [...] understanding and is agreeable to treatment plan. [facility] Other Evaluation + Plan note Future Appointments Appointment Date:02/25/2024 08:45:00 AM Scheduled Provider:Garfield LUCAS MD Location:[facility] Appointment Type:URO Office Visit [facility] evaluation noteNo assessment information available [facility] Work Phone: evaluation note* Diagnosis Onset Date Resolution Status Loud snoring acute Maxillary sinusitis acute Rhinitis medicamentosa acute Screening for colon cancer a cute Aphasia acute Balance problem acute Frequent falls acute Memory changes acute [facility] Work Phone: evaluation note* Diagnosis Onset Date Resolution Status Aphasia acute Balance problem acute Frequent falls acute Memory changes acute Brain TIA acute Carotid stenosis acute Frequent falls acute Memory changes acute [facility] Work Phone: evaluation note* Diagnosis Onset Date Resolution Status Aphasia acute Balance problem acute Frequent falls acute Memory changes acute Atherosclerotic cerebrovascular disease acute Brain TIA acute Carotid stenosis acute Frequent falls acute Hypertension acute Memory changes acute Symptomatic stenosis of right carotid artery acute T2DM (type 2 diabetes mellitus) acute Vascular dementia acute [facility] Work Phone: Evaluation note* Diagnosis Onset Date Resolution Status Aphasia acute Balance problem acute Frequent falls acute Atherosclerotic cerebrovascular disease acute Frequent falls acute Hypertension acute Symptomatic stenosis of right carotid artery acute T2DM (type 2 diabetes mellitus) acute Vascular dementia acute Symptomatic stenosis of right carotid artery acute [facility] Work Phone: evaluation note* Diagnosis Onset Date Resolution Status Aphasia acute Balance problem acute Frequent falls acute Atherosclerotic cerebrovascular disease acute Frequent falls acute Hypertension acute Symptomatic stenosis of right carotid artery acute T2DM (type 2 diabetes mellitus) acute Vascular dementia acute Symptomatic stenosis of right carotid artery acute Scrotal abscess acute [facility] Work Phone: Evaluation note* Diagnosis Onset [...] 2 diabetes mellitus) acute Vascular dementia acute [facility] Work Phone: Evaluation note* Diagnosis Onset Date Resolution Status History of transcarotid artery revascularization (TCAR ) acute [facility] Work Phone: Evaluation note* Diagnosis Hypersomnia Hypersomnia, unspecified Memory loss [facility] - [facility]* Type Description Date Surgical History Eye surgery- cataracts [facility] Other Hospital course Narrative No data available for this section [facility] Hospital Discharge instructionsAmbulatory Orders* Referral to Neurology Location: None Selected [facility] Work Phone: Hospital Discharge instructions No data available for this [facility] No data available for this section [facility] reason for visit Narrative* Other Medical (Routine) - Closed Specialty Diagnoses / Procedures Referred By Contac t Referred To Contact [facility] Diagnoses Hypersomnia Memory loss Procedures Home sleep test Tru Solitario DO [address] [place] [address] Phone: tel: fax: Referral ID Status Reason Start Date Expiration Date Visits Re quested Visits Authorized [id number] Closed 02/24/2024 08/22/2024 1 1 [facility] [...] CREATED AUTHOR AUTHOR'S ORGANIZ ATION 12/04/2023 [facility] EPIC DATE CREATED AUTHOR AUTHOR'S ORGANIZ ATION 02/06/2024 [facility] DATE CREATED AUTHOR AUTHOR'S ORGANIZ ATION 02/26/2024 [facility] DATE CREATED AUTHOR AUTHOR'S ORGANIZ ATION 03/10/2024 [facility] EPIC DATE CREATED AUTHOR AUTHOR'S ORGANIZ ATION 05/27/2024 [facility] REASON FOR VISIT (unrecogniz ed section and content) Establish, [facility] Teams (unrecognized sec tion and content) Team Status: Active Member Role Status Dates Sonia Salinas APRN SLOT FLOORPERSON-C Primary Care Provider Active Team Status: Inactive Member Role Status Dates Sonia Salinas APRN SLOT FLOORPERSON-C Attending Provider Act joaquina Start: July 09, 2023 End: July 09, 2023 Team Status: Inactive Member Role Status Dates Sonia Salinas APRN SLOT FLOORPERSON-C Primary Care Provider Active Start: September 222023 End: September 22, 2023 Samuel Coker MD Attending Provider Active Start: September 22, 2023 End: September 22, 2023 Team Status: Inactive Member Role Status Dates Sonia Salinas APRN SLOT FLOORPERSON-C Primary Care Provider, Attending Provider Active Start: October 05, 2023 End: October 05, 2023 Team Status: Inactive Member Role Status Dates Sonia Salinas APRN SLOT FLOORPERSON-C Primary Care Provider, Attending Provider Active Start: November 09, 2023 End: November 09, 2023 Team Status: Active Member Role Status Dates Sonia Salinas APRN SLOT FLOORPERSON-C Primary Care Provider, Attending Provider Active Start: November 10, 2023 Team Status: Active Member Role Status Dates Sonia Salinas APRN [employer]OT FLOORPERSON-C Primary Care Provider, Attending Provider Active Start: November 19, 2023 Team Status: Active Member Role Status Dates Sonia Salinas APRN [employer]OT FLOORPERSON-C Primary Care Provider Active Start: December 16, 2023 Tru Solitario DO Attending Provider Active Sta rt: December 16, 2023 Team Status: Active Member Role Status Dates Sonia Salinas APRN SLOT FLOORPERSON-C Primary Care Provider Active Start: January 10 Nicko Grimm DO Emergency Provider Active Start: January 11, 2024 cJ Brown DO Admit Provider, Atte nding Provider Active Start: January 11, 2024 Team Status: Inactive Member Role Status Dates Sonia Salinas APRN SLOT FLOORPERSON-C Primary Care Provider Active Start: January 11, [...] Member Role Status Dates Sonia Salinas APRN SLOT FLOORPERSON-C Primary Care Provider Active Start: January 12, [...] Member Role Status Dates Sonia Salinas APRN SLOT FLOORPERSON-C Primary Care Provider Active Start: January 17, 2024 End: January 17, 2024 Dao Johnston MD Attending Provider Active S tart: January 17, 2024 End: January 17, 2024 Team Status: Active Member Role Status Dates Sonia Salinas APRN SLOT FLOORPERSON-C Primary Care Provider Active Start: January 17, 2024 Teresa Cowan LPN Attending Provider Active St art: January 17, 2024 Team Status: Inactive Member Role Status Dates Sonia Salinas APRN SLOT FLOORPERSON-C Primary Care Provider Active Start: January 25, 2024 End: January 26, 2024 Nicko Galvan MD Admit Provider , Attending Provider Active Start: January 25, 2024 End: January 26, 2024 Team Status: Active Member Role Status Dates Sonia Salinas APRN [employer]OT FLOORPERSON-C Primary Care Provider Active Start: January 25, 2024 Nicko Galvan MD Admit Provider , Attending Provider, Other Provider Active Start: January 25, 2024 Team Status: Inactive Member Role Status Dates Sonia Salinas APRN SLOT FLOORPERSON-C Primary Care Provider, Attending Provider Active Start: January 26, 2024 End: January 26, 2024 Team Status: Active Member Role Status Dates Sonia Salinas APRN SLOT FLOORPERSON-C Primary Care Provider Active Start: January 12, [...] 2024 End: January 13, 2024 Mckenna Campbell SLOT FLOORPERSON-C Attending Provider Active Start: January 12, 2024 End: January 13, 2024 Team Status: Active Member Role Status Dates Sonia Salinas APRN SLOT FLOORPERSON-C Primary Care Provider Active Start: January 27, 2024 Sabrina Lama APRN Attending Provider Active Start: January 27, 2024 Team Status: Inactive Member Role Status Dates Sonia Salinas APRN SLOT FLOORPERSON-C Primary Care Provider Active Start: February 16, 2024 End: February 16, 2024 Nicko Galvan MD Attending Provider Active Start: February 16, 2024 End: February 16, 2024 Team Status: Inactive Member Role Status Dates Sonia Salinas APRN SLOT FLOORPERSON-C Primary Care Provider Active Start: May End: May 25, 2024 Nicko Galvan MD Attending Provider Active Start: May 25, 2024 End: May 25, 2024 [employer] Att[employer] Relationship Specialty Start Date End Date Sonia Salinas NP [address] [place] [id number] PCP - General Family Medicine 01/18/24 Sonia Salinas NP [address] [place] [id number] Referring Physician Family Medicine 12/14/23 Goals (unrecognized [...] BE BASED ON THE PRIMARY CLINICAL RECORDS. [employer] provides no warranty or guarantee of the accuracy or completeness of information in this document.
[2024-07-27 09:33] LABS: Hematocrit 38.1 % (42.0-54.0); Hemoglobin 12.6 g/dL (14.0-18.0); Mean Corpuscular HGB Conc 33.1 g/dL (29.9-35.2); Mean Corpuscular Hemoglobin 31.4 pg (25.9-34.0); Mean Platelet Volume 9.5 fL (9.5-13.5); Platelet Count 310 10^3/uL (150-450); Red Blood Count 4.01 10^6/uL (4.70-6.10); Red Cell Distribution Width 13.5 % (11.0-15.0); White Blood Count 16.4 10^3/uL (4.0-11.0)
[2024-07-27 09:58] LABS: Anion Gap 6.5; BUN Creatinine Ratio 15.5; Calcium 9.2 mg/dL (8.5-10.1); Carbon Dioxide 36.4 mmol/L (21.0-32.0); Chloride 100 mmol/L (98-107); Estimated GFR (African America 35 (>=60 mL/min/1.73m^2); Estimated GFR (Non-African Ame 29 (>=60 mL/min/1.73m^2); Free T3 1.27 pg/mL (2.18-3.98); Glucose 153 mg/dL (74-106); Potassium 3.9 mmol/L (3.5-5.1); Segmented Neut Absolute Manual 11.31 10^3/uL (1.4-6.5); Sodium 139 mmol/L (136-145); Thyroid Stimulating Hormone 2.477 uIU/mL (0.358-3.740)
[2024-07-27 09:59] LABS: Band Neutrophils Absolute 0.2 10^3/uL (0.0-0.3); Eosinophils Absolute Manual 1.96 10^3/uL (0.00-0.70); Lymphocytes Absolute Manual 1.96 10^3/uL (1.20-3.80); Monocytes Absolute Manual 0.98 10^3/uL (0.30-0.80)
== END 2024-07-27 09:06 | disposition home or self-care (01) ==
LOC: LAB 09:06
PROVIDERS: PCP Family Medicine; Visit Provider Family Medicine
DX: R53.83 Other fatigue (principal)
CPT/HCPCS: 36415; 80048; 84436; 84443; 84481; 85007; 85027

== ENCOUNTER 2024-08-28 12:09 | Inpatient (IN) | payer MEDICARE, SELFPAY ==
[2024-08-28] VITALS (19 sets, daily range): BP systolic 158–182; BP diastolic 89–125; PULSE 90–110; TEMP 36.1–36.5; O2SAT 86–97; BMI 27.5; BMI 26.3
--- OUTSIDE RECORDS SUMMARY | 2024-08-28 12:23 | XMS_ITS | CCD ---
Author Organization [facility] Care Team Providers Care Solar Sales Associate Name Role Phone AMILCAR MIDDLETON Primary Care Unavailable MISC, DOCTOR Attending Unavailable MISC, DOCTOR Consulting Unavailable MISC, DOCTOR Admitting Unavailable Sonia Salinas Unavailable RITIKA Salinas Primary Care Provider MD Samuel Coker Attending Provider RITIKA Salinas Primary Care Provider MD Samuel Coker Attending Provider AURELIA FRENCH Attending Unavailable RITIKA Salinas Primary Care Provider DO Nicko Grimm Emergency Provider Unavai DO Jc Magallanes Admit Provider [phone] DO Jc Brown Attending Provider RITIKA Salinas Primary Care Provider DO Nicko Grimm Emergency Provider Unavai DO Jc Magallanes Admit Provider MD Zachary Garcia Attending Provider DO Nic Leung Other Provider MD Dao Johnston Other Provider MD Nicko Galvan Admit Provider MD Nicko Galvan Attending Provider SONIA SALINAS Primary Care Physician [phone] Garfield LUCAS Attending Unavailable LUCAS, Garfield R [...] Unavailable Sonia Salinas Primary Care Unavailable Brad TOLL BOOTH OPERATOR, Sonia Sharif Unavailable Brad TOLL BOOTH OPERATORSonia Primary Care Provider Allergies Allergy Classification Reported Allergen(s) Allergy Type Date of Onset Reaction(s) Facility (1 source) No Known Medication Allergies; Translations: [No Known Medication Allergies] Propensity to adverse reactions (disorder) [facility] Repository Medications Current Medications Medication Drug Class(es) [...] day(s), # 28 cap(s), Refills(s) 0, Pharmacy: [facility]/pharmacy #[id number], 180, cm, 01/27/24 13:28:00 EDT, [...] obtained... Test will need to be repeated. [facility] carotid doppler BIon 10- US carotid doppler [facility] [address] [place], [place] [id number] Ultrasound Report Signed Patient: Dagoberto Squires MR#: [id number] : 1945 Acct:[id number] Age/Sex: 79 / M ADM Date: 05/25/24 Loc: [facility] Room: Type: [facility] Attending Dr: Mckenna Campbell TOLL BOOTH OPERATOR-C Ordering Provider: Mckenna Campbell APRN Date of [...] Nicko Galvan MD05/26/2024 9:33 AM Dictation Location: [facility]04 Tech: Venecia Carter Transcribed By: ALEA 05/26/24932 Dictated By: Nicko Galvan MD 05/26/24931 Signed By: 05/26/24932 Normal [facility] Ambulatory Visit Summaryon 0 02-25-2024 [...] with Garfield LUCAS MD, URL When: Where: [address] [place] [address]- Medications What How Much When Instructions Unchanged [...] Patient Educati (more content not included)... Normal [facility] Urology Office/Clinic Noteon 02-25-2024 Urology Office/Clinic Note [...] Information SHAYY BARRETO, Garfield Cotter, URL [address] [place] [address]- Additional Instructions: PRN Patient Education Testicular Self-Exam [...] Dipstick: 1+ (30 mg/dl) (02/25/24 08:47:00) Specific Crucible Urine Dipstick: >=1.030 (02/25/24 08:47:00) Urine Appearance Urine Dipstick: Clear (02/25/24 08:47:00) Urine Color Urine Dipstick: Yellow (02/25/24 08:47:00) Urobilinogen Urine Dipstick: Normal 0.2-1 EU/dl (02/25/24 08:47:00) pH Urine Dipstick: 5.5 (02/25/24 08:47:00) Normal [facility] Comment on above: Result Comment: Elec tronically Signed By: Garfield LUCAS MD\Date and Time Signed: 02/25/24 09:27 EDT\.br\Electronically Co-Signed By: Karuna Carias\Date and Time Co-Signed: 02/25/24 09:25 EDT Transfer Inon 02-02-2024 Transfer In [id number] Normal [facility] RAD - Ultrasound Reporton RAD - Ultrasound Report [id number]#[id number] Normal [facility] Basophils/100 WBC Manual cnt (Bld)on 01-27-2024 Basophils/100 WBC (Bld) 2.0 % 0.2-2.0 [facility] CHEMISTRYOrdered By: SYSTEM SYSTEM on 01-27-2024 Prostate specific Ag [Mass/Vol] 2.9 ng/mL Normal 0.1 - 3.5 ng/mL [facility] Comment on above: Interpretive Data: T he concentration of PSA determined by different manufacturers can vary due to differences in assay methods and reagent specificity. Values obtained from different assay methods cannot be used interchangeably. The methodology used for this result was chemiluminescence using [employer]'s Access Hybritech PSA reagent. Eosinophils/100 WBC Manual c nt (Bld)on 01-27-2024 Eosinophils/100 WBC (Bld) 22.0 % High 0.9-7.0 [facility] Erythrocyte distribution wid th Auto (RBC) [Ratio]on 01-27-2024 Erythrocyte distribution width (RBC) [Ratio] 12.8 % 11.0-15.0 [facility] Hematocrit Auto (Bld) [Volum e fraction]on 01-27-2024 Hematocrit (Bld) [Volume fraction] 39.2 % Low 42.0-54.0 [facility] Hemoglobin [Mass/volume] in Bloodon 01-27-2024 Hemoglobin (Bld) [Mass/Vol] 13.0 g/dL Low 14.0-18.0 [facility] Laboratory - Hematology and Cell countson 01-27-2024 Band form neutrophils/100 WBC (Bld) 1.0 % 0-5 [facility] Lymphocytes/100 WBC (Bld) 15.0 % Low 20.5-60.0 [facility] Monocytes/100 WBC (Bld) 10.0 % 1.7-12.0 [facility] Leukocytes [#/volume] correc guillermina for nucleated erythrocytes in Blood by Automated counon 01-27-2024 WBC corrected for nucl RBC Auto (Bld) [#/Vol] 19.1 10 3/uL High 4.0-11.0 [facility] MCH Auto (RBC) [Entitic mass ]on 01-27-2024 MCH (RBC) [Entitic mass] 31.7 pg 25.9-34.0 [facility] MCHC Auto (RBC) [Mass/Vol]on 01-27-2024 MCHC (RBC) [Mass/Vol] 33.2 g/dL 29.9-35.2 [facility] MCV Auto (RBC) [Entitic vol] on 01-27-2024 MCV (RBC) [Entitic vol] 95.6 fL High 80.0-94.0 [facility] No Panel Informationon 01-26 Absolute Basophils (Manual) 0.38 10 3/uL High 0.00-0.10 [facility] Band Neutrophils # (Manual) 0.2 10 3/uL 0.0-0.3 [facility] Eosinophils # (Manual) 4.20 10 3/uL High 0.00-0.70 [facility] Lymphocytes # (Manual) 2.86 10 3/uL 1.20-3.80 [facility] Monocytes # (Manual) 1.91 10 3/uL High 0.30-0.80 [facility] Segmented Neutrophils # (Manual) 9.55 10 3/uL High 1.4-6.5 [facility] PSA Screen, Totalon 01-27-20 Prostate specific Ag [Mass/Vol] 2.9 ng/mL Normal 0.1-3.5 [facility] Comment on above: Result Comment: The concentration of PSA determined by different manufacturers can vary due to differences in assay methods and reagent specificity. Values obtained from different assay methods cannot be used interchangeably. The methodology used for this result was chemiluminescence using [employer]'s Access Hybritech PSA reagent. Performed By: #### 1 [id number] #### [facility] [address] [place] [address] Patient Educationon 01-27-20 Patient Education Urology Benign [...] Follow these instructions at home: ? Take [id number] and prescription medicines only as told by [...] the medicine (more content not included)... Normal [facility] Physician Orderon 01-27-2024 Physician Order [id number] Normal [facility] Platelet mean volume Auto (B ld) [Entitic vol]on 01-27-2024 Platelet mean volume (Bld) [Entitic vol] 9.8 fL 9.5-13.5 [facility] Platelets Auto (Bld) [#/Vol] on 01-27-2024 Platelets (Bld) [#/Vol] 303 10 3/uL 150-450 [facility] RBC Auto (Bld) [#/Vol]on RBC (Bld) [#/Vol] 4.10 10 6/uL Low 4.70-6.10 [facility] Segmented neutrophils/100 WB C Manual cnt (Bld)on 01-27-2024 Segmented neutrophils/100 WBC (Bld) 50.0 % [facility] Urology Office/Clinic Noteon 01-27-2024 Urology Office/Clinic Note [...] HPI to be accurate for this encounter. [facility] records reviewed, labs, and Scrotal US films [...] [facility] [address], [place] [address] [phone] Additional Instructions: Patient Education Benign Prostatic Hyperplasia [...] a day (more content not included)... Normal [facility] Comment on above: Result Comment: Elec tronically Signed By: Garfield LUCAS MD\.br\Date and Time Signed: 01/27/24 15:52 EDT\.br\Electronically Co-Signed By: Cheyenne Morales\Herlindabr\Date and Time Co-Signed: 01/27/24 14:06 EDT Basophils Auto (Bld) [#/Vol] Ordered By: Nicko Galvan on 01-26-2024 Basophils (Bld) [#/Vol] N/A [facility] Basophils/100 WBC Auto (Bld) Ordered By: Nicko Galvan on 01-26-2024 Basophils/100 WBC (Bld) N/A [facility] Diff and CBCon 01-26-2024 Giant Platelet Tally 2 /100{WBC} Normal [facility] Comment on above: Performed By: #### D IFF CBC, PTT, CK, HS TROP, CMP, CBC, PT #### [facility] [address] [place] [address] Mean Corpuscular HGB Conc 33.3 g/dL Normal 32.5-35.6 [facility] Comment on above: Performed By: #### D IFF CBC, PTT, CK, HS TROP, CMP, CBC, PT #### [facility] [address] Platelet Estimate Normal Normal Normal [facility] Comment on above: Performed By: #### D IFF CBC, PTT, CK, HS TROP, CMP, CBC, PT #### [facility] [address] Platelet Morphology Normal Normal Normal [facility] Comment on above: Result Comment: PERF ORMED BY: [place] [address] PATHOLOGIST SENIOR TELECOMMUNICATIONS CONSULTANT DENNIS RODRIGUEZ M.D. Performed By: #### D IFF CBC, PTT, CK, HS TROP, CMP, CBC, PT #### [address] Eosinophils Auto (Bld) [#/Vo l]Ordered By: Nicko Galvan on 01-26-2024 Eosinophils (Bld) [#/Vol] N/A [facility] Eosinophils/100 WBC Auto (Bl d)Ordered By: Nicko Galvan on 01-26-2024 Eosinophils/100 WBC (Bld) N/A [facility] Eosinophils/100 leukocytes i n Blood by Manual countOrdered By: Nicko Galvan on 01-26-2024 Eosinophils/100 WBC (Bld) 15 % High 1-3 [facility] Comment on above: Performed By: #### D IFF CBC, PTT, CK, HS TROP, CMP, CBC, PT #### [facility] [address] Erythrocyte distribution wid th [Ratio] by Automated countOrdered By: Nicko Galvan on 01-26-2024 Erythrocyte distribution width (RBC) [Ratio] 13.8 % Normal 12.0-14.8 [facility] Comment on above: Performed By: #### D IFF CBC, PTT, CK, HS TROP, CMP, CBC, PT #### [facility] [address] Erythrocytes [#/volume] in B lood by Automated countOrdered By: Nicko Galvan on 01-26-2024 RBC (Bld) [#/Vol] 3.83 10*6/uL Low 3.90-5.60 [facility] Comment on above: Performed By: #### D IFF CBC, PTT, CK, HS TROP, CMP, CBC, PT #### [facility] [address] Giant platelets/100 leukocyt es [Ratio] in Blood by Manual countOrdered By: Nicko Galvan on 01-26-2024 Giant platelets/100 WBC Manual cnt (Bld) [Ratio] 2 /100{WBC} [facility] Hematocrit [Volume Fraction] of Blood by Automated countOrdered By: Nicko Galvan on 01-26-2024 Hematocrit (Bld) [Volume fraction] 35.9 % Low 38.8-50.0 [facility] Comment on above: Performed By: #### D IFF CBC, PTT, CK, HS TROP, CMP, CBC, PT #### [facility] [address] Hemoglobin [Mass/volume] in BloodOrdered By: Nicko Galvan on 01-26-2024 Hemoglobin (Bld) [Mass/Vol] 12.0 g/dL Low 13.0-17.0 [facility] Comment on above: Performed By: #### D IFF CBC, PTT, CK, HS TROP, CMP, CBC, PT #### [facility] [address] [place] [address] Leukocytes [#/volume] correc guillermina for nucleated erythrocytes in Blood by Automated counOrdered By: Nicko Galvan on 01-26-2024 WBC corrected for nucl RBC Auto (Bld) [#/Vol] 20.7 10*3/uL High 4.1-10.5 [facility] Leukocytes [#/volume] in Blo od by Automated countOrdered By: Nicko Galvan on 01-26-2024 WBC (Bld) [#/Vol] 20.7 10*3/uL High 4.1-10.5 [facility] Comment on above: Performed By: #### D IFF CBC, PTT, CK, HS TROP, CMP, CBC, PT #### [facility] [address] [place] [address] Lymphocytes Auto (Bld) [#/Vo l]Ordered By: Nicko Galvan on 01-26-2024 Lymphocytes (Bld) [#/Vol] N/A [facility] Lymphocytes/100 WBC Auto (Bl d)Ordered By: Nicko Galvan on 01-26-2024 Lymphocytes/100 WBC (Bld) N/A [facility] Lymphocytes/100 leukocytes i n Blood by Manual countOrdered By: Nicko Galvan on 01-26-2024 Lymphocytes/100 WBC (Bld) 7 % Low 18-42 [facility] Comment on above: Performed By: #### D IFF CBC, PTT, CK, HS TROP, CMP, CBC, PT #### [facility] [address] [place] [address] MCH [Entitic mass] by Automa guillermina countOrdered By: Nicko Galvan on 01-26-2024 MCH (RBC) [Entitic mass] 31.2 pg Normal 27.5-35.2 [facility] Comment on above: Performed By: #### D IFF CBC, PTT, CK, HS TROP, CMP, CBC, PT #### [facility] [address] [place] [address] MCHC Auto (RBC) [Mass/Vol]Or dered By: Nicko Galvan on 01-26-2024 MCHC (RBC) [Mass/Vol] 33.3 g/dL 32.5-35.6 [facility] MCV [Entitic volume] by Auto mated countOrdered By: Nicko Galvan on 01-26-2024 MCV (RBC) [Entitic vol] 93.7 fL Normal 83.5-101 [facility] Comment on above: Performed By: #### D IFF CBC, PTT, CK, HS TROP, CMP, CBC, PT #### [facility] [address] Manual blood segmented neutr ophils/100 leukocytesOrdered By: Nicko Galvan on 01-26-2024 Segmented neutrophils/100 WBC (Bld) 67 % Normal 50-70 [facility] Comment on above: Performed By: #### D IFF CBC, PTT, CK, HS TROP, CMP, CBC, PT #### [facility] [address] [place] [address] Monocytes Auto (Bld) [#/Vol] Ordered By: Nicko Galvan on 01-26-2024 Monocytes (Bld) [#/Vol] N/A [facility] Monocytes/100 WBC Auto (Bld) Ordered By: Nicko Galvan on 01-26-2024 Monocytes/100 WBC (Bld) N/A [facility] Monocytes/100 leukocytes in Blood by Manual countOrdered By: Nicko Galvan on 01-26-2024 Monocytes/100 WBC (Bld) 8 % Normal 2-11 [facility] Comment on above: Performed By: #### D IFF CBC, PTT, CK, HS TROP, CMP, CBC, PT #### [facility] [address] Neutrophils Auto (Bld) [#/Vo l]Ordered By: Nicko Galvan on 01-26-2024 Neutrophils (Bld) [#/Vol] N/A [facility] Neutrophils/100 WBC Auto (Bl d)Ordered By: Nicko Galvan on 01-26-2024 Neutrophils/100 WBC (Bld) N/A [facility] Nucleated erythrocytes [Pres ence] in Blood by Automated countOrdered By: Nicko Galvan on 01-26-2024 Nucleated RBC Auto Ql (Bld) N/A [facility] Peripheral white blood cell differential % bands, microscopic examOrdered By: Nicko Galvan on 01-26-2024 Band form neutrophils/100 WBC (Bld) 3 % Normal 0-5 [facility] Comment on above: Performed By: #### D IFF CBC, PTT, CK, HS TROP, CMP, CBC, PT #### [facility] [address] Platelet adequacy [Presence] in Blood by Light microscopyOrdered By: Nicko Galvan on 01-26-2024 Platelets LM Ql (Bld) Normal Normal [facility] Platelet mean volume [Entiti c volume] in Blood by Automated countOrdered By: Nicko Galvan on 01-26-2024 Platelet mean volume (Bld) [Entitic vol] 7.7 fL Normal 6.6-10.1 [facility] Comment on above: Result Comment: PERF ORMED BY: [place] [address] PATHOLOGIST SENIOR TELECOMMUNICATIONS CONSULTANT DENNIS RODRIGUEZ M.D. Performed By: #### D IFF CBC, PTT, CK, HS TROP, CMP, CBC, PT #### [address] Platelet morphology finding [Identifier] in BloodOrdered By: Nicko Galvan on 01-26-2024 Platelet morphology finding Nom (Bld) Normal Normal [facility] Platelets [#/volume] in Bloo d by Automated countOrdered By: Nicko Galvan on 01-26-2024 Platelets (Bld) [#/Vol] 276 10*3/uL Normal 150-450 [facility] Comment on above: Performed By: #### D IFF CBC, PTT, CK, HS TROP, CMP, CBC, PT #### [address] RBC morphologyOrdered By: Americo Galvan on 01-26-2024 RBC morphology finding Nom (Bld) Normal Normal Normal [facility] Comment on above: Performed By: #### D IFF CBC, PTT, CK, HS TROP, CMP, CBC, PT #### [facility] [address] [place] [id number] [place] Activated Clotting Timeon Activated Clotting Time POC 269 s High 90-139 [facility] Comment on above: Result Comment: Refe rence Range: 90-139 (Non-heparinized) PERFORMED BY: [place] [address] PATHOLOGIST SENIOR TELECOMMUNICATIONS CONSULTANT DENNIS RODRIGUEZ M.D. Performed By: #### D IFF CBC, PTT, CK, HS TROP, CMP, CBC, PT #### [facility] [address] [place] [id number] [facility] Activated Clotting Time POC 140 s High 90-139 [facility] Comment on above: Result Comment: Refe rence Range: 90-139 (Non-heparinized) PERFORMED BY: [place] [address] PATHOLOGIST SENIOR TELECOMMUNICATIONS CONSULTANT DENNIS RODRIGUEZ M.D. Performed By: #### D IFF CBC, PTT, CK, HS TROP, CMP, CBC, PT #### [place] [id number] [facility] Amphetamine Screen Ql (U)Ord ered By: ELIZABETH AGUILAR on 01-25-2024 Amphetamines Ql (U) Negative Negative [facility] Barbiturates [Presence] in U rine by Screen methodOrdered By: ELIZABETH AGUILAR on 01-25-2024 Barbiturates Screen Ql (U) Negative Negative [facility] Benzodiazepines Screen Ql (U )Ordered By: ELIZABETH AGUILAR on 01-25-2024 Benzodiazepines Ql (U) Negative Negative [facility] Benzoylecgonine [Presence] i n Urine by Screen methodOrdered By: ELIZABETH AGUILAR on 01-25-2024 Benzoylecgonine Screen Ql (U) Negative Negative [facility] Blood activated clotting ce e by coagulation assayOrdered By: Nicko Galvan on 01-25-2024 ACT Coag (Bld) 269 s High 90-139 [facility] Comment on above: Reference Range: 90- 139 (Non-heparinized) Cannabinoids [Presence] in U rine by Screen methodOrdered By: ELIZABETH AGUILAR on 01-25-2024 Cannabinoids Screen Ql (U) Positive High Negative [facility] Comment on above: These are unconfirme d results and should not be used for legal purposes. Drug Cut-Off Concentration: AMPH 1000 ng/mL NIMESH 200 ng/mL STEVEN 200 ng/mL COCM 300 ng/mL OP 300 ng/mL PCP 25 ng/mL THC 20 ng/mL Capillary blood glucose lupillo urement by glucometer (mass/volume)Ordered By: Nicko Galvan on 01-25-2024 Glucose [Mass/Vol] 121 mg/dL Normal [facility] Comment on above: Random Glucose Refer ence Range is dependent on time and content of last meal. Glucose of more than 200 mg/dL in a nonstressed, ambulatory subject supports the diagnosis of Diabetes Mellitus. Result Comment: [place] Glucose Reference Range is dependent on time and content of last meal. Glucose of more than 200 mg/dL in a nonstressed, ambulatory subject supports the diagnosis of Diabetes Mellitus. Performed By: #### D IFF CBC, PTT, CK, HS TROP, CMP, CBC, PT #### [facility] [address] [place] [address] [place] Drug Screen,Urineon 01-25-20 24 Amphetamine Screen,Urine Negative Normal Negative [facility] Comment on above: Performed By: #### U RDS #### [facility] [address] [place] [address] [place] Barbiturate Screen,Urine Negative Normal Negative [facility] Comment on above: Performed By: #### U RDS #### [facility] [address] [place] [address] [place] Benzodiazepines Screen,Urine Negative Normal Negative [facility] Comment on above: Performed By: #### U RDS #### [facility] [address] [place] [address] [place] Cannabinoid Screen,Urine Positive High Negative [facility] Comment on above: Result Comment: Thes e are unconfirmed results and should not be used for legal purposes. Drug Cut-Off Concentration: AMPH 1000 ng/mL NIMESH 200 ng/mL STEVEN 200 ng/mL COCM 300 ng/mL OP 300 ng/mL PCP 25 ng/mL THC 20 ng/mL PERFORMED BY: [place] [address] PATHOLOGIST SENIOR TELECOMMUNICATIONS CONSULTANT DENNIS RODRIGUEZ M.D. Performed By: #### U RDS #### [address] Cocaine Screen,Urine Negative Normal Negative [facility] Comment on above: Performed By: #### U RDS #### [address] Opiate Screen,Urine Negative Normal Negative [facility] Comment on above: Performed By: #### U RDS #### [address] Phencyclidine Screen,Urine Negative Normal Negative [facility] Comment on above: Performed By: #### U RDS #### [address] Glucose Poct Glucometerson 0 01-25-2024 Commemt1 Glu2: Cleaned Meter Normal [facility] Comment on above: Result Comment: PERF ORMED BY: [place] [address] PATHOLOGIST SENIOR TELECOMMUNICATIONS CONSULTANT DENNIS RODRIGUEZ M.D. Performed By: #### D IFF CBC, PTT, CK, HS TROP, CMP, CBC, PT #### [address] Commemt1 Glu2: Cleaned Meter Normal [facility] Comment on above: Result Comment: PERF ORMED BY: [place] [address] PATHOLOGIST SENIOR TELECOMMUNICATIONS CONSULTANT DENNIS RODRIGUEZ M.D. Performed By: #### D IFF CBC, PTT, CK, HS TROP, CMP, CBC, PT #### [address] Glucose [Mass/Vol] 124 mg/dL Normal [facility] Comment on above: Result Comment: [place] Glucose Reference Range is dependent on time and content of last meal. Glucose of more than 200 mg/dL in a nonstressed, ambulatory subject supports the diagnosis of Diabetes Mellitus. Performed By: #### D IFF CBC, PTT, CK, HS TROP, CMP, CBC, PT #### [facility] [address] No Panel InformationOrdered By: Nicko Galvan on 01-25-2024 Bedside Glucose Comment Glu2: cleaned meter [facility] Opiates [Presence] in Urine by Screen methodOrdered By: ELIZABETH AGUILAR on 01-25-2024 Opiates Screen Ql (U) Negative Negative [facility] Phencyclidine Screen Ql (U)O rdered By: ELIZABETH AGUILAR on 01-25-2024 Phencyclidine Ql (U) Negative Negative [facility] Automated basophil %Ordered By: Sabrina Lama on 01-13-2024 Basophils/100 WBC (Bld) 1.2 % Normal . [facility] Comment on above: Performed By: #### D IFF CBC, PTT, CK, HS TROP, CMP, CBC, PT #### [facility] [address] Automated basophil countOrde red By: Sabrina Lama on 01-13-2024 Basophils (Bld) [#/Vol] 0.2 10*3/uL Normal 0.0-0.2 [facility] Comment on above: Performed By: #### D IFF CBC, PTT, CK, HS TROP, CMP, CBC, PT #### [address] Automated blood monocyte cou ntOrdered By: Sabrina Lama on 01-13-2024 Monocytes (Bld) [#/Vol] 1.5 10*3/uL High 0.0-0.8 [facility] Comment on above: Performed By: #### D IFF CBC, PTT, CK, HS TROP, CMP, CBC, PT #### [facility] [address] Automated eosinophil %Ordere d By: Sabrina Lama on 01-13-2024 Eosinophils/100 WBC (Bld) 26.0 % Normal . [facility] Comment on above: Performed By: #### D IFF CBC, PTT, CK, HS TROP, CMP, CBC, PT #### [address] Automated eosinophil countOr dered By: Sabrinaletha Lama on 01-13-2024 Eosinophils (Bld) [#/Vol] 4.5 10*3/uL High 0.0-0.45 [facility] Comment on above: Performed By: #### D IFF CBC, PTT, CK, HS TROP, CMP, CBC, PT #### [address] Automated monocyte %Ordered By: Sabrina Lama on 01-13-2024 Monocytes/100 WBC (Bld) 8.9 % Normal . [facility] Comment on above: Performed By: #### D IFF CBC, PTT, CK, HS TROP, CMP, CBC, PT #### [address] Automated neutrophil %Ordere d By: Sabrina Lama on 01-13-2024 Neutrophils/100 WBC (Bld) 48.5 % Normal . [facility] Comment on above: Performed By: #### D IFF CBC, PTT, CK, HS TROP, CMP, CBC, PT #### [address] Basic Metabolic Panelon 06 Creatinine Clr Calc Pharmacy 61.15 Normal [facility] Comment on above: Result Comment: PERF ORMED BY: [place] [address] PATHOLOGIST SENIOR TELECOMMUNICATIONS CONSULTANT DENNIS RODRIGUEZ M.D. Performed By: #### D IFF CBC, PTT, CK, HS TROP, CMP, CBC, PT #### [address] GFR/1.73 sq M.predicted MDRD (S/P/Bld) [Vol rate/Area] 58.003 mL/min/{1.73_m2} Normal [facility] Comment on above: Performed By: #### D IFF CBC, PTT, CK, HS TROP, CMP, CBC, PT #### [facility] [address] Calcium [Mass/volume] in Ser um or PlasmaOrdered By: Sabrina Lama on 01-13-2024 Calcium [Mass/Vol] 9.3 mg/dL Normal 8.6-10.3 [facility] Comment on above: Performed By: #### D IFF CBC, PTT, CK, HS TROP, CMP, CBC, PT #### [facility] [address] Capillary blood glucose lupillo urement by glucometer (mass/volume)Ordered By: Zachary Garcia on 01-13-2024 Glucose [Mass/Vol] 239 mg/dL Normal [facility] Comment on above: Random Glucose Refer ence Range is dependent on time and content of last meal. Glucose of more than 200 mg/dL in a nonstressed, ambulatory subject supports the diagnosis of Diabetes Mellitus. Result Comment: [place] om Glucose Reference Range is dependent on time and content of last meal. Glucose of more than 200 mg/dL in a nonstressed, ambulatory subject supports the diagnosis of Diabetes Mellitus. PERFORMED BY: [place] [address] PATHOLOGIST SENIOR TELECOMMUNICATIONS CONSULTANT DENNIS RODRIGUEZ M.D. Performed By: #### D IFF CBC, PTT, CK, HS TROP, CMP, CBC, PT #### [facility] [address] Carbon dioxide, total [Moles /volume] in Serum or PlasmaOrdered By: Sabrina Lama on 01-13-2024 CO2 [Moles/Vol] 29.2 mmol/L Normal 21.0-31.0 [facility] Comment on above: Performed By: #### D IFF CBC, PTT, CK, HS TROP, CMP, CBC, PT #### [facility] [address] Chloride [Moles/volume] in S liza or PlasmaOrdered By: Sabrina Lama on 01-13-2024 Chloride [Moles/Vol] 102 mmol/L Normal 98-107 [facility] Comment on above: Performed By: #### D IFF CBC, PTT, CK, HS TROP, CMP, CBC, PT #### [facility] [address] Creatinine [Mass/volume] in Serum or PlasmaOrdered By: Sabrina Lama on 01-13-2024 Creatinine [Mass/Vol] 1.28 mg/dL Normal 0.70-1.30 [facility] Comment on above: Performed By: #### D IFF CBC, PTT, CK, HS TROP, CMP, CBC, PT #### [facility] [address] Erythrocyte distribution wid th [Ratio] by Automated countOrdered By: Sabrina Lama on 01-13-2024 Erythrocyte distribution width (RBC) [Ratio] 13.9 % Normal 12.0-14.8 [facility] Comment on above: Performed By: #### D IFF CBC, PTT, CK, HS TROP, CMP, CBC, PT #### [address] Erythrocytes [#/volume] in B lood by Automated countOrdered By: Sabrina Plascencia on 01-13-2024 RBC (Bld) [#/Vol] 4.92 10*6/uL Normal 3.90-5.60 [facility] Comment on above: Performed By: #### D IFF CBC, PTT, CK, HS TROP, CMP, CBC, PT #### [address] Glucose Poct Glucometerson 0 01-13-2024 Glucose [Mass/Vol] 155 mg/dL Normal [facility] Comment on above: Result Comment: [facility] Glucose Reference Range is dependent on time and content of last meal. Glucose of more than 200 mg/dL in a nonstressed, ambulatory subject supports the diagnosis of Diabetes Mellitus. PERFORMED BY: [place] [address] PATHOLOGIST SENIOR TELECOMMUNICATIONS CONSULTANT DENNIS RODRIGUEZ M.D. Performed By: #### D IFF CBC, PTT, CK, HS TROP, CMP, CBC, PT #### [facility] [address] [place] [address] [place] Glucose [Mass/volume] in Ser um or PlasmaOrdered By: Sabrina Lama on 01-13-2024 Glucose [Mass/Vol] 152 mg/dL High 70-100 [facility] Comment on above: ADA recommended refe rence rangeRandom Glucose Reference Range is dependent on time and content of last meal. Glucose of more than 200 mg/dL in a nonstressed, ambulatory subject supports the diagnosis of Diabetes Mellitus. Result Comment: [place] om Glucose Reference Range is dependent on time and content of last meal. Glucose of more than 200 mg/dL in a nonstressed, ambulatory subject supports the diagnosis of Diabetes Mellitus. ADA recommended reference range Performed By: #### D IFF CBC, PTT, CK, HS TROP, CMP, CBC, PT #### [facility] [address] Hematocrit [Volume Fraction] of Blood by Automated countOrdered By: Sabrina Lama on 01-13-2024 Hematocrit (Bld) [Volume fraction] 46.5 % Normal 38.8-50.0 [facility] Comment on above: Performed By: #### D IFF CBC, PTT, CK, HS TROP, CMP, CBC, PT #### [facility] [address] Hemoglobin [Mass/volume] in BloodOrdered By: Sabrina Lama on 01-13-2024 Hemoglobin (Bld) [Mass/Vol] 15.5 g/dL Normal 13.0-17.0 [facility] Comment on above: Performed By: #### D IFF CBC, PTT, CK, HS TROP, CMP, CBC, PT #### [facility] [address] [place] [address] [place] Leukocytes [#/volume] correc guillermina for nucleated erythrocytes in Blood by Automated counOrdered By: Sabrina Lama on 01-13-2024 WBC corrected for nucl RBC Auto (Bld) [#/Vol] 17.3 10*3/uL High 4.1-10.5 [facility] Leukocytes [#/volume] in Blo od by Automated countOrdered By: Sabrina Plascencia on 01-13-2024 WBC (Bld) [#/Vol] 17.3 10*3/uL High 4.1-10.5 [facility] Comment on above: Performed By: #### D IFF CBC, PTT, CK, HS TROP, CMP, CBC, PT #### [facility] [address] Lymphocytes [#/volume] in Bl ood by Automated countOrdered By: Sabrina Plascencia on 01-13-2024 Lymphocytes (Bld) [#/Vol] 2.7 10*3/uL Normal 1.00-4.8 [facility] Comment on above: Performed By: #### D IFF CBC, PTT, CK, HS TROP, CMP, CBC, PT #### [facility] [address] [place] [address] [place] Lymphocytes/100 leukocytes i n Blood by Automated countOrdered By: Sabrina Lama on 01-13-2024 Lymphocytes/100 WBC (Bld) 15.4 % Normal . [facility] Comment on above: Performed By: #### D IFF CBC, PTT, CK, HS TROP, CMP, CBC, PT #### [facility] [address] MCH [Entitic mass] by Automa guillermina countOrdered By: Sabrina Lama on 01-13-2024 MCH (RBC) [Entitic mass] 31.5 pg Normal 27.5-35.2 [facility] Comment on above: Performed By: #### D IFF CBC, PTT, CK, HS TROP, CMP, CBC, PT #### [facility] [address] MCHC Auto (RBC) [Mass/Vol]Or dered By: Sabrina Lama on 01-13-2024 MCHC (RBC) [Mass/Vol] 33.3 g/dL 32.5-35.6 [facility] MCV [Entitic volume] by Auto mated countOrdered By: Sabrina Lama on 01-13-2024 MCV (RBC) [Entitic vol] 94.6 fL Normal 83.5-101 [facility] Comment on above: Performed By: #### D IFF CBC, PTT, CK, HS TROP, CMP, CBC, PT #### [facility] [address] Neutrophils [#/volume] in Bl ood by Automated countOrdered By: Sabrina Plascencia on 01-13-2024 Neutrophils (Bld) [#/Vol] 8.4 10*3/uL High 1.8-7.7 [facility] Comment on above: Performed By: #### D IFF CBC, PTT, CK, HS TROP, CMP, CBC, PT #### [facility] [address] No Panel InformationOrdered By: Sabrina Lama on 01-13-2024 Estimated GFR (CKD-EPI) 58.003 mL/Min [facility] Pharmacy Creatinine Clearance (Chem 61.15 [facility] Nucleated erythrocytes [Pres ence] in Blood by Automated countOrdered By: Sabrina Lama on 01-13-2024 Nucleated RBC Auto Ql (Bld) 0.1 /100{WBC} 0-0.5 [facility] Platelet adequacy [Presence] in Blood by Light microscopyOrdered By: Sabrina Lama on 01-13-2024 Platelets LM Ql (Bld) Normal Normal [facility] Platelet mean volume [Entiti c volume] in Blood by Automated countOrdered By: Sabrina Lama on 01-13-2024 Platelet mean volume (Bld) [Entitic vol] 8.3 fL Normal 6.6-10.1 [facility] Comment on above: Performed By: #### D IFF CBC, PTT, CK, HS TROP, CMP, CBC, PT #### [facility] [address] [place] [address] Platelet morphology finding [Identifier] in BloodOrdered By: Sabrina Plascencia on 01-13-2024 Platelet morphology finding Nom (Bld) Normal Normal [facility] Platelets [#/volume] in Bloo d by Automated countOrdered By: Sabrina Lama on 01-13-2024 Platelets (Bld) [#/Vol] 256 10*3/uL Normal 150-450 [facility] Comment on above: Performed By: #### D IFF CBC, PTT, CK, HS TROP, CMP, CBC, PT #### [address] Potassium [Moles/volume] in Serum or PlasmaOrdered By: Sabrina Lama on 01-13-2024 Potassium [Moles/Vol] 4.2 mmol/L Normal 3.5-5.1 [facility] Comment on above: Performed By: #### D IFF CBC, PTT, CK, HS TROP, CMP, CBC, PT #### [address] RBC morphologyOrdered By: Jael Lama on 01-13-2024 RBC morphology finding Nom (Bld) Normal Normal Normal [facility] Comment on above: Performed By: #### D IFF CBC, PTT, CK, HS TROP, CMP, CBC, PT #### [facility] [address] [place] [address] Scan and CBCon 01-13-2024 Mean Corpuscular HGB Conc 33.3 g/dL Normal 32.5-35.6 [facility] Comment on above: Performed By: #### D IFF CBC, PTT, CK, HS TROP, CMP, CBC, PT #### [address] NRBC% 0.1 /100{WBC} Normal 0-0.5 [facility] Comment on above: Performed By: #### D IFF CBC, PTT, CK, HS TROP, CMP, CBC, PT #### [address] Platelet Estimate Normal Normal Normal [facility] Comment on above: Performed By: #### D IFF CBC, PTT, CK, HS TROP, CMP, CBC, PT #### [address] Platelet Morphology Normal Normal Normal [facility] Comment on above: Result Comment: PERF ORMED BY: [place] [address] PATHOLOGIST SENIOR TELECOMMUNICATIONS CONSULTANT DENNIS RODRIGUEZ M.D. Performed By: #### D IFF CBC, PTT, CK, HS TROP, CMP, CBC, PT #### [address] Serum or plasma anion gap de terminationOrdered By: Sabrina Lama on 01-13-2024 Anion gap [Moles/Vol] 10.0 mmol/L Normal 6.0-15.0 [facility] Comment on above: Performed By: #### D IFF CBC, PTT, CK, HS TROP, CMP, CBC, PT #### [address] Sodium [Moles/volume] in Ser um or PlasmaOrdered By: Sabrina Lama on 01-13-2024 Sodium [Moles/Vol] 137 mmol/L Normal 136-145 [facility] Comment on above: Performed By: #### D IFF CBC, PTT, CK, HS TROP, CMP, CBC, PT #### [address] US carotid doppler BIon 06-0 US carotid doppler BI [facility] [place] [address] [place] [address] Ultrasound Report Signed Patient: Dagoberto Squires MR#: [id number] : 1945 Acct:[id number] Age/Sex: 78 / M ADM Date: 01/11/24 Loc: Room: [address] [place] [address] Type: ADM IN Attending Dr: Zachary Garcia [...] Dao Johnston M.D.01/13/2024 12:16 PM Dictation Location: [id number] Tech: Kallieshanna Singh Transcribed By: ALEA 01/13/24 1216 Dictated By: Dao Johnston MD 01/13/24 1214 Signed By: 01/13/24 1216 Normal [facility] Urea nitrogen [Mass/volume] in Serum or PlasmaOrdered By: Sabrina Lama on 01-13-2024 Urea nitrogen [Mass/Vol] 18 mg/dL Normal 7-25 [facility] Comment on above: Performed By: #### D IFF CBC, PTT, CK, HS TROP, CMP, CBC, PT #### [facility] [address] [place] [id number] [facility] Glucose Poct Glucometerson 0 01-12-2024 Glucose [Mass/Vol] 211 mg/dL Normal [facility] Comment on above: Result Comment: [place] om Glucose Reference Range is dependent on time and content of last meal. Glucose of more than 200 mg/dL in a nonstressed, ambulatory subject supports the diagnosis of Diabetes Mellitus. PERFORMED BY: [place] [address] PATHOLOGIST SENIOR TELECOMMUNICATIONS CONSULTANT DENNIS RODRIGUEZ M.D. Performed By: #### D IFF CBC, PTT, CK, HS TROP, CMP, CBC, PT #### [facility] [address] [place] [id number] [facility] Glucose [Mass/Vol] 129 mg/dL Normal [facility] Comment on above: Result Comment: [place] om Glucose Reference Range is dependent on time and content of last meal. Glucose of more than 200 mg/dL in a nonstressed, ambulatory subject supports the diagnosis of Diabetes Mellitus. PERFORMED BY: [place] [address] PATHOLOGIST SENIOR TELECOMMUNICATIONS CONSULTANT DENNIS RODRIGUEZ M.D. Performed By: #### D IFF CBC, PTT, CK, HS TROP, CMP, CBC, PT #### [facility] [address] [place] [id number] [facility] Commemt1 Glu2: Cleaned Meter Normal [facility] Comment on above: Result Comment: PERF ORMED BY: [place] [address] PATHOLOGIST SENIOR TELECOMMUNICATIONS CONSULTANT DENNIS RODRIGUEZ M.D. Performed By: #### G LULS #### Point of Care testing , Glucose [Mass/Vol] 195 mg/dL Normal [facility] Comment on above: Result Comment: [place] om Glucose Reference Range is dependent on time and content of last meal. Glucose of more than 200 mg/dL in a nonstressed, ambulatory subject supports the diagnosis of Diabetes Mellitus. Performed By: #### G LULS #### Point of Care testing , Commemt1 Glu2: Cleaned Meter Normal [facility] Comment on above: Result Comment: PERF ORMED BY: [place] [address] PATHOLOGIST SENIOR TELECOMMUNICATIONS CONSULTANT DENNIS RODRIGUEZ M.D. Performed By: #### D IFF CBC, PTT, CK, HS TROP, CMP, CBC, PT #### [address] Glucose [Mass/Vol] 226 mg/dL Normal [facility] Comment on above: Result Comment: [place] om Glucose Reference Range is dependent on time and content of last meal. Glucose of more than 200 mg/dL in a nonstressed, ambulatory subject supports the diagnosis of Diabetes Mellitus. Performed By: #### D IFF CBC, PTT, CK, HS TROP, CMP, CBC, PT #### [address] Glucose [Mass/Vol] 156 mg/dL Normal [facility] Comment on above: Result Comment: [place] om Glucose Reference Range is dependent on time and content of last meal. Glucose of more than 200 mg/dL in a nonstressed, ambulatory subject supports the diagnosis of Diabetes Mellitus. PERFORMED BY: [place] [address] PATHOLOGIST SENIOR TELECOMMUNICATIONS CONSULTANT DENNIS RODRIGUEZ M.D. Performed By: #### D IFF CBC, PTT, CK, HS TROP, CMP, CBC, PT #### [address] No Panel InformationOrdered By: Zachary Garcia on 01-12-2024 Bedside Glucose Comment Glu2: cleaned meter [facility] A1C with Estimated Average Priya enriquez 01-11-2024 Glucose [Mass/Vol] 180 mg/dL Normal [facility] Comment on above: Result Comment: PERF ORMED BY: [place] [address] PATHOLOGIST SENIOR TELECOMMUNICATIONS CONSULTANT DENNIS RODRIGUEZ M.D. Performed By: #### D IFF CBC, PTT, CK, HS TROP, CMP, CBC, PT #### [address] Anisocytosis [Presence] in B lood by Light microscopyOrdered By: Faiza Mcdonald on 01-11-2024 Anisocytosis Ql (Bld) Slight Normal [facility] Comment on above: Performed By: #### D IFF CBC, PTT, CK, HS TROP, CMP, CBC, PT #### [address] BNP ser/plasOrdered By: Sabrina Lama on 01-11-2024 Natriuretic peptide B (Bld) [Mass/Vol] 38.0 pg/mL Normal 5-100 [facility] Comment on above: Order Comment: Comme nt add on to previuosly drawn labs this a.m. Result Comment: PERF ORMED BY: [place] [address] PATHOLOGIST SENIOR TELECOMMUNICATIONS CONSULTANT DENNIS RODRIGUEZ M.D. Performed By: #### D IFF CBC, PTT, CK, HS TROP, CMP, CBC, PT #### [place] [id number] [facility] Basic Metabolic Panelon Anion gap [Moles/Vol] 8.3 mmol/L Normal 6.0-15.0 [facility] Comment on above: Performed By: #### D IFF CBC, PTT, CK, HS TROP, CMP, CBC, PT #### [place] [id number] [facility] Calcium [Mass/Vol] 9.0 mg/dL Normal 8.6-10.3 [facility] Comment on above: Performed By: #### D IFF CBC, PTT, CK, HS TROP, CMP, CBC, PT #### [facility] [address] Chloride [Moles/Vol] 104 mmol/L Normal 98-107 [facility] Comment on above: Performed By: #### D IFF CBC, PTT, CK, HS TROP, CMP, CBC, PT #### [facility] [address] CO2 [Moles/Vol] 28.6 mmol/L Normal 21.0-31.0 [facility] Comment on above: Performed By: #### D IFF CBC, PTT, CK, HS TROP, CMP, CBC, PT #### [address] Creatinine [Mass/Vol] 1.22 mg/dL Normal 0.70-1.30 [facility] Comment on above: Performed By: #### D IFF CBC, PTT, CK, HS TROP, CMP, CBC, PT #### [address] Creatinine Clr Calc Pharmacy 63.72 Normal [facility] Comment on above: Performed By: #### D IFF CBC, PTT, CK, HS TROP, CMP, CBC, PT #### [address] GFR/1.73 sq M.predicted MDRD (S/P/Bld) [Vol rate/Area] mL/min/{1.73_m2} Normal [facility] Comment on above: Performed By: #### D IFF CBC, PTT, CK, HS TROP, CMP, CBC, PT #### [facility] [address] Glucose [Mass/Vol] 166 mg/dL Significant change up 70-100 [facility] Comment on above: Result Comment: [place] Glucose Reference Range is dependent on time and content of last meal. Glucose of more than 200 mg/dL in a nonstressed, ambulatory subject supports the diagnosis of Diabetes Mellitus. ADA recommended reference range Performed By: #### D IFF CBC, PTT, CK, HS TROP, CMP, CBC, PT #### [address] Potassium [Moles/Vol] 3.9 mmol/L Normal 3.5-5.1 [facility] Comment on above: Performed By: #### D IFF CBC, PTT, CK, HS TROP, CMP, CBC, PT #### [address] Sodium [Moles/Vol] 137 mmol/L Normal 136-145 [facility] Comment on above: Performed By: #### D IFF CBC, PTT, CK, HS TROP, CMP, CBC, PT #### [address] Urea nitrogen [Mass/Vol] 18 mg/dL Normal 7-25 [facility] Comment on above: Performed By: #### D IFF CBC, PTT, CK, HS TROP, CMP, CBC, PT #### [address] Basophils/100 leukocytes in Blood by Manual countOrdered By: Faiza Mcdonald on 01-11-2024 Basophils/100 WBC (Bld) 2 % Normal 0-2 [facility] Comment on above: Performed By: #### D IFF CBC, PTT, CK, HS TROP, CMP, CBC, PT #### [address] angio neckon 01-11-2024 CT angio neck [place] [address] CT Scan Report Signed Patient: Dagoberto Squires MR#: [id number] : 1945 Acct:[id number] Age/Sex: 78 / M ADM Date: 01/11/24 Loc: Room: [address] [place] [address] Type: ADM INOo Attending Dr: Zachary Garcia MD Copies to: MD Nicko Sanchez DO Ordering Provider: Nicko Grimm DO Date of Service: 01/10/24 CT/CT angio neck: r/o stroke ([id number]) CT/CT angio head: r/o stroke CTA Head [...] Dao Toscano M.D.01/11/2024 8:25 AM Dictation Location: [place] [address] Transcribed By: [facility] 01/11/24 Dictated By: Dao Toscano DO 01/11/24 08 Signed By: 01/11/24 08 Normal [facility] CT head stroke alert wo cono n 01-11-2024 CT head stroke alert wo con [facility] [place] [address] [place], [place] [id number] CT Scan Report Signed Patient: Dagoberto Squires MR#: [id number] : 1945 Acct:[id number] Age/Sex: 78 / M ADM Date: 01/11/24 Loc: Room: [address] [place] [address] Type: ADM INOo Attending Dr: Zachary Garcia [...] Dao Toscano M.D.01/11/2024 8:11 AM Dictation Location: [place] [address] Transcribed By: [facility] 01/11/24 08 Dictated By: Dao Toscano DO 01/11/24 08 Signed By: 01/11/24 08 Normal [facility] CT head/brain perfusionon CT head/brain perfusion [facility] [place] [address] [place] [address] CT Scan Report Signed Patient: Dagoberto Squires MR#: [id number] : 1945 Acct:[id number] Age/Sex: 78 / M ADM Date: 01/11/24 Loc: 3T Room: [address] [place] [address] Type: ADM IN Attending Dr: Zachary Garcia [...] Gómez Alan M.D.01/11/2024 4:36 PM Dictation Location: [place] [address] Transcribed By: ALEA 01/11/24 1636 Dictated By: Gómez Alan II, MD 01/11/24 1632 Signed By: 01/11/24 1636 Normal [facility] Cholesterol [Mass/volume] in Serum or PlasmaOrdered By: Faiza Mcdonald on 01-11-2024 Cholesterol [Mass/Vol] 172 mg/dL Normal 140-200 [facility] Comment on above: Chol less than 200 m g/dl low riskChol 201-239 mg/dl borderline riskChol 240 mg/dl and greater high risk Result Comment: Chol less than 200 mg/dl low risk Chol 201-239 mg/dl borderline risk Chol 240 mg/dl and greater high risk Performed By: #### D IFF CBC, PTT, CK, HS TROP, CMP, CBC, PT #### [address] Cholesterol in LDL Calc [Mas s/Vol]Ordered By: Faiza Mcdonald on 01-11-2024 Cholesterol in LDL [Mass/Vol] 107 mg/dL High 0-100 [facility] Comment on above: LDL ATP III CLASSIFI CATIONLDL less than 100 mg/dL OptimalLDL 100-129 mg/dL Near or above optimalLDL 130-159 mg/dL Borderline highLDL 160-189 mg/dL HighLDL greater than 189 mg/dL Very high Cholesterol in VLDL Calc [Ma ss/Vol]Ordered By: Faiza Mcdonald on 01-11-2024 Cholesterol in VLDL [Mass/Vol] 37 mg/dL [facility] Diff and CBCon 01-11-2024 Erythrocyte distribution width (RBC) [Ratio] 14.0 % Normal 12.0-14.8 [facility] Comment on above: Performed By: #### D IFF CBC, PTT, CK, HS TROP, CMP, CBC, PT #### [facility] [address] Giant Platelet Tally 1 /100{WBC} Normal [facility] Comment on above: Performed By: #### D IFF CBC, PTT, CK, HS TROP, CMP, CBC, PT #### [address] Hematocrit (Bld) [Volume fraction] 40.7 % Normal 38.8-50.0 [facility] Comment on above: Performed By: #### D IFF CBC, PTT, CK, HS TROP, CMP, CBC, PT #### [address] Hemoglobin (Bld) [Mass/Vol] 13.7 g/dL Normal 13.0-17.0 [facility] Comment on above: Performed By: #### D IFF CBC, PTT, CK, HS TROP, CMP, CBC, PT #### [address] Large Platelets Slight Normal [facility] Comment on above: Result Comment: PERF ORMED BY: [place] [address] PATHOLOGIST SENIOR TELECOMMUNICATIONS CONSULTANT DENNIS RODRIGUEZ M.D. Performed By: #### D IFF CBC, PTT, CK, HS TROP, CMP, CBC, PT #### [address] MCH (RBC) [Entitic mass] 31.9 pg Normal 27.5-35.2 [facility] Comment on above: Performed By: #### D IFF CBC, PTT, CK, HS TROP, CMP, CBC, PT #### [address] MCV (RBC) [Entitic vol] 94.7 fL Normal 83.5-101 [facility] Comment on above: Performed By: #### D IFF CBC, PTT, CK, HS TROP, CMP, CBC, PT #### [address] Mean Corpuscular HGB Conc 33.7 g/dL Normal 32.5-35.6 [facility] Comment on above: Performed By: #### D IFF CBC, PTT, CK, HS TROP, CMP, CBC, PT #### [address] Microcytosis Slight Normal [facility] Comment on above: Performed By: #### D IFF CBC, PTT, CK, HS TROP, CMP, CBC, PT #### [address] Monocytes/100 WBC (Bld) 17.43 % Normal 0.00-20.00 [facility] Comment on above: Performed By: #### D IFF CBC, PTT, CK, HS TROP, CMP, CBC, PT #### [address] Myelocytes 2 % High 0-0 [facility] Comment on above: Performed By: #### D IFF CBC, PTT, CK, HS TROP, CMP, CBC, PT #### [address] Platelet Estimate Normal Normal Normal [facility] Comment on above: Performed By: #### D IFF CBC, PTT, CK, HS TROP, CMP, CBC, PT #### [address] Platelet mean volume (Bld) [Entitic vol] 8.2 fL Normal 6.6-10.1 [facility] Comment on above: Performed By: #### D IFF CBC, PTT, CK, HS TROP, CMP, CBC, PT #### [place] [address] [place] Platelets (Bld) [#/Vol] 208 10*3/uL Normal 150-450 [facility] Comment on above: Performed By: #### D IFF CBC, PTT, CK, HS TROP, CMP, CBC, PT #### [place] [address] [place] RBC (Bld) [#/Vol] 4.30 10*6/uL Normal 3.90-5.60 [facility] Comment on above: Performed By: #### D IFF CBC, PTT, CK, HS TROP, CMP, CBC, PT #### [facility] [address] WBC (Bld) [#/Vol] 16.0 10*3/uL High 4.1-10.5 [facility] Comment on above: Performed By: #### D IFF CBC, PTT, CK, HS TROP, CMP, CBC, PT #### [facility] [address] echo transthoracicon [facility] echo transthoracic [facility] [place] [address] [place] [address] Echocardiogram Signed Patient: Dagoberto Squires MR#: [id number] : 1945 Acct:[id number] Age/Sex: 78 / M ADM Date: 01/11/24 Loc: Room: [address] [place] [address] Type: ADM INOo Attending Dr: Zachary Garcia MD Ordering Provider: Faiza Mcdonald, ELECTRON GUN INSPECTOR Date of Service: 01/11/2411/30/499 [facility] echo transthoracic: Source of Emboli Copies to: MD Faiza Narvaez, ELECTRON GUN INSPECTOR Weight: 233 lb Performed By: JUAN Woods [...] Janell Burger MD 01/11/24 1251 Normal [facility] Eosinophils/100 leukocytes i n Blood by Manual countOrdered By: Faiza Mcdonald on 01-11-2024 Eosinophils/100 WBC (Bld) 26 % [address] Comment on above: Performed By: #### D IFF CBC, PTT, CK, HS TROP, CMP, CBC, PT #### [facility] [address] Giant platelets/100 leukocyt es [Ratio] in Blood by Manual countOrdered By: Faiza Mcdonald on 01-11-2024 Giant platelets/100 WBC Manual cnt (Bld) [Ratio] 1 /100{WBC} [facility] Glucose Poct Glucometerson 0 01-11-2024 Glucose [Mass/Vol] 208 mg/dL Normal [facility] Comment on above: Result Comment: [place] Glucose Reference Range is dependent on time and content of last meal. Glucose of more than 200 mg/dL in a nonstressed, ambulatory subject supports the diagnosis of Diabetes Mellitus. PERFORMED BY: [place] [address] PATHOLOGIST SENIOR TELECOMMUNICATIONS CONSULTANT DENNIS RODRIGUEZ M.D. Performed By: #### D IFF CBC, PTT, CK, HS TROP, CMP, CBC, PT #### [facility] [address] Glucose mean value [Mass/vol ume] in Blood Estimated from glycated hemoglobinOrdered By: Faiza Mcdonald on 01-11-2024 Average glucose Estimated from glycated hemoglobin (Bld) [Mass/Vol] 180 mg/dL [facility] Hemoglobin A1c percentageOrd ered By: Faiza Mcdonald on 01-11-2024 HbA1c (Bld) [Mass fraction] 7.9 % High 4.3-5.6 [facility] Comment on above: Increased risk for d iabetes: 5.7 - 6.4diabetes: >6.4glycemic control for adults with diabetes: <7.0 Result Comment: Incr eased risk for diabetes: 5.7 - 6.4 diabetes: >6.4 glycemic control for adults with diabetes: <7.0 Performed By: #### D IFF CBC, PTT, CK, HS TROP, CMP, CBC, PT #### [facility] [address] [place] [id number] [facility] Lipid Panelon 01-11-2024 LDL Cholesterol,Calculated 107 mg/dL High 0-100 [facility] Comment on above: Result Comment: LDL ATP III CLASSIFICATION LDL less than 100 mg/dL Optimal LDL 100-129 mg/dL Near or above optimal LDL 130-159 mg/dL Borderline high LDL 160-189 mg/dL High LDL greater than 189 mg/dL Very high Performed By: #### D IFF CBC, PTT, CK, HS TROP, CMP, CBC, PT #### [facility] [address] Triglyceride w/Reflex 186 mg/dL High 0-149 [facility] Comment on above: Result Comment: TRIG ATP III CLASSIFICATION TRIG less than 150 mg/dL Normal TRIG 150-199 mg/dL Borderline high TRIG 200-500 mg/dL High TRIG greater than 500 mg/dL Very high Standard traceable to the Center for Disease Conrtrol and Prevention (CDC) test method. Performed By: #### D IFF CBC, PTT, CK, HS TROP, CMP, CBC, PT #### [facility] [address] VLDL CHOLESTEROL 37 mg/dL Normal [facility] Comment on above: Performed By: #### D IFF CBC, PTT, CK, HS TROP, CMP, CBC, PT #### [facility] [address] Lymphocytes/100 leukocytes i n Blood by Manual countOrdered By: Faiza Mcdonald on 01-11-2024 Lymphocytes/100 WBC (Bld) 11 % Low 18-42 [facility] Comment on above: Performed By: #### D IFF CBC, PTT, CK, HS TROP, CMP, CBC, PT #### [facility] [address] [place] [id number] [facility] MR head/brain wo conon 01-10 MR head/brain wo [facility] [place] [address] MRI Report Signed Patient: Dagoberto Squires MR#: [id number] : 1945 Acct:[id number] Age/Sex: 78 / M ADM Date: 01/11/24 Loc: 3T Room: [address] [place] [address] Type: ADM IN Attending Dr: Zachary Garcia [...] Gómez Alan M.D.01/11/2024 6:15 PM Dictation Location: [place] [address] Transcribed By: ALEA 01/11/241814 Dictated By: Gómez Alan II, MD 01/11/241808 Signed By: 01/11/241814 Normal [facility] Magnesium [Mass/volume] in S liza or PlasmaOrdered By: Faiza Mcdonald on 01-11-2024 Magnesium [Mass/Vol] 1.7 mg/dL Low 1.9-2.7 [facility] Comment on above: Performed By: #### D IFF CBC, PTT, CK, HS TROP, CMP, CBC, PT #### [facility] [address] [place] [address] Manual blood segmented neutr ophils/100 leukocytesOrdered By: Faiza Mcdonald on 01-11-2024 Segmented neutrophils/100 WBC (Bld) 48 % Low 50-70 [facility] Comment on above: Performed By: #### D IFF CBC, PTT, CK, HS TROP, CMP, CBC, PT #### [facility] [address] [place] [address] Microcytes LM Ql (Bld)Ordere d By: Faiza Mcdonald on 01-11-2024 Microcytes Ql (Bld) Slight [facility] Monocyte distribution width [Entitic volume] in Blood by AutomatedOrdered By: Faiza Mcdonald on 01-11-2024 Monocyte distribution width Auto (Bld) [Entitic vol] 17.43 % 0.00-20.00 [facility] Monocytes/100 leukocytes in Blood by Manual countOrdered By: Faiza Mcdonald on 01-11-2024 Monocytes/100 WBC (Bld) 8 % Normal 2-11 [facility] Comment on above: Performed By: #### D IFF CBC, PTT, CK, HS TROP, CMP, CBC, PT #### [facility] [address] Myelocytes/100 WBC Manual cn t (Bld)Ordered By: Faiza Mcdonald on 01-11-2024 Myelocytes/100 WBC (Bld) 2 % High 0-0 [facility] Peripheral white blood cell differential % bands, microscopic examOrdered By: Faiza Mcdonald on 01-11-2024 Band form neutrophils/100 WBC (Bld) 4 % Normal 0-5 [facility] Comment on above: Performed By: #### D IFF CBC, PTT, CK, HS TROP, CMP, CBC, PT #### [facility] [address] Platelets Large [Presence] i n Blood by Light microscopyOrdered By: Faiza Mcdonald on 01-11-2024 Platelets Large LM Ql (Bld) Slight [facility] Serum or plasma high density lipoprotein (HDL) cholesterol measurementOrdered By: Faiza Mcdonald on 01-11-2024 Cholesterol in HDL [Mass/Vol] 28 mg/dL Normal 23-92 [facility] Comment on above: HDL CHOL ATP-III CLA SSIFICATION Cardiovascular RiskHDL > or equal to 60 mg/dL LOWHDL < 40 mg/dL HIGH Result Comment: HDL CHOL ATP-III CLASSIFICATION Cardiovascular Risk HDL > or equal to 60 mg/dL LOW HDL < 40 mg/dL HIGH Performed By: #### D IFF CBC, PTT, CK, HS TROP, CMP, CBC, PT #### [facility] [address] Serum or plasma total choles terol/high density lipoprotein (HDL) cholesterol mass ratOrdered By: Faiza Mcdonald on 01-11-2024 Cholesterol.total/Chol esterol in HDL [Mass ratio] 6.1 {ratio} Normal <5.0 [facility] Comment on above: Result Comment: PERF ORMED BY: [place] [address] PATHOLOGIST SENIOR TELECOMMUNICATIONS CONSULTANT DENNIS RODRIGUEZ M.D. Performed By: #### D IFF CBC, PTT, CK, HS TROP, CMP, CBC, PT #### [facility] [address] [place] [id number] [facility] Triglyceride [Mass/volume] i n Serum or PlasmaOrdered By: Faiza Mcdonald on 01-11-2024 Triglyceride [Mass/Vol] 186 mg/dL High 0-149 [facility] Comment on above: TRIG ATP III CLASSIF ICATIONTRIG less than 150 mg/dL NormalTRIG 150-199 mg/dL Borderline highTRIG 200-500 mg/dL High TRIG greater than 500 mg/dL Very highStandard traceable to the Center for Disease Conrtrol and Prevention (CDC) test method. XR chest 1V portableon 01-10 XR chest 1V portable [facility] Main [place] [address] [place] [address] XRay Report Signed Patient: Dagoberto Squires MR#: [id number] : 1945 Acct:[id number] Age/Sex: 78 / M ADM Date: 01/11/24 Loc: Room: [address] [place] [address] Type: ADM INOo Attending Dr: Zachary Garcia [...] Gómez Alan M.D.01/11/2024 8:45 AM Dictation Location: [place] [address] Transcribed By: [facility] 01/11/24 0845 Dictated By: Gómez Alan II, MD 01/11/2444 Signed By: 01/11/24 0845 Normal [facility] XR pre/post mri xrayon 01-10 XR pre/post mri xray [facility] Main [place] [address] [place] [address] XRay Report Signed Patient: Dagoberto Squires MR#: [id number] : 1945 Acct:[id number] Age/Sex: 78 / M ADM Date: 01/11/24 Loc: Room: [address] [place] [address] Type: ADM IN Attending Dr: Zachary Garcia [...] Gómez Alan M.D.01/11/2024 4:37 PM Dictation Location: [place] [address] Transcribed By: [facility] 01/11/24 1637 Dictated By: Gómez Alan II, MD 01/11/24 1636 Signed By: 01/11/24 1637 Normal [facility] Activated partial thrombopla stin time (aPTT) in platelet poor plasma by coagulation aOrdered By: Nicko Grimm on 01-10-2024 aPTT Coag (PPP) [Time] 30.0 s 25.1-36.5 [facility] Comment on above: A hematocrit value g reater than 55% may lead to inaccurate results in coagulation testing. Patients having hematocrit values >55% require a special collection tube for coagulation studies. Please contact the laboratory at [phone] for redraw instructions. Alanine aminotransferase [En zymatic activity/volume] in Serum or PlasmaOrdered By: Nicko Grimm on 01-10-2024 ALT [Catalytic activity/Vol] 8 U/L Normal 7-52 [facility] Comment on above: Performed By: #### D IFF CBC, PTT, CK, HS TROP, CMP, CBC, PT #### [facility] [address] Albumin [Mass/volume] in Ser um or Plasma by Bromocresol green (BCG) dye binding methoOrdered By: Nicko Grimm on 01-10-2024 Albumin BCG dye [Mass/Vol] 3.8 g/dL 3.5-5.7 [facility] Alkaline phosphatase [Enzyma tic activity/volume] in Serum or PlasmaOrdered By: Nicko Grimm on 01-10-2024 ALP [Catalytic activity/Vol] 78 U/L Normal 34-104 [facility] Comment on above: Performed By: #### D IFF CBC, PTT, CK, HS TROP, CMP, CBC, PT #### [facility] [address] [place] [address] Amphetamine Screen Ql (U)Ord ered By: Faiza Mcdonald on 01-10-2024 Amphetamines Ql (U) Negative Negative [facility] Aspartate aminotransferase [ Enzymatic activity/volume] in Serum or PlasmaOrdered By: Nicko Grimm on 01-10-2024 AST [Catalytic activity/Vol] 13 U/L Normal 13-39 [facility] Comment on above: Performed By: #### D IFF CBC, PTT, CK, HS TROP, CMP, CBC, PT #### [facility] [address] [place] [address] Bacteria [Presence] in Urine by AutomatedOrdered By: Nicko Grimm on 01-10-2024 Bacteria Auto Ql (U) None seen [HPF] None Seen [facility] Barbiturates [Presence] in U rine by Screen methodOrdered By: Faiza Mcdonald on 01-10-2024 Barbiturates Screen Ql (U) Negative Negative [facility] Basophils Auto (Bld) [#/Vol] Ordered By: Nicko Grimm on 01-10-2024 Basophils (Bld) [#/Vol] N/A [facility] Basophils/100 WBC Auto (Bld) Ordered By: Nicko Grimm on 01-10-2024 Basophils/100 WBC (Bld) N/A [facility] Basophils/100 leukocytes in Blood by Manual countOrdered By: Nicko Grimm on 01-10-2024 Basophils/100 WBC (Bld) 1 % Normal 0-2 [facility] Comment on above: Performed By: #### D IFF CBC, PTT, CK, HS TROP, CMP, CBC, PT #### [facility] [address] Benzodiazepines Screen Ql (U )Ordered By: Faiza Mcdonald on 01-10-2024 Benzodiazepines Ql (U) Negative Negative [facility] Benzoylecgonine [Presence] i n Urine by Screen methodOrdered By: Faiza Mcdonald on 01-10-2024 Benzoylecgonine Screen Ql (U) Negative Negative [facility] Bilirubin Test strip Ql (U)O rdered By: Nicko Grimm on 01-10-2024 Bilirubin Ql (U) Negative Negative [facility] Bilirubin.total [Mass/volume ] in Serum or PlasmaOrdered By: Nicko Grimm on 01-10-2024 Bilirubin [Mass/Vol] 0.6 mg/dL Normal 0.3-1.0 [facility] Comment on above: Performed By: #### D IFF CBC, PTT, CK, HS TROP, CMP, CBC, PT #### [facility] [address] [place] [id number] [place] Calcium [Mass/volume] in Ser um or PlasmaOrdered By: Nicko Grimm on 01-10-2024 Calcium [Mass/Vol] 9.4 mg/dL Normal 8.6-10.3 [facility] Comment on above: Performed By: #### D IFF CBC, PTT, CK, HS TROP, CMP, CBC, PT #### [facility] [address] [place] [id number] [place] Cannabinoids [Presence] in U rine by Screen methodOrdered By: Faiza Mcdonald on 01-10-2024 Cannabinoids Screen Ql (U) Positive High Negative [facility] Comment on above: These are unconfirme d results and should not be used for legal purposes. Drug Cut-Off Concentration: AMPH 1000 ng/mL NIMESH 200 ng/mL STEVEN 200 ng/mL COCM 300 ng/mL OP 300 ng/mL PCP 25 ng/mL THC 20 ng/mL Capillary blood glucose lupillo urement by glucometer (mass/volume)Ordered By: Nicko Grimm on 01-10-2024 Glucose [Mass/Vol] 215 mg/dL Normal [facility] Comment on above: Random Glucose Refer ence Range is dependent on time and content of last meal. Glucose of more than 200 mg/dL in a nonstressed, ambulatory subject supports the diagnosis of Diabetes Mellitus. Result Comment: [place] om Glucose Reference Range is dependent on time and content of last meal. Glucose of more than 200 mg/dL in a nonstressed, ambulatory subject supports the diagnosis of Diabetes Mellitus. PERFORMED BY: [place] [address] PATHOLOGIST SENIOR TELECOMMUNICATIONS CONSULTANT DENNIS RODRIGUEZ M.D. Performed By: #### D IFF CBC, PTT, CK, HS TROP, CMP, CBC, PT #### [facility] [address] [place] [address] [place] Carbon dioxide, total [Moles /volume] in Serum or PlasmaOrdered By: Nicko Grimm on 01-10-2024 CO2 [Moles/Vol] 29.3 mmol/L Normal 21.0-31.0 [facility] Comment on above: Performed By: #### D IFF CBC, PTT, CK, HS TROP, CMP, CBC, PT #### [facility] [address] [place] [id number] [place] Chloride [Moles/volume] in S liza or PlasmaOrdered By: Nicko Grimm on 01-10-2024 Chloride [Moles/Vol] 100 mmol/L Normal 98-107 [facility] Comment on above: Performed By: #### D IFF CBC, PTT, CK, HS TROP, CMP, CBC, PT #### [facility] [address] [place] [address] [place] Color of Urine by AutoOrdere d By: Nicko Grimm on 01-10-2024 Color (U) Yellow Normal Yellow [facility] Comment on above: Order Comment: Name Collection Type:: Clean-Voided Midstream Performed By: #### D IFF CBC, PTT, CK, HS TROP, CMP, CBC, PT #### [facility] [address] Complete Blood Count Auto Di ffon 01-10-2024 Mean Corpuscular HGB Conc 33.2 g/dL Normal 32.5-35.6 [facility] Comment on above: Performed By: #### D IFF CBC, PTT, CK, HS TROP, CMP, CBC, PT #### [facility] [address] [place] [address] Monocytes/100 WBC (Bld) 20.12 % High 0.00-20.00 [facility] Comment on above: Result Comment: For adults in ED, MDW > 20.0 may be associated with a higher risk of sepsis during the first 12 hrs of hospital admission PERFORMED BY: [place] [address] PATHOLOGIST SENIOR TELECOMMUNICATIONS CONSULTANT DENNIS RODRIGUEZ M.D. Performed By: #### D IFF CBC, PTT, CK, HS TROP, CMP, CBC, PT #### [address] Result Comment: For adults in ED, MDW > 20.0 may be associated with a higher risk of sepsis during the first 12 hrs of hospital admission Comprehensive Metabolic Pane luisito 01-10-2024 Albumin [Mass/Vol] 3.8 g/dL Normal 3.5-5.7 [facility] Comment on above: Performed By: #### D IFF CBC, PTT, CK, HS TROP, CMP, CBC, PT #### [facility] [address] [place] [address] Creatinine Clr Calc Pharmacy 57.26 Normal [facility] Comment on above: Result Comment: PERF ORMED BY: [place] [address] PATHOLOGIST SENIOR TELECOMMUNICATIONS CONSULTANT DENNIS RODRIGUEZ M.D. Performed By: #### D IFF CBC, PTT, CK, HS TROP, CMP, CBC, PT #### [address] GFR/1.73 sq M.predicted MDRD (S/P/Bld) [Vol rate/Area] 52.997 mL/min/{1.73_m2} Normal [facility] Comment on above: Performed By: #### D IFF CBC, PTT, CK, HS TROP, CMP, CBC, PT #### [address] Creatine kinase [Enzymatic a ctivity/volume] in Serum or PlasmaOrdered By: Nicko Girmm on 01-10-2024 CK [Catalytic activity/Vol] 32 U/L Normal 30-223 [facility] Comment on above: Performed By: #### D IFF CBC, PTT, CK, HS TROP, CMP, CBC, PT #### [address] Creatinine [Mass/volume] in Serum or PlasmaOrdered By: Nicko Grimm on 01-10-2024 Creatinine [Mass/Vol] 1.38 mg/dL High 0.70-1.30 [facility] Comment on above: Performed By: #### D IFF CBC, PTT, CK, HS TROP, CMP, CBC, PT #### [address] Diff and CBCon 01-10-2024 Dohle Bodies Slight Normal [facility] Comment on above: Performed By: #### D IFF CBC, PTT, CK, HS TROP, CMP, CBC, PT #### [address] Metamyelocytes 1 % High 0-0 [facility] Comment on above: Performed By: #### D IFF CBC, PTT, CK, HS TROP, CMP, CBC, PT #### [address] Myelocytes 2 % High 0-0 [facility] Comment on above: Performed By: #### D IFF CBC, PTT, CK, HS TROP, CMP, CBC, PT #### [facility] [address] Platelet Estimate Normal Normal Normal [facility] Comment on above: Performed By: #### D IFF CBC, PTT, CK, HS TROP, CMP, CBC, PT #### [facility] [address] Platelet Morphology Normal Normal Normal [facility] Comment on above: Result Comment: PERF ORMED BY: [place] [address] PATHOLOGIST SENIOR TELECOMMUNICATIONS CONSULTANT DENNIS RODRIGUEZ M.D. Performed By: #### D IFF CBC, PTT, CK, HS TROP, CMP, CBC, PT #### [address] Toxic Vacuolation Slight Normal [facility] Comment on above: Performed By: #### D IFF CBC, PTT, CK, HS TROP, CMP, CBC, PT #### [address] Dipstick and Microscopicon 0 01-10-2024 Bacteria,Urine None Seen Normal None Seen [facility] Comment on above: Order Comment: Name Collection Type:: Clean-Voided Midstream Performed By: #### D IFF CBC, PTT, CK, HS TROP, CMP, CBC, PT #### [address] Bilirubin,Urine Negative Normal Negative [facility] Comment on above: Order Comment: Name Collection Type:: Clean-Voided Midstream Performed By: #### D IFF CBC, PTT, CK, HS TROP, CMP, CBC, PT #### [facility] [address] Glucose Ql (U) 500 mg/dL High Normal [facility] Comment on above: Order Comment: Name Collection Type:: Clean-Voided Midstream Performed By: #### D IFF CBC, PTT, CK, HS TROP, CMP, CBC, PT #### [facility] [address] Mucus,Urine Rare Normal [facility] Comment on above: Order Comment: Name Collection Type:: Clean-Voided Midstream Result Comment: PERF ORMED BY: [place] [address] PATHOLOGIST SENIOR TELECOMMUNICATIONS CONSULTANT DENNIS RODRIGUEZ M.D. Performed By: #### D IFF CBC, PTT, CK, HS TROP, CMP, CBC, PT #### [address] Nitrite,Urine Negative Normal Negative [facility] Comment on above: Order Comment: Name Collection Type:: Clean-Voided Midstream Performed By: #### D IFF CBC, PTT, CK, HS TROP, CMP, CBC, PT #### [address] Occult Blood,Urine Negative Normal Negative [facility] Comment on above: Order Comment: Name Collection Type:: Clean-Voided Midstream Result Comment: PERF ORMED BY: [place] [address] PATHOLOGIST SENIOR TELECOMMUNICATIONS CONSULTANT DENNIS RODRIGUEZ M.D. Performed By: #### D IFF CBC, PTT, CK, HS TROP, CMP, CBC, PT #### [address] RBC,Urine 1-2 Normal 0-4 [facility] Comment on above: Order Comment: Name Collection Type:: Clean-Voided Midstream Performed By: #### D IFF CBC, PTT, CK, HS TROP, CMP, CBC, PT #### [address] Specificy Crucible,Urine 1.043 High 1.001-1.03 0 [facility] Comment on above: Order Comment: Name Collection Type:: Clean-Voided Midstream Performed By: #### D IFF CBC, PTT, CK, HS TROP, CMP, CBC, PT #### [address] Squamous Epithelial Cell,Urine 1-2 Normal 0-2 [facility] Comment on above: Order Comment: Name Collection Type:: Clean-Voided Midstream Performed By: #### D IFF CBC, PTT, CK, HS TROP, CMP, CBC, PT #### [facility] [address] Urobilinogen,Urine Normal Normal Normal [facility] Comment on above: Order Comment: Name Collection Type:: Clean-Voided Midstream Performed By: #### D IFF CBC, PTT, CK, HS TROP, CMP, CBC, PT #### [facility] [address] WBC,Urine 3-4 Normal 0-4 [facility] Comment on above: Order Comment: Name Collection Type:: Clean-Voided Midstream Performed By: #### D IFF CBC, PTT, CK, HS TROP, CMP, CBC, PT #### [facility] [address] Dohle bodies detectionOrdere d By: Nicko Grimm on 01-10-2024 Dohle body LM Ql (Bld) Slight [facility] Drug Screen,Urineon 01-10-20 24 Amphetamine Screen,Urine Negative Normal Negative [facility] Comment on above: Order Comment: Comme nt add on Performed By: #### U RDS #### [address] Barbiturate Screen,Urine Negative Normal Negative [facility] Comment on above: Order Comment: Comme nt add on Performed By: #### U RDS #### [address] Benzodiazepines Screen,Urine Negative Normal Negative [facility] Comment on above: Order Comment: Comme nt add on Performed By: #### U RDS #### [address] Cannabinoid Screen,Urine Positive High Negative [facility] Comment on above: Order Comment: Comme nt add on Result Comment: Thes e are unconfirmed results and should not be used for legal purposes. Drug Cut-Off Concentration: AMPH 1000 ng/mL NIMESH 200 ng/mL STEVEN 200 ng/mL COCM 300 ng/mL OP 300 ng/mL PCP 25 ng/mL THC 20 ng/mL PERFORMED BY: [place] [address] PATHOLOGIST SENIOR TELECOMMUNICATIONS CONSULTANT DENNIS RODRIGUEZ M.D. Performed By: #### U RDS #### [address] Cocaine Screen,Urine Negative Normal Negative [facility] Comment on above: Order Comment: Comme nt add on Performed By: #### U RDS #### [address] Opiate Screen,Urine Negative Normal Negative [facility] Comment on above: Order Comment: Comme nt add on Performed By: #### U RDS #### [address] Phencyclidine Screen,Urine Negative Normal Negative [facility] Comment on above: Order Comment: Comme nt add on Performed By: #### U RDS #### [address] ECG 12 lead ECGon 01-10-2024 ECG 12 lead ECG [facility] [place] [address] [place] [address] Electrocardiograph Report Signed Patient: Dagoberto Squires MR#: [id number] : 1945 Acct:[id number] Age/Sex: 78 / M ADM Date: 01/11/24 Loc: Room: [address] [place] [address] Type: ADM INOo Attending Dr: Jc Brown [...] branch block Confirmed by Nicko Grimm DO ([id number]) on 01/11/2024 6:53:27 AM Referred By: Electronically Signed By:Nicko Grimm DO Transcribed By: MUS Signed By Nicko Grimm DO [id number] Normal [facility] Eosinophils Auto (Bld) [#/Vo l]Ordered By: Nicko Grimm on 01-10-2024 Eosinophils (Bld) [#/Vol] N/A [facility] Eosinophils/100 WBC Auto (Bl d)Ordered By: Nicko Grimm on 01-10-2024 Eosinophils/100 WBC (Bld) N/A [facility] Eosinophils/100 leukocytes i n Blood by Manual countOrdered By: Nicko Grimm on 01-10-2024 Eosinophils/100 WBC (Bld) 17 % High 1-3 [facility] Comment on above: Performed By: #### D IFF CBC, PTT, CK, HS TROP, CMP, CBC, PT #### [facility] [address] Epithelial cells.squamous [# /area] in Urine sediment by Automated countOrdered By: Nicko Grimm on 01-10-2024 Epithelial cells.squamous Auto (Urine sed) [#/Area] 1-2 [HPF] 0-2 [facility] Erythrocyte distribution wid th [Ratio] by Automated countOrdered By: Nicko Grimm on 01-10-2024 Erythrocyte distribution width (RBC) [Ratio] 14.4 % Normal 12.0-14.8 [facility] Comment on above: Performed By: #### D IFF CBC, PTT, CK, HS TROP, CMP, CBC, PT #### [facility] [address] Erythrocytes [#/area] in Uri ne sediment by Automated countOrdered By: Nicko Grimm on 01-10-2024 RBC Auto (Urine sed) [#/Area] 1-2 [HPF] 0-4 [facility] Erythrocytes [#/volume] in B lood by Automated countOrdered By: Nicko Grimm on 01-10-2024 RBC (Bld) [#/Vol] 4.81 10*6/uL Normal 3.90-5.60 [facility] Comment on above: Performed By: #### D IFF CBC, PTT, CK, HS TROP, CMP, CBC, PT #### [facility] [address] [place] [address] [place] Glucose [Mass/volume] in Ser um or PlasmaOrdered By: Nicko Grimm on 01-10-2024 Glucose [Mass/Vol] 266 mg/dL High 70-100 [facility] Comment on above: ADA recommended refe rence rangeRandom Glucose Reference Range is dependent on time and content of last meal. Glucose of more than 200 mg/dL in a nonstressed, ambulatory subject supports the diagnosis of Diabetes Mellitus. Result Comment: [place] om Glucose Reference Range is dependent on time and content of last meal. Glucose of more than 200 mg/dL in a nonstressed, ambulatory subject supports the diagnosis of Diabetes Mellitus. ADA recommended reference range Performed By: #### D IFF CBC, PTT, CK, HS TROP, CMP, CBC, PT #### [facility] [address] Glucose [Mass/volume] in Uri ne by Test stripOrdered By: Nicko Grimm on 01-10-2024 Glucose Test strip (U) [Mass/Vol] 500 mg/dL High Normal [facility] Hematocrit [Volume Fraction] of Blood by Automated countOrdered By: Nicko Grimm on 01-10-2024 Hematocrit (Bld) [Volume fraction] 45.7 % Normal 38.8-50.0 [facility] Comment on above: Performed By: #### D IFF CBC, PTT, CK, HS TROP, CMP, CBC, PT #### [facility] [address] [place] [id number] [facility] Hemoglobin Test strip Ql (U) Ordered By: Nicko Grimm on 01-10-2024 Hemoglobin Ql (U) Negative Negative [facility] Hemoglobin [Mass/volume] in BloodOrdered By: Nicko Grimm on 01-10-2024 Hemoglobin (Bld) [Mass/Vol] 15.2 g/dL Normal 13.0-17.0 [facility] Comment on above: Performed By: #### D IFF CBC, PTT, CK, HS TROP, CMP, CBC, PT #### [facility] [address] INR in Platelet poor plasma by Coagulation assayOrdered By: Nicko Grimm on 01-10-2024 INR Coag (PPP) [Relative time] 1.0 {INR} Normal [facility] Comment on above: INR Therapeutic Rang e [...] CK, HS TROP, CMP, CBC, PT #### [facility] [address] [place] [address] [place] Ketones [Presence] in Urine by Test stripOrdered By: Nicko Grimm on 01-10-2024 Ketones Ql (U) Negative Normal Negative [facility] Comment on above: Order Comment: Name Collection Type:: Clean-Voided Midstream Performed By: #### D IFF CBC, PTT, CK, HS TROP, CMP, CBC, PT #### [facility] [address] [place] [address] [place] Leukocyte esterase [Presence ] in Urine by Test stripOrdered By: Nicko Grimm on 01-10-2024 Leukocyte esterase Test strip Ql (U) Negative Normal Negative [facility] Comment on above: Order Comment: Name Collection Type:: Clean-Voided Midstream Performed By: #### D IFF CBC, PTT, CK, HS TROP, CMP, CBC, PT #### [facility] [address] [place] [address] [place] Leukocytes [#/area] in Urine sediment by Automated countOrdered By: Nicko Grimm on 01-10-2024 WBC Auto (Urine sed) [#/Area] 3-4 [HPF] 0-4 [facility] Leukocytes [#/volume] correc guillermina for nucleated erythrocytes in Blood by Automated counOrdered By: Nicko Grimm on 01-10-2024 WBC corrected for nucl RBC Auto (Bld) [#/Vol] 16.1 10*3/uL 4.1-10.5 [facility] Leukocytes [#/volume] in Blo od by Automated countOrdered By: Nicko Grimm on 01-10-2024 WBC (Bld) [#/Vol] 16.1 10*3/uL High 4.1-10.5 [facility] Comment on above: Performed By: #### D IFF CBC, PTT, CK, HS TROP, CMP, CBC, PT #### [facility] [address] [place] [address] Lymphocytes Auto (Bld) [#/Vo l]Ordered By: Nicko Grimm on 01-10-2024 Lymphocytes (Bld) [#/Vol] N/A [facility] Lymphocytes/100 WBC Auto (Bl d)Ordered By: Nicko Grimm on 01-10-2024 Lymphocytes/100 WBC (Bld) N/A [facility] Lymphocytes/100 leukocytes i n Blood by Manual countOrdered By: Nicko Grimm on 01-10-2024 Lymphocytes/100 WBC (Bld) 17 % Low 18-42 [facility] Comment on above: Performed By: #### D IFF CBC, PTT, CK, HS TROP, CMP, CBC, PT #### [facility] [address] MCH [Entitic mass] by Automa guillermina countOrdered By: Nicko Grimm on 01-10-2024 MCH (RBC) [Entitic mass] 31.5 pg Normal 27.5-35.2 [facility] Comment on above: Performed By: #### D IFF CBC, PTT, CK, HS TROP, CMP, CBC, PT #### [facility] [address] MCHC Auto (RBC) [Mass/Vol]Or dered By: Nicko Grimm on 01-10-2024 MCHC (RBC) [Mass/Vol] 33.2 g/dL 32.5-35.6 [facility] MCV [Entitic volume] by Auto mated countOrdered By: Nicko Grimm on 01-10-2024 MCV (RBC) [Entitic vol] 95.0 fL Normal 83.5-101 [facility] Comment on above: Performed By: #### D IFF CBC, PTT, CK, HS TROP, CMP, CBC, PT #### [facility] [address] Manual blood segmented neutr ophils/100 leukocytesOrdered By: Nicko Grimm on 01-10-2024 Segmented neutrophils/100 WBC (Bld) 47 % Low 50-70 [facility] Comment on above: Performed By: #### D IFF CBC, PTT, CK, HS TROP, CMP, CBC, PT #### [facility] [address] Metamyelocytes/100 WBC Manua l cnt (Bld)Ordered By: Nicko Grimm on 01-10-2024 Metamyelocytes/100 WBC (Bld) 1 % High 0-0 [facility] Monocyte distribution width [Entitic volume] in Blood by AutomatedOrdered By: Nicko Grimm on 01-10-2024 Monocyte distribution width Auto (Bld) [Entitic vol] 20.12 % 0.00-20.00 [facility] Comment on above: For adults in ED, MD W > 20.0 may be associated with a higher risk of sepsis during the first 12 hrs of hospital admission Monocytes Auto (Bld) [#/Vol] Ordered By: Nicko Grimm on 01-10-2024 Monocytes (Bld) [#/Vol] N/A [facility] Monocytes/100 WBC Auto (Bld) Ordered By: Nicko Grimm on 01-10-2024 Monocytes/100 WBC (Bld) N/A [facility] Monocytes/100 leukocytes in Blood by Manual countOrdered By: Nicko Grimm on 01-10-2024 Monocytes/100 WBC (Bld) 10 % Normal 2-11 [facility] Comment on above: Performed By: #### D IFF CBC, PTT, CK, HS TROP, CMP, CBC, PT #### [facility] [address] [place] [id number] [facility] Mucus [Presence] in Urine by AutomatedOrdered By: Nicko Grimm on 01-10-2024 Mucus Auto Ql (U) Rare [LPF] [facility] Myelocytes/100 WBC Manual cn t (Bld)Ordered By: Nicko Grimm on 01-10-2024 Myelocytes/100 WBC (Bld) 2 % 0-0 [facility] Neutrophils Auto (Bld) [#/Vo l]Ordered By: Nicko Grimm on 01-10-2024 Neutrophils (Bld) [#/Vol] N/A [facility] Neutrophils/100 WBC Auto (Bl d)Ordered By: Nicko Grimm on 01-10-2024 Neutrophils/100 WBC (Bld) N/A [facility] Nitrite Test strip Ql (U)Ord ered By: Nicko Grimm on 01-10-2024 Nitrite Ql (U) Negative Negative [facility] No Panel InformationOrdered By: Nicko Grimm on 01-10-2024 Estimated GFR (CKD-EPI) 52.997 mL/Min [facility] Creatinine Clearance (Chem 57.26 [facility] Nucleated erythrocytes [Pres ence] in Blood by Automated countOrdered By: Nicko Grimm on 01-10-2024 Nucleated RBC Auto Ql (Bld) N/A [facility] Opiates [Presence] in Urine by Screen methodOrdered By: Faiza Mcdonald on 01-10-2024 Opiates Screen Ql (U) Negative Negative [facility] Partial Thromboplastin Timeo n 01-10-2024 aPTT Coag (Bld) [Time] 30.0 s Normal 25.1-36.5 Th [facility] Comment on above: Result Comment: A he matocrit value greater than 55% may lead to inaccurate results in coagulation testing. Patients having hematocrit values >55% require a special collection tube for coagulation studies. Please contact the laboratory at [phone] for redraw instructions. PERFORMED BY: [place] [address] PATHOLOGIST SENIOR TELECOMMUNICATIONS CONSULTANT DENNIS RODRIGUEZ M.D. Performed By: #### D IFF CBC, PTT, CK, HS TROP, CMP, CBC, PT #### [facility] [address] [place] [address] Peripheral white blood cell differential % bands, microscopic examOrdered By: Nicko Grimm on 01-10-2024 Band form neutrophils/100 WBC (Bld) 5 % Normal 0-5 [facility] Comment on above: Performed By: #### D IFF CBC, PTT, CK, HS TROP, CMP, CBC, PT #### [facility] [address] [place] [address] Phencyclidine Screen Ql (U)O rdered By: Faiza Mcdonald on 01-10-2024 Phencyclidine Ql (U) Negative Negative [facility] Platelet adequacy [Presence] in Blood by Light microscopyOrdered By: Nicko Grimm on 01-10-2024 Platelets LM Ql (Bld) Normal Normal [facility] Platelet mean volume [Entiti c volume] in Blood by Automated countOrdered By: Nicko Grimm on 01-10-2024 Platelet mean volume (Bld) [Entitic vol] 8.2 fL Normal 6.6-10.1 [facility] Comment on above: Performed By: #### D IFF CBC, PTT, CK, HS TROP, CMP, CBC, PT #### [facility] [address] [place] [address] Platelet morphology finding [Identifier] in BloodOrdered By: Nicko Grimm on 01-10-2024 Platelet morphology finding Nom (Bld) Normal Normal [facility] Platelets [#/volume] in Bloo d by Automated countOrdered By: Nicko Grimm on 01-10-2024 Platelets (Bld) [#/Vol] 226 10*3/uL Normal 150-450 [facility] Comment on above: Performed By: #### D IFF CBC, PTT, CK, HS TROP, CMP, CBC, PT #### [facility] [address] [place] [address] [place] Potassium [Moles/volume] in Serum or PlasmaOrdered By: Nicko Grimm on 01-10-2024 Potassium [Moles/Vol] 4.0 mmol/L Normal 3.5-5.1 [facility] Comment on above: Performed By: #### D IFF CBC, PTT, CK, HS TROP, CMP, CBC, PT #### [facility] [address] [place] [address] [place] Protein [Mass/volume] in Ser um or PlasmaOrdered By: Nicko Grimm on 01-10-2024 Protein [Mass/Vol] 6.7 g/dL Normal 6.4-8.9 [facility] Comment on above: Performed By: #### D IFF CBC, PTT, CK, HS TROP, CMP, CBC, PT #### [facility] [address] [place] [id number] [place] Protein [Mass/volume] in Uri ne by Test stripOrdered By: Nicko Grimm on 01-10-2024 Protein (U) [Mass/Vol] 20 mg/dL High Negative [facility] Comment on above: Order Comment: Name Collection Type:: Clean-Voided Midstream Performed By: #### D IFF CBC, PTT, CK, HS TROP, CMP, CBC, PT #### [facility] [address] [place] [address] [place] Prothrombin time (PT)Ordered By: Nicko Grimm on 01-10-2024 PT Coag (PPP) [Time] 11.9 s Normal 9.0-12.9 [facility] Comment on above: A hematocrit value g reater than 55% may lead to inaccurate results in coagulation testing. Patients having hematocrit values >55% require a special collection tube for coagulation studies. Please contact the laboratory at [phone] for redraw instructions. Result Comment: A he matocrit value greater than 55% may lead to inaccurate results in coagulation testing. Patients having hematocrit values >55% require a special collection tube for coagulation studies. Please contact the laboratory at [phone] for redraw instructions. Performed By: #### D IFF CBC, PTT, CK, HS TROP, CMP, CBC, PT #### [address] RBC morphologyOrdered By: Americo Grimm on 01-10-2024 RBC morphology finding Nom (Bld) Normal Normal Normal [facility] Comment on above: Performed By: #### D IFF CBC, PTT, CK, HS TROP, CMP, CBC, PT #### [address] Serum globulin measurement b y calculation (mass/volume)Ordered By: Nicko Grimm on 01-10-2024 Globulin (S) [Mass/Vol] 2.9 g/dL Normal [facility] Comment on above: Performed By: #### D IFF CBC, PTT, CK, HS TROP, CMP, CBC, PT #### [address] Serum or plasma albumin/glob ulin mass ratioOrdered By: Nicko Grimm on 01-10-2024 Albumin/Globulin [Mass ratio] 1.3 {ratio} Normal [facility] Comment on above: Performed By: #### D IFF CBC, PTT, CK, HS TROP, CMP, CBC, PT #### [address] Serum or plasma anion gap de terminationOrdered By: Nicko Grimm on 01-10-2024 Anion gap [Moles/Vol] 10.7 mmol/L Normal 6.0-15.0 [facility] Comment on above: Performed By: #### D IFF CBC, PTT, CK, HS TROP, CMP, CBC, PT #### [facility] [address] [place] [address] Sodium [Moles/volume] in Ser um or PlasmaOrdered By: Nicko Grimm on 01-10-2024 Sodium [Moles/Vol] 136 mmol/L Normal 136-145 [facility] Comment on above: Performed By: #### D IFF CBC, PTT, CK, HS TROP, CMP, CBC, PT #### [address] Specific gravity Test strip (U) [Rel density]Ordered By: Nicko Grimm on 01-10-2024 Specific gravity (U) [Rel density] 1.043 High 1.001-1.03 0 [facility] Toxic leukocyte vacuolation detectionOrdered By: Nicko Grimm on 01-10-2024 Leukocyte toxic vacuoles LM Ql (Bld) Slight [facility] Troponin I High Sensitivityo n 01-10-2024 Troponin I High Sensitivity 7.1 pg/mL Normal 0.0-20.0 [facility] Comment on above: Result Comment: PERF ORMED BY: [place] [address] PATHOLOGIST SENIOR TELECOMMUNICATIONS CONSULTANT DENNIS RODRIGUEZ M.D. Performed By: #### D IFF CBC, PTT, CK, HS TROP, CMP, CBC, PT #### [address] Troponin I.cardiac [Mass/vol ume] in Serum or Plasma by Detection limit <= 0.01 ng/Ordered By: Nicko Grimm on 01-10-2024 Troponin I.cardiac DL <= 0.01 ng/mL [Mass/Vol] 7.1 pg/mL 0.0-20.0 [facility] Urea nitrogen [Mass/volume] in Serum or PlasmaOrdered By: Nicko Grimm on 01-10-2024 Urea nitrogen [Mass/Vol] 19 mg/dL Normal 7-25 [facility] Comment on above: Performed By: #### D IFF CBC, PTT, CK, HS TROP, CMP, CBC, PT #### [address] Urine appearanceOrdered By: Nicko Grimm on 01-10-2024 Appearance (U) Clear Normal Clear [facility] Comment on above: Order Comment: Name Collection Type:: Clean-Voided Midstream Performed By: #### D IFF CBC, PTT, CK, HS TROP, CMP, CBC, PT #### [address] Urobilinogen Test strip (U) [Mass/Vol]Ordered By: Nicko Grimm on 01-10-2024 Urobilinogen (U) [Mass/Vol] Normal mg/dL Normal [facility] pH of Urine by Test stripOrd ered By: Nicko Grimm on 01-10-2024 pH (U) 5.5 [pH] Normal 5.0-9.0 [facility] Comment on above: Order Comment: Name Collection Type:: Clean-Voided Midstream Performed By: #### D IFF CBC, PTT, CK, HS TROP, CMP, CBC, PT #### [facility] [address] [place] [address] [facility] Albumin [Mass/volume] in Ser um or Plasmaon 12-16-2023 Albumin [Mass/Vol] 3.6 g/dL 2.9-4.4 [facility] Laboratory - Chemistry and C hemistry - challengeon 12-16-2023 Cobalamin (Vitamin B12) [Mass/Vol] 523.0 pg/mL 193.0-986. 0 [facility] Protein [Mass/Vol] 0.3 g/dL Abnormal Not Observed [facility] TSH Qn 3.230 m[IU]/L 0.358-3.74 0 [facility] No Panel Informationon 12-15 Folate 16.10 ng/mL 8.60-58.90 [facility] Protein Electrophoresis Note Comment . [facility] Comment on above: Protein electrophore sis scan will follow via computer,mail, or accounting machine servicer delivery.Performed at: [address] [id number] Director: Sean Lopez PhD, Phone: [phone] Protein [Mass/volume] in Ser um or Plasmaon 12-16-2023 Protein [Mass/Vol] 6.6 g/dL 6.0-8.5 [facility] Serum globulin measurement ( mass/volume)on 12-16-2023 Globulin (S) [Mass/Vol] 3.0 g/dL 2.2-3.9 [facility] Serum or plasma albumin/glob ulin mass ratioon 12-16-2023 Albumin/Globulin [Mass ratio] 1.2 {ratio} 0.7-1.7 [facility] Serum or plasma alpha 1 glob ulin measurement by electrophoresis (mass/volume)on 12-16-2023 Alpha 1 globulin Elph [Mass/Vol] 0.2 g/dL 0.0-0.4 [facility] Serum or plasma alpha 2 glob ulin measurement by electrophoresis (mass/volume)on 12-16-2023 Alpha 2 globulin Elph [Mass/Vol] 0.8 g/dL 0.4-1.0 [facility] Serum or plasma beta globuli n measurement by electrophoresis (mass/volume)on 12-16-2023 Beta globulin Elph [Mass/Vol] 0.9 g/dL 0.7-1.3 [facility] Serum or plasma gamma globul in measurement by electrophoresis (mass/volume)on 12-16-2023 Gamma globulin Elph [Mass/Vol] 1.1 g/dL 0.4-1.8 [facility] Estimated glomerular filtrat ion rate (GFR) non- Americanon 11-19-2023 GFR/1.73 sq M.predicted among non-blacks MDRD (S/P/Bld) [Vol rate/Area] mL/min/{1.73_m2} >=60 [facility] Laboratory - Chemistry and C hemistry - challengeon 11-19-2023 Creatinine [Mass/Vol] 1.18 mg/dL 0.70-1.30 [facility] GFR/1.73 sq M.predicted MDRD (S/P/Bld) [Vol rate/Area] mL/min/{1.73_m2} >=60 [facility] Automated urine specific gra vity by refractometryon 11-10-2023 Specific gravity Refractometry automated (U) [Rel density] >=1.030 1.005-1.02 5 [facility] Bilirubin Auto test strip (U ) [Mass/Vol]on 11-10-2023 Bilirubin (U) [Mass/Vol] Negative NEGATIVE [facility] Color Auto (U)on 11-10-2023 Color (U) YELLOW YELLOW [facility] Glucose [Mass/volume] in Uri ne by Test stripon 11-10-2023 Glucose Test strip (U) [Mass/Vol] 100 mg/dL NEGATIVE [facility] Ketones Auto test strip (U) [Mass/Vol]on 11-10-2023 Ketones (U) [Mass/Vol] Negative NEGATIVE Fi [facility] Protein Auto test strip (U) [Mass/Vol]on 11-10-2023 Protein (U) [Mass/Vol] Negative NEG/TRACE Fi [facility] Specific gravity Auto test s trip (U) [Rel density]on 11-10-2023 Specific gravity (U) [Rel density] CLEAR CLEAR [facility] Urine hemoglobin detection b y automated test stripon 11-10-2023 Hemoglobin Auto test strip Ql (U) Negative NEGATIVE [facility] Urine nitrite detection by a utomated test stripon 11-10-2023 Nitrite Auto test strip Ql (U) Negative NEGATIVE [facility] Urobilinogen Auto test strip (U) [Mass/Vol]on 11-10-2023 Urobilinogen Qn (U) 0.2 {Erma'U}/dL 0.2-1.0 [facility] pH Auto test strip (U)on pH (U) 5.5 [pH] 5.0-9.0 [facility] Luisito 09-22-2023 L Specimen: [id number] Received: 09/22/23 Status: JOSE ANTONIO Hayniecy Num: [id number] Spec Type: Surgical Subm Dr: Samuel Coker MD Tissues: A Skin-Other than Cyst, tag, debridement or plastic repair (LT LOWER EYELID) Procedures: HE/7, Gross/Micro L4 Age/ Patient Sex Location Account Attending Physician Dagoberto Squires 78/M [facility] [id number] Samuel Coker MD SPEC NUM: [id number] RECD: 09/22/23 STATUS: JOSE ANTONIO CONTRERAS NUM: [id number] KIRILL: 09/22/[address]: Samuel Coker MD ENTERED: 09/22/[address] [facility] [address]: SPEC TYPE: Surgical DEPT: S ENTERED BY: [id number] RECV BY: [id number] ORDERED: HE/7, Gross/Micro L4 ORDERED: HE/7, Gross/Micro [...] Received: 09/22/23 Status: JOSE ANTONIO Contreras Num: [id number] Spec Type: Surgical Subm Dr: Samuel Coker MD Tissues: A Skin-Other than Cyst, tag, debridement or plastic repair (LT LOWER EYELID) Procedures: , Gross/Micro L4 Patient: Dagoberto Squires [id number] (Continued) Specimen: [id number] Received: 09/22/23 (Continued) Signed (signature on file) Lorena Lopez MD 09/23/231721 Specimen: [id number] Received: 09/22/23 Status: JOSE ANTONIO Contreras Num: [id number] Spec Type: Surgical Subm Dr: Samuel Coker MD Tissues: A Skin-Other than Cyst, tag, debridement or plastic repair (LT LOWER EYELID) Procedures: [place] MORE/Marycruz Velásquez Patient: Dagoberto Squires [id number] (Continued) Specimen: [id number] Received: 09/22/23 (Continued) Microscopic Description 3 H E sections are reviewed A1-A2 1 H E sections are reviewed A3 CPT Codes 62243 Specimen: [id number] Received: 09/22/23 Status: JOSE ANTONIO Contreras Num: [id number] Spec Type: Surgical Subm Dr: Samuel Coker MD Tissues: A Skin-Other than Cyst, tag, debridement or plastic repair (LT LOWER EYELID) Procedures: Saavnnah MORE/Marycruz L4 Patient: Dagoberto Squires [id number] (Continued) Signed (signature on file) Juancho-Cesar Lopez MD 09/23/23 1722 Normal [facility] CBC AUTO DIFFon 06-22-2020 Basophils (Bld) [#/Vol] 0.1 103/ul Normal 0.0-0.1 [facility] Comment on above: Performed By: #### C BC #### [facility] [address] [place] [address] Marcus Karyna Basophils/100 WBC (Bld) 0.7 % Normal 0.2-2.0 [facility] Comment on above: Performed By: #### C BC #### [facility] [address] [place] [address] Marcus Karyna Eosinophils (Bld) [#/Vol] 0.5 103/ul Normal 0.0-0.7 [facility] Comment on above: Performed By: #### C BC #### [facility] [address] [place], [place] [id number] Marcus Karyna Eosinophils/100 WBC (Bld) 4.5 % Normal 0.9-7.0 [facility] Comment on above: Performed By: #### C BC #### [facility] [address] [place], [place] [id number] Marcus Karyna Erythrocyte distribution width (RBC) [Ratio] 12.9 % Normal 11.0-15.0 [facility] Comment on above: Performed By: #### C BC #### [facility] [address] [place], [place] [id number] Marcus Karyna Hematocrit (Bld) [Volume fraction] 50.2 % Normal 42.0-54.0 [facility] Comment on above: Performed By: #### C BC #### [facility] [address] [place], [place] [id number] Marcus Karyna Hemoglobin (Bld) [Mass/Vol] 17.0 g/dL Normal 14.0-18.0 [facility] Comment on above: Performed By: #### C BC #### [facility] [address] [id number] Marcus Karyna IG # 0.12 10e3/ul Critically high 0.00-0.03 [facility] Comment on above: Performed By: #### C BC #### [facility] [address] [id number] Marcus Karyna IG % 1.0 % Critically high 0.0-0.5 [facility] Comment on above: Performed By: #### C BC #### [facility] [address] [phone] Marcus Karyna Lymphocytes (Bld) [#/Vol] 3.7 103/ul Normal 1.2-3.8 [facility] Comment on above: Performed By: #### C BC #### [facility] [address] [place], [place] [id number] Marcus Karyna Lymphocytes/100 WBC (Bld) 31.8 % Normal 20.5-60.0 [facility] Comment on above: Performed By: #### C BC #### [facility] [address] [place], [place] [id number] Marcus Karyna MANUAL DIFF REQ NO Normal [facility] Comment on above: Performed By: #### C BC #### [facility] [address] [place], [place] [id number] Marcus Karyna MCH (RBC) [Entitic mass] 32.8 pg Normal 25.9-34.0 [facility] Comment on above: Performed By: #### C BC #### [facility] [address] [place], [place] [id number] Marcus Karyna MCHC (RBC) [Mass/Vol] 33.9 g/dL Normal 29.9-35.2 [facility] Comment on above: Performed By: #### C BC #### [facility] [address] [place], [place] [phone] Marcus Karyna MCV (RBC) [Entitic vol] 96.9 fL Critically high 80.0-94.0 [facility] Comment on above: Performed By: #### C BC #### [facility] [address] [place], [place] [address] Marcus Karyna Monocytes (Bld) [#/Vol] 1.1 103/ul Critically high 0.3-0.8 [facility] Comment on above: Performed By: #### C BC #### [facility] [address] [place], [place] [address] Marcus Karyna Monocytes/100 WBC (Bld) 9.5 % Normal 1.7-12.0 [facility] Comment on above: Performed By: #### C BC #### [facility] [address] [place] [address] Marcus Karyna Neutrophils (Bld) [#/Vol] 6.1 103/ul Normal 1.4-6.5 [facility] Comment on above: Performed By: #### C BC #### [facility] [address] [place] [address] Marcus Karyna Neutrophils/100 WBC (Bld) 52.5 % Normal 43.0-75.0 [facility] Comment on above: Performed By: #### C BC #### [facility] [address] [place] [address] Marcus Karyna Platelet mean volume (Bld) [Entitic vol] 9.7 fL Normal 9.5-13.5 [facility] Comment on above: Performed By: #### C BC #### [facility] [address] [place] [address] Marcus Karyna Platelets (Bld) [#/Vol] 235 103/ul Normal 150-450 [facility] Comment on above: Performed By: #### C BC #### [facility] [address] [place] [address] Marcus Karyna RBC (Bld) [#/Vol] 5.18 106/ul Normal 4.70-6.10 [facility] Comment on above: Performed By: #### C BC #### [facility] [address] [place] [address] Marcus Karyna WBC (Bld) [#/Vol] 11.7 103/ul Critically high 4.0-11.0 [facility] Comment on above: Performed By: #### C BC #### [facility] [address] [address] Marcus Troncoso Vital Signs Date Time Vital Sign Value Performing Clinician Facility 05-25-2024 11:50-0400 Body height 180.34 cm [facility] 05-25-2024 11:50-0400 Body mass index (BMI) [Ratio] 31 kg/m2 [facility] 05-25-2024 11:50-0400 Body temperature 98.2 [degF] [facility] 05-25-2024 11:50-0400 Body weight 101 kg [facility] 05-25-2024 11:50-0400 Diastolic blood pressure 92 mm[Hg] [facility] 05-25-2024 11:50-0400 Heart rate 60 /min [facility] 05-25-2024 11:50-0400 Respiratory rate 16 /min [facility] 05-25-2024 11:50-0400 SaO2% (BldA) [Mass fraction] 96 % [facility] 05-25-2024 11:50-0400 Systolic blood pressure 146 mm[Hg] [facility] 02-25-2024 08:40-0400 Blood Pressure Location Garfield LUC[facility] 02-25-2024 08:40-0400 Body temperature 98.6 [degF] Garfield LUCAS [facility] 02-25-2024 08:40-0400 Diastolic blood pressure 69 mm[Hg] Garfield LUCAS [facility] 02-25-2024 08:40-0400 Heart rate 68 /min Garfield LUCAS [facility] 02-25-2024 08:40-0400 Respiratory rate 16 /min Garfield LUCAS [facility] 02-25-2024 08:40-0400 Systolic blood pressure 134 mm[Hg] Garfield SHAYY [facility] 02-16-2024 08:54-0400 Body height 180.34 cm ELECTRON GUN INSPECTORLetha Stevensonacher Work Phone: [facility] 02-16-2024 08:54-0400 Body mass index (BMI) [Ratio] 31.1 kg/m2 ELECTRON GUN INSPECTORLetha Vallerbacher Work Phone: [facility] 02-16-2024 08:54-0400 Body temperature 97.8 [degF] ELECTRON GUN INSPECTOReLtha Stevensonacher Work Phone: [facility] 02-16-2024 08:54-0400 Body weight 101.15 kg ELECTRON GUN INSPECTORLetha Stevensonacher Work Phone: [facility] 02-16-2024 08:54-0400 Diastolic blood pressure 68 mm[Hg] ELECTRON GUN INSPECTORLetha Stevensonacher Work Phone: [facility] 02-16-2024 08:54-0400 Heart rate 76 /min ELECTRON GUN INSPECTORLetha Stevensonacher Work Phone: [facility] 02-16-2024 08:54-0400 Respiratory rate 16 /min ELECTRON GUN INSPECTORLetha Stevensonacher Work Phone: [facility] 02-16-2024 08:54-0400 SaO2% (BldA) [Mass fraction] 96 % ELECTRON GUN INSPECTORLetha Vallerbacher Work Phone: [facility] 02-16-2024 08:54-0400 Systolic blood pressure 116 mm[Hg] ELECTRON GUN INSPECTORLetha Vallerbacher Work Phone: [facility] 01-27-2024 13:21-0400 Blood Pressure Location Garfield LUCAS [facility] 01-27-2024 13:21-0400 Body temperature 98.6 [degF] Garfield LUCAS [facility] 01-27-2024 13:21-0400 Diastolic blood pressure 88 mm[Hg] Garfield LUCAS [facility] 01-27-2024 13:21-0400 Heart rate 85 /min Garfieldkayleigh LUCAS [facility] 01-27-2024 13:21-0400 Respiratory rate 16 /min Garfield LUCAS [facility] 01-27-2024 13:21-0400 Systolic blood pressure 137 mm[Hg] Garfield LUCAS [facility] 01-26-2024 13:51-0400 Body height 180.34 cm RITIKA Salinas Work Phone: [facility] 01-26-2024 13:51-0400 Body mass index (BMI) [Ratio] 33 kg/m2 RITIKA Salinas Work Phone: [facility] 01-26-2024 13:51-0400 Body weight 107.5 kg RITIKA Salinas Work Phone: [facility] 01-26-2024 13:51-0400 Diastolic blood pressure 60 mm[Hg] RITIKA Salinas Work Phone: [facility] 01-26-2024 13:51-0400 Heart rate 97 /min RITIKA Salinas Work Phone: [facility] 01-26-2024 13:51-0400 SaO2% (BldA) [Mass fraction] 95 % ELECTRON GUN INSPECTORLetha Salinas Work Phone: [facility] 01-26-2024 13:51-0400 Systolic blood pressure 118 mm[Hg] ELECTRON GUN INSPECTORLetha Stevensonacher Work Phone: [facility] 01-26-2024 11:00-0400 Diastolic blood pressure 63 mm[Hg] ELECTRON GUN INSPECTORLetha Stevensonacher Work Phone: [facility] 01-26-2024 11:00-0400 Heart rate 77 /min ELECTRON GUN INSPECTORLetha Stevensonacher Work Phone: [facility] 01-26-2024 11:00-0400 Respiratory rate 25 /min ELECTRON GUN INSPECTORLetha Stevensonacher Work Phone: [facility] 01-26-2024 11:00-0400 SaO2% (BldA) [Mass fraction] 98 % ELECTRON GUN INSPECTORLetha Stevensonacher Work Phone: [facility] 01-26-2024 11:00-0400 Systolic blood pressure 134 mm[Hg] ELECTRON GUN INSPECTORLetha Stevensonacher Work Phone: [facility] 01-26-2024 08:00-0400 Body temperature 98.6 [degF] ELECTRON GUN INSPECTORLetha Stevensonacher Work Phone: [facility] 01-26-2024 06:00-0400 Body weight 101.2 kg ELECTRON GUN INSPECTORLetha Barahonar Work Phone: [facility] 01-25-2024 14:13-0400 Inhaled oxygen flow rate 6 L/min ELECTRON GUN INSPECTORLetha Stevensonacher Work Phone: [facility] 01-25-2024 12:28-0400 Body height 180.34 cm ELECTRON GUN INSPECTORLetha Barahonar Work Phone: [facility] 01-25-2024 12:28-0400 Body mass index (BMI) [Ratio] 31.1 kg/m2 ELECTRON GUN INSPECTORLetha Barahonar Work Phone: [facility] 01-17-2024 12:24-0400 Body height 180.34 cm ELECTRON GUN INSPECTOR Sonia Leonardrbacher Work Phone: [facility] 01-17-2024 12:24-0400 Body mass index (BMI) [Ratio] 29.5 kg/m2 ELECTRON GUN INSPECTOR Sonia Leonardrbacher Work Phone: [facility] 01-17-2024 12:24-0400 Body temperature 98 [degF] ELECTRON GUN INSPECTOR Sonia Leonardrbacher Work Phone: [facility] 01-17-2024 12:24-0400 Body weight 96.16 kg ELECTRON GUN INSPECTOR Sonia Leonardrbacher Work Phone: [facility] 01-17-2024 12:24-0400 Diastolic blood pressure 82 mm[Hg] ELECTRON GUN INSPECTORLetha Vallerbacher Work Phone: [facility] 01-17-2024 12:24-0400 SaO2% (BldA) [Mass fraction] 96 % ELECTRON GUN INSPECTOR Sonia Leonardrbacher Work Phone: [facility] 01-17-2024 12:24-0400 Systolic blood pressure 136 mm[Hg] ELECTRON GUN INSPECTOR Sonia Leonardrbacher Work Phone: [facility] 01-13-2024 12:01-0400 Body temperature 98 [degF] RITIKA Mustafafer Leonardrbacher Work Phone: [facility] 01-13-2024 12:01-0400 Diastolic blood pressure 77 mm[Hg] ELECTRON GUN INSPECTORLetha Vallerbacher Work Phone: [facility] 01-13-2024 12:01-0400 Heart rate 88 /min ELECTRON GUN INSPECTORLetha Vallerbacher Work Phone: [facility] 01-13-2024 12:01-0400 Respiratory rate 14 /min ELECTRON GUN INSPECTORLetha Vallerbacher Work Phone: [facility] 01-13-2024 12:01-0400 SaO2% (BldA) [Mass fraction] 96 % ELECTRON GUN INSPECTORLetha MustafaSonia Leonardrbacher Work Phone: [facility] 01-13-2024 12:01-0400 Systolic blood pressure 146 mm[Hg] ELECTRON GUN INSPECTORLetha GamezSonia Leonardrbacher Work Phone: [facility] 01-13-2024 06:00-0400 Body weight 107.2 kg ELECTRON GUN INSPECTORLetha Vallerbacher Work Phone: [facility] 01-11-2024 10:45-0400 Body height 180.34 cm ELECTRON GUN INSPECTORLetha MustafaSonia Leonardrbacher Work Phone: [facility] 01-11-2024 02:02-0400 Body height 180.34 cm ELECTRON GUN INSPECTORLetha MustafaSonia Leonardrbacher Work Phone: [facility] 01-11-2024 02:02-0400 Body temperature 98.3 [degF] ELECTRON GUN INSPECTORLetha MustafaSonia Leonardrbacher Work Phone: [facility] 01-11-2024 02:02-0400 Body weight 105.7 kg ELECTRON GUN INSPECTOR Sonia Leonardrbacher Work Phone: [facility] 01-11-2024 02:02-0400 Diastolic blood pressure 84 mm[Hg] ELECTRON GUN INSPECTORLetha Vallerbacher Work Phone: [facility] 01-11-2024 02:02-0400 Heart rate 78 /min ELECTRON GUN INSPECTORLetha Vallerbacher Work Phone: [facility] 01-11-2024 02:02-0400 Respiratory rate 22 /min ELECTRON GUN INSPECTORLetha Vallerbacher Work Phone: [facility] 01-11-2024 02:02-0400 SaO2% (BldA) [Mass fraction] 96 % ELECTRON GUN INSPECTORLetha Vallerbacher Work Phone: [facility] 01-11-2024 02:02-0400 Systolic blood pressure 171 mm[Hg] ELECTRON GUN INSPECTOR Sonia Leonardrbacher Work Phone: [facility] 11-09-2023 14:53-0400 Body height 180.34 cm ELECTRON GUN INSPECTOR Sonia Leonardrbacher Work Phone: [facility] 11-09-2023 14:53-0400 Body mass index (BMI) [Ratio] 32.8 kg/m2 ELECTRON GUN INSPECTOR Sonia Leonardrbacher Work Phone: [facility] 11-09-2023 14:53-0400 Body weight 106.59 kg ELECTRON GUN INSPECTOR Sonia Leonardrbacher Work Phone: [facility] 11-09-2023 14:53-0400 Diastolic blood pressure 78 mm[Hg] ELECTRON GUN INSPECTOR Sonia Leonardrbacher Work Phone: [facility] 11-09-2023 14:53-0400 Heart rate 77 /min ELECTRON GUN INSPECTOR Sonia Elvaacher Work Phone: [facility] 11-09-2023 14:53-0400 SaO2% (BldA) [Mass fraction] 97 % ELECTRON GUN INSPECTOR Sonia Elvaacher Work Phone: [facility] 11-09-2023 14:53-0400 Systolic blood pressure 124 mm[Hg] ELECTRON GUN INSPECTOR Sonia Leonardrbacher Work Phone: [facility] 10-05-2023 11:31-0500 Body height 180.34 cm ELECTRON GUN INSPECTOR Sonia Leonardrbacher Work Phone: [facility] 10-05-2023 11:31-0500 Body mass index (BMI) [Ratio] 33.2 kg/m2 ELECTRON GUN INSPECTOR Sonia Leonardrbacher Work Phone: [facility] 10-05-2023 11:31-0500 Body weight 107.95 kg ELECTRON GUN INSPECTORLetha MustafaSonia Leonardrbacher Work Phone: [facility] 10-05-2023 11:31-0500 Diastolic blood pressure 76 mm[Hg] ELECTRON GUN INSPECTOR Sonia Elvashanikavahe Work Phone: [facility] 10-05-2023 11:31-0500 Heart rate 77 /min ELECTRON GUN INSPECTOR Sonia Stevensonacher Work Phone: [facility] 10-05-2023 11:31-0500 SaO2% (BldA) [Mass fraction] 95 % ELECTRON GUN INSPECTOR Sonia Stevensonacher Work Phone: [facility] 10-05-2023 11:31-0500 Systolic blood pressure 124 mm[Hg] ELECTRON GUN INSPECTOR Sonia Stevensonacher Work Phone: [facility] 07-09-2023 10:30-0500 Body height 180.34 cm Sonia Brad Other [facility] 07-09-2023 10:30-0500 Body mass index (BMI) [Ratio] 32.07 kg/m2 Sonia Junr Other [facility] [employer] Other 07-09-2023 10:30-0500 Body weight 104.33 kg Sonia Junr Other [facility] Other 07-09-2023 10:30-0500 Body weight 104.32 kg RITIKA Sonia Vallegayleacher Work Phone: [facility] 07-09-2023 10:30-0500 Diastolic blood pressure 86 mm[Hg] Sonia Elvaacher Other [facility] 07-09-2023 10:30-0500 SaO2% (BldA) [Mass fraction] 95 % Sonia Elvaacher Other [facility] [employer] Other 07-09-2023 10:30-0500 Systolic blood pressure 126 mm[Hg] Sonia Stevensonacher Other [facility] 04-29-2023 10:30-0400 Body height 180.34 cm Sonia Salinas Other [facility] Other 04-29-2023 10:30-0400 Body mass index (BMI) [Ratio] 31.8 kg/m2 Sonia Salinas Other [facility] Other 04-29-2023 10:30-0400 Body weight 103.42 kg Sonia Salinas Other [facility] Other 04-29-2023 10:30-0400 Diastolic blood pressure 70 mm[Hg] Sonia Salinas Other [facility] Other 04-29-2023 10:30-0400 SaO2% (BldA) [Mass fraction] 96 % Sonia Salinas Other [facility] Other 04-29-2023 10:30-0400 Systolic blood pressure 118 mm[Hg] Sonia Salinas Other [facility] Other Encounters Encounter Date Encounter Type Care Provider Facility Start: 05-25-2024 End: 05-25-2024 Patient encounter procedure [facility] Vascular Surgery Work Phone: Start: 05-25-2024 End: 05-25-2024 ambulatory Mckenna Campbell [facility] Work Phone: Start: 03-08-2024 End: 03-08-2024 ambulatory AURELIA FRENCH Not Available Start: 03-07-2024 End: 03-07-2024 ambulatory TRU SOLITARIO Not Available Start: 03-07-2024 End: 03-07-2024 Patient encounter procedure Tru Solitario DO Work Phone: [facility] Comment on above: Hypersomnia; Memory loss Start: 02-25-2024 End: 02-25-2024 ambulatory Garfield LCUAS Facility:[facility] Start: 02-25-2024 End: 02-25-2024 Patient encounter procedure Garfield R LUCAS [facility] Start: 02-16-2024 End: 02-16-2024 ambulatory RITIKA Salinas Work Phone: [facility] Work Phone: Start: 02-16-2024 End: 02-16-2024 Patient encounter procedure RITIKA Salinas Work Phone: [facility] Vascular Surgery Work Phone: Start: 02-08-2024 End: 02-08-2024 ambulatory TRU SOLITARIO Not Available Start: 01-27-2024 End: 01-27-2024 Lab Drop off Garfield R SHAYY [facility] Start: 01-27-2024 End: 01-27-2024 ambulatory Garfield Vahe LUCAS Facility:[facility] Start: 01-27-2024 End: 01-27-2024 Patient encounter procedure Garfield LUCAS [facility] Start: 01-27-2024 Non-patient / Non-visit RITIKA Salinas Work Phone: [facility] Work Phone: Start: 01-27-2024 ambulatory Garfield LUCAS Facility :[facility] Start: 01-26-2024 End: 01-26-2024 ambulatory RITIKA Salinas Work Phone: [facility] Work Phone: Start: 01-26-2024 End: 01-26-2024 Patient encounter procedure ELECTRON GUN INSPECTOR Sonia Vallerbacher Work Phone: [facility] Work Phone: Start: 01-25-2024 Non-patient / Non-visit ELECTRON GUN INSPECTOR Faheem Vallerbacher Work Phone: [facility] Vascular Surgery Work Phone: Start: 01-25-2024 End: 01-26-2024 Evaluation and management of inpatient ELECTRON GUN INSPECTOR Sonia Vallerbacher Work Phone: [facility] [place] [facility] Work Phone: Start: 01-17-2024 Non-patient / Non-visit ELECTRON GUN INSPECTOR Faheem Vallerbacher Work Phone: [facility] Work Phone: Start: 01-17-2024 End: 01-17-2024 ambulatory ELECTRON GUN INSPECTOR Sonia Vallerbacher Work Phone: [facility] Work Phone: Start: 01-17-2024 End: 01-17-2024 Patient encounter procedure ELECTRON GUN INSPECTOR Sonia Vallerbacher Work Phone: [facility] Vascular Surgery Work Phone: Start: 01-12-2024 End: 01-13-2024 Non-patient / Non-visit ELECTRON GUN INSPECTOR Sonia Vallerbacher Work Phone: [facility] Vascular Surgery Work Phone: Start: 01-11-2024 End: 01-13-2024 Evaluation and management of inpatient ELECTRON GUN INSPECTOR Sonia Vallerbacher Work Phone: [facility] [place] [facility] Work Phone: Start: 01-11-2024 Evaluation and management of inpatient ELECTRON GUN INSPECTOR Sonia Vallerbacher Work Phone: [facility] Work Phone: Start: 01-11-2024 observation encounter ELECTRON GUN INSPECTOR Vera Salinas Work Phone: [facility] Work Phone: Start: 12-22-2023 End: 12-22-2023 ambulatory AURELIA FRENCH Not Available Start: 12-21-2023 End: 12-21-2023 ambulatory TRU CHRISSY Not Available Start: 12-16-2023 Non-patient / Non-visit ELECTRON GUN INSPECTORLetha Salinas Work Phone: [facility] Work Phone: Start: 12-14-2023 End: 12-14-2023 ambulatory TRU CHRISSY Not Available Start: 12-02-2023 End: 12-02-2023 ambulatory AURELIA Chante FRENCH Not Available Start: 12-02-2023 End: 12-02-2023 ambulatory AURELIA A GILLIAN Not Available Start: 11-19-2023 Non-patient / Non-visit ELECTRON GUN INSPECTORLetha Salinas Work Phone: [facility] Work Phone: Start: 11-10-2023 Non-patient / Non-visit RITIKA Salinas Work Phone: [facility] Work Phone: Start: 11-09-2023 End: 11-09-2023 ambulatory RITIKA Salinas Work Phone: [facility] Work Phone: Start: 11-09-2023 End: 11-09-2023 Patient encounter procedure RITIKA Salinas Work Phone: [facility] Work Phone: Start: 10-05-2023 End: 10-05-2023 Patient encounter procedure ELECTRON GUN INSPECTOR Sonia Brad Work Phone: [facility] Work Phone: Start: 09-22-2023 End: 09-22-2023 Departed Referred RITIKA Scott Brad Work Phone: [facility] [place] Work Phone: Start: 09-22-2023 End: 09-22-2023 ambulatory ELECTRON GUN INSPECTORLetha Scott Brad Work Phone: [facility] Work Phone: Start: 07-09-2023 End: 07-09-2023 ambulatory Sonia Salinas Other [facility] Other Start: 07-09-2023 Patient encounter procedure Sonia Salinas [facility] Start: 07-09-2023 End: 07-09-2023 Patient encounter procedure RITIKA Scott Brad Work Phone: [facility] Physician [facility] Work Phone: Start: 04-29-2023 End: 04-29-2023 ambulatory Sonia Brad Other [facility] Other Start: 04-29-2023 Office outpatient ne w [address] [facility] Start: 06-22-2020 End: 06-23-2020 Patient encounter procedure [employer] [facility] [employer] [facility] Facility: Procedures Date Procedure Procedure Detail Performing Clinician Start: 06-15-2024 HOME SLEEP TEST Tru Solitario DO Work Phone: Start: 01-25-2024 Insertion of carotid artery stent RITIKA Salinas Work Phone: Start: 01-25-2024 Carotid stent (physi milton object) Garfield LUCAS Start: 01-12-2024 Doppler ultrasonogra phy of bilateral carotid arteries ELECTRON GUN INSPECTOR Sonia Vallegaylehsanikavahe Work Phone: Start: 01-11-2024 XR pre/post mri xray AP RN Sonia Brad Work Phone: Start: 01-11-2024 CT of brain perfusion A PRN Sonia Brad Work Phone: Start: 01-11-2024 MRI of head ELECTRON GUN INSPECTOR Moon ernst Brad Work Phone: Start: 01-10-2024 CT angiography of head ELECTRON GUN INSPECTOR Sonia Brad Work Phone: Start: 01-10-2024 CT angiography of ne ck vessels ELECTRON GUN INSPECTORLetha Scott Brad Work Phone: Start: 01-10-2024 Plain chest X-ray RITIKA Scott Brad Work Phone: Start: 01-10-2024 CT of head without contrast ELECTRON GUN INSPECTOR Sonia Brad Work Phone: Extraction of cataract Patri mamadou LUCAS Plan of Treatment Date Care Activity Detail Author Start: 01-26-2024 [facility] Start: 01-25-2024 Cerebral Embolic Filtration, Extracorporeal Flow Reversal Circuit from Right Common Carotid Artery, Percutaneous Approach, [employer] Cerebral Embolic Filtration, Extracorporeal Flow Reversal Circuit from Right Common Carotid Artery, Percutaneous Approach, [employer] [facility] Start: 01-25-2024 Dilation of Right Internal Carotid Artery with Intraluminal Device, Percutaneous Approach Dilation of Right Internal Carotid Artery with Intraluminal Device, Percutaneous Approach [facility] Start: 01-13-2024 [facility] Start: 01-11-2024 Referral to vascular surgeon [facility] Start: 01-11-2024 CT of brain perfusion CT head/brain perfusion [facility] Start: 01-11-2024 MRI of head MR head/brain wo con [facility] Start: 01-11-2024 [facility] Start: 01-11-2024 Physical therapy procedure [facility] Start: 01-11-2024 Referral to neurologist [facility] Start: 01-11-2024 Referral to occupational therapist [facility] Start: 01-11-2024 [facility] Start: 01-11-2024 Hospital admission [facility] Start: 01-10-2024 CT angiography of head [facility] Start: 01-10-2024 CT angiography of neck vessels [facility] Start: 01-10-2024 Plain chest X-ray XR chest 1V portable [facility] Start: 01-10-2024 XR Chest Single view [facility] Start: 01-10-2024 CT Head WO contrast [facility] Start: 01-10-2024 CT of head without contrast CT head stroke alert wo con [facility] Start: 01-10-2024 Telemedicine consultation with patient [facility] Start: 11-09-2023 Patient referral [facility] Work Phone: Anion gap measurement [facility] Bacteria identified in Urine by Culture [facility] Basophils [#/volume] in Blood by Automated count [facility] Basophils/100 leukoc ytes in Blood by Automated count [facility] Calculated LDL cholesterol level [facility] Cholesterol.total/Ch olest nikole in HDL [Mass Ratio] in Serum or Plasma [facility] Eosinophils/100 leukocytes in Blood by Automated count [facility] Erythrocyte distribu tion width [Ratio] by Automated count [facility] Erythrocytes [#/volu me] in Blood [facility] Glucose measurement estimated from glycated hemoglobin [facility] Hematocrit [Volume Fraction] of Blood [facility] Hemoglobin [Mass/vol ume] in Blood [facility] Leukocytes [#/volume ] corrected for nucleated erythrocytes in Blood by Automated coun [facility] Leukocytes [#/volume ] in Blood [facility] Lymphocytes [#/volum e] in Blood by Automated count [facility] Lymphocytes/100 leukocytes in Blood by Automated count [facility] MCH [Entitic mass] b y Automated count [facility] MCHC [Mass/volume] b y Automated count [facility] MCV [Entitic volume] by Automated count [facility] Monocytes [#/volume] in Blood by Automated count [facility] Monocytes/100 leukoc ytes in Blood by Automated count [facility] MR Unspecified body region [facility] Neutrophils [#/volum e] in Blood by Automated count [facility] Neutrophils/100 leukocytes in Blood by Automated count [facility] Nucleated erythrocyt es [Presence] in Blood by Automated count [facility] Patient Education [facility] Work Phone: Patient referral [facility] Work Phone: Platelet mean volume [Entitic volume] in Blood by Automated count [facility] Platelets [#/volume] in Blood [facility] US Scrotum and testicle [facility] US.doppler Carotid arteries - bilateral [facility] VLDL cholesterol measurement [facility] Immunizations Immunization Date Immunization Notes Care Provider Fa cility 09-04-2023 Fluzone QIV High-Dos e 65YR+ ELECTRON GUN INSPECTOR Sonia Salinas Work Phone: [facility] 06-22-2022 Fluzone QIV High-Dos e 65YR+ ELECTRON GUN INSPECTOR Sonia Salinas Work Phone: [facility] 06-22-2022 influenza, seasonal, injectable Sonia Salinas Other [facility] 02-19-2022 COVID-19 Pfizer Sonia erazo Other [facility] 06-02-2021 Do not use COVID-19 Pfizer 2 dose Sonia Salinas Other [facility] 06-02-2021 Fluzone QIV High-Dos e 65YR+ ELECTRON GUN INSPECTOR Sonia Salinas Work Phone: [facility] 10-11-2020 Do not use COVID-19 Pfizer 2 dose Sonia Salinas Other [facility] 09-16-2020 Do not use COVID-19 Pfizer 2 dose Sonia Salinas Other [facility] 06-11-2013 influenza, seasonal, injectable Sonia Salinas Other [facility] Payers Date Payer Category Payer Medicare (Managed Care) [employer] [id number] 2024 Medicare [id number] 2024 Medicare [id number] 2023 [facility] [id number] [id number] 2023 Self-pay [id number] 2023 Medicare [id number] 2023 Medicare [id number] 2021 Medicare [id number] 1959 Medicare [id number] 1945 Unknown [id number] 2.16.840.1.339047.3.579.2. 593 1945 Unknown [id number] 2.16.840.1.921793.3.579.2. 1259 1945 Unknown [id number] 2.16.840.1.320387.3.579.2. 727 1945 Unknown [id number] 2.16.840.1.470879.3.579.2. 727 1945 Unknown [id number] 2.16.840.1.048444.3.579.2. 727 1945 Unknown [id number] 2.16.840.1.013598.3.579.2. 727 1945 Unknown [id number] 2.16.840.1.356148.3.579.2. 1259 1947 Unknown [id number] 2.16.840.1.926379.3.579.2. 125 1945 Unknown [id number] 2.16.840.1.612021.3.579.2. 1259 1945 Unknown [id number] 2.16.840.1.461483.3.579.2. 1258 1945 Unknown [id number] 2.16840.1.770488.3.579.2. 1259 1945 Unknown [id number] 2.16.840.1.165909.3.579.2. 1259 Medicare AARP Medicare Ad vantage [facility] [id number] Unknown [id number] 2.840.1.562720.3.579.2. 531 Unknown [id number] 2.16840.1.875424.3.579.2. 531 Unknown [id number] 2.16840.1.131863.3.579.2. 531 Unknown [id number] 2.16840.1.985482.3.579.2. 531 Social History Date Type Detail Facility Start: 02-08-2024 Sex Assigned At F [facility] Start: 1945 Sex Assigned At Male F [facility] Start: 10-05-2023 End: 01-12-2024 Tobacco smoking status NHIS Never smoked tobacco (finding) [facility] Start: 12-14-2023 End: 01-25-2024 Tobacco smoking status PAIS Ex-smoker (finding) [facility] History of tobacco use Current smoker [facility] History of tobacco use Cigarette Smoker [facility] Start: 12-14-2023 Tobacco use and exposure Smokeless tobacco non-user [facility] Start: 02-08-2024 Alcoholic beverage intake Ex-drinker (finding) [facility] Start: 02-08-2024 History of Social function [facility] Start: 1945 Sex assigned at Not on file N [facility] NEGATED: Highlighted rowStart: NINF History of tobacco use Passive smoker [facility] Medical Equipment Procedure Code Equipment [...] 02-25-2024 Functional Status N/A [facility] 01-27-2024 Functional Status N/A [facility] 01-26-2024 Functional status Patient at Baseline [facility] Work Phone: 01-13-2024 Functional status Patient at Baseline [facility] Work Phone: 01-11-2024 Functional status Patient at Baseline [facility] Work Phone: Mental Status Date Assessment Result Facility 01-26-2024 Cognitive function Cognitive Sta tus Patient at Baseline [facility] Work Phone: 01-13-2024 Cognitive function Cognitive Sta tus Patient at Baseline [facility] Work Phone: 01-11-2024 Cognitive function Cognitive Sta tus Patient Not at Baseline [facility] Work Phone: Clinical Notes 04-29-2023 to 03-07-2024 THOMPSON Puri - 03/07/2024 3:45 PM EDT Note Date & Type Note Facility 03-07-2024 History of Present illness Narrative Reason for Appointment: HST Patient: Dagoberto Squires : 1945 Reason for Home Sleep Study: Sleep disturbances Ordering Physician: Dr. Tru Solitario Storeroom Clerk: Lauro ORDOÑEZ(R) Pick-up Comments: Procedure was explained to the female manager functional picking up HST device, who expressed understanding. Patient's female manager functional was instructed how to use device and informed to return completed questionnaire with device tomorrow morning...... 03/07/24 Storeroom Clerk: Lauro WHELANR) Drop-Off Comments: Patient returned HST device. Study data was successfully uploaded, however, questionnaire was not completed and thus not imported to patient's chart...... 03/08/24 INSUFFICIENT DATA (LESS THAN 1 HOUR) WITH NO CHARGE PER DR. SOLITARIO.... Patient will need to repeat............ Lauro ORDOÑEZ(R) 06/15/24 documented [facility] this encounter [facility] 02-25-2024 Hospital Discharge instructions Patient Education 02/25/2024 [...] provider. Document Revised: 07/01/2020 Document Reviewed: 07/01/2020 [employer] Patient Education 2022 [employer]. Follow Up Care 01/27/2024 14:08:28 With:SHAYY BARRETO, Garfield Cotter, URL Address: [address] [place] [address]- When: Unknown [facility] 02-25-2024 Note Patient Education Urology [...] Reviewed: 07/01/2020 Elsevier Patient Education ? 2022 [employer]. [facility] 01-27-2024 Hospital Discharge instructions Patient Education 01/27/2024 [...] urethra. Follow these instructions at home: Take [id number]-anbdlqp and prescription medicines only as told by [...] provider. Document Revised: 02/11/2022 Document Reviewed: 02/11/2022 [employer] Patient Education 2022 [employer]. 01/27/2024 13:40:29 Testicular Self-Exam Testicular Self-Exam A [...] provider. Document Revised: 07/01/2020 Document Reviewed: 07/01/2020 [employer] Patient Education 2022 [employer]. Follow Up Care 01/27/2024 09:11:18 With:SHAYY BARRETO, Garfield Cotter, URL Address: [facility] [address] [place] [phone] When:Within 1 Month(s) [facility] 01-26-2024 Discharge summary Note Date/Time January 26, 2024 8:47am [facility] [address] [place] [address] Discharge Summary Signed Patient: Dagoberto Squires MR#: [id number] : 1945 Acct:[id number] Age/Sex: 78 / M Adm Date: 4 Loc: Room: 8W8167-[address]: Nicko Galvan MD Copies to: RITIKA Goyal APRN, BARBER SHOP MANAGER Nicko Galvan MD~ Providers Date of Discharge: [...] 60 0RF Follow Up: Sonia Salinas APRN, TOLL BOOTH OPERATOR-C [Primary Care Provider] - 01/26/24 2:00 pm [...] % (Auto) N/A, Lymph % (Auto) N/A, [place] % (Auto) N/A, Eos % (Auto) N/A, Baso % (Auto) N/A, Nucleat RBC Rel Count N/A, Neut # (Auto) N/A, Lymph # (Auto) N/A, [place] # (Auto) N/A, Eos # (Auto) N/A, [...] signed by Nicko Galvan MD> 01/26/24 0856 [facility] Work Phone: 1(911) 881-545106-18-2024 [facility] Consult note Author Dao Johnston [facility] January 13, 2024 11:34am Note Date/Time January 12, 2024 3:28p m [facility] [address] [place] [address] Vascular Surgery Consult Note Signed Patient: Dagoberto Squires MR#: [id number] : 1945 Acct:[id number] Age/Sex: 78 / M Adm Date: 4 Loc: 3T Room: [address] [place] [address] Type: ADM IN Attending Dr: Zachary Garcia MD Copies to: MD Mckenna Sanchez APRN Jeffrey L Buehrer, MD Jennifer Rohrbacher, RITIKA, BARBER SHOP MANAGER~ HPI Consult HPI Reason for consult: carotid [...] negative unless noted below or in HPI [facility] Medical History Vascular dementia Injected [...] of imaging. We will send imaging to [facility] and evaluate for likely intervention. This can [...] signed by MD Dao Johnston> 01/13/24 1134 [facility] Work Phone: 1(917) 592-441406-05-2024 Progress note Author Zachary Garcia [facility] January 12, 2024 5:19pm Note Date/Time January 11, 2024 1:15p m [facility] [address] [place] [address] Hospitalist Progress Note Signed Patient: Dagoberto Squires MR#: [id number] : 1945 Acct:[id number] Age/Sex: 78 / M Adm Date: 4 Loc: 3T Room: [address] [place] [address] Type: ADM IN Attending Dr: Zachary Garcia [...] levels of stenosis of intra and extracranial tmmafkjmiag-rxmr-rhula stenosis at the proximal right ICA and [...] above. Documented By: Sabrina Lama APRN 11/30 0917 Signed By: <Electronically signed by RITIKA Lama> 01/11/24 1449 <Electronically signed by Zachary Garcia MD> 01/12/24 8755 [facility] Work Phone: 1(242) 205-562206-05-2024 Progress note Author Zachary Garcia [facility] January 12, 2024 5:18pm Note Date/Time January 12, 2024 9:16a m [facility] [address] [place] [address] Hospitalist Progress Note Signed Patient: Dagoberto Squires MR#: [id number] : 1945 Acct:[id number] Age/Sex: 78 / M Adm Date: 4 Loc: Room: [address] [place] [address] Type: ADM IN Attending Dr: Zachary Garcia MD Copies to: ~ Date of Service: 01/12/2024 Subjective Subjective Narrative: Patient seen and examined. No visitors present. Patient offers no complaints. Remains oriented to place and self, thought it was 2008 and thought he was in [place]. Denies pain or dyspnea. Denies weakness. Slept [...] levels of stenosis of intra and extracranial hjzxxmvqepm-gqfk-dfohg stenosis at the proximal right ICA and [...] good candidate for TCAR urgently next week. TOLL BOOTH OPERATOR to see pt today -patient would benefit [...] <Electronically signed by Zachary Garcia MD> 01/12/24 6499 [facility] Work Phone: 1(255) 747-382106-05-2024 Progress note Author Nic Leugn [facility] January 12, 2024 12:58pm Note Date/Time January 12, 2024 11:25 am [facility] [address] [place] [address] Neurology Progress Note Signed Patient: Dagoberto Squires MR#: [id number] : 1945 Acct:[id number] Age/Sex: 78 / M Adm Date: 4 Loc: 3T Room: [address] [place] [address] Type: ADM IN Attending Dr: Zachary Garcia [...] signed by Nic Leung DO> 01/12/24 1258 [facility] Work Phone: 1(524) 501-598406-05-2024 History and physical note Author Jc Brown [facility] January 12, 2024 4:30am Note Date/Time January 11, 2024 7:55p ashish [facility] [address] [place] [address] Hospitalist H&P Signed Patient: Dagoberto Squires MR#: [id number] : 1945 Acct:[id number] Age/Sex: 78 / M Adm Date: 4 Loc: 3T Room: [address] [place] [address] Type: ADM IN Attending Dr: Zachary Garcia MD Copies to: MD Sonia Sanchez, ELECTRON GUN INSPECTOR, BARBER SHOP MANAGER RITIKA Ponce, DO~ HPI DATE OF EXAMINATION: [...] will be admitted as observation to the [facility] telemetry floor. ? Review of Systems Review of Systems Review of systems: A 10 point review of systems was obtained, negative unless noted in the HPI or below. [facility] Medical History (Updated 01/11/24 @ [...] 05:52 Lymph % (Auto) N/A 01/11/24 05:52 [place] % (Auto) N/A 01/11/24 05:52 Eos % (Auto) N/A 01/11/24 05:52 Baso % (Auto) N/A 01/11/24 05:52 Nucleat RBC Rel Count N/A 01/11/24 05:52 Neut # (Auto) N/A 01/11/24 05:52 Lymph # (Auto) N/A 01/11/24 05:52 [place] # (Auto) N/A 01/11/24 05:52 Eos # [...] pH 5.5 (5.0-9.0) 01/10/24 23:30 Ur Specific [place] 1.043 (1.001-1.030) H 01/10/24 23:30 Urine Protein [...] signed by Jc Brown DO> 01/12/24 0430 [facility] Work Phone: 1(682) 499-398006-04-2024 History and physical note Author Faiza Mcdonald [facility] January 11, 2024 7:52pm Note Date/Time January 11, 2024 12:40 am [facility] [address] [place] [address] Hospitalist H&P Signed Patient: Dagoberto Squires MR#: [id number] : 1945 Acct:[id number] Age/Sex: 78 / M Adm Date: 4 Loc: Room: [address] [place] [address] Type: ADM IN Attending Dr: Zachary Garcia MD Copies to: MD Sonia Sanchez, ELECTRON GUN INSPECTOR, BRIAN Mcdonald APRN~ Documented By: Faiza Mcdonald APRN 01/11/24 004 Signed By: [facility] Work Phone: 1(879) 652-730006-04-2024 Consult note Author Nic Leung [facility] January 11, 2024 1:44pm Note Date/Time January 11, 2024 12:01 pm [facility] [address] [place] [address] Neurology Consult Note Signed Patient: Dagoberto Squires MR#: [id number] : 1945 Acct:[id number] Age/Sex: 78 / M Adm Date: 4 Loc: 3T Room: [address] [place] [address] Type: ADM INOo Attending Dr: Zachary Garcia MD Copies to: DO Zachary Sy MD Jennifer Rohrbacher, ELECTRON GUN INSPECTOR, BARBER SHOP MANAGER~ HPI Consult Date: 01/11/24 Ecologist Technician: Nic Leung DO [facility] Medical History Injected eye, right [...] Dao Toscano M.D.01/11/2024 8:11 AM Dictation Location: [place] [address] Chest X-Ray 01/10/24 22:14 IMPRESSION: Interstitial prominence is noted with perihilar vascular prominence suggesting volume overload. Impression dictated by: Gómez Alan M.D.01/11/2024 8:45 AM Dictation Location: [place] [address] Head CTA 01/10/24 22:14 IMPRESSION: Multiple levels of stenoses of the intra and extracranial circulation as stated above. Multiple levels of occlusion of the intracranial And extracranial circulation as stated above. Impression dictated by: Dao Toscano M.D.01/11/2024 8:25 AM Dictation Location: [facility] Therapy Recommendations Therapy Recommendations: PT Recommendations PT [...] was a little shaky. 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 And his left [...] <Electronically signed by Nic Leung DO> 01/11/24 9909 [facility] Work Phone: [phone]) 336-400512-01-2023 Evaluation note* Encounter Date Diagnosis Assessment Notes [...] course of antibiotic. Increase fluids and rest. Xnlr-ysk-qxwwpdg antipyretics as needed. Warning signs and symptoms reviewed with patient today. Patient to go immediately to the ER should she experience any of these. Patient to notify office should her symptoms persist and not improve. Patient verbalizes understanding and agrees to treatment plan. [facility] Other 09-21-2023 Evaluation note* Encounter Date Diagnosis [...] understanding and is agreeable to treatment plan. [facility] Other Evaluation + Plan note Future Appointments Appointment Date:02/25/2024 08:45:00 AM Scheduled Provider:Garfield LUCAS MD Location:[facility] Appointment Type:URO Office Visit [facility] evaluation noteNo assessment information available [facility] Work Phone: evaluation note* Diagnosis Onset Date Resolution Status Loud snoring acute Maxillary sinusitis acute Rhinitis medicamentosa acute Screening for colon cancer a cute Aphasia acute Balance problem acute Frequent falls acute Memory changes acute [facility] Work Phone: evaluation note* Diagnosis Onset Date Resolution Status Aphasia acute Balance problem acute Frequent falls acute Memory changes acute Brain TIA acute Carotid stenosis acute Frequent falls acute Memory changes acute [facility] Work Phone: evaluation note* Diagnosis Onset Date Resolution Status Aphasia acute Balance problem acute Frequent falls acute Memory changes acute Atherosclerotic cerebrovascular disease acute Brain TIA acute Carotid stenosis acute Frequent falls acute Hypertension acute Memory changes acute Symptomatic stenosis of right carotid artery acute T2DM (type 2 diabetes mellitus) acute Vascular dementia acute [facility] Work Phone: Evaluation note* Diagnosis Onset Date Resolution Status Aphasia acute Balance problem acute Frequent falls acute Atherosclerotic cerebrovascular disease acute Frequent falls acute Hypertension acute Symptomatic stenosis of right carotid artery acute T2DM (type 2 diabetes mellitus) acute Vascular dementia acute Symptomatic stenosis of right carotid artery acute [facility] Work Phone: evaluation note* Diagnosis Onset Date Resolution Status Aphasia acute Balance problem acute Frequent falls acute Atherosclerotic cerebrovascular disease acute Frequent falls acute Hypertension acute Symptomatic stenosis of right carotid artery acute T2DM (type 2 diabetes mellitus) acute Vascular dementia acute Symptomatic stenosis of right carotid artery acute Scrotal abscess acute [facility] Work Phone: Evaluation note* Diagnosis Onset [...] 2 diabetes mellitus) acute Vascular dementia acute [facility] Work Phone: Evaluation note* Diagnosis Onset Date Resolution Status History of transcarotid artery revascularization (TCAR ) acute [facility] Work Phone: Evaluation note* Diagnosis Hypersomnia Hypersomnia, unspecified Memory loss documented in this encounter [facility] - Reported* Type Description Date Surgical History Eye surgery- cataracts Ex[place] Other Hospital course Narrative No data available for this section [facility] Hospital Discharge instructionsAmbulatory Orders* Referral to Neurology Location: None Selected [facility] Work Phone: Hospital Discharge instructions No data available for this [facility] No data available for this section [facility] reason for visit Narrative* Other Medical (Routine) - Closed Specialty Diagnoses / Procedures Referred By Contac t Referred To Contact [facility] Diagnoses Hypersomnia Memory loss Procedures Home sleep test Tru Solitario DO [address] [place] [address] Phone: tel: fax: Referral ID Status Reason Start Date Expiration Date Visits Re quested Visits Authorized [id number] Closed 02/24/2024 08/22/2024 1 1 [facility] [...] and content) DATE CREATED AUTHOR 06/28/2020 [facility] DATE CREATED AUTHOR AUTHOR'S ORGANIZ ATION 12/04/2023 [facility] EPIC DATE CREATED AUTHOR AUTHOR'S ORGANIZ ATION 02/06/2024 [facility] DATE CREATED AUTHOR AUTHOR'S ORGANIZ ATION 02/26/2024 [facility] DATE CREATED AUTHOR AUTHOR'S ORGANIZ ATION 03/10/2024 [facility] EPIC DATE CREATED AUTHOR AUTHOR'S ORGANIZ ATION 05/27/2024 [facility] REASON FOR VISIT (unrecogniz ed section and content) Establish, [facility] Teams (unrecognized sec tion and content) Team Status: Active Member Role Status Dates Sonia Salinas APRN TOLL BOOTH OPERATOR-C Primary Care Provider Active Team Status: Inactive Member Role Status Dates Sonia Salinas APRN TOLL BOOTH OPERATOR-C Attending Provider Act joaquina Start: July 09, 2023 End: July 09, 2023 Team Status: Inactive Member Role Status Dates Sonia Salinas APRN TOLL BOOTH OPERATOR-C Primary Care Provider Active Start: September 222023 End: September 22, 2023 Samuel oCker MD Attending Provider Active Start: September 22, 2023 End: September 22, 2023 Team Status: Inactive Member Role Status Dates Sonia Salinas APRN TOLL BOOTH OPERATOR-C Primary Care Provider, Attending Provider Active Start: October 05, 2023 End: October 05, 2023 Team Status: Inactive Member Role Status Dates Sonia Salinas APRN TOLL BOOTH OPERATOR-C Primary Care Provider, Attending Provider Active Start: November 09, 2023 End: November 09, 2023 Team Status: Active Member Role Status Dates Sonia Salinas APRN TOLL BOOTH OPERATOR-C Primary Care Provider, Attending Provider Active Start: November 10, 2023 Team Status: Active Member Role Status Dates Sonia Salinas APRN TOLL BOOTH OPERATOR-C Primary Care Provider, Attending Provider Active Start: November 19, 2023 Team Status: Active Member Role Status Dates Sonia Salinas APRN TOLL BOOTH OPERATOR-C Primary Care Provider Active Start: December 16, 2023 Tru Solitario DO Attending Provider Active Sta rt: December 16, 2023 Team Status: Active Member Role Status Dates Sonia Salinas APRN TOLL BOOTH OPERATOR-C Primary Care Provider Active Start: January 10 Nicko Grimm DO Emergency Provider Active Start: January 11, 2024 Jc Brown DO Admit Provider, Atte nding Provider Active Start: January 11, 2024 Team Status: Inactive Member Role Status Dates Sonia Salinas APRN TOLL BOOTH OPERATOR-C Primary Care Provider Active Start: January 11, [...] Member Role Status Dates Sonia Salinas APRN TOLL BOOTH OPERATOR-C Primary Care Provider Active Start: January 12, [...] Member Role Status Dates Sonia Salinas APRN TOLL BOOTH OPERATOR-C Primary Care Provider Active Start: January 17, 2024 End: January 17, 2024 Dao Johnston MD Attending Provider Active S tart: January 17, 2024 End: January 17, 2024 Team Status: Active Member Role Status Dates Sonia Salinas APRN TOLL BOOTH OPERATOR-C Primary Care Provider Active Start: January 17, 2024 Teresa Cowan LPN Attending Provider Active St art: January 17, 2024 Team Status: Inactive Member Role Status Dates Sonia Salinas APRN TOLL BOOTH OPERATOR-C Primary Care Provider Active Start: January 25, 2024 End: January 26, 2024 Nicko Galvan MD Admit Provider , Attending Provider Active Start: January 25, 2024 End: January 26, 2024 Team Status: Active Member Role Status Dates Sonia Salinas APRN TOLL BOOTH OPERATOR-C Primary Care Provider Active Start: January 25, 2024 Nicko Galvan MD Admit Provider , Attending Provider, Other Provider Active Start: January 25, 2024 Team Status: Inactive Member Role Status Dates Sonia Salinas APRN TOLL BOOTH OPERATOR-C Primary Care Provider, Attending Provider Active Start: January 26, 2024 End: January 26, 2024 Team Status: Active Member Role Status Dates Sonia Salinas APRN TOLL BOOTH OPERATOR-C Primary Care Provider Active Start: January 12, [...] 2024 End: January 13, 2024 Mckenna Campbell TOLL BOOTH OPERATOR-C Attending Provider Active Start: January 12, 2024 End: January 13, 2024 Team Status: Active Member Role Status Dates Sonia Salinas APRN TOLL BOOTH OPERATOR-C Primary Care Provider Active Start: January 27, 2024 Sabrina Lama APRN Attending Provider Active Start: January 27, 2024 Team Status: Inactive Member Role Status Dates Sonia Salinas APRN TOLL BOOTH OPERATOR-C Primary Care Provider Active Start: February 16, 2024 End: February 16, 2024 Nicko Galvan MD Attending Provider Active Start: February 16, 2024 End: February 16, 2024 Team Status: Inactive Member Role Status Dates Sonia Salinas APRN TOLL BOOTH OPERATOR-C Primary Care Provider Active Start: May End: May 25, 2024 Nicko Galvan MD Attending Provider Active Start: May 25, 2024 End: May 25, 2024 [employer] Relationship Specialty Start Date End Date Sonia Salinas NP [address] [place] [id number] PCP - General Family Medicine 01/18/24 Sonia Salinas NP [address] [place] [id number] Referring Physician Family Medicine 12/14/23 Goals (unrecognized [...] BE BASED ON THE PRIMARY CLINICAL RECORDS. [employer] provides no warranty or guarantee of the accuracy or completeness of information in this document.
--- NOTE | 2024-08-28 12:24 | ECG_ITS ---
The [facility] Test Date: 2024-08-28 Pat Name: ELISABETH SQUIRES Department: Room: - Gender: Male Medical Sales: : 1945 Requested By: SUYAPA BAKER Order Number: [id number] Reading MD: JOSIE RON Measurements Intervals Ross Rate: 90 P: -75453 W[place]: -37953 QRS: 68 QRSD: 96 T: 183 QT: 380 QTc: 428 Interpretive Statements Regular rhythm, likely supraventricular, difficult to determine due to baseline artifact. [id number] Twave abnormality, possible inferolateral ischemia 9150 abnormal ECG No previous ECG available for comparison Electronically Signed On 08-29-2024 20:51:10 EST by JOSIE RON
--- NOTE | 2024-08-28 12:24 | XR_ITS ---
The [address] [address] Patient Name: ELISABETH SQUIRES MRN: [id number] date: 1945 Sex: M Assigned Patient Location: ER Current Patient Location: ER Accession/Order Number: [id number] Exam Date: 08/28/2024 13:07 Report Date: 08/28/2024 13:41 At the request of: HUGO LEBLANC Procedure: XR chest 1V EXAM: XR chest 1V at 1306 hours HISTORY: sob COMPARISON: None. TECHNIQUE: AP upright portable chest x-ray FINDINGS: Infiltrates are seen throughout the right lung, particularly in the mid to upper lung, accompanied by small effusion. The left lung appears relatively clear. There is no evidence of pneumothorax. The heart is borderline enlarged without overt cardiac decompensation. The osseous structures are grossly intact. XR/XR chest 1V IMPRESSION: Infiltrates are seen throughout the right lung, particularly prominent in the mid and upper right lung. These are accompanied by a small right pleural effusion. There is no evidence of overt cardiac decompensation. Electronically authenticated by: BROOK ALBRECHT Date: 08/28/2024 13:41
[2024-08-28 12:59] LABS: Basophils Absolute Auto 0.1 10^3/uL (0.0-0.1); Basophils Percent Auto 0.5 % (0.2-2.0); Eosinophils Absolute Auto 0.3 10^3/uL (0.0-0.7); Eosinophils Percent Auto 1.6 % (0.9-7.0); Hemoglobin 12.3 g/dL (14.0-18.0); Immature Granulocytes Abs Auto 0.36 10^3/uL (0.00-0.03); Immature Granulocytes Pct Auto 2.1 % (0.0-0.5); Lymphocytes Absolute Auto 0.8 10^3/uL (1.2-3.8); Lymphocytes Percent Auto 4.7 % (20.5-60.0); Mean Corpuscular HGB Conc 33.2 g/dL (29.9-35.2); Mean Corpuscular Hemoglobin 31.2 pg (25.9-34.0); Mean Corpuscular Volume 93.9 fL (80.0-94.0); Mean Platelet Volume 10.7 fL (9.5-13.5); Monocytes Absolute Auto 0.7 10^3/uL (0.3-0.8); Monocytes Percent Auto 4.1 % (1.7-12.0); Neutrophils Absolute Auto 15.1 10^3/uL (1.4-6.5); Platelet Count 274 10^3/uL (150-450); Red Blood Count 3.94 10^6/uL (4.70-6.10); White Blood Count 17.4 10^3/uL (4.0-11.0)
[2024-08-28 13:11] LABS: Influenza Virus A Antigen Negative; Influenza Virus B Antigen Negative; Internal Control Within Normal Limits; Respiratory Syncytial Virus Not Detected (NOT DETECTE)
[2024-08-28 13:12] LABS: Internal Control Within Normal Limits; SARS-CoV-2 Ag NEGATIVE (NEGATIVE)
[2024-08-28 13:25] LABS: Alanine Aminotransferase 35 U/L (16-63); Albumin Globulin Ratio 0.7; Albumin Level 2.6 g/dL (3.4-5.0); Alkaline Phosphatase 162 U/L (46-116); Anion Gap 11.9; Aspartate Amino Transferase 41 U/L (15-37); BUN Creatinine Ratio 18.1; Bilirubin Total 0.9 mg/dL (0.2-1.0); Carbon Dioxide 31.8 mmol/L (21.0-32.0); Chloride 94 mmol/L (98-107); Estimated GFR (African America 21 (>=60 mL/min/1.73m^2); Estimated GFR (Non-African Ame 18 (>=60 mL/min/1.73m^2); Globulin 3.7 g/dL; Glucose 266 mg/dL (74-106); INR 1.11; Potassium 3.7 mmol/L (3.5-5.1); Prothrombin Time 11.6 sec (9.0-11.6); Sodium 134 mmol/L (136-145); Total Protein 6.3 g/dL (6.4-8.2)
[2024-08-28 13:28] LABS: Magnesium 2.1 mg/dL (1.8-2.4)
[2024-08-28 13:29] LABS: Lactate/Lactic Acid 3.7 mmol/L (0.4-2.0)
--- NOTE | 2024-08-28 14:11 | ED_ITS ---
HPI - SOB/Dyspnea General Chief Complaint: Shortness of Breath/Dyspnea Stated Complaint: SOB BREATHING FAST Time Seen by Provider: 08/28/24 12:24 Source: patient Mode of arrival: Wheelchair Limitations: no limitations History of Present Illness HPI Narrative: The patient is coming to the ER brought by his for concern of not being himself, patient is 79 years old male with known history of dementia, patient h as no complaint himself is denying any nausea vomiting chest pain or any other concerns Although he did complain yesterday that he is able to be short of breath but when he presented to us while in the nasal cannula the patient have no complaint The patient does have a cough that was noted on examination Related Data Home Medications ?Medication ?Instructions ?Recorded ?Confirmed atorvastatin 80 mg tablet 80 mg PO .QHS 08/28/24 08/28/24 donepezil 10 mg tablet 10 mg PO .QHS 08/28/24 08/28/24 glimepiride 2 mg tablet 2 mg PO .QD 08/28/24 08/28/24 liothyronine 5 mcg tablet 10 mcg PO .QD 08/28/24 08/28/24 metformin 500 mg tablet,extended 500 mg PO .QD 08/28/24 08/28/24 release 24 hr Allergies Allergy/AdvReac Type Severity Reaction Status Date / Time No Known Drug Allergies Allergy Verified 08/28/24 12:20 Review of Systems ROS Status of ROS 10 or more systems reviewed and unremark able except as noted in history and below Exam Narrative Exam Narrative: Nurses notes and vital signs reviewed and patient is not hypoxic. General: Well-appearing and in no apparent distress. Skin: Warm, dry, no pallor noted. No rash. Head: Normocephalic, atraumatic. Neck: Supple, non-tender. Eye: Pupils are equal, round and EOMI. No scleral icterus. Ears, Nose, Mouth, and Throat: TM are clear, no nasal mucosal hypertrophy. Oral mucosa is moist, no posterior oropharynx erythema, uvula is mid-line Cardiovascular: Regular Rate and Rhythm without murmur, gallop or rub. Respiratory: Decreased air entry bilaterally with crackles heard in both lung field Back: No midline thoracic or lumbar vertebral tenderness. No CVA tenderness Musculoskeletal: normal ROM, no calf or popliteal tenderness, no lower extremity edema/swelling GI: Abdomen is soft, non-distended. Normal bowel sounds. No masses appreciated. No tenderness to palpation. No rebound, guarding, or rigidity noted. Neurological: A&O x1 No cranial nerve dysfunction observed. Moves all extremities. Sensation intact. Constitutional Vital Signs, click to edit/add: Last Vital Signs Temp 97.7 F 08/28/24 12:22 Pulse 94 H 08/28/24 13:53 Resp 29 H 08/28/24 13:00 BP 173/104 H 08/28/24 15:00 Pulse Ox 93 L 08/28/24 15:00 O2 Del Method Nasal Cannula 08/28/24 12:21 O2 Flow Rate 2 08/28/24 12:21 Course Vital Signs Vital signs: Vital Signs Pulse Rate 99 H 08/28/24 12:12 Respiratory Rate 20 08/28/24 12:12 Blood Pressure 174/105 H 08/28/24 12:12 Pulse Oximetry 86 L 08/28/24 12:12 Oxygen Delivery Method Room Air 08/28/24 12:12 Temperature 97.7 F 08/28/24 12:22 Pulse Rate 94 H 08/28/24 13:53 Respiratory Rate 29 H 08/28/24 13:00 Blood Pressure 173/104 H 08/28/24 15:00 Pulse Oximetry 93 L 08/28/24 15:00 Oxygen Delivery Method Nasal Cannula 08/28/24 12:21 Oxygen Delivery Flow Rate 2 08/28/24 12:21 MDM - SOB/Dyspnea MDM Narrative Medical decision making narrative: The patient CT head showed no acute pathology EKG upon arrival showing possible A-fib and the patient has no history of A-fib and his heart rate right now is [address] elevation although there is some ST depression noted in the leads of V4 or V5 and V6 but with multiple artifacts at the patient was moving Chest x-ray shows an obvious peak right-sided pneumonia Also the CT of the chest shows bilateral effusion and a moderate size patient BNP shows a result above 35,000 The patient troponin is elevated to 3,000 the first set then it was repeated to be 5000 The patient had no chest pain at any time and no other concerns he was just sitting there watching TV The patient also had acute kidney injury in the chemistry that shows the patient creatinine is above 3 With the patient current presentation and the fact that he is full code initially I did explain to the family that he is having multiple problem including congestive heart failure and pneumonia Blood culture was obtained and he was started on azithromycin and ceftriaxone Lactic acid was elevated but I cannot provide the patient was a lot of fluid because he is in congestive heart failure and he is already fluid overloaded The patient also had an elevated troponin with no STEMI on exam and the patient have no chest pain and he is already in renal failure exposing him to contrast will cause further damage and harm I spoke with the family and explained to them the fact that the patient have multiple organ failures including heart failure and renal failure and he already have respiratory failure with ABG showing hypoxemia On 3 L nasal cannula the patient is saturating well showing no distress The patient as well as his son agree that the patient will be changed to comfort care and hospice care and right now with requested that the patient have some oxygen at home as well I did speak with the hospitalist on-call and right the patient will be admitted to establish hospice home care Lab Data Labs: Lab Results 08/28/24 08/28/24 08/28/24 Range/Units 12:45 12:50 14:04 WBC 17.4 H (4.0-11.0) 10^3/uL RBC 3.94 L (4.70-6.10) 10^6/uL Hgb 12.3 L (14.0-18.0) g/dL Hct 37.0 L (42.0-54.0) % MCV 93.9 (80.0-94.0) fL MCH 31.2 (25.9-34.0) pg MCHC 33.2 (29.9-35.2) g/dL RDW 15.0 (11.0-15.0) % Plt Count 274 (150-450) 10^3/uL MPV 10.7 (9.5-13.5) fL Neut % (Auto) 87.0 H (43.0-75.0) % Lymph % (Auto) 4.7 L (20.5-60.0) % Carolina % (Auto) 4.1 (1.7-12.0) % Eos % (Auto) 1.6 (0.9-7.0) % Baso % (Auto) 0.5 (0.2-2.0) % Neut # (Auto) 15.1 H (1.4-6.5) 10^3/uL Lymph # (Auto) 0.8 L (1.2-3.8) 10^3/uL Carolina # (Auto) 0.7 (0.3-0.8) 10^3/uL Eos # (Auto) 0.3 (0.0-0.7) 10^3/uL Baso # (Auto) 0.1 (0.0-0.1) 10^3/uL Abs Immat Gran (auto) 0.36 H (0.00-0.03) 10^3/uL Imm/Tot Granulo (auto) 2.1 H (0.0-0.5) % PT 11.6 (9.0-11.6) sec INR 1.11 Puncture Site Rr ABG pH 7.473 H (7.350-7.450) ABG pCO2 41.9 (35.0-45.0) mmHg ABG pO2 57.6 L* (80.0-100.0) mmHg ABG HCO3 30.6 H (22.0-26.0) mmol/L ABG O2 Saturation 91.0 % ABG Base Excess 7.0 H (-2.0-2.0) mmol/L Pradeep Test Positive (POSITIVE) O2 Liters/Min 5 Sodium 134 L (136-145) mmol/L Potassium 3.7 (3.5-5.1) mmol/L Chloride 94 L (98-107) mmol/L Carbon Dioxide 31.8 (21.0-32.0) mmol/L Anion Gap 11.9 BUN 62.0 H (7.0-18.0) mg/dL Creatinine 3.42 H (0.70-1.30) mg/dL Est GFR ( Amer) 21 L (>=60 mL/min/1.73m^2) Est GFR (Non-Af Amer) 18 L (>=60 mL/min/1.73m^2) BUN/Creatinine Ratio 18.1 Glucose 266 H (74-106) mg/dL Lactate 3.7 H* (0.4-2.0) mmol/L Calcium 9.0 (8.5-10.1) mg/dL Magnesium 2.1 (1.8-2.4) mg/dL Total Bilirubin 0.9 (0.2-1.0) mg/dL AST 41 H (15-37) U/L ALT 35 (16-63) U/L Alkaline Phosphatase 162 H (46-116) U/L Troponin I High Sens 3341.0 H* (4.0-76.1) pg/mL NT-Pro-B Natriuret Pep >19859.0 H* (<=1800.0) pg/mL Total Protein 6.3 L (6.4-8.2) g/dL Albumin 2.6 L (3.4-5.0) g/dL Globulin 3.7 g/dL Albumin/Globulin Ratio 0.7 Influenza Type A Ag Negative Influenza Type B Ag Negative RSV Antigen Not detected (NOT DETECTE) SARS-CoV-2 Ag (CV2AG) Negative (NEGATIVE) 08/28/24 Range/Units 14:42 WBC (4.0-11.0) 10^3/uL RBC (4.70-6.10) 10^6/uL Hgb (14.0-18.0) g/dL Hct (42.0-54.0) % MCV (80.0-94.0) fL MCH (25.9-34.0) pg MCHC (29.9-35.2) g/dL RDW (11.0-15.0) % Plt Count (150-450) 10^3/uL MPV (9.5-13.5) fL Neut % (Auto) (43.0-75.0) % Lymph % (Auto) (20.5-60.0) % Carolina % (Auto) (1.7-12.0) % Eos % (Auto) (0.9-7.0) % Baso % (Auto) (0.2-2.0) % Neut # (Auto) (1.4-6.5) 10^3/uL Lymph # (Auto) (1.2-3.8) 10^3/uL Carolina # (Auto) (0.3-0.8) 10^3/uL Eos # (Auto) (0.0-0.7) 10^3/uL Baso # (Auto) (0.0-0.1) 10^3/uL Abs Immat Gran (auto) (0.00-0.03) 10^3/uL Imm/Tot Granulo (auto) (0.0-0.5) % PT (9.0-11.6) sec INR Puncture Site ABG pH (7.350-7.450) ABG pCO2 (35.0-45.0) mmHg ABG pO2 (80.0-100.0) mmHg ABG HCO3 (22.0-26.0) mmol/L ABG O2 Saturation % ABG Base Excess (-2.0-2.0) mmol/L Pradeep Test (POSITIVE) O2 Liters/Min Sodium (136-145) mmol/L Potassium (3.5-5.1) mmol/L Chloride (98-107) mmol/L Carbon Dioxide (21.0-32.0) mmol/L Anion Gap BUN (7.0-18.0) mg/dL Creatinine (0.70-1.30) mg/dL Est GFR ( Amer) (>=60 mL/min/1.73m^2) Est GFR (Non-Af Amer) (>=60 mL/min/1.73m^2) BUN/Creatinine Ratio Glucose (74-106) mg/dL Lactate 3.1 H* (0.4-2.0) mmol/L Calcium (8.5-10.1) mg/dL Magnesium (1.8-2.4) mg/dL Total Bilirubin (0.2-1.0) mg/dL AST (15-37) U/L ALT (16-63) U/L Alkaline Phosphatase (46-116) U/L Troponin I High Sens 5618.1 H* (4.0-76.1) pg/mL NT-Pro-B Natriuret Pep (<=1800.0) pg/mL Total Protein (6.4-8.2) g/dL Albumin (3.4-5.0) g/dL Globulin g/dL Albumin/Globulin Ratio Influenza Type A Ag Influenza Type B Ag RSV Antigen (NOT DETECTE) SARS-CoV-2 Ag (CV2AG) (NEGATIVE) Discharge Plan Discharge Chief Complaint: Shortness of Breath/Dyspnea Clinical Impression: Renal failure, Respiratory failure, Elevated troponin, Pneumonia Patient Disposition: Admitted As Inpatient Time of Disposition Decision: 16:23
[2024-08-28 14:14] LABS: ABG PCO2 41.9 mmHg (35.0-45.0); Allen Test POSITIVE (POSITIVE); HCO3 ABG 30.6 mmol/L (22.0-26.0); Liters per Minute 5; O2 Mode NC; pH ABG 7.473 (7.350-7.450)
[2024-08-28 14:15] LABS: Puncture Site RR
[2024-08-28 14:17] LABS: PO2 ABG 57.6 mmHg (80.0-100.0)
--- NOTE | 2024-08-28 14:20 | CT_ITS ---
[address] [address] Patient Name: ELISABETH SQUIRES MRN: [id number] date: 1945 Sex: M Assigned Patient Location: ER Current Patient Location: Accession/Order Number: [id number] Exam Date: 08/28/2024 14:05 Report Date: 08/28/2024 15:17 At the request of: HUGO LEBLANC Procedure: CT chest wo con CT CHEST WITHOUT CONTRAST. HISTORY: pneumonia COMPARISON: None. TECHNIQUE: Unenhanced chest CT including axial, sagittal and coronal reformatted images. FINDINGS: LUNGS: There are groundglass opacities in the right upper lobe. There is bilateral interlobular septal thickening. There is a moderate size right and small left pleural effusion. No pneumothorax. AORTA: No aortic aneurysm. There is dilatation of the ascending aorta measuring 4.2 cm. LYMPH NODES: There are mildly enlarged mediastinal lymph nodes, which is nonspecific. HEART: Normal size. No pericardial effusion. Coronary artery calcification. UPPER ABDOMEN: The visualized parenchymal organs of the upper abdomen are normal. MUSCULOSKELETAL: Axial skeleton shows no acute abnormality. CT/CT chest wo con IMPRESSION: 1. Right upper lobe groundglass opacities which may represent pneumonia or unilateral pulmonary edema. There is superimposed bilateral interstitial edema. Correlate clinically and recommend follow-up imaging. 2. Moderate-sized right and small left pleural effusions. Electronically authenticated by: SERGIO TY Date: 08/28/2024 15:17
--- NOTE | 2024-08-28 14:20 | CT_ITS ---
The [address] [address] Patient Name: ELISABETH SQUIRES MRN: [id number] date: 1945 Sex: M Assigned Patient Location: ER Current Patient Location: ER Accession/Order Number: [id number] Exam Date: 08/28/2024 14:05 Report Date: 08/28/2024 14:44 At the request of: HUGO LEBLANC Procedure: CT head/brain wo con EXAM: CT head/brain wo con HISTORY: ams lower extremities COMPARISON: None. TECHNIQUE: Axial soft tissue and bone windows through the calvarium with coronal and sagittal reformats. CT dose reduction technique was used including Automated Exposure Control. Findings: Partial opacification of the left mastoid air cells. No air-fluid levels. No extra-axial fluid collection. No intra-axial or extra-axial bleed. No mass effect or midline shift. The hassan-white matter differentiation is preserved. There are white matter low attenuation lesions which are nonspecific but commonly attributed to chronic small vessel ischemic disease. The brain parenchymal volume is reduced yet likely appropriate. The ventricles are nondilated. The basal cisterns are patent. The craniovertebral junction is unremarkable. CT/CT head/brain wo con IMPRESSION: 1. No acute intracranial abnormality. MRI is more sensitive for the evaluation of acute ischemia. 2. Senescent changes. Electronically authenticated by: MY FRANK Date: 08/28/2024 14:44
[2024-08-28] MEDS: 0.9 % SODIUM CHLORIDE 1,000 ML 1000 ML IV (14:37)
[2024-08-28] MEDS: CEFTRIAXONE 1,000 MG in 0.9 % SODIUM CHLORIDE 50 ML 100 MG IV (14:38)
[2024-08-28] MEDS: AZITHROMYCIN 500 MG in 0.9 % SODIUM CHLORIDE 250 ML 250 MG IV (15:17)
[2024-08-28 15:19] LABS: NT Pro B Type Natriuretic Pept >35000.0 pg/mL (<=1800.0)
[2024-08-28 15:20] LABS: Lactate/Lactic Acid 3.1 mmol/L (0.4-2.0); Troponin I High Sensitivity 5618.1 pg/mL (4.0-76.1)
--- OUTSIDE RECORDS SUMMARY | 2024-08-28 17:11 | XMS_ITS | CCD ---
Author Organization [facility] Care Team Providers Care Belt Weaver Name Role Phone AMILCAR MIDDLETON Primary Care Unavailable MISC, DOCTOR Attending Unavailable MISC, DOCTOR Consulting Unavailable MISC, DOCTOR Admitting Unavailable Sonia Salinas Unavailable [phone] RITIKA Salinas Primary Care Provider MD Samuel Coker Attending Provider RITIKA Salinas Primary Care Provider MD Samuel Coker Attending Provider AURELIA FRENCH Attending Unavailable RITIKA Salinas Primary Care Provider DO Nicko Grimm Emergency Provider Unavai DO Jc Magallanes Admit Provider [phone] DO Jc Brown Attending Provider RITIKA Salinas Primary Care Provider DO Nicko Grimm Emergency Provider Unavai DO Jc Magallanes Admit Provider [phone] MD Zachary Garcia Attending Provider DO Nic [...] Unavailable Sonia Salinas Primary Care Unavailable Brad CONVEYOR BELT OPERATOR, Sonia Sharif Unavailable Brad CONVEYOR BELT OPERATORSonia Primary Care Provider Allergies Allergy Classification Reported Allergen(s) Allergy Type Date of Onset Reaction(s) Facility (1 source) No Known Medication Allergies; Translations: [No Known Medication Allergies] Propensity to adverse reactions (disorder) [facility] Repository Medications Current Medications Medication [...] day(s), # 28 cap(s), Refills(s) 0, Pharmacy: [facility]/pharmacy #[id number], 180, cm, 01/27/24 13:28:00 EDT, [...] obtained... Test will need to be repeated. [facility] carotid doppler BIon 10- US carotid doppler [facility] [address] [place], [place] [id number] Ultrasound Report Signed Patient: Dagoberto Squires MR#: [id number] : 1945 Acct:[id number] Age/Sex: 79 / M ADM Date: 05/25/24 Loc: [facility] Room: Type: [facility] Attending Dr: Mckenna Campbell CONVEYOR BELT OPERATOR-C Ordering Provider: Mckenna Campbell APRN Date [...] Nicko Galvan MD05/26/2024 9:33 AM Dictation Location: [facility]-04 Tech: Venecia Carter Transcribed By: ALEA 05/26/24932 Dictated By: Nicko Galvan MD 05/26/24931 Signed By: 05/26/24932 Normal [facility] Ambulatory Visit Summaryon 0 02-25-2024 [...] with Garfield LUCAS MD, URL When: Where: [address] [place] [address]- Medications What How Much When Instructions Unchanged [...] Patient Educati (more content not included)... Normal [facility] Urology Office/Clinic Noteon 02-25-2024 Urology [...] Information SHAYY BARRETO, Garfield Cotter, URL [address] [place] [address]- Additional Instructions: PRN Patient Education Testicular Self-Exam [...] Dipstick: 1+ (30 mg/dl) (02/25/24 08:47:00) Specific [place] Urine Dipstick: >=1.030 (02/25/24 08:47:00) Urine Appearance Urine Dipstick: Clear (02/25/24 08:47:00) Urine Color Urine Dipstick: Yellow (02/25/24 08:47:00) Urobilinogen Urine Dipstick: Normal 0.2-1 EU/dl (02/25/24 08:47:00) pH Urine Dipstick: 5.5 (02/25/24 08:47:00) Normal [facility] Comment on above: Result Comment: Elec tronically Signed By: Garfield LUCAS MD\Date and Time Signed: 02/25/24 09:27 EDT\.br\Electronically Co-Signed By: Karuna Carias\Date and Time Co-Signed: 02/25/24 09:25 EDT Transfer Inon 02-02-2024 Transfer In [id number]#[id number] Normal [facility] RAD - Ultrasound Reporton RAD - Ultrasound Report [id number]#[id number] Normal [facility] Basophils/100 WBC Manual cnt (Bld)on 01-27-2024 Basophils/100 WBC (Bld) 2.0 % 0.2-2.0 [facility] CHEMISTRYOrdered By: SYSTEM SYSTEM on 01-27-2024 [...] used for this result was chemiluminescence using [employer] Access Hybritech PSA reagent. Eosinophils/100 WBC Manual c nt (Bld)on 01-27-2024 Eosinophils/100 WBC (Bld) 22.0 % High 0.9-7.0 [facility] Erythrocyte distribution wid th Auto (RBC) [Ratio]on 01-27-2024 Erythrocyte distribution width (RBC) [Ratio] 12.8 % 11.0-15.0 [facility] Hematocrit Auto (Bld) [Volum e fraction]on 01-27-2024 Hematocrit (Bld) [Volume fraction] 39.2 % Low 42.0-54.0 [facility] Hemoglobin [Mass/volume] in Bloodon 01-27-2024 Hemoglobin (Bld) [Mass/Vol] 13.0 g/dL Low 14.0-18.0 [facility] Laboratory - Hematology and Cell countson 01-27-2024 Band form neutrophils/100 WBC (Bld) 1.0 % 0-5 [facility] Lymphocytes/100 WBC (Bld) 15.0 % Low 20.5-60.0 [facility] Monocytes/100 WBC (Bld) 10.0 % 1.7-12.0 [facility] Leukocytes [#/volume] correc guillermina for nucleated erythrocytes in Blood by Automated counon 01-27-2024 WBC corrected for nucl RBC Auto (Bld) [#/Vol] 19.1 10 3/uL High 4.0-11.0 [facility] MCH Auto (RBC) [Entitic mass ]on 01-27-2024 MCH (RBC) [Entitic mass] 31.7 pg 25.9-34.0 [facility] MCHC Auto (RBC) [Mass/Vol]on 01-27-2024 MCHC (RBC) [Mass/Vol] 33.2 g/dL 29.9-35.2 [facility] MCV Auto (RBC) [Entitic vol] on 01-27-2024 MCV (RBC) [Entitic vol] 95.6 fL High 80.0-94.0 [facility] No Panel Informationon 01-26 Absolute Basophils (Manual) 0.38 10 3/uL High 0.00-0.10 [facility] Band Neutrophils # (Manual) 0.2 10 3/uL 0.0-0.3 [facility] Eosinophils # (Manual) 4.20 10 3/uL High 0.00-0.70 [facility] Lymphocytes # (Manual) 2.86 10 3/uL 1.20-3.80 [facility] Monocytes # (Manual) 1.91 10 3/uL High 0.30-0.80 [facility] Segmented Neutrophils # (Manual) 9.55 10 3/uL High 1.4-6.5 [facility] PSA Screen, Totalon 01-27-20 Prostate specific Ag [Mass/Vol] 2.9 ng/mL Normal 0.1-3.5 [facility] Comment on above: Result Comment: The concentration of PSA determined by different manufacturers can vary due to differences in assay methods and reagent specificity. Values obtained from different assay methods cannot be used interchangeably. The methodology used for this result was chemiluminescence using [employer]'s Access Hybritech PSA reagent. Performed By: #### 1 [id number] #### [facility] Laboratory [address] [place] [address] Patient Educationon 01-27-20 Patient Education Urology Benign [...] Follow these instructions at home: ? Take tlys-dyk-lnnnhhh and prescription medicines only as told by [...] the medicine (more content not included)... Normal [facility] Physician Orderon 01-27-2024 Physician Order [id number] Normal [facility] Platelet mean volume Auto (B ld) [Entitic vol]on 01-27-2024 Platelet mean volume (Bld) [Entitic vol] 9.8 fL 9.5-13.5 [facility] Platelets Auto (Bld) [#/Vol] on 01-27-2024 Platelets (Bld) [#/Vol] 303 10 3/uL 150-450 [facility] RBC Auto (Bld) [#/Vol]on RBC (Bld) [#/Vol] 4.10 10 6/uL Low 4.70-6.10 [facility] Segmented neutrophils/100 WB C Manual cnt (Bld)on 01-27-2024 Segmented neutrophils/100 WBC (Bld) 50.0 % [facility] Urology Office/Clinic Noteon 01-27-2024 Urology Office/Clinic [...] HPI to be accurate for this encounter. [facility] records reviewed, labs, and [...] [facility] [address], [place] [address] [phone] Additional Instructions: Patient Education Benign Prostatic Hyperplasia [...] a day (more content not included)... Normal [facility] Comment on above: Result Comment: Elec tronically Signed By: Garfield LUCAS MD\.br\Date and Time Signed: 01/27/24 15:52 EDT\.br\Electronically Co-Signed By: Cheyenne Morales\Herlindabr\Date and Time Co-Signed: 01/27/24 14:06 EDT Basophils Auto (Bld) [#/Vol] Ordered By: Nicko Galvan on 01-26-2024 Basophils (Bld) [#/Vol] N/A [facility] Basophils/100 WBC Auto (Bld) Ordered By: Nicko Galvan on 01-26-2024 Basophils/100 WBC (Bld) N/A [facility] Diff and CBCon 01-26-2024 Giant Platelet Tally 2 /100{WBC} Normal [facility] Comment on above: Performed By: #### D IFF CBC, PTT, CK, HS TROP, CMP, CBC, PT #### [facility] [address] [place] [address] Mean Corpuscular HGB Conc 33.3 g/dL Normal 32.5-35.6 [facility] Comment on above: Performed By: #### D IFF CBC, PTT, CK, HS TROP, CMP, CBC, PT #### [facility] [address] Platelet Estimate Normal Normal Normal [facility] Comment on above: Performed By: #### D IFF CBC, PTT, CK, HS TROP, CMP, CBC, PT #### [facility] [address] Platelet Morphology Normal Normal Normal [facility] Comment on above: Result Comment: PERF ORMED BY: [place] [address] PATHOLOGIST KNURLING MACHINE OPERATOR DENNIS RODRIGUEZ M.D. Performed By: #### D IFF CBC, PTT, CK, HS TROP, CMP, CBC, PT #### [address] Eosinophils Auto (Bld) [#/Vo l]Ordered By: Nicko Galvan on 01-26-2024 Eosinophils (Bld) [#/Vol] N/A [facility] Eosinophils/100 WBC Auto (Bl d)Ordered By: Nicko Galvan on 01-26-2024 Eosinophils/100 WBC (Bld) N/A [facility] Eosinophils/100 leukocytes i n Blood by Manual countOrdered By: Nicko Galvan on 01-26-2024 Eosinophils/100 WBC (Bld) 15 % High 1-3 [facility] Comment on above: Performed By: #### D IFF CBC, PTT, CK, HS TROP, CMP, CBC, PT #### [facility] [address] Erythrocyte distribution wid th [Ratio] by Automated countOrdered By: Nicko Galvan on 01-26-2024 Erythrocyte distribution width (RBC) [Ratio] 13.8 % Normal 12.0-14.8 [facility] Comment on above: Performed By: #### D IFF CBC, PTT, CK, HS TROP, CMP, CBC, PT #### [facility] [address] Erythrocytes [#/volume] in B lood by Automated countOrdered By: Nicko Galvan on 01-26-2024 RBC (Bld) [#/Vol] 3.83 10*6/uL Low 3.90-5.60 [facility] Comment on above: Performed By: #### D IFF CBC, PTT, CK, HS TROP, CMP, CBC, PT #### [facility] [address] Giant platelets/100 leukocyt es [Ratio] in Blood by Manual countOrdered By: Nicko Galvan on 01-26-2024 Giant platelets/100 WBC Manual cnt (Bld) [Ratio] 2 /100{WBC} [facility] Hematocrit [Volume Fraction] of Blood by Automated countOrdered By: Nicko Galvan on 01-26-2024 Hematocrit (Bld) [Volume fraction] 35.9 % Low 38.8-50.0 [facility] Comment on above: Performed By: #### D IFF CBC, PTT, CK, HS TROP, CMP, CBC, PT #### [facility] [address] Hemoglobin [Mass/volume] in BloodOrdered By: Nicko Galvan on 01-26-2024 Hemoglobin (Bld) [Mass/Vol] 12.0 g/dL Low 13.0-17.0 [facility] Comment on above: Performed By: #### D IFF CBC, PTT, CK, HS TROP, CMP, CBC, PT #### [facility] [address] [place] [address] Leukocytes [#/volume] correc guillermina for nucleated erythrocytes in Blood by Automated counOrdered By: Nicko Galvan on 01-26-2024 WBC corrected for nucl RBC Auto (Bld) [#/Vol] 20.7 10*3/uL High 4.1-10.5 [facility] Leukocytes [#/volume] in Blo od by Automated countOrdered By: Nicko Galvan on 01-26-2024 WBC (Bld) [#/Vol] 20.7 10*3/uL High 4.1-10.5 [facility] Comment on above: Performed By: #### D IFF CBC, PTT, CK, HS TROP, CMP, CBC, PT #### [facility] [address] [place] [address] Lymphocytes Auto (Bld) [#/Vo l]Ordered By: Nicko Galvan on 01-26-2024 Lymphocytes (Bld) [#/Vol] N/A [facility] Lymphocytes/100 WBC Auto (Bl d)Ordered By: Nicko Galvan on 01-26-2024 Lymphocytes/100 WBC (Bld) N/A [facility] Lymphocytes/100 leukocytes i n Blood by Manual countOrdered By: Nicko Galvan on 01-26-2024 Lymphocytes/100 WBC (Bld) 7 % Low 18-42 [facility] Comment on above: Performed By: #### D IFF CBC, PTT, CK, HS TROP, CMP, CBC, PT #### [facility] [address] [place] [address] MCH [Entitic mass] by Automa guillermina countOrdered By: Nicko Galvan on 01-26-2024 MCH (RBC) [Entitic mass] 31.2 pg Normal 27.5-35.2 [facility] Comment on above: Performed By: #### D IFF CBC, PTT, CK, HS TROP, CMP, CBC, PT #### [facility] [address] [place] [address] MCHC Auto (RBC) [Mass/Vol]Or dered By: Nicko Galvan on 01-26-2024 MCHC (RBC) [Mass/Vol] 33.3 g/dL 32.5-35.6 [facility] MCV [Entitic volume] by Auto mated countOrdered By: Nicko Galvan on 01-26-2024 MCV (RBC) [Entitic vol] 93.7 fL Normal 83.5-101 [facility] Comment on above: Performed By: #### D IFF CBC, PTT, CK, HS TROP, CMP, CBC, PT #### [facility] [address] Manual blood segmented neutr ophils/100 leukocytesOrdered By: Nicko Galvan on 01-26-2024 Segmented neutrophils/100 WBC (Bld) 67 % Normal 50-70 [facility] Comment on above: Performed By: #### D IFF CBC, PTT, CK, HS TROP, CMP, CBC, PT #### [facility] [address] [place] [address] Monocytes Auto (Bld) [#/Vol] Ordered By: Nicko Galvan on 01-26-2024 Monocytes (Bld) [#/Vol] N/A [facility] Monocytes/100 WBC Auto (Bld) Ordered By: Nicko Galvan on 01-26-2024 Monocytes/100 WBC (Bld) N/A [facility] Monocytes/100 leukocytes in Blood by Manual countOrdered By: Nicko Galvan on 01-26-2024 Monocytes/100 WBC (Bld) 8 % Normal 2-11 [facility] Comment on above: Performed By: #### D IFF CBC, PTT, CK, HS TROP, CMP, CBC, PT #### [facility] [address] Neutrophils Auto (Bld) [#/Vo l]Ordered By: Nicko Galvan on 01-26-2024 Neutrophils (Bld) [#/Vol] N/A [facility] Neutrophils/100 WBC Auto (Bl d)Ordered By: Nicko Galvan on 01-26-2024 Neutrophils/100 WBC (Bld) N/A [facility] Nucleated erythrocytes [Pres ence] in Blood by Automated countOrdered By: Nicko Galvan on 01-26-2024 Nucleated RBC Auto Ql (Bld) N/A [facility] Peripheral white blood cell differential % bands, microscopic examOrdered By: Nicko Galvan on 01-26-2024 Band form neutrophils/100 WBC (Bld) 3 % Normal 0-5 [facility] Comment on above: Performed By: #### D IFF CBC, PTT, CK, HS TROP, CMP, CBC, PT #### [facility] [address] Platelet adequacy [Presence] in Blood by Light microscopyOrdered By: Nicko Galvan on 01-26-2024 Platelets LM Ql (Bld) Normal Normal [facility] Platelet mean volume [Entiti c volume] in Blood by Automated countOrdered By: Nicko Galvan on 01-26-2024 Platelet mean volume (Bld) [Entitic vol] 7.7 fL Normal 6.6-10.1 [facility] Comment on above: Result Comment: PERF ORMED BY: [place] [address] PATHOLOGIST KNURLING MACHINE OPERATOR DENNIS RODRIGUEZ M.D. Performed By: #### D IFF CBC, PTT, CK, HS TROP, CMP, CBC, PT #### [address] Platelet morphology finding [Identifier] in BloodOrdered By: Nicko Galvan on 01-26-2024 Platelet morphology finding Nom (Bld) Normal Normal [facility] Platelets [#/volume] in Bloo d by Automated countOrdered By: Nicko Galvan on 01-26-2024 Platelets (Bld) [#/Vol] 276 10*3/uL Normal 150-450 [facility] Comment on above: Performed By: #### D IFF CBC, PTT, CK, HS TROP, CMP, CBC, PT #### [address] RBC morphologyOrdered By: Americo Galvan on 01-26-2024 RBC morphology finding Nom (Bld) Normal Normal Normal [facility] Comment on above: Performed By: #### D IFF CBC, PTT, CK, HS TROP, CMP, CBC, PT #### [facility] [address] [place] [id number] [place] Activated Clotting Timeon Activated Clotting Time POC 269 s High 90-139 [facility] Comment on above: Result Comment: Refe rence Range: 90-139 (Non-heparinized) PERFORMED BY: [place] [address] PATHOLOGIST KNURLING MACHINE OPERATOR DENNIS RODRIGUEZ M.D. Performed By: #### D IFF CBC, PTT, CK, HS TROP, CMP, CBC, PT #### [facility] [address] [place] [id number] [facility] Activated Clotting Time POC 140 s High 90-139 [facility] Comment on above: Result Comment: Refe rence Range: 90-139 (Non-heparinized) PERFORMED BY: [place] [address] PATHOLOGIST KNURLING MACHINE OPERATOR DENNIS RODRIGUEZ M.D. Performed By: #### D IFF CBC, PTT, CK, HS TROP, CMP, CBC, PT #### [place] [id number] [facility] Amphetamine Screen Ql (U)Ord ered By: ELIZABETH AGUILAR on 01-25-2024 Amphetamines Ql (U) Negative Negative [facility] Barbiturates [Presence] in U rine by Screen methodOrdered By: ELIZABETH AGUILAR on 01-25-2024 Barbiturates Screen Ql (U) Negative Negative [facility] Benzodiazepines Screen Ql (U )Ordered By: ELIZABETH AGUILAR on 01-25-2024 Benzodiazepines Ql (U) Negative Negative [facility] Benzoylecgonine [Presence] i n Urine by Screen methodOrdered By: ELIZABETH AGUILAR on 01-25-2024 Benzoylecgonine Screen Ql (U) Negative Negative [facility] Blood activated clotting ce e by coagulation assayOrdered By: Nicko Galvan on 01-25-2024 ACT Coag (Bld) 269 s High 90-139 [facility] Comment on above: Reference Range: 90- 139 (Non-heparinized) Cannabinoids [Presence] in U rine by Screen methodOrdered By: ELIZABETH AGUILAR on 01-25-2024 Cannabinoids Screen Ql (U) Positive High Negative [facility] Comment on above: These are unconfirme d results and should not be used for legal purposes. Drug Cut-Off Concentration: AMPH 1000 ng/mL NIMESH 200 ng/mL STEVEN 200 ng/mL COCM 300 ng/mL OP 300 ng/mL PCP 25 ng/mL THC 20 ng/mL Capillary blood glucose lupillo urement by glucometer (mass/volume)Ordered By: Nicko Galvan on 01-25-2024 Glucose [Mass/Vol] 121 mg/dL Normal [facility] Comment on above: Random Glucose Refer ence Range is dependent on time and content of last meal. Glucose of more than 200 mg/dL in a nonstressed, ambulatory subject supports the diagnosis of Diabetes Mellitus. Result Comment: Margie Glucose Reference Range is dependent on time and content of last meal. Glucose of more than 200 mg/dL in a nonstressed, ambulatory subject supports the diagnosis of Diabetes Mellitus. Performed By: #### D IFF CBC, PTT, CK, HS TROP, CMP, CBC, PT #### [facility] [address] [place] [address] [place] Drug Screen,Urineon 01-25-20 24 Amphetamine Screen,Urine Negative Normal Negative [facility] Comment on above: Performed By: #### U RDS #### [facility] [address] [place] [address] [place] Barbiturate Screen,Urine Negative Normal Negative [facility] Comment on above: Performed By: #### U RDS #### [facility] [address] [place] [address] [place] Benzodiazepines Screen,Urine Negative Normal Negative [facility] Comment on above: Performed By: #### U RDS #### [facility] [address] [place] [address] [place] Cannabinoid Screen,Urine Positive High Negative [facility] Comment on above: Result Comment: Thes e are unconfirmed results and should not be used for legal purposes. Drug Cut-Off Concentration: AMPH 1000 ng/mL NIMESH 200 ng/mL STEVEN 200 ng/mL COCM 300 ng/mL OP 300 ng/mL PCP 25 ng/mL THC 20 ng/mL PERFORMED BY: [place] [address] PATHOLOGIST KNURLING MACHINE OPERATOR DENNIS RODRIGUEZ M.D. Performed By: #### U RDS #### [address] Cocaine Screen,Urine Negative Normal Negative [facility] Comment on above: Performed By: #### U RDS #### [address] Opiate Screen,Urine Negative Normal Negative [facility] Comment on above: Performed By: #### U RDS #### [address] Phencyclidine Screen,Urine Negative Normal Negative [facility] Comment on above: Performed By: #### U RDS #### [address] Glucose Poct Glucometerson 0 01-25-2024 Commemt1 Glu2: Cleaned Meter Normal [facility] Comment on above: Result Comment: PERF ORMED BY: [place] [address] PATHOLOGIST KNURLING MACHINE OPERATOR DENNIS RODRIGUEZ M.D. Performed By: #### D IFF CBC, PTT, CK, HS TROP, CMP, CBC, PT #### [address] Commemt1 Glu2: Cleaned Meter Normal [facility] Comment on above: Result Comment: PERF ORMED BY: [place] [address] PATHOLOGIST KNURLING MACHINE OPERATOR DENNIS RODRIGUEZ M.D. Performed By: #### D IFF CBC, PTT, CK, HS TROP, CMP, CBC, PT #### [address] Glucose [Mass/Vol] 124 mg/dL Normal [facility] Comment on above: Result Comment: Margie Glucose Reference Range is dependent on time and content of last meal. Glucose of more than 200 mg/dL in a nonstressed, ambulatory subject supports the diagnosis of Diabetes Mellitus. Performed By: #### D IFF CBC, PTT, CK, HS TROP, CMP, CBC, PT #### [facility] [address] No Panel InformationOrdered By: Nicko Galvan on 01-25-2024 Bedside Glucose Comment Glu2: cleaned meter [facility] Opiates [Presence] in Urine by Screen methodOrdered By: ELIZABETH AGUILAR on 01-25-2024 Opiates Screen Ql (U) Negative Negative [facility]ir [facility] Phencyclidine Screen Ql (U)O rdered By: ELIZABETH AGUILAR on 01-25-2024 Phencyclidine Ql (U) Negative Negative [facility] Automated basophil %Ordered By: Sabrina Lama on 01-13-2024 Basophils/100 WBC (Bld) 1.2 % Normal . [facility] Comment on above: Performed By: #### D IFF CBC, PTT, CK, HS TROP, CMP, CBC, PT #### [facility] [address] Automated basophil countOrde red By: Sabrina Lama on 01-13-2024 Basophils (Bld) [#/Vol] 0.2 10*3/uL Normal 0.0-0.2 [facility] Comment on above: Performed By: #### D IFF CBC, PTT, CK, HS TROP, CMP, CBC, PT #### [address] Automated blood monocyte cou ntOrdered By: Sabrina Lama on 01-13-2024 Monocytes (Bld) [#/Vol] 1.5 10*3/uL High 0.0-0.8 [facility] Comment on above: Performed By: #### D IFF CBC, PTT, CK, HS TROP, CMP, CBC, PT #### [facility] [address] Automated eosinophil %Ordere d By: Sabrina Lama on 01-13-2024 Eosinophils/100 WBC (Bld) 26.0 % Normal . [facility] Comment on above: Performed By: #### D IFF CBC, PTT, CK, HS TROP, CMP, CBC, PT #### [address] Automated eosinophil countOr dered By: Sabrinaletha Lama on 01-13-2024 Eosinophils (Bld) [#/Vol] 4.5 10*3/uL High 0.0-0.45 [facility] Comment on above: Performed By: #### D IFF CBC, PTT, CK, HS TROP, CMP, CBC, PT #### [address] Automated monocyte %Ordered By: Sabrina Lama on 01-13-2024 Monocytes/100 WBC (Bld) 8.9 % Normal . [facility] Comment on above: Performed By: #### D IFF CBC, PTT, CK, HS TROP, CMP, CBC, PT #### [address] Automated neutrophil %Ordere d By: Sabrina Lama on 01-13-2024 Neutrophils/100 WBC (Bld) 48.5 % Normal . [facility] Comment on above: Performed By: #### D IFF CBC, PTT, CK, HS TROP, CMP, CBC, PT #### [address] Basic Metabolic Panelon 06 Creatinine Clr Calc Pharmacy 61.15 Normal [facility] [facility] Comment on above: Result Comment: PERF ORMED BY: [place] [address] PATHOLOGIST KNURLING MACHINE OPERATOR DENNIS RODRIGUEZ M.D. Performed By: #### D IFF CBC, PTT, CK, HS TROP, CMP, CBC, PT #### [address] GFR/1.73 sq M.predicted MDRD (S/P/Bld) [Vol rate/Area] 58.003 mL/min/{1.73_m2} Normal [facility] Comment on above: Performed By: #### D IFF CBC, PTT, CK, HS TROP, CMP, CBC, PT #### [facility] [address] Calcium [Mass/volume] in Ser um or PlasmaOrdered By: Sabrina Lama on 01-13-2024 Calcium [Mass/Vol] 9.3 mg/dL Normal 8.6-10.3 [facility] Comment on above: Performed By: #### D IFF CBC, PTT, CK, HS TROP, CMP, CBC, PT #### [facility] [address] Capillary blood glucose lupillo urement by glucometer (mass/volume)Ordered By: Zachary Garcia on 01-13-2024 Glucose [Mass/Vol] 239 mg/dL Normal [facility] Comment on above: Random Glucose Refer ence Range is dependent on time and content of last meal. Glucose of more than 200 mg/dL in a nonstressed, ambulatory subject supports the diagnosis of Diabetes Mellitus. Result Comment: Margie om Glucose Reference Range is dependent on time and content of last meal. Glucose of more than 200 mg/dL in a nonstressed, ambulatory subject supports the diagnosis of Diabetes Mellitus. PERFORMED BY: [place] [address] PATHOLOGIST KNURLING MACHINE OPERATOR DENNIS RODRIGUEZ M.D. Performed By: #### D IFF CBC, PTT, CK, HS TROP, CMP, CBC, PT #### [facility] [address] Carbon dioxide, total [Moles /volume] in Serum or PlasmaOrdered By: Sabrina Lama on 01-13-2024 CO2 [Moles/Vol] 29.2 mmol/L Normal 21.0-31.0 [facility] Comment on above: Performed By: #### D IFF CBC, PTT, CK, HS TROP, CMP, CBC, PT #### [facility] [address] Chloride [Moles/volume] in S liza or PlasmaOrdered By: Sabrina Lama on 01-13-2024 Chloride [Moles/Vol] 102 mmol/L Normal 98-107 [facility] Comment on above: Performed By: #### D IFF CBC, PTT, CK, HS TROP, CMP, CBC, PT #### [facility] [address] Creatinine [Mass/volume] in Serum or PlasmaOrdered By: Sabrina Lama on 01-13-2024 Creatinine [Mass/Vol] 1.28 mg/dL Normal 0.70-1.30 [facility] Comment on above: Performed By: #### D IFF CBC, PTT, CK, HS TROP, CMP, CBC, PT #### [facility] [address] Erythrocyte distribution wid th [Ratio] by Automated countOrdered By: Sabrina Lama on 01-13-2024 Erythrocyte distribution width (RBC) [Ratio] 13.9 % Normal 12.0-14.8 [facility] Comment on above: Performed By: #### D IFF CBC, PTT, CK, HS TROP, CMP, CBC, PT #### [address] Erythrocytes [#/volume] in B lood by Automated countOrdered By: Sabrina Plascencia on 01-13-2024 RBC (Bld) [#/Vol] 4.92 10*6/uL Normal 3.90-5.60 [facility] Comment on above: Performed By: #### D IFF CBC, PTT, CK, HS TROP, CMP, CBC, PT #### [address] Glucose Poct Glucometerson 0 01-13-2024 Glucose [Mass/Vol] 155 mg/dL Normal [facility] Comment on above: Result Comment: [facility] Glucose Reference Range is dependent on time and content of last meal. Glucose of more than 200 mg/dL in a nonstressed, ambulatory subject supports the diagnosis of Diabetes Mellitus. PERFORMED BY: [place] [address] PATHOLOGIST KNURLING MACHINE OPERATOR DENNIS RODRIGUEZ M.D. Performed By: #### D IFF CBC, PTT, CK, HS TROP, CMP, CBC, PT #### [facility] [address] [place] [address] [place] Glucose [Mass/volume] in Ser um or PlasmaOrdered By: Sabrina Lama on 01-13-2024 Glucose [Mass/Vol] 152 mg/dL High 70-100 [facility] Comment on above: ADA recommended refe rence rangeRandom Glucose Reference Range is dependent on time and content of last meal. Glucose of more than 200 mg/dL in a nonstressed, ambulatory subject supports the diagnosis of Diabetes Mellitus. Result Comment: Margie om Glucose Reference Range is dependent on time and content of last meal. Glucose of more than 200 mg/dL in a nonstressed, ambulatory subject supports the diagnosis of Diabetes Mellitus. ADA recommended reference range Performed By: #### D IFF CBC, PTT, CK, HS TROP, CMP, CBC, PT #### [facility] [address] Hematocrit [Volume Fraction] of Blood by Automated countOrdered By: Sabrina Lama on 01-13-2024 Hematocrit (Bld) [Volume fraction] 46.5 % Normal 38.8-50.0 [facility] Comment on above: Performed By: #### D IFF CBC, PTT, CK, HS TROP, CMP, CBC, PT #### [facility] [address] Hemoglobin [Mass/volume] in BloodOrdered By: Sabrina Lama on 01-13-2024 Hemoglobin (Bld) [Mass/Vol] 15.5 g/dL Normal 13.0-17.0 [facility] Comment on above: Performed By: #### D IFF CBC, PTT, CK, HS TROP, CMP, CBC, PT #### [facility] [address] [place] [address] [place] Leukocytes [#/volume] correc guillermina for nucleated erythrocytes in Blood by Automated counOrdered By: Sabrina Lama on 01-13-2024 WBC corrected for nucl RBC Auto (Bld) [#/Vol] 17.3 10*3/uL High 4.1-10.5 [facility] Leukocytes [#/volume] in Blo od by Automated countOrdered By: Sabrina Plascencia on 01-13-2024 WBC (Bld) [#/Vol] 17.3 10*3/uL High 4.1-10.5 [facility] Comment on above: Performed By: #### D IFF CBC, PTT, CK, HS TROP, CMP, CBC, PT #### [facility] [address] Lymphocytes [#/volume] in Bl ood by Automated countOrdered By: Sabrina Plascencia on 01-13-2024 Lymphocytes (Bld) [#/Vol] 2.7 10*3/uL Normal 1.00-4.8 [facility] Comment on above: Performed By: #### D IFF CBC, PTT, CK, HS TROP, CMP, CBC, PT #### [facility] [address] [place] [address] [place] Lymphocytes/100 leukocytes i n Blood by Automated countOrdered By: Sabrina Lama on 01-13-2024 Lymphocytes/100 WBC (Bld) 15.4 % Normal . [facility] Comment on above: Performed By: #### D IFF CBC, PTT, CK, HS TROP, CMP, CBC, PT #### [facility] [address] MCH [Entitic mass] by Automa guillermina countOrdered By: Sabrina Lama on 01-13-2024 MCH (RBC) [Entitic mass] 31.5 pg Normal 27.5-35.2 [facility] Comment on above: Performed By: #### D IFF CBC, PTT, CK, HS TROP, CMP, CBC, PT #### [facility] [address] MCHC Auto (RBC) [Mass/Vol]Or dered By: Sabrina Lama on 01-13-2024 MCHC (RBC) [Mass/Vol] 33.3 g/dL 32.5-35.6 [facility] MCV [Entitic volume] by Auto mated countOrdered By: Sabrina Lama on 01-13-2024 MCV (RBC) [Entitic vol] 94.6 fL Normal 83.5-101 [facility] Comment on above: Performed By: #### D IFF CBC, PTT, CK, HS TROP, CMP, CBC, PT #### [facility] [address] Neutrophils [#/volume] in Bl ood by Automated countOrdered By: Sabrina Plascencia on 01-13-2024 Neutrophils (Bld) [#/Vol] 8.4 10*3/uL High 1.8-7.7 [facility] Comment on above: Performed By: #### D IFF CBC, PTT, CK, HS TROP, CMP, CBC, PT #### [facility] [address] No Panel InformationOrdered By: Sabrina Lama on 01-13-2024 Estimated GFR (CKD-EPI) 58.003 mL/Min [facility] Creatinine Clearance (Chem 61.15 [facility] Nucleated erythrocytes [Pres ence] in Blood by Automated countOrdered By: Sabrina Lama on 01-13-2024 Nucleated RBC Auto Ql (Bld) 0.1 /100{WBC} 0-0.5 [facility] Platelet adequacy [Presence] in Blood by Light microscopyOrdered By: Sabrina Lama on 01-13-2024 Platelets LM Ql (Bld) Normal Normal Fir [facility] Platelet mean volume [Entiti c volume] in Blood by Automated countOrdered By: Sabrina Lama on 01-13-2024 Platelet mean volume (Bld) [Entitic vol] 8.3 fL Normal 6.6-10.1 [facility] Comment on above: Performed By: #### D IFF CBC, PTT, CK, HS TROP, CMP, CBC, PT #### [facility] [address] [place] [address] Platelet morphology finding [Identifier] in BloodOrdered By: Sabrina Plascencia on 01-13-2024 Platelet morphology finding Nom (Bld) Normal Normal [facility] Platelets [#/volume] in Bloo d by Automated countOrdered By: Sabrina Lama on 01-13-2024 Platelets (Bld) [#/Vol] 256 10*3/uL Normal 150-450 [facility] Comment on above: Performed By: #### D IFF CBC, PTT, CK, HS TROP, CMP, CBC, PT #### [address] Potassium [Moles/volume] in Serum or PlasmaOrdered By: Sabrina Lama on 01-13-2024 Potassium [Moles/Vol] 4.2 mmol/L Normal 3.5-5.1 [facility] Comment on above: Performed By: #### D IFF CBC, PTT, CK, HS TROP, CMP, CBC, PT #### [address] RBC morphologyOrdered By: Jael Lama on 01-13-2024 RBC morphology finding Nom (Bld) Normal Normal Normal [facility] Comment on above: Performed By: #### D IFF CBC, PTT, CK, HS TROP, CMP, CBC, PT #### [facility] [address] [place] [address] Scan and CBCon 01-13-2024 Mean Corpuscular HGB Conc 33.3 g/dL Normal 32.5-35.6 [facility] Comment on above: Performed By: #### D IFF CBC, PTT, CK, HS TROP, CMP, CBC, PT #### [address] NRBC% 0.1 /100{WBC} Normal 0-0.5 [facility] Comment on above: Performed By: #### D IFF CBC, PTT, CK, HS TROP, CMP, CBC, PT #### [address] Platelet Estimate Normal Normal Normal [facility] Comment on above: Performed By: #### D IFF CBC, PTT, CK, HS TROP, CMP, CBC, PT #### [address] Platelet Morphology Normal Normal Normal [facility] Comment on above: Result Comment: PERF ORMED BY: [place] [address] PATHOLOGIST KNURLING MACHINE OPERATOR DENNIS RODRIGUEZ M.D. Performed By: #### D IFF CBC, PTT, CK, HS TROP, CMP, CBC, PT #### [address] Serum or plasma anion gap de terminationOrdered By: Sabrina Lama on 01-13-2024 Anion gap [Moles/Vol] 10.0 mmol/L Normal 6.0-15.0 [facility] Comment on above: Performed By: #### D IFF CBC, PTT, CK, HS TROP, CMP, CBC, PT #### [address] Sodium [Moles/volume] in Ser um or PlasmaOrdered By: Sabrina Lama on 01-13-2024 Sodium [Moles/Vol] 137 mmol/L Normal 136-145 [facility] Comment on above: Performed By: #### D IFF CBC, PTT, CK, HS TROP, CMP, CBC, PT #### [address] US carotid doppler BIon 06-0 US carotid doppler BI [facility] [place] [address] [place] [address] Ultrasound Report Signed Patient: Dagoberto Squires MR#: [id number] : 1945 Acct:[id number] Age/Sex: 78 / M ADM Date: 01/11/24 Loc: Room: [address] [place] [address] Type: ADM IN Attending Dr: Zachary Garcia [...] Dao Johnston M.D.01/13/2024 12:16 PM Dictation Location: [id number] Tech: Kallieshanna Singh Transcribed By: ALEA 01/13/24 1216 Dictated By: Dao Johnston MD 01/13/24 1214 Signed By: 01/13/24 1216 Normal [facility] Urea nitrogen [Mass/volume] in Serum or PlasmaOrdered By: Sabrina Lama on 01-13-2024 Urea nitrogen [Mass/Vol] 18 mg/dL Normal 7-25 [facility] Comment on above: Performed By: #### D IFF CBC, PTT, CK, HS TROP, CMP, CBC, PT #### [facility] [address] [place] [id number] [facility] Glucose Poct Glucometerson 0 01-12-2024 Glucose [Mass/Vol] 211 mg/dL Normal [facility] Comment on above: Result Comment: Margie om Glucose Reference Range is dependent on time and content of last meal. Glucose of more than 200 mg/dL in a nonstressed, ambulatory subject supports the diagnosis of Diabetes Mellitus. PERFORMED BY: [place] [address] PATHOLOGIST KNURLING MACHINE OPERATOR DENNIS RODRIGUEZ M.D. Performed By: #### D IFF CBC, PTT, CK, HS TROP, CMP, CBC, PT #### [facility] [address] [place] [id number] [facility] Glucose [Mass/Vol] 129 mg/dL Normal [facility] Comment on above: Result Comment: Margie om Glucose Reference Range is dependent on time and content of last meal. Glucose of more than 200 mg/dL in a nonstressed, ambulatory subject supports the diagnosis of Diabetes Mellitus. PERFORMED BY: [place] [address] PATHOLOGIST KNURLING MACHINE OPERATOR DENNIS RODRIGUEZ M.D. Performed By: #### D IFF CBC, PTT, CK, HS TROP, CMP, CBC, PT #### [facility] [address] [place] [id number] [facility] Commemt1 Glu2: Cleaned Meter Normal [facility] Comment on above: Result Comment: PERF ORMED BY: [place] [address] PATHOLOGIST KNURLING MACHINE OPERATOR DENNIS RODRIGUEZ M.D. Performed By: #### G LULS #### Point of Care testing , Glucose [Mass/Vol] 195 mg/dL Normal [facility] Comment on above: Result Comment: Margie om Glucose Reference Range is dependent on time and content of last meal. Glucose of more than 200 mg/dL in a nonstressed, ambulatory subject supports the diagnosis of Diabetes Mellitus. Performed By: #### G LULS #### Point of Care testing , Commemt1 Glu2: Cleaned Meter Normal [facility] Comment on above: Result Comment: PERF ORMED BY: [place] [address] PATHOLOGIST KNURLING MACHINE OPERATOR DENNIS RODRIGUEZ M.D. Performed By: #### D IFF CBC, PTT, CK, HS TROP, CMP, CBC, PT #### [address] Glucose [Mass/Vol] 226 mg/dL Normal [facility] Comment on above: Result Comment: Margie om Glucose Reference Range is dependent on time and content of last meal. Glucose of more than 200 mg/dL in a nonstressed, ambulatory subject supports the diagnosis of Diabetes Mellitus. Performed By: #### D IFF CBC, PTT, CK, HS TROP, CMP, CBC, PT #### [address] Glucose [Mass/Vol] 156 mg/dL Normal [facility] Comment on above: Result Comment: Margie om Glucose Reference Range is dependent on time and content of last meal. Glucose of more than 200 mg/dL in a nonstressed, ambulatory subject supports the diagnosis of Diabetes Mellitus. PERFORMED BY: [place] [address] PATHOLOGIST KNURLING MACHINE OPERATOR DENNIS RODRIGUEZ M.D. Performed By: #### D IFF CBC, PTT, CK, HS TROP, CMP, CBC, PT #### [address] No Panel InformationOrdered By: Zachary Garcia on 01-12-2024 Bedside Glucose Comment Glu2: cleaned meter [facility] A1C with Estimated Average Priya enriquez 01-11-2024 Glucose [Mass/Vol] 180 mg/dL Normal [facility] Comment on above: Result Comment: PERF ORMED BY: [place] [address] PATHOLOGIST KNURLING MACHINE OPERATOR DENNIS RODRIGUEZ M.D. Performed By: #### D IFF CBC, PTT, CK, HS TROP, CMP, CBC, PT #### [address] Anisocytosis [Presence] in B lood by Light microscopyOrdered By: Faiza Mcdonald on 01-11-2024 Anisocytosis Ql (Bld) Slight Normal [facility] Comment on above: Performed By: #### D IFF CBC, PTT, CK, HS TROP, CMP, CBC, PT #### [address] BNP ser/plasOrdered By: Sabrina Lama on 01-11-2024 Natriuretic peptide B (Bld) [Mass/Vol] 38.0 pg/mL Normal 5-100 [facility] Comment on above: Order Comment: Comme nt add on to previuosly drawn labs this a.m. Result Comment: PERF ORMED BY: [place] [address] PATHOLOGIST KNURLING MACHINE OPERATOR DENNIS RODRIGUEZ M.D. Performed By: #### D IFF CBC, PTT, CK, HS TROP, CMP, CBC, PT #### [place] [id number] [facility] Basic Metabolic Panelon Anion gap [Moles/Vol] 8.3 mmol/L Normal 6.0-15.0 [facility] Comment on above: Performed By: #### D IFF CBC, PTT, CK, HS TROP, CMP, CBC, PT #### [place] [id number] [facility] Calcium [Mass/Vol] 9.0 mg/dL Normal 8.6-10.3 [facility] Comment on above: Performed By: #### D IFF CBC, PTT, CK, HS TROP, CMP, CBC, PT #### [facility] [address] Chloride [Moles/Vol] 104 mmol/L Normal 98-107 [facility] Comment on above: Performed By: #### D IFF CBC, PTT, CK, HS TROP, CMP, CBC, PT #### [facility] [address] CO2 [Moles/Vol] 28.6 mmol/L Normal 21.0-31.0 [facility] Comment on above: Performed By: #### D IFF CBC, PTT, CK, HS TROP, CMP, CBC, PT #### [address] Creatinine [Mass/Vol] 1.22 mg/dL Normal 0.70-1.30 [facility] Comment on above: Performed By: #### D IFF CBC, PTT, CK, HS TROP, CMP, CBC, PT #### [address] Creatinine Clr Calc Pharmacy 63.72 Normal [facility] Comment on above: Performed By: #### D IFF CBC, PTT, CK, HS TROP, CMP, CBC, PT #### [address] GFR/1.73 sq M.predicted MDRD (S/P/Bld) [Vol rate/Area] mL/min/{1.73_m2} Normal [facility] Comment on above: Performed By: #### D IFF CBC, PTT, CK, HS TROP, CMP, CBC, PT #### [facility] [address] Glucose [Mass/Vol] 166 mg/dL Significant change up 70-100 [facility] Comment on above: Result Comment: Margie Glucose Reference Range is dependent on time and content of last meal. Glucose of more than 200 mg/dL in a nonstressed, ambulatory subject supports the diagnosis of Diabetes Mellitus. ADA recommended reference range Performed By: #### D IFF CBC, PTT, CK, HS TROP, CMP, CBC, PT #### [address] Potassium [Moles/Vol] 3.9 mmol/L Normal 3.5-5.1 [facility] Comment on above: Performed By: #### D IFF CBC, PTT, CK, HS TROP, CMP, CBC, PT #### [address] Sodium [Moles/Vol] 137 mmol/L Normal 136-145 [facility] Comment on above: Performed By: #### D IFF CBC, PTT, CK, HS TROP, CMP, CBC, PT #### [address] Urea nitrogen [Mass/Vol] 18 mg/dL Normal 7-25 [facility] Comment on above: Performed By: #### D IFF CBC, PTT, CK, HS TROP, CMP, CBC, PT #### [address] Basophils/100 leukocytes in Blood by Manual countOrdered By: Faiza Mcdonald on 01-11-2024 Basophils/100 WBC (Bld) 2 % Normal 0-2 [facility] Comment on above: Performed By: #### D IFF CBC, PTT, CK, HS TROP, CMP, CBC, PT #### [address] angio neckon 01-11-2024 CT angio neck [facility] [place] [address] CT Scan Report Signed Patient: Dagoberto Squires MR#: [id number] : 1945 Acct:[id number] Age/Sex: 78 / M ADM Date: 01/11/24 Loc: Room: [address] [place] [address] Type: ADM INOo Attending Dr: Zachary Garcia MD Copies to: MD Nicko Sanchez DO Ordering Provider: Nicko Grimm DO Date of Service: 01/10/24 CT/CT angio neck: r/o stroke ([id number]) CT/CT angio head: r/o stroke CTA Head [...] Dao Toscano M.D.01/11/2024 8:25 AM Dictation Location: [place] [address] Transcribed By: [facility] 01/11/24 Dictated By: Dao Toscano DO 01/11/24 08 Signed By: 01/11/24 08 Normal [facility] CT head stroke alert wo cono n 01-11-2024 CT head stroke alert wo con [facility] [place] [address] [place], [place] [id number] CT Scan Report Signed Patient: Dagoberto Squires MR#: [id number] : 1945 Acct:[id number] Age/Sex: 78 / M ADM Date: 01/11/24 Loc: Room: [address] [place] [address] Type: ADM INOo Attending Dr: Zachary Garcia [...] Dao Toscano M.D.01/11/2024 8:11 AM Dictation Location: [place] [address] Transcribed By: [facility] 01/11/24 08 Dictated By: Dao Toscano DO 01/11/24 08 Signed By: 01/11/24 08 Normal [facility] CT head/brain perfusionon CT head/brain perfusion [facility] [place] [address] [place] [address] CT Scan Report Signed Patient: Dagoberto Squires MR#: [id number] : 1945 Acct:[id number] Age/Sex: 78 / M ADM Date: 01/11/24 Loc: 3T Room: [address] [place] [address] Type: ADM IN Attending Dr: Zachary Garcia [...] Gómez Alan M.D.01/11/2024 4:36 PM Dictation Location: [place] [address] Transcribed By: ALEA 01/11/24 1636 Dictated By: Gómez Alan II, MD 01/11/24 1632 Signed By: 01/11/24 1636 Normal [facility] Cholesterol [Mass/volume] in Serum or PlasmaOrdered By: Faiza Mcdonald on 01-11-2024 Cholesterol [Mass/Vol] 172 mg/dL Normal 140-200 [facility] Comment on above: Chol less than 200 m g/dl low riskChol 201-239 mg/dl borderline riskChol 240 mg/dl and greater high risk Result Comment: Chol less than 200 mg/dl low risk Chol 201-239 mg/dl borderline risk Chol 240 mg/dl and greater high risk Performed By: #### D IFF CBC, PTT, CK, HS TROP, CMP, CBC, PT #### [address] Cholesterol in LDL Calc [Mas s/Vol]Ordered By: Faiza Mcdonald on 01-11-2024 Cholesterol in LDL [Mass/Vol] 107 mg/dL High 0-100 [facility] Comment on above: LDL ATP III CLASSIFI CATIONLDL less than 100 mg/dL OptimalLDL 100-129 mg/dL Near or above optimalLDL 130-159 mg/dL Borderline highLDL 160-189 mg/dL HighLDL greater than 189 mg/dL Very high Cholesterol in VLDL Calc [Ma ss/Vol]Ordered By: Faiza Mcdonald on 01-11-2024 Cholesterol in VLDL [Mass/Vol] 37 mg/dL [facility] Diff and CBCon 01-11-2024 Erythrocyte distribution width (RBC) [Ratio] 14.0 % Normal 12.0-14.8 [facility] Comment on above: Performed By: #### D IFF CBC, PTT, CK, HS TROP, CMP, CBC, PT #### [facility] [address] Giant Platelet Tally 1 /100{WBC} Normal [facility] Comment on above: Performed By: #### D IFF CBC, PTT, CK, HS TROP, CMP, CBC, PT #### [address] Hematocrit (Bld) [Volume fraction] 40.7 % Normal 38.8-50.0 [facility] Comment on above: Performed By: #### D IFF CBC, PTT, CK, HS TROP, CMP, CBC, PT #### [address] Hemoglobin (Bld) [Mass/Vol] 13.7 g/dL Normal 13.0-17.0 [facility] Comment on above: Performed By: #### D IFF CBC, PTT, CK, HS TROP, CMP, CBC, PT #### [address] Large Platelets Slight Normal [facility] Comment on above: Result Comment: PERF ORMED BY: [place] [address] PATHOLOGIST KNURLING MACHINE OPERATOR DENNIS RODRIGUEZ M.D. Performed By: #### D IFF CBC, PTT, CK, HS TROP, CMP, CBC, PT #### [address] MCH (RBC) [Entitic mass] 31.9 pg Normal 27.5-35.2 [facility] Comment on above: Performed By: #### D IFF CBC, PTT, CK, HS TROP, CMP, CBC, PT #### [address] MCV (RBC) [Entitic vol] 94.7 fL Normal 83.5-101 [facility] Comment on above: Performed By: #### D IFF CBC, PTT, CK, HS TROP, CMP, CBC, PT #### [address] Mean Corpuscular HGB Conc 33.7 g/dL Normal 32.5-35.6 [facility] Comment on above: Performed By: #### D IFF CBC, PTT, CK, HS TROP, CMP, CBC, PT #### [address] Microcytosis Slight Normal [facility] Comment on above: Performed By: #### D IFF CBC, PTT, CK, HS TROP, CMP, CBC, PT #### [address] Monocytes/100 WBC (Bld) 17.43 % Normal 0.00-20.00 [facility] Comment on above: Performed By: #### D IFF CBC, PTT, CK, HS TROP, CMP, CBC, PT #### [address] Myelocytes 2 % High 0-0 [facility] Comment on above: Performed By: #### D IFF CBC, PTT, CK, HS TROP, CMP, CBC, PT #### [address] Platelet Estimate Normal Normal Normal [facility] Comment on above: Performed By: #### D IFF CBC, PTT, CK, HS TROP, CMP, CBC, PT #### [address] Platelet mean volume (Bld) [Entitic vol] 8.2 fL Normal 6.6-10.1 [facility] Comment on above: Performed By: #### D IFF CBC, PTT, CK, HS TROP, CMP, CBC, PT #### [place] [address] [place] Platelets (Bld) [#/Vol] 208 10*3/uL Normal 150-450 [facility] Comment on above: Performed By: #### D IFF CBC, PTT, CK, HS TROP, CMP, CBC, PT #### [place] [address] [place] RBC (Bld) [#/Vol] 4.30 10*6/uL Normal 3.90-5.60 [facility] Comment on above: Performed By: #### D IFF CBC, PTT, CK, HS TROP, CMP, CBC, PT #### [facility] [address] WBC (Bld) [#/Vol] 16.0 10*3/uL High 4.1-10.5 [facility] Comment on above: Performed By: #### D IFF CBC, PTT, CK, HS TROP, CMP, CBC, PT #### [facility] [address] echo transthoracicon [facility] echo transthoracic [facility] [place] [address] [place] [address] Echocardiogram Signed Patient: Dagoberto Squires MR#: [id number] : 1945 Acct:[id number] Age/Sex: 78 / M ADM Date: 01/11/24 Loc: Room: [address] [place] [address] Type: ADM INOo Attending Dr: Zachary Garcia MD Ordering Provider: Faiza Mcdonald, [employer] Date of Service: 01/11/2411/30/499 [facility] echo transthoracic: Source of Emboli Copies to: MD Faiza Narvaez, [employer] Weight: 233 lb Performed By: JUAN Woods [...] Janell Burger MD 01/11/24 1251 Normal [facility] Eosinophils/100 leukocytes i n Blood by Manual countOrdered By: Faiza Mcdonald on 01-11-2024 Eosinophils/100 WBC (Bld) 26 % [address] Comment on above: Performed By: #### D IFF CBC, PTT, CK, HS TROP, CMP, CBC, PT #### [facility] [address] Giant platelets/100 leukocyt es [Ratio] in Blood by Manual countOrdered By: Faiza Mcdonald on 01-11-2024 Giant platelets/100 WBC Manual cnt (Bld) [Ratio] 1 /100{WBC} [facility] Glucose Poct Glucometerson 0 01-11-2024 Glucose [Mass/Vol] 208 mg/dL Normal [facility] Comment on above: Result Comment: Margie Glucose Reference Range is dependent on time and content of last meal. Glucose of more than 200 mg/dL in a nonstressed, ambulatory subject supports the diagnosis of Diabetes Mellitus. PERFORMED BY: [place] [address] PATHOLOGIST KNURLING MACHINE OPERATOR DENNIS RODRIGUEZ M.D. Performed By: #### D IFF CBC, PTT, CK, HS TROP, CMP, CBC, PT #### [facility] [address] Glucose mean value [Mass/vol ume] in Blood Estimated from glycated hemoglobinOrdered By: Faiza Mcdonald on 01-11-2024 Average glucose Estimated from glycated hemoglobin (Bld) [Mass/Vol] 180 mg/dL [facility] Hemoglobin A1c percentageOrd ered By: Faiza Mcdonald on 01-11-2024 HbA1c (Bld) [Mass fraction] 7.9 % High 4.3-5.6 [facility] Comment on above: Increased risk for d iabetes: 5.7 - 6.4diabetes: >6.4glycemic control for adults with diabetes: <7.0 Result Comment: Incr eased risk for diabetes: 5.7 - 6.4 diabetes: >6.4 glycemic control for adults with diabetes: <7.0 Performed By: #### D IFF CBC, PTT, CK, HS TROP, CMP, CBC, PT #### [facility] [address] [place] [id number] [facility] Lipid Panelon 01-11-2024 LDL Cholesterol,Calculated 107 mg/dL High 0-100 [facility] Comment on above: Result Comment: LDL ATP III CLASSIFICATION LDL less than 100 mg/dL Optimal LDL 100-129 mg/dL Near or above optimal LDL 130-159 mg/dL Borderline high LDL 160-189 mg/dL High LDL greater than 189 mg/dL Very high Performed By: #### D IFF CBC, PTT, CK, HS TROP, CMP, CBC, PT #### [facility] [address] Triglyceride w/Reflex 186 mg/dL High 0-149 [facility] Comment on above: Result Comment: TRIG ATP III CLASSIFICATION TRIG less than 150 mg/dL Normal TRIG 150-199 mg/dL Borderline high TRIG 200-500 mg/dL High TRIG greater than 500 mg/dL Very high Standard traceable to the Center for Disease Conrtrol and Prevention (CDC) test method. Performed By: #### D IFF CBC, PTT, CK, HS TROP, CMP, CBC, PT #### [facility] [address] VLDL CHOLESTEROL 37 mg/dL Normal [facility] Comment on above: Performed By: #### D IFF CBC, PTT, CK, HS TROP, CMP, CBC, PT #### [facility] [address] Lymphocytes/100 leukocytes i n Blood by Manual countOrdered By: Faiza Mcdonald on 01-11-2024 Lymphocytes/100 WBC (Bld) 11 % Low 18-42 [facility] Comment on above: Performed By: #### D IFF CBC, PTT, CK, HS TROP, CMP, CBC, PT #### [facility] [address] [place] [id number] [facility] MR head/brain wo conon 01-10 MR head/brain wo [facility] [place] [address] MRI Report Signed Patient: Dagoberto Squires MR#: [id number] : 1945 Acct:[id number] Age/Sex: 78 / M ADM Date: 01/11/24 Loc: 3T Room: [address] [place] [address] Type: ADM IN Attending Dr: Zachary Garcia [...] Gómez Alan M.D.01/11/2024 6:15 PM Dictation Location: [place] [address] Transcribed By: ALEA 01/11/241814 Dictated By: Gómez Alan II, MD 01/11/241808 Signed By: 01/11/241814 Normal [facility] Magnesium [Mass/volume] in S liza or PlasmaOrdered By: Faiza Mcdonald on 01-11-2024 Magnesium [Mass/Vol] 1.7 mg/dL Low 1.9-2.7 [facility] Comment on above: Performed By: #### D IFF CBC, PTT, CK, HS TROP, CMP, CBC, PT #### [facility] [address] [place] [address] Manual blood segmented neutr ophils/100 leukocytesOrdered By: Faiza Mcdonald on 01-11-2024 Segmented neutrophils/100 WBC (Bld) 48 % Low 50-70 [facility] Comment on above: Performed By: #### D IFF CBC, PTT, CK, HS TROP, CMP, CBC, PT #### [facility] [address] [place] [address] Microcytes LM Ql (Bld)Ordere d By: Faiza Mcdonald on 01-11-2024 Microcytes Ql (Bld) Slight [facility] Monocyte distribution width [Entitic volume] in Blood by AutomatedOrdered By: Faiza Mcdonald on 01-11-2024 Monocyte distribution width Auto (Bld) [Entitic vol] 17.43 % 0.00-20.00 [facility] Monocytes/100 leukocytes in Blood by Manual countOrdered By: Faiza Mcdonald on 01-11-2024 Monocytes/100 WBC (Bld) 8 % Normal 2-11 [facility] Comment on above: Performed By: #### D IFF CBC, PTT, CK, HS TROP, CMP, CBC, PT #### [facility] [address] Myelocytes/100 WBC Manual cn t (Bld)Ordered By: Faiza Mcdonald on 01-11-2024 Myelocytes/100 WBC (Bld) 2 % High 0-0 [facility] Peripheral white blood cell differential % bands, microscopic examOrdered By: Faiza Mcdonald on 01-11-2024 Band form neutrophils/100 WBC (Bld) 4 % Normal 0-5 [facility] Comment on above: Performed By: #### D IFF CBC, PTT, CK, HS TROP, CMP, CBC, PT #### [facility] [address] Platelets Large [Presence] i n Blood by Light microscopyOrdered By: Faiza Mcdonald on 01-11-2024 Platelets Large LM Ql (Bld) Slight [facility] Serum or plasma high density lipoprotein (HDL) cholesterol measurementOrdered By: Faiza Mcdonald on 01-11-2024 Cholesterol in HDL [Mass/Vol] 28 mg/dL Normal 23-92 [facility] Comment on above: HDL CHOL ATP-III CLA SSIFICATION Cardiovascular RiskHDL > or equal to 60 mg/dL LOWHDL < 40 mg/dL HIGH Result Comment: HDL CHOL ATP-III CLASSIFICATION Cardiovascular Risk HDL > or equal to 60 mg/dL LOW HDL < 40 mg/dL HIGH Performed By: #### D IFF CBC, PTT, CK, HS TROP, CMP, CBC, PT #### [facility] [address] Serum or plasma total choles terol/high density lipoprotein (HDL) cholesterol mass ratOrdered By: Faiza Mcdonald on 01-11-2024 Cholesterol.total/Chol esterol in HDL [Mass ratio] 6.1 {ratio} Normal <5.0 [facility] Comment on above: Result Comment: PERF ORMED BY: [place] [address] PATHOLOGIST KNURLING MACHINE OPERATOR DENNIS RODRIGUEZ M.D. Performed By: #### D IFF CBC, PTT, CK, HS TROP, CMP, CBC, PT #### [facility] [address] [place] [id number] [facility] Triglyceride [Mass/volume] i n Serum or PlasmaOrdered By: Faiza Mcdonald on 01-11-2024 Triglyceride [Mass/Vol] 186 mg/dL High 0-149 [facility] Comment on above: TRIG ATP III CLASSIF ICATIONTRIG less than 150 mg/dL NormalTRIG 150-199 mg/dL Borderline highTRIG 200-500 mg/dL High TRIG greater than 500 mg/dL Very highStandard traceable to the Center for Disease Conrtrol and Prevention (CDC) test method. XR chest 1V portableon 01-10 XR chest 1V portable [facility] Main [place] [address] [place] [address] XRay Report Signed Patient: Dagoberto Squires MR#: [id number] : 1945 Acct:[id number] Age/Sex: 78 / M ADM Date: 01/11/24 Loc: Room: [address] [place] [address] Type: ADM INOo Attending Dr: Zachary Garcia [...] Gómez Alan M.D.01/11/2024 8:45 AM Dictation Location: [place] [address] Transcribed By: [facility] 01/11/24 0845 Dictated By: Gómez Alan II, MD 01/11/2444 Signed By: 01/11/24 0845 Normal [facility] XR pre/post mri xrayon 01-10 XR pre/post mri xray [facility] [place] [address] [place] [address] XRay Report Signed Patient: Dagoberto Squires MR#: [id number] : 1945 Acct:[id number] Age/Sex: 78 / M ADM Date: 01/11/24 Loc: Room: [address] [place] [address] Type: ADM IN Attending Dr: Zachary Garcia [...] Gómez Alan M.D.01/11/2024 4:37 PM Dictation Location: [place] [address] Transcribed By: [facility] 01/11/24 1637 Dictated By: Gómez Alan II, MD 01/11/24 1636 Signed By: 01/11/24 1637 Normal [facility] Activated partial thrombopla stin time (aPTT) in platelet poor plasma by coagulation aOrdered By: Nicko Grimm on 01-10-2024 aPTT Coag (PPP) [Time] 30.0 s 25.1-36.5 [facility] Comment on above: A hematocrit value g reater than 55% may lead to inaccurate results in coagulation testing. Patients having hematocrit values >55% require a special collection tube for coagulation studies. Please contact the laboratory at [phone] for redraw instructions. Alanine aminotransferase [En zymatic activity/volume] in Serum or PlasmaOrdered By: Nicko Grimm on 01-10-2024 ALT [Catalytic activity/Vol] 8 U/L Normal 7-52 [facility] Comment on above: Performed By: #### D IFF CBC, PTT, CK, HS TROP, CMP, CBC, PT #### [facility] [address] Albumin [Mass/volume] in Ser um or Plasma by Bromocresol green (BCG) dye binding methoOrdered By: Nicko Grimm on 01-10-2024 Albumin BCG dye [Mass/Vol] 3.8 g/dL 3.5-5.7 [facility] Alkaline phosphatase [Enzyma tic activity/volume] in Serum or PlasmaOrdered By: Nicko Grimm on 01-10-2024 ALP [Catalytic activity/Vol] 78 U/L Normal 34-104 [facility] Comment on above: Performed By: #### D IFF CBC, PTT, CK, HS TROP, CMP, CBC, PT #### [facility] [address] [place] [address] Amphetamine Screen Ql (U)Ord ered By: Faiza Mcdonald on 01-10-2024 Amphetamines Ql (U) Negative Negative [facility] Aspartate aminotransferase [ Enzymatic activity/volume] in Serum or PlasmaOrdered By: Nicko Grimm on 01-10-2024 AST [Catalytic activity/Vol] 13 U/L Normal 13-39 [facility] Comment on above: Performed By: #### D IFF CBC, PTT, CK, HS TROP, CMP, CBC, PT #### [facility] [address] [place] [address] Bacteria [Presence] in Urine by AutomatedOrdered By: Nicko Grimm on 01-10-2024 Bacteria Auto Ql (U) None seen [HPF] None Seen [facility] Barbiturates [Presence] in U rine by Screen methodOrdered By: Faiza Mcdonald on 01-10-2024 Barbiturates Screen Ql (U) Negative Negative [facility] Basophils Auto (Bld) [#/Vol] Ordered By: Nicko Grimm on 01-10-2024 Basophils (Bld) [#/Vol] N/A [facility] Basophils/100 WBC Auto (Bld) Ordered By: Nicko Grimm on 01-10-2024 Basophils/100 WBC (Bld) N/A [facility] Basophils/100 leukocytes in Blood by Manual countOrdered By: Nicko Grimm on 01-10-2024 Basophils/100 WBC (Bld) 1 % Normal 0-2 [facility] Comment on above: Performed By: #### D IFF CBC, PTT, CK, HS TROP, CMP, CBC, PT #### [facility] [address] Benzodiazepines Screen Ql (U )Ordered By: Faiza Mcdonald on 01-10-2024 Benzodiazepines Ql (U) Negative Negative [facility] Benzoylecgonine [Presence] i n Urine by Screen methodOrdered By: Faiza Mcdonald on 01-10-2024 Benzoylecgonine Screen Ql (U) Negative Negative [facility] Bilirubin Test strip Ql (U)O rdered By: Nicko Grimm on 01-10-2024 Bilirubin Ql (U) Negative Negative [facility] Bilirubin.total [Mass/volume ] in Serum or PlasmaOrdered By: Nicko Grimm on 01-10-2024 Bilirubin [Mass/Vol] 0.6 mg/dL Normal 0.3-1.0 [facility] Comment on above: Performed By: #### D IFF CBC, PTT, CK, HS TROP, CMP, CBC, PT #### [facility] [address] [place] [id number] [place] Calcium [Mass/volume] in Ser um or PlasmaOrdered By: Nicko Grimm on 01-10-2024 Calcium [Mass/Vol] 9.4 mg/dL Normal 8.6-10.3 [facility] Comment on above: Performed By: #### D IFF CBC, PTT, CK, HS TROP, CMP, CBC, PT #### [facility] [address] [place] [id number] [place] Cannabinoids [Presence] in U rine by Screen methodOrdered By: Faiza Mcdonald on 01-10-2024 Cannabinoids Screen Ql (U) Positive High Negative [facility] Comment on above: These are unconfirme d results and should not be used for legal purposes. Drug Cut-Off Concentration: AMPH 1000 ng/mL NIMESH 200 ng/mL STEVEN 200 ng/mL COCM 300 ng/mL OP 300 ng/mL PCP 25 ng/mL THC 20 ng/mL Capillary blood glucose lupillo urement by glucometer (mass/volume)Ordered By: Nicko Grimm on 01-10-2024 Glucose [Mass/Vol] 215 mg/dL Normal [facility] Comment on above: Random Glucose Refer ence Range is dependent on time and content of last meal. Glucose of more than 200 mg/dL in a nonstressed, ambulatory subject supports the diagnosis of Diabetes Mellitus. Result Comment: Margie om Glucose Reference Range is dependent on time and content of last meal. Glucose of more than 200 mg/dL in a nonstressed, ambulatory subject supports the diagnosis of Diabetes Mellitus. PERFORMED BY: [place] [address] PATHOLOGIST KNURLING MACHINE OPERATOR DENNIS RODRIGUEZ M.D. Performed By: #### D IFF CBC, PTT, CK, HS TROP, CMP, CBC, PT #### [facility] [address] [place] [address] [place] Carbon dioxide, total [Moles /volume] in Serum or PlasmaOrdered By: Nicko Grimm on 01-10-2024 CO2 [Moles/Vol] 29.3 mmol/L Normal 21.0-31.0 [facility] Comment on above: Performed By: #### D IFF CBC, PTT, CK, HS TROP, CMP, CBC, PT #### [facility] [address] [place] [id number] [place] Chloride [Moles/volume] in S liza or PlasmaOrdered By: Nicko Grimm on 01-10-2024 Chloride [Moles/Vol] 100 mmol/L Normal 98-107 [facility] Comment on above: Performed By: #### D IFF CBC, PTT, CK, HS TROP, CMP, CBC, PT #### [facility] [address] [place] [address] [place] Color of Urine by AutoOrdere d By: Nicko Grimm on 01-10-2024 Color (U) Yellow Normal Yellow [facility] Comment on above: Order Comment: Name Collection Type:: Clean-Voided Midstream Performed By: #### D IFF CBC, PTT, CK, HS TROP, CMP, CBC, PT #### [facility] [address] Complete Blood Count Auto Di ffon 01-10-2024 Mean Corpuscular HGB Conc 33.2 g/dL Normal 32.5-35.6 [facility] Comment on above: Performed By: #### D IFF CBC, PTT, CK, HS TROP, CMP, CBC, PT #### [facility] [address] [place] [address] Monocytes/100 WBC (Bld) 20.12 % High 0.00-20.00 [facility] Comment on above: Result Comment: For adults in ED, MDW > 20.0 may be associated with a higher risk of sepsis during the first 12 hrs of hospital admission PERFORMED BY: [place] [address] PATHOLOGIST KNURLING MACHINE OPERATOR DENNIS RODRIGUEZ M.D. Performed By: #### D IFF CBC, PTT, CK, HS TROP, CMP, CBC, PT #### [address] Result Comment: For adults in ED, MDW > 20.0 may be associated with a higher risk of sepsis during the first 12 hrs of hospital admission Comprehensive Metabolic Pane luisito 01-10-2024 Albumin [Mass/Vol] 3.8 g/dL Normal 3.5-5.7 [facility] Comment on above: Performed By: #### D IFF CBC, PTT, CK, HS TROP, CMP, CBC, PT #### [facility] [address] [place] [address] Creatinine Clr Calc Pharmacy 57.26 Normal [facility] Comment on above: Result Comment: PERF ORMED BY: [place] [address] PATHOLOGIST KNURLING MACHINE OPERATOR DENNIS RODRIGUEZ M.D. Performed By: #### D IFF CBC, PTT, CK, HS TROP, CMP, CBC, PT #### [address] GFR/1.73 sq M.predicted MDRD (S/P/Bld) [Vol rate/Area] 52.997 mL/min/{1.73_m2} Normal [facility] Comment on above: Performed By: #### D IFF CBC, PTT, CK, HS TROP, CMP, CBC, PT #### [address] Creatine kinase [Enzymatic a ctivity/volume] in Serum or PlasmaOrdered By: Nicko Grimm on 01-10-2024 CK [Catalytic activity/Vol] 32 U/L Normal 30-223 [facility] Comment on above: Performed By: #### D IFF CBC, PTT, CK, HS TROP, CMP, CBC, PT #### [address] Creatinine [Mass/volume] in Serum or PlasmaOrdered By: Nicko Grimm on 01-10-2024 Creatinine [Mass/Vol] 1.38 mg/dL High 0.70-1.30 [facility] Comment on above: Performed By: #### D IFF CBC, PTT, CK, HS TROP, CMP, CBC, PT #### [address] Diff and CBCon 01-10-2024 Dohle Bodies Slight Normal [facility] Comment on above: Performed By: #### D IFF CBC, PTT, CK, HS TROP, CMP, CBC, PT #### [address] Metamyelocytes 1 % High 0-0 [facility] Comment on above: Performed By: #### D IFF CBC, PTT, CK, HS TROP, CMP, CBC, PT #### [address] Myelocytes 2 % High 0-0 [facility] Comment on above: Performed By: #### D IFF CBC, PTT, CK, HS TROP, CMP, CBC, PT #### [facility] [address] Platelet Estimate Normal Normal Normal [facility] Comment on above: Performed By: #### D IFF CBC, PTT, CK, HS TROP, CMP, CBC, PT #### [facility] [address] Platelet Morphology Normal Normal Normal [facility] Comment on above: Result Comment: PERF ORMED BY: [place] [address] PATHOLOGIST KNURLING MACHINE OPERATOR DENNIS RODRIGUEZ M.D. Performed By: #### D IFF CBC, PTT, CK, HS TROP, CMP, CBC, PT #### [address] Toxic Vacuolation Slight Normal [facility] Comment on above: Performed By: #### D IFF CBC, PTT, CK, HS TROP, CMP, CBC, PT #### [address] Dipstick and Microscopicon 0 01-10-2024 Bacteria,Urine None Seen Normal None Seen [facility] Comment on above: Order Comment: Name Collection Type:: Clean-Voided Midstream Performed By: #### D IFF CBC, PTT, CK, HS TROP, CMP, CBC, PT #### [address] Bilirubin,Urine Negative Normal Negative [facility] Comment on above: Order Comment: Name Collection Type:: Clean-Voided Midstream Performed By: #### D IFF CBC, PTT, CK, HS TROP, CMP, CBC, PT #### [facility] [address] Glucose Ql (U) 500 mg/dL High Normal [facility] Comment on above: Order Comment: Name Collection Type:: Clean-Voided Midstream Performed By: #### D IFF CBC, PTT, CK, HS TROP, CMP, CBC, PT #### [facility] [address] Mucus,Urine Rare Normal [facility] Comment on above: Order Comment: Name Collection Type:: Clean-Voided Midstream Result Comment: PERF ORMED BY: [place] [address] PATHOLOGIST KNURLING MACHINE OPERATOR DENNIS RODRIGUEZ M.D. Performed By: #### D IFF CBC, PTT, CK, HS TROP, CMP, CBC, PT #### [address] Nitrite,Urine Negative Normal Negative [facility] Comment on above: Order Comment: Name Collection Type:: Clean-Voided Midstream Performed By: #### D IFF CBC, PTT, CK, HS TROP, CMP, CBC, PT #### [address] Occult Blood,Urine Negative Normal Negative [facility] Comment on above: Order Comment: Name Collection Type:: Clean-Voided Midstream Result Comment: PERF ORMED BY: [place] [address] PATHOLOGIST KNURLING MACHINE OPERATOR DENNIS RODRIGUEZ M.D. Performed By: #### D IFF CBC, PTT, CK, HS TROP, CMP, CBC, PT #### [address] RBC,Urine 1-2 Normal 0-4 [facility] Comment on above: Order Comment: Name Collection Type:: Clean-Voided Midstream Performed By: #### D IFF CBC, PTT, CK, HS TROP, CMP, CBC, PT #### [address] Specificy [place],Urine 1.043 High 1.001-1.03 0 [facility] Comment on above: Order Comment: Name Collection Type:: Clean-Voided Midstream Performed By: #### D IFF CBC, PTT, CK, HS TROP, CMP, CBC, PT #### [address] Squamous Epithelial Cell,Urine 1-2 Normal 0-2 [facility] Comment on above: Order Comment: Name Collection Type:: Clean-Voided Midstream Performed By: #### D IFF CBC, PTT, CK, HS TROP, CMP, CBC, PT #### [facility] [address] Urobilinogen,Urine Normal Normal Normal [facility] Comment on above: Order Comment: Name Collection Type:: Clean-Voided Midstream Performed By: #### D IFF CBC, PTT, CK, HS TROP, CMP, CBC, PT #### [facility] [address] WBC,Urine 3-4 Normal 0-4 [facility] Comment on above: Order Comment: Name Collection Type:: Clean-Voided Midstream Performed By: #### D IFF CBC, PTT, CK, HS TROP, CMP, CBC, PT #### [facility] [address] Dohle bodies detectionOrdere d By: Nicko Grimm on 01-10-2024 Dohle body LM Ql (Bld) Slight [facility] Drug Screen,Urineon 01-10-20 24 Amphetamine Screen,Urine Negative Normal Negative [facility] Comment on above: Order Comment: Comme nt add on Performed By: #### U RDS #### [address] Barbiturate Screen,Urine Negative Normal Negative [facility] [facility]ician Group Comment on above: Order Comment: Comme nt add on Performed By: #### U RDS #### [address] Benzodiazepines Screen,Urine Negative Normal Negative [facility] Comment on above: Order Comment: Comme nt add on Performed By: #### U RDS #### [address] Cannabinoid Screen,Urine Positive High Negative [facility] Comment on above: Order Comment: Comme nt add on Result Comment: Thes e are unconfirmed results and should not be used for legal purposes. Drug Cut-Off Concentration: AMPH 1000 ng/mL NIMESH 200 ng/mL STEVEN 200 ng/mL COCM 300 ng/mL OP 300 ng/mL PCP 25 ng/mL THC 20 ng/mL PERFORMED BY: [place] [address] PATHOLOGIST KNURLING MACHINE OPERATOR DENNIS RODRIGUEZ M.D. Performed By: #### U RDS #### [address] Cocaine Screen,Urine Negative Normal Negative [facility] Comment on above: Order Comment: Comme nt add on Performed By: #### U RDS #### [address] Opiate Screen,Urine Negative Normal Negative [facility] Comment on above: Order Comment: Comme nt add on Performed By: #### U RDS #### [address] Phencyclidine Screen,Urine Negative Normal Negative [facility] Comment on above: Order Comment: Comme nt add on Performed By: #### U RDS #### [address] ECG 12 lead ECGon 01-10-2024 ECG 12 lead ECG [facility] Main [place] [address] [place] [address] Electrocardiograph Report Signed Patient: Dagoberto Squires MR#: [id number] : 1945 Acct:[id number] Age/Sex: 78 / M ADM Date: 01/11/24 Loc: Room: [address] [place] [address] Type: ADM INOo Attending Dr: Jc Brown [...] branch block Confirmed by Nicko Grimm DO ([id number]) on 01/11/2024 6:53:27 AM Referred By: Electronically Signed By:Nicko Grimm DO Transcribed By: MUS Signed By Nicko Grimm DO [id number] Normal [facility] Eosinophils Auto (Bld) [#/Vo l]Ordered By: Nicko Grimm on 01-10-2024 Eosinophils (Bld) [#/Vol] N/A [facility] Eosinophils/100 WBC Auto (Bl d)Ordered By: Nicko Grimm on 01-10-2024 Eosinophils/100 WBC (Bld) N/A [facility] Eosinophils/100 leukocytes i n Blood by Manual countOrdered By: Nicko Grimm on 01-10-2024 Eosinophils/100 WBC (Bld) 17 % High 1-3 [facility] Comment on above: Performed By: #### D IFF CBC, PTT, CK, HS TROP, CMP, CBC, PT #### [facility] [address] Epithelial cells.squamous [# /area] in Urine sediment by Automated countOrdered By: Nicko Grimm on 01-10-2024 Epithelial cells.squamous Auto (Urine sed) [#/Area] 1-2 [HPF] 0-2 [facility] Erythrocyte distribution wid th [Ratio] by Automated countOrdered By: Nicko Grimm on 01-10-2024 Erythrocyte distribution width (RBC) [Ratio] 14.4 % Normal 12.0-14.8 [facility] Comment on above: Performed By: #### D IFF CBC, PTT, CK, HS TROP, CMP, CBC, PT #### [facility] [address] Erythrocytes [#/area] in Uri ne sediment by Automated countOrdered By: Nicko Grimm on 01-10-2024 RBC Auto (Urine sed) [#/Area] 1-2 [HPF] 0-4 [facility] Erythrocytes [#/volume] in B lood by Automated countOrdered By: Nicko Grimm on 01-10-2024 RBC (Bld) [#/Vol] 4.81 10*6/uL Normal 3.90-5.60 [facility] Comment on above: Performed By: #### D IFF CBC, PTT, CK, HS TROP, CMP, CBC, PT #### [facility] [address] [place] [address] [place] Glucose [Mass/volume] in Ser um or PlasmaOrdered By: Nicko Grimm on 01-10-2024 Glucose [Mass/Vol] 266 mg/dL High 70-100 [facility] Comment on above: ADA recommended refe rence rangeRandom Glucose Reference Range is dependent on time and content of last meal. Glucose of more than 200 mg/dL in a nonstressed, ambulatory subject supports the diagnosis of Diabetes Mellitus. Result Comment: Margie om Glucose Reference Range is dependent on time and content of last meal. Glucose of more than 200 mg/dL in a nonstressed, ambulatory subject supports the diagnosis of Diabetes Mellitus. ADA recommended reference range Performed By: #### D IFF CBC, PTT, CK, HS TROP, CMP, CBC, PT #### [facility] [address] Glucose [Mass/volume] in Uri ne by Test stripOrdered By: Nicko Grimm on 01-10-2024 Glucose Test strip (U) [Mass/Vol] 500 mg/dL High Normal [facility] Hematocrit [Volume Fraction] of Blood by Automated countOrdered By: Nicko Grimm on 01-10-2024 Hematocrit (Bld) [Volume fraction] 45.7 % Normal 38.8-50.0 [facility] Comment on above: Performed By: #### D IFF CBC, PTT, CK, HS TROP, CMP, CBC, PT #### [facility] [address] [place] [id number] [facility] Hemoglobin Test strip Ql (U) Ordered By: Nicko Grimm on 01-10-2024 Hemoglobin Ql (U) Negative Negative [facility] Hemoglobin [Mass/volume] in BloodOrdered By: Nicko Grimm on 01-10-2024 Hemoglobin (Bld) [Mass/Vol] 15.2 g/dL Normal 13.0-17.0 [facility] Comment on above: Performed By: #### D IFF CBC, PTT, CK, HS TROP, CMP, CBC, PT #### [facility] [address] INR in Platelet poor plasma by Coagulation assayOrdered By: Nicko Grimm on 01-10-2024 INR Coag (PPP) [Relative time] 1.0 {INR} Normal [facility] Comment on above: INR Therapeutic Rang [...] CK, HS TROP, CMP, CBC, PT #### [facility] [address] [place] [address] [place] Ketones [Presence] in Urine by Test stripOrdered By: Nicko Grimm on 01-10-2024 Ketones Ql (U) Negative Normal Negative [facility] Comment on above: Order Comment: Name Collection Type:: Clean-Voided Midstream Performed By: #### D IFF CBC, PTT, CK, HS TROP, CMP, CBC, PT #### [facility] [address] [place] [address] [place] Leukocyte esterase [Presence ] in Urine by Test stripOrdered By: Nicko Grimm on 01-10-2024 Leukocyte esterase Test strip Ql (U) Negative Normal Negative [facility] Comment on above: Order Comment: Name Collection Type:: Clean-Voided Midstream Performed By: #### D IFF CBC, PTT, CK, HS TROP, CMP, CBC, PT #### [facility] [address] [place] [address] [place] Leukocytes [#/area] in Urine sediment by Automated countOrdered By: Nicko Grimm on 01-10-2024 WBC Auto (Urine sed) [#/Area] 3-4 [HPF] 0-4 [facility] Leukocytes [#/volume] correc guillermina for nucleated erythrocytes in Blood by Automated counOrdered By: Nicko Grimm on 01-10-2024 WBC corrected for nucl RBC Auto (Bld) [#/Vol] 16.1 10*3/uL 4.1-10.5 [facility] Leukocytes [#/volume] in Blo od by Automated countOrdered By: Nicko Grimm on 01-10-2024 WBC (Bld) [#/Vol] 16.1 10*3/uL High 4.1-10.5 [facility] Comment on above: Performed By: #### D IFF CBC, PTT, CK, HS TROP, CMP, CBC, PT #### [facility] [address] [place] [address] Lymphocytes Auto (Bld) [#/Vo l]Ordered By: Nicko Grimm on 01-10-2024 Lymphocytes (Bld) [#/Vol] N/A [facility] Lymphocytes/100 WBC Auto (Bl d)Ordered By: Nicko Grimm on 01-10-2024 Lymphocytes/100 WBC (Bld) N/A [facility] Lymphocytes/100 leukocytes i n Blood by Manual countOrdered By: Nicko Grimm on 01-10-2024 Lymphocytes/100 WBC (Bld) 17 % Low 18-42 [facility] Comment on above: Performed By: #### D IFF CBC, PTT, CK, HS TROP, CMP, CBC, PT #### [facility] [address] MCH [Entitic mass] by Automa guillermina countOrdered By: Nicko Grimm on 01-10-2024 MCH (RBC) [Entitic mass] 31.5 pg Normal 27.5-35.2 [facility] Comment on above: Performed By: #### D IFF CBC, PTT, CK, HS TROP, CMP, CBC, PT #### [facility] [address] MCHC Auto (RBC) [Mass/Vol]Or dered By: Nicko Grimm on 01-10-2024 MCHC (RBC) [Mass/Vol] 33.2 g/dL 32.5-35.6 [facility] MCV [Entitic volume] by Auto mated countOrdered By: Nicko Grimm on 01-10-2024 MCV (RBC) [Entitic vol] 95.0 fL Normal 83.5-101 [facility] Comment on above: Performed By: #### D IFF CBC, PTT, CK, HS TROP, CMP, CBC, PT #### [facility] [address] Manual blood segmented neutr ophils/100 leukocytesOrdered By: Nicko Grimm on 01-10-2024 Segmented neutrophils/100 WBC (Bld) 47 % Low 50-70 [facility] Comment on above: Performed By: #### D IFF CBC, PTT, CK, HS TROP, CMP, CBC, PT #### [facility] [address] Metamyelocytes/100 WBC Manua l cnt (Bld)Ordered By: Nicko Grimm on 01-10-2024 Metamyelocytes/100 WBC (Bld) 1 % High 0-0 [facility] Monocyte distribution width [Entitic volume] in Blood by AutomatedOrdered By: Nicko Grimm on 01-10-2024 Monocyte distribution width Auto (Bld) [Entitic vol] 20.12 % 0.00-20.00 [facility] Comment on above: For adults in ED, MD W > 20.0 may be associated with a higher risk of sepsis during the first 12 hrs of hospital admission Monocytes Auto (Bld) [#/Vol] Ordered By: Nicko Grimm on 01-10-2024 Monocytes (Bld) [#/Vol] N/A [facility] Monocytes/100 WBC Auto (Bld) Ordered By: Nicko Grimm on 01-10-2024 Monocytes/100 WBC (Bld) N/A [facility] Monocytes/100 leukocytes in Blood by Manual countOrdered By: Nicko Grimm on 01-10-2024 Monocytes/100 WBC (Bld) 10 % Normal 2-11 [facility] Comment on above: Performed By: #### D IFF CBC, PTT, CK, HS TROP, CMP, CBC, PT #### [facility] [address] [place] [id number] [facility] Mucus [Presence] in Urine by AutomatedOrdered By: Nicko Grimm on 01-10-2024 Mucus Auto Ql (U) Rare [LPF] [facility] Myelocytes/100 WBC Manual cn t (Bld)Ordered By: Nicko Grimm on 01-10-2024 Myelocytes/100 WBC (Bld) 2 % 0-0 [facility] Neutrophils Auto (Bld) [#/Vo l]Ordered By: Nicko Grimm on 01-10-2024 Neutrophils (Bld) [#/Vol] N/A [facility] Neutrophils/100 WBC Auto (Bl d)Ordered By: Nicko Grimm on 01-10-2024 Neutrophils/100 WBC (Bld) N/A [facility] Nitrite Test strip Ql (U)Ord ered By: Nicko Grimm on 01-10-2024 Nitrite Ql (U) Negative Negative [facility] No Panel InformationOrdered By: Nicko Grimm on 01-10-2024 Estimated GFR (CKD-EPI) 52.997 mL/Min [facility] Creatinine Clearance (Chem 57.26 [facility] Nucleated erythrocytes [Pres ence] in Blood by Automated countOrdered By: Nicko Grimm on 01-10-2024 Nucleated RBC Auto Ql (Bld) N/A [facility] Opiates [Presence] in Urine by Screen methodOrdered By: Faiza Mcdonald on 01-10-2024 Opiates Screen Ql (U) Negative Negative [facility] Partial Thromboplastin Timeo n 01-10-2024 aPTT Coag (Bld) [Time] 30.0 s Normal 25.1-36.5 Th e [facility] Comment on above: Result Comment: A he matocrit value greater than 55% may lead to inaccurate results in coagulation testing. Patients having hematocrit values >55% require a special collection tube for coagulation studies. Please contact the laboratory at [phone] for redraw instructions. PERFORMED BY: [place] [address] PATHOLOGIST KNURLING MACHINE OPERATOR DENNIS RODRIGUEZ M.D. Performed By: #### D IFF CBC, PTT, CK, HS TROP, CMP, CBC, PT #### [facility] [address] [place] [address] Peripheral white blood cell differential % bands, microscopic examOrdered By: Nicko Grimm on 01-10-2024 Band form neutrophils/100 WBC (Bld) 5 % Normal 0-5 [facility] Comment on above: Performed By: #### D IFF CBC, PTT, CK, HS TROP, CMP, CBC, PT #### [facility] [address] [place] [address] Phencyclidine Screen Ql (U)O rdered By: Faiza Mcdonald on 01-10-2024 Phencyclidine Ql (U) Negative Negative [facility] Platelet adequacy [Presence] in Blood by Light microscopyOrdered By: Nicko Grimm on 01-10-2024 Platelets LM Ql (Bld) Normal Normal [facility] Platelet mean volume [Entiti c volume] in Blood by Automated countOrdered By: Nicko Grimm on 01-10-2024 Platelet mean volume (Bld) [Entitic vol] 8.2 fL Normal 6.6-10.1 [facility] Comment on above: Performed By: #### D IFF CBC, PTT, CK, HS TROP, CMP, CBC, PT #### [facility] [address] [place] [address] Platelet morphology finding [Identifier] in BloodOrdered By: Nicko Grimm on 01-10-2024 Platelet morphology finding Nom (Bld) Normal Normal [facility] Platelets [#/volume] in Bloo d by Automated countOrdered By: Nicko Grimm on 01-10-2024 Platelets (Bld) [#/Vol] 226 10*3/uL Normal 150-450 [facility] Comment on above: Performed By: #### D IFF CBC, PTT, CK, HS TROP, CMP, CBC, PT #### [facility] [address] [place] [address] [place] Potassium [Moles/volume] in Serum or PlasmaOrdered By: Nicko Grimm on 01-10-2024 Potassium [Moles/Vol] 4.0 mmol/L Normal 3.5-5.1 [facility] Comment on above: Performed By: #### D IFF CBC, PTT, CK, HS TROP, CMP, CBC, PT #### [facility] [address] [place] [address] [place] Protein [Mass/volume] in Ser um or PlasmaOrdered By: Nicko Grimm on 01-10-2024 Protein [Mass/Vol] 6.7 g/dL Normal 6.4-8.9 [facility] Comment on above: Performed By: #### D IFF CBC, PTT, CK, HS TROP, CMP, CBC, PT #### [facility] [address] [place] [id number] [place] Protein [Mass/volume] in Uri ne by Test stripOrdered By: Nicko Grimm on 01-10-2024 Protein (U) [Mass/Vol] 20 mg/dL High Negative [facility] Comment on above: Order Comment: Name Collection Type:: Clean-Voided Midstream Performed By: #### D IFF CBC, PTT, CK, HS TROP, CMP, CBC, PT #### [facility] [address] [place] [address] [place] Prothrombin time (PT)Ordered By: Nicko Grimm on 01-10-2024 PT Coag (PPP) [Time] 11.9 s Normal 9.0-12.9 [facility] Comment on above: A hematocrit value g reater than 55% may lead to inaccurate results in coagulation testing. Patients having hematocrit values >55% require a special collection tube for coagulation studies. Please contact the laboratory at [phone] for redraw instructions. Result Comment: A he matocrit value greater than 55% may lead to inaccurate results in coagulation testing. Patients having hematocrit values >55% require a special collection tube for coagulation studies. Please contact the laboratory at [phone] for redraw instructions. Performed By: #### D IFF CBC, PTT, CK, HS TROP, CMP, CBC, PT #### [address] RBC morphologyOrdered By: Americo Grimm on 01-10-2024 RBC morphology finding Nom (Bld) Normal Normal Normal [facility] Comment on above: Performed By: #### D IFF CBC, PTT, CK, HS TROP, CMP, CBC, PT #### [address] Serum globulin measurement b y calculation (mass/volume)Ordered By: Nicko Grimm on 01-10-2024 Globulin (S) [Mass/Vol] 2.9 g/dL Normal [facility] Comment on above: Performed By: #### D IFF CBC, PTT, CK, HS TROP, CMP, CBC, PT #### [address] Serum or plasma albumin/glob ulin mass ratioOrdered By: Nicko Grimm on 01-10-2024 Albumin/Globulin [Mass ratio] 1.3 {ratio} Normal [facility] Comment on above: Performed By: #### D IFF CBC, PTT, CK, HS TROP, CMP, CBC, PT #### [address] Serum or plasma anion gap de terminationOrdered By: Nicko Grimm on 01-10-2024 Anion gap [Moles/Vol] 10.7 mmol/L Normal 6.0-15.0 [facility] Comment on above: Performed By: #### D IFF CBC, PTT, CK, HS TROP, CMP, CBC, PT #### [facility] [address] [place] [address] Sodium [Moles/volume] in Ser um or PlasmaOrdered By: Nicko Grimm on 01-10-2024 Sodium [Moles/Vol] 136 mmol/L Normal 136-145 [facility] Comment on above: Performed By: #### D IFF CBC, PTT, CK, HS TROP, CMP, CBC, PT #### [address] Specific gravity Test strip (U) [Rel density]Ordered By: Nicko Grimm on 01-10-2024 Specific gravity (U) [Rel density] 1.043 High 1.001-1.03 0 [facility] Toxic leukocyte vacuolation detectionOrdered By: Nicko Grimm on 01-10-2024 Leukocyte toxic vacuoles LM Ql (Bld) Slight [facility] Troponin I High Sensitivityo n 01-10-2024 Troponin I High Sensitivity 7.1 pg/mL Normal 0.0-20.0 [facility] Comment on above: Result Comment: PERF ORMED BY: [place] [address] PATHOLOGIST KNURLING MACHINE OPERATOR DENNIS RODRIGUEZ M.D. Performed By: #### D IFF CBC, PTT, CK, HS TROP, CMP, CBC, PT #### [address] Troponin I.cardiac [Mass/vol ume] in Serum or Plasma by Detection limit <= 0.01 ng/Ordered By: Nicko Grimm on 01-10-2024 Troponin I.cardiac DL <= 0.01 ng/mL [Mass/Vol] 7.1 pg/mL 0.0-20.0 [facility] Urea nitrogen [Mass/volume] in Serum or PlasmaOrdered By: Nicko Grimm on 01-10-2024 Urea nitrogen [Mass/Vol] 19 mg/dL Normal 7-25 [facility] Comment on above: Performed By: #### D IFF CBC, PTT, CK, HS TROP, CMP, CBC, PT #### [address] Urine appearanceOrdered By: Nicko Grimm on 01-10-2024 Appearance (U) Clear Normal Clear [facility] Comment on above: Order Comment: Name Collection Type:: Clean-Voided Midstream Performed By: #### D IFF CBC, PTT, CK, HS TROP, CMP, CBC, PT #### [address] Urobilinogen Test strip (U) [Mass/Vol]Ordered By: Nicko Grimm on 01-10-2024 Urobilinogen (U) [Mass/Vol] Normal mg/dL Normal [facility] pH of Urine by Test stripOrd ered By: Nicko Grimm on 01-10-2024 pH (U) 5.5 [pH] Normal 5.0-9.0 [facility] Comment on above: Order Comment: Name Collection Type:: Clean-Voided Midstream Performed By: #### D IFF CBC, PTT, CK, HS TROP, CMP, CBC, PT #### [facility] [address] [place] [address] [facility] Albumin [Mass/volume] in Ser um or Plasmaon 12-16-2023 Albumin [Mass/Vol] 3.6 g/dL 2.9-4.4 [facility] Laboratory - Chemistry and C hemistry - challengeon 12-16-2023 Cobalamin (Vitamin B12) [Mass/Vol] 523.0 pg/mL 193.0-986. 0 [facility] Protein [Mass/Vol] 0.3 g/dL Abnormal Not Observed [facility] TSH Qn 3.230 m[IU]/L 0.358-3.74 0 [facility] No Panel Informationon 12-15 Folate 16.10 ng/mL 8.60-58.90 [facility] Protein Electrophoresis Note Comment . [facility] Comment on above: Protein electrophore sis scan will follow via computer,mail, or cone treater delivery.Performed at: [address] [id number] Director: Sean Lopez PhD, Phone: [phone] Protein [Mass/volume] in Ser um or Plasmaon 12-16-2023 Protein [Mass/Vol] 6.6 g/dL 6.0-8.5 [facility] Serum globulin measurement ( mass/volume)on 12-16-2023 Globulin (S) [Mass/Vol] 3.0 g/dL 2.2-3.9 [facility] Serum or plasma albumin/glob ulin mass ratioon 12-16-2023 Albumin/Globulin [Mass ratio] 1.2 {ratio} 0.7-1.7 [facility] Serum or plasma alpha 1 glob ulin measurement by electrophoresis (mass/volume)on 12-16-2023 Alpha 1 globulin Elph [Mass/Vol] 0.2 g/dL 0.0-0.4 [facility] Serum or plasma alpha 2 glob ulin measurement by electrophoresis (mass/volume)on 12-16-2023 Alpha 2 globulin Elph [Mass/Vol] 0.8 g/dL 0.4-1.0 [facility] Serum or plasma beta globuli n measurement by electrophoresis (mass/volume)on 12-16-2023 Beta globulin Elph [Mass/Vol] 0.9 g/dL 0.7-1.3 [facility] Serum or plasma gamma globul in measurement by electrophoresis (mass/volume)on 12-16-2023 Gamma globulin Elph [Mass/Vol] 1.1 g/dL 0.4-1.8 [facility] Estimated glomerular filtrat ion rate (GFR) non- Americanon 11-19-2023 GFR/1.73 sq M.predicted among non-blacks MDRD (S/P/Bld) [Vol rate/Area] mL/min/{1.73_m2} >=60 [facility] Laboratory - Chemistry and C hemistry - challengeon 11-19-2023 Creatinine [Mass/Vol] 1.18 mg/dL 0.70-1.30 [facility] GFR/1.73 sq M.predicted MDRD (S/P/Bld) [Vol rate/Area] mL/min/{1.73_m2} >=60 [facility] Automated urine specific gra vity by refractometryon 11-10-2023 Specific gravity Refractometry automated (U) [Rel density] >=1.030 1.005-1.02 5 [facility] Bilirubin Auto test strip (U ) [Mass/Vol]on 11-10-2023 Bilirubin (U) [Mass/Vol] Negative NEGATIVE [facility] Color Auto (U)on 11-10-2023 Color (U) YELLOW YELLOW [facility] Glucose [Mass/volume] in Uri ne by Test stripon 11-10-2023 Glucose Test strip (U) [Mass/Vol] 100 mg/dL NEGATIVE [facility] Ketones Auto test strip (U) [Mass/Vol]on 11-10-2023 Ketones (U) [Mass/Vol] Negative NEGATIVE Fi [facility] Protein Auto test strip (U) [Mass/Vol]on 11-10-2023 Protein (U) [Mass/Vol] Negative NEG/TRACE Fi [facility] Specific gravity Auto test s trip (U) [Rel density]on 11-10-2023 Specific gravity (U) [Rel density] CLEAR CLEAR [facility] Urine hemoglobin detection b y automated test stripon 11-10-2023 Hemoglobin Auto test strip Ql (U) Negative NEGATIVE [facility] Urine nitrite detection by a utomated test stripon 11-10-2023 Nitrite Auto test strip Ql (U) Negative NEGATIVE [facility] Urobilinogen Auto test strip (U) [Mass/Vol]on 11-10-2023 Urobilinogen Qn (U) 0.2 {Erma'U}/dL 0.2-1.0 [facility] pH Auto test strip (U)on pH (U) 5.5 [pH] 5.0-9.0 [facility] Luisito 09-22-2023 L Specimen: [id number] Received: 09/22/23 Status: JOSE ANTONIO Hayniecy Num: [id number] Spec Type: Surgical Subm Dr: Samuel Coker MD Tissues: A Skin-Other than Cyst, tag, debridement or plastic repair (LT LOWER EYELID) Procedures: HE/7, Gross/Micro L4 Age/ Patient Sex Location Account Attending Physician Dagoberto Squires 78/M [place] [id number] Samuel Coker MD SPEC NUM: [id number] RECD: 09/22/23 STATUS: JOSE ANTONIO CONTRERAS NUM: [id number] KIRILL: 09/22/[address]: Samuel Coker MD ENTERED: 09/22/[address] [facility] [address]: SPEC TYPE: Surgical DEPT: S ENTERED BY: [id number] RECV BY: [id number] ORDERED: HE/7, Gross/Micro L4 ORDERED: HE/7, Gross/Micro [...] superior, long lateral. There is a nodular hassan-admas central papule, 0.7 x 0.7 cm. The [...] Received: 09/22/23 Status: JOSE ANTONIO Contreras Num: [id number] Spec Type: Surgical Subm Dr: Samuel Coker MD Tissues: A Skin-Other than Cyst, tag, debridement or plastic repair (LT LOWER EYELID) Procedures: , Gross/Micro L4 Patient: Dagoberto Squires [id number] (Continued) Specimen: [id number] Received: 09/22/23 (Continued) Signed (signature on file) Lorena Lopez MD 09/23/231721 Specimen: [id number] Received: 09/22/23 Status: JOSE ANTONIO Contreras Num: [id number] Spec Type: Surgical Subm Dr: Samuel Coker MD Tissues: A Skin-Other than Cyst, tag, debridement or plastic repair (LT LOWER EYELID) Procedures: [place] MORE/Marycruz Velásquez Patient: Dagoberto Squires [id number] (Continued) Specimen: [id number] Received: 09/22/23 (Continued) Microscopic Description 3 H E sections are reviewed A1-A2 1 H E sections are reviewed A3 CPT Codes 77239 Specimen: [id number] Received: 09/22/23 Status: JOSE ANTONIO Contreras Num: [id number] Spec Type: Surgical Subm Dr: Samuel Coker MD Tissues: A Skin-Other than Cyst, tag, debridement or plastic repair (LT LOWER EYELID) Procedures: [place] MORE/Marycruz L4 Patient: Dagoberto Squires [id number] (Continued) Signed (signature on file) Juancho-Cesar Lopez MD 09/23/23 1722 Normal [facility] CBC AUTO DIFFon 06-22-2020 Basophils (Bld) [#/Vol] 0.1 103/ul Normal 0.0-0.1 [facility] Comment on above: Performed By: #### C BC #### [facility] [address] [place] [address] Marcus Karyna Basophils/100 WBC (Bld) 0.7 % Normal 0.2-2.0 [facility] Comment on above: Performed By: #### C BC #### [facility] [address] [place] [address] Marcus Karyna Eosinophils (Bld) [#/Vol] 0.5 103/ul Normal 0.0-0.7 [facility] Comment on above: Performed By: #### C BC #### [facility] [address] [place], [place] [id number] Marcus Karyna Eosinophils/100 WBC (Bld) 4.5 % Normal 0.9-7.0 [facility] Comment on above: Performed By: #### C BC #### [facility] [address] [place], [place] [id number] Marcus Karyna Erythrocyte distribution width (RBC) [Ratio] 12.9 % Normal 11.0-15.0 [facility] Comment on above: Performed By: #### C BC #### [facility] [address] [place], [place] [id number] Marcus Karyna Hematocrit (Bld) [Volume fraction] 50.2 % Normal 42.0-54.0 [facility] Comment on above: Performed By: #### C BC #### [facility] [address] [place], [place] [id number] Marcus Karyna Hemoglobin (Bld) [Mass/Vol] 17.0 g/dL Normal 14.0-18.0 [facility] Comment on above: Performed By: #### C BC #### [facility] [address] [id number] Marcus Karyna IG # 0.12 10e3/ul Critically high 0.00-0.03 [facility] Comment on above: Performed By: #### C BC #### [facility] [address] [id number] Marcus Karyna IG % 1.0 % Critically high 0.0-0.5 [facility] Comment on above: Performed By: #### C BC #### [facility] [address] [id number] Marcus Karyna Lymphocytes (Bld) [#/Vol] 3.7 103/ul Normal 1.2-3.8 [facility] Comment on above: Performed By: #### C BC #### [facility] [address] [place], [place] [id number] Marcus Karyna Lymphocytes/100 WBC (Bld) 31.8 % Normal 20.5-60.0 [facility] Comment on above: Performed By: #### C BC #### [facility] [address] [place], [place] [id number] Marcus Karyna MANUAL DIFF REQ NO Normal [facility] Comment on above: Performed By: #### C BC #### [facility] [address] [place], [place] [id number] Marcus Karyna MCH (RBC) [Entitic mass] 32.8 pg Normal 25.9-34.0 [facility] Comment on above: Performed By: #### C BC #### [facility] [address] [place], [place] [id number] Marcus Karyna MCHC (RBC) [Mass/Vol] 33.9 g/dL Normal 29.9-35.2 [facility] Comment on above: Performed By: #### C BC #### [facility] [address] [place], [place] [phone] Marcus Karyna MCV (RBC) [Entitic vol] 96.9 fL Critically high 80.0-94.0 [facility] Comment on above: Performed By: #### C BC #### [facility] [address] [place], [place] [address] Marcus Karyna Monocytes (Bld) [#/Vol] 1.1 103/ul Critically high 0.3-0.8 [facility] Comment on above: Performed By: #### C BC #### [facility] [address] [place], [place] [address] Marcus Karyna Monocytes/100 WBC (Bld) 9.5 % Normal 1.7-12.0 [facility] Comment on above: Performed By: #### C BC #### [facility] [address] [place] [id number] Marcus Karyna Neutrophils (Bld) [#/Vol] 6.1 103/ul Normal 1.4-6.5 [facility] Comment on above: Performed By: #### C BC #### [facility] [address] [place] [address] Marcus Karyna Neutrophils/100 WBC (Bld) 52.5 % Normal 43.0-75.0 [facility] Comment on above: Performed By: #### C BC #### [facility] [address] [place] [id number] Marcus Karyna Platelet mean volume (Bld) [Entitic vol] 9.7 fL Normal 9.5-13.5 [facility] Comment on above: Performed By: #### C BC #### [facility] [address] [place] [id number] Marcus Karyna Platelets (Bld) [#/Vol] 235 103/ul Normal 150-450 [facility] Comment on above: Performed By: #### C BC #### [facility] [address] [place] [address] Marcus Karyna RBC (Bld) [#/Vol] 5.18 106/ul Normal 4.70-6.10 [facility] Comment on above: Performed By: #### C BC #### [facility] [address] [place] [address] Marcus Karyna WBC (Bld) [#/Vol] 11.7 103/ul Critically high 4.0-11.0 [facility] Comment on above: Performed By: #### C BC #### [facility] [address] [address] Marcus Troncoso Vital Signs Date Time Vital Sign Value Performing Clinician Facility 05-25-2024 11:50-0400 Body height 180.34 cm [facility] 05-25-2024 11:50-0400 Body mass index (BMI) [Ratio] 31 kg/m2 [facility] 05-25-2024 11:50-0400 Body temperature 98.2 [degF] [facility] 05-25-2024 11:50-0400 Body weight 101 kg [facility] 05-25-2024 11:50-0400 Diastolic blood pressure 92 mm[Hg] [facility] 05-25-2024 11:50-0400 Heart rate 60 /min [facility] 05-25-2024 11:50-0400 Respiratory rate 16 /min [facility] 05-25-2024 11:50-0400 SaO2% (BldA) [Mass fraction] 96 % [facility] 05-25-2024 11:50-0400 Systolic blood pressure 146 mm[Hg] [facility] 02-25-2024 08:40-0400 Blood Pressure Location Garfield LUCAS [facility] 02-25-2024 08:40-0400 Body temperature 98.6 [degF] Garfield LUCAS [facility] 02-25-2024 08:40-0400 Diastolic blood pressure 69 mm[Hg] Garfield LUCAS [facility] 02-25-2024 08:40-0400 Heart rate 68 /min Garfield LUCAS [facility] 02-25-2024 08:40-0400 Respiratory rate 16 /min Garfield LUCAS [facility] 02-25-2024 08:40-0400 Systolic blood pressure 134 mm[Hg] Garfield SHAYY [facility] 02-16-2024 08:54-0400 Body height 180.34 cm [employer]etha Stevensonacher Work Phone: [facility] 02-16-2024 08:54-0400 Body mass index (BMI) [Ratio] 31.1 kg/m2 [employer]etha Vallerbacher Work Phone: [facility] 02-16-2024 08:54-0400 Body temperature 97.8 [degF] [employer]etha Stevensonacher Work Phone: [facility] 02-16-2024 08:54-0400 Body weight 101.15 kg [employer]ISIONLetha Stevensonacher Work Phone: [facility] 02-16-2024 08:54-0400 Diastolic blood pressure 68 mm[Hg] [employer]etha Stevensonacher Work Phone: [facility] 02-16-2024 08:54-0400 Heart rate 76 /min [employer]etha Stevensonacher Work Phone: [facility] 02-16-2024 08:54-0400 Respiratory rate 16 /min [employer]etha Stevensonacher Work Phone: [facility] 02-16-2024 08:54-0400 SaO2% (BldA) [Mass fraction] 96 % [employer]etha Vallerbacher Work Phone: [facility] 02-16-2024 08:54-0400 Systolic blood pressure 116 mm[Hg] [employer]etha Vallerbacher Work Phone: [facility] 01-27-2024 13:21-0400 Blood Pressure Location Garfield LUCAS [facility] 01-27-2024 13:21-0400 Body temperature 98.6 [degF] Garfield LUCAS [facility] 01-27-2024 13:21-0400 Diastolic blood pressure 88 mm[Hg] Garfield LUCAS [facility] 01-27-2024 13:21-0400 Heart rate 85 /min Garfieldkayleigh LUCAS [facility] 01-27-2024 13:21-0400 Respiratory rate 16 /min Garfield LUCAS [facility] 01-27-2024 13:21-0400 Systolic blood pressure 137 mm[Hg] Garfield LUCAS [facility] 01-26-2024 13:51-0400 Body height 180.34 cm RITIKA Salinas Work Phone: [facility] 01-26-2024 13:51-0400 Body mass index (BMI) [Ratio] 33 kg/m2 RITIKA Salinas Work Phone: [facility] 01-26-2024 13:51-0400 Body weight 107.5 kg RITIKA Salinas Work Phone: [facility] 01-26-2024 13:51-0400 Diastolic blood pressure 60 mm[Hg] RITIKA Salinas Work Phone: [facility] 01-26-2024 13:51-0400 Heart rate 97 /min RITIKA Salinas Work Phone: [facility] 01-26-2024 13:51-0400 SaO2% (BldA) [Mass fraction] 95 % [employer]etha Salinas Work Phone: [facility] 01-26-2024 13:51-0400 Systolic blood pressure 118 mm[Hg] [employer]etha Stevensonacher Work Phone: [facility] 01-26-2024 11:00-0400 Diastolic blood pressure 63 mm[Hg] [employer]a Stevensonacher Work Phone: [facility] 01-26-2024 11:00-0400 Heart rate 77 /min [employer] Stevensonacher Work Phone: [facility] 01-26-2024 11:00-0400 Respiratory rate 25 /min [employer] Stevensonacher Work Phone: [facility] 01-26-2024 11:00-0400 SaO2% (BldA) [Mass fraction] 98 % [employer]a Stevensonacher Work Phone: [facility] 01-26-2024 11:00-0400 Systolic blood pressure 134 mm[Hg] [employer]a Stevensonacher Work Phone: [facility] 01-26-2024 08:00-0400 Body temperature 98.6 [degF] [employer] Stevensonacher Work Phone: [facility] 01-26-2024 06:00-0400 Body weight 101.2 kg [employer]ISIONLetha Barahonar Work Phone: [facility] 01-25-2024 14:13-0400 Inhaled oxygen flow rate 6 L/min [employer]a Stevensonacher Work Phone: [facility] 01-25-2024 12:28-0400 Body height 180.34 cm [employer]Letha Barahonar Work Phone: [facility] 01-25-2024 12:28-0400 Body mass index (BMI) [Ratio] 31.1 kg/m2 [employer]etha Barahonar Work Phone: [facility] 01-17-2024 12:24-0400 Body height 180.34 cm [employer] Sonia Leonardrbacher Work Phone: [facility] 01-17-2024 12:24-0400 Body mass index (BMI) [Ratio] 29.5 kg/m2 [employer] Sonia Leonardrbacher Work Phone: [facility] 01-17-2024 12:24-0400 Body temperature 98 [degF] [employer] Sonia Leonardrbacher Work Phone: [facility] 01-17-2024 12:24-0400 Body weight 96.16 kg [employer] Sonia Leonardrbacher Work Phone: [facility] 01-17-2024 12:24-0400 Diastolic blood pressure 82 mm[Hg] [employer]etha Vallerbacher Work Phone: [facility] 01-17-2024 12:24-0400 SaO2% (BldA) [Mass fraction] 96 % [employer] Sonia Leonardrbacher Work Phone: [facility] 01-17-2024 12:24-0400 Systolic blood pressure 136 mm[Hg] [employer] Sonia Leonardrbacher Work Phone: [facility] 01-13-2024 12:01-0400 Body temperature 98 [degF] RITIKA Mustafafer Leonardrbacher Work Phone: [facility] 01-13-2024 12:01-0400 Diastolic blood pressure 77 mm[Hg] [employer]etha Vallerbacher Work Phone: [facility] 01-13-2024 12:01-0400 Heart rate 88 /min [employer]Letha Vallerbacher Work Phone: [facility] 01-13-2024 12:01-0400 Respiratory rate 14 /min [employer]etha Vallerbacher Work Phone: [facility] 01-13-2024 12:01-0400 SaO2% (BldA) [Mass fraction] 96 % [employer]ISIONLetha MustafaSonia Leonardrbacher Work Phone: [facility] 01-13-2024 12:01-0400 Systolic blood pressure 146 mm[Hg] [employer] DIVISIONLetha GamezSonia Leonardrbacher Work Phone: [facility] 01-13-2024 06:00-0400 Body weight 107.2 kg [employer]etha Vallerbacher Work Phone: [facility] 01-11-2024 10:45-0400 Body height 180.34 cm [employer]ISIONLetha MustafaSonia Leonardrbacher Work Phone: [facility] 01-11-2024 02:02-0400 Body height 180.34 cm [employer]ISIONLetha MustafaSonia Leonardrbacher Work Phone: [facility] 01-11-2024 02:02-0400 Body temperature 98.3 [degF] [employer]ISIONLetha MustafaSonia Leonardrbacher Work Phone: [facility] 01-11-2024 02:02-0400 Body weight 105.7 kg [employer] Sonia Leonardrbacher Work Phone: [facility] 01-11-2024 02:02-0400 Diastolic blood pressure 84 mm[Hg] [employer]Letha Vallerbacher Work Phone: [facility] 01-11-2024 02:02-0400 Heart rate 78 /min [employer]etha Vallerbacher Work Phone: [facility] 01-11-2024 02:02-0400 Respiratory rate 22 /min [employer]a Vallerbacher Work Phone: [facility] 01-11-2024 02:02-0400 SaO2% (BldA) [Mass fraction] 96 % [employer]etha Vallerbacher Work Phone: [facility] 01-11-2024 02:02-0400 Systolic blood pressure 171 mm[Hg] [employer] Sonia Leonardrbacher Work Phone: [facility] 11-09-2023 14:53-0400 Body height 180.34 cm [employer] Sonia Leonardrbacher Work Phone: [facility] 11-09-2023 14:53-0400 Body mass index (BMI) [Ratio] 32.8 kg/m2 [employer] Sonia Leonardrbacher Work Phone: [facility] 11-09-2023 14:53-0400 Body weight 106.59 kg [employer] Sonia Leonardrbacher Work Phone: [facility] 11-09-2023 14:53-0400 Diastolic blood pressure 78 mm[Hg] [employer] Sonia Leonardrbacher Work Phone: [facility] 11-09-2023 14:53-0400 Heart rate 77 /min [employer] Sonia Elvaacher Work Phone: [facility] 11-09-2023 14:53-0400 SaO2% (BldA) [Mass fraction] 97 % [employer] Sonia Elvaacher Work Phone: [facility] 11-09-2023 14:53-0400 Systolic blood pressure 124 mm[Hg] [employer] Sonia Leonardrbacher Work Phone: [facility] 10-05-2023 11:31-0500 Body height 180.34 cm [employer] Sonia Leonardrbacher Work Phone: [facility] 10-05-2023 11:31-0500 Body mass index (BMI) [Ratio] 33.2 kg/m2 [employer] Sonia Leonardrbacher Work Phone: [facility] 10-05-2023 11:31-0500 Body weight 107.95 kg [employer] DIVISIONLetha MustafaSonia Leonardrbacher Work Phone: [facility] 10-05-2023 11:31-0500 Diastolic blood pressure 76 mm[Hg] [employer] Sonia Elvashanikavahe Work Phone: [facility] 10-05-2023 11:31-0500 Heart rate 77 /min [employer] Sonia Stevensonacher Work Phone: [facility] 10-05-2023 11:31-0500 SaO2% (BldA) [Mass fraction] 95 % [employer] Sonia Stevensonacher Work Phone: [facility] 10-05-2023 11:31-0500 Systolic blood pressure 124 mm[Hg] [employer] Sonia Stevensonacher Work Phone: [facility] 07-09-2023 10:30-0500 Body height 180.34 cm Sonia Brad Other [facility] 07-09-2023 10:30-0500 Body mass index (BMI) [Ratio] 32.07 kg/m2 Sonia Junr Other [facility] Other 07-09-2023 10:30-0500 Body weight 104.33 kg Sonia Junr Other [employer] Other 07-09-2023 10:30-0500 Body weight 104.32 kg RITIKA Sonia Vallegayleacher Work Phone: [facility] 07-09-2023 10:30-0500 Diastolic blood pressure 86 mm[Hg] Sonia Elvaacher Other [facility] 07-09-2023 10:30-0500 SaO2% (BldA) [Mass fraction] 95 % Sonia Elvaacher Other [facility] boarding pass Other 07-09-2023 10:30-0500 Systolic blood pressure 126 mm[Hg] Sonia Stevensonacher Other [facility] 04-29-2023 10:30-0400 Body height 180.34 cm Sonia Salinas Other [employer] Other 04-29-2023 10:30-0400 Body mass index (BMI) [Ratio] 31.8 kg/m2 Sonia Salinas Other [employer] Other 04-29-2023 10:30-0400 Body weight 103.42 kg Sonia Salinas Other [employer] Other 04-29-2023 10:30-0400 Diastolic blood pressure 70 mm[Hg] Sonia Salinas Other [employer] Other 04-29-2023 10:30-0400 SaO2% (BldA) [Mass fraction] 96 % Sonia Salinas Other [employer] Other 04-29-2023 10:30-0400 Systolic blood pressure 118 mm[Hg] Sonia Salinas Other [employer] Other Encounters Encounter Date Encounter Type Care Provider Facility Start: 05-25-2024 End: 05-25-2024 Patient encounter procedure [facility] V[facility] Work Phone: Start: 05-25-2024 End: 05-25-2024 ambulatory Mckenna Campbell [facility] Work Phone: Start: 03-08-2024 End: 03-08-2024 ambulatory AURELIA FRENCH Not Available Start: 03-07-2024 End: 03-07-2024 ambulatory TRU SOLITARIO Not Available Start: 03-07-2024 End: 03-07-2024 Patient encounter procedure Tru Solitario DO Work Phone: [facility] Comment on above: Hypersomnia; Memory loss Start: 02-25-2024 End: 02-25-2024 ambulatory Garfield LUCAS Facility:[facility] Start: 02-25-2024 End: 02-25-2024 Patient encounter procedure Garfield R LUCAS [facility] Start: 02-16-2024 End: 02-16-2024 ambulatory RITIKA Salinas Work Phone: [facility] Work Phone: Start: 02-16-2024 End: 02-16-2024 Patient encounter procedure RITIKA Salinas Work Phone: [facility] Vascular Surgery Work Phone: Start: 02-08-2024 End: 02-08-2024 ambulatory TRU SOLITARIO Not Available Start: 01-27-2024 End: 01-27-2024 Lab Drop off Garfield R SHAYY [facility] Start: 01-27-2024 End: 01-27-2024 ambulatory Garfield Vahe LUCAS Facility:[facility] Start: 01-27-2024 End: 01-27-2024 Patient encounter procedure Garfield LUCAS [facility] Start: 01-27-2024 Non-patient / Non-visit RITIKA Salinas Work Phone: [facility] Work Phone: Start: 01-27-2024 ambulatory Garfeild LUCAS Facility :[facility] Start: 01-26-2024 End: 01-26-2024 ambulatory RITIKA Salinas Work Phone: [facility] Work Phone: Start: 01-26-2024 End: 01-26-2024 Patient encounter procedure [employer] Sonia Vallerbacher Work Phone: [facility] Work Phone: Start: 01-25-2024 Non-patient / Non-visit [employer] Faheem Vallerbacher Work Phone: [facility] Work Phone: Start: 01-25-2024 End: 01-26-2024 Evaluation and management of inpatient [employer] Sonia Vallerbacher Work Phone: [facility] Work Phone: Start: 01-17-2024 Non-patient / Non-visit [employer] Faheem Vallerbacher Work Phone: [facility] Work Phone: Start: 01-17-2024 End: 01-17-2024 ambulatory [employer] Sonia Vallerbacher Work Phone: [facility] Work Phone: Start: 01-17-2024 End: 01-17-2024 Patient encounter procedure [employer] Sonia Vallerbacher Work Phone: [facility] Work Phone: Start: 01-12-2024 End: 01-13-2024 Non-patient / Non-visit [employer] Sonia Vallerbacher Work Phone: [facility] Work Phone: Start: 01-11-2024 End: 01-13-2024 Evaluation and management of inpatient [employer] Sonia Vallerbacher Work Phone: [facility] Work Phone: Start: 01-11-2024 Evaluation and management of inpatient [employer] Sonia Vallerbacher Work Phone: [facility] Work Phone: Start: 01-11-2024 observation encounter [employer] Vera Salinas Work Phone: [facility] Work Phone: Start: 12-22-2023 End: 12-22-2023 ambulatory AURELIA FRENCH Not Available Start: 12-21-2023 End: 12-21-2023 ambulatory TRU CHRISSY Not Available Start: 12-16-2023 Non-patient / Non-visit [employer]ISIONLetha Salinas Work Phone: [facility] Work Phone: Start: 12-14-2023 End: 12-14-2023 ambulatory TRU CHRISSY Not Available Start: 12-02-2023 End: 12-02-2023 ambulatory AURELIA Chante FRENCH Not Available Start: 12-02-2023 End: 12-02-2023 ambulatory AURELIA A GILLIAN Not Available Start: 11-19-2023 Non-patient / Non-visit [employer]etha Salinas Work Phone: [facility] Work Phone: Start: 11-10-2023 Non-patient / Non-visit RITIKA Salinas Work Phone: [facility] Work Phone: Start: 11-09-2023 End: 11-09-2023 ambulatory RITIKA Salinas Work Phone: [facility] Work Phone: Start: 11-09-2023 End: 11-09-2023 Patient encounter procedure RITIKA Salinas Work Phone: [facility] Work Phone: Start: 10-05-2023 End: 10-05-2023 Patient encounter procedure [employer] Sonia Brad Work Phone: [facility] Work Phone: Start: 09-22-2023 End: 09-22-2023 Departed Referred RITIKA Scott Brad Work Phone: [facility] [place] Work Phone: Start: 09-22-2023 End: 09-22-2023 ambulatory [employer]etha Scott Brad Work Phone: [facility] Work Phone: Start: 07-09-2023 End: 07-09-2023 ambulatory Sonia Salinas Other [employer] Other Start: 07-09-2023 Patient encounter procedure Sonia Salinas [facility] Start: 07-09-2023 End: 07-09-2023 Patient encounter procedure RITIKA Scott Brad Work Phone: [facility] Work Phone: Start: 04-29-2023 End: 04-29-2023 ambulatory Sonia Brad Other [employer] Other Start: 04-29-2023 Office outpatient ne w 20 minutes Sonia Salinas [facility] Start: 06-22-2020 End: 06-23-2020 Patient encounter procedure [facility] Facility: Procedures Date Procedure Procedure Detail Performing Clinician Start: 06-15-2024 HOME SLEEP TEST Tru Solitario DO Work Phone: Start: 01-25-2024 Insertion of carotid artery stent RITIKA Salinas Work Phone: Start: 01-25-2024 Carotid stent (physi [place] object) Garfield LUCAS Start: 01-12-2024 Doppler ultrasonogra phy of bilateral carotid arteries [employer] Sonia Vallegayleshanikavahe Work Phone: Start: 01-11-2024 XR pre/post mri xray AP RN Sonia Brad Work Phone: Start: 01-11-2024 CT of brain perfusion A PRN Sonia Brad Work Phone: Start: 01-11-2024 MRI of head [employer] Moon ernst Brad Work Phone: Start: 01-10-2024 CT angiography of head [employer] Sonia Brad Work Phone: Start: 01-10-2024 CT angiography of ne ck vessels [employer]IEF FISHERY DIVISIONLetha Scott Brad Work Phone: Start: 01-10-2024 Plain chest X-ray RITIKA Scott Brad Work Phone: Start: 01-10-2024 CT of head without contrast [employer] Sonia Brad Work Phone: Extraction of cataract Patri mamadou LUCAS Plan of Treatment Date Care Activity Detail Author Start: 01-26-2024 [facility] Start: 01-25-2024 Cerebral Embolic Filtration, Extracorporeal Flow Reversal Circuit from Right Common Carotid Artery, Percutaneous Approach, [employer] Cerebral Embolic Filtration, Extracorporeal Flow Reversal Circuit from Right Common Carotid Artery, Percutaneous Approach, [employer] [facility] Start: 01-25-2024 Dilation of Right Internal Carotid Artery with Intraluminal Device, Percutaneous Approach Dilation of Right Internal Carotid Artery with Intraluminal Device, Percutaneous Approach [facility] Start: 01-13-2024 [facility] Start: 01-11-2024 Referral to vascular surgeon [facility] Start: 01-11-2024 CT of brain perfusion CT head/brain perfusion [facility] Start: 01-11-2024 MRI of head MR head/brain wo con [facility] Start: 01-11-2024 [facility] Start: 01-11-2024 Physical therapy procedure [facility] Start: 01-11-2024 Referral to neurologist [facility] Start: 01-11-2024 Referral to occupational therapist [facility] Start: 01-11-2024 [facility] Start: 01-11-2024 Hospital admission [facility] Start: 01-10-2024 CT angiography of head [facility] Start: 01-10-2024 CT angiography of neck vessels [facility] Start: 01-10-2024 Plain chest X-ray XR chest 1V portable [facility] Start: 01-10-2024 XR Chest Single view [facility] Start: 01-10-2024 CT Head WO contrast [facility] Start: 01-10-2024 CT of head without contrast CT head stroke alert wo con [facility] Start: 01-10-2024 Telemedicine consultation with patient [facility] Start: 11-09-2023 Patient referral [facility] Work Phone: Anion gap measurement [facility] Bacteria identified in Urine by Culture [facility] Basophils [#/volume] in Blood by Automated count [facility] Basophils/100 leukoc ytes in Blood by Automated count [facility] Calculated LDL cholesterol level [facility] Cholesterol.total/Ch olest nikole in HDL [Mass Ratio] in Serum or Plasma [facility] Eosinophils/100 leukocytes in Blood by Automated count [facility] Erythrocyte distribu tion width [Ratio] by Automated count [facility] Erythrocytes [#/volu me] in Blood [facility] Glucose measurement estimated from glycated hemoglobin [facility] Hematocrit [Volume Fraction] of Blood [facility] Hemoglobin [Mass/vol ume] in Blood [facility] Leukocytes [#/volume ] corrected for nucleated erythrocytes in Blood by Automated coun [facility] Leukocytes [#/volume ] in Blood [facility] Lymphocytes [#/volum e] in Blood by Automated count [facility] Lymphocytes/100 leukocytes in Blood by Automated count [facility] MCH [Entitic mass] b y Automated count [facility] MCHC [Mass/volume] b y Automated count [facility] MCV [Entitic volume] by Automated count [facility] Monocytes [#/volume] in Blood by Automated count [facility] Monocytes/100 leukoc ytes in Blood by Automated count [facility] MR Unspecified body region [facility] Neutrophils [#/volum e] in Blood by Automated count [facility] Neutrophils/100 leukocytes in Blood by Automated count [facility] Nucleated erythrocyt es [Presence] in Blood by Automated count [facility] Patient Education [facility] Work Phone: Patient referral [facility] Work Phone: Platelet mean volume [Entitic volume] in Blood by Automated count [facility] Platelets [#/volume] in Blood [facility] US Scrotum and testicle [facility] US.doppler Carotid arteries - bilateral [facility] VLDL cholesterol measurement [facility] Immunizations Immunization Date Immunization Notes Care Provider Fa cility 09-04-2023 Fluzone QIV High-Dos e 65YR+ [employer] Sonia Salinas Work Phone: [facility] 06-22-2022 Fluzone QIV High-Dos e 65YR+ [employer] Sonia Slainas Work Phone: [facility] 06-22-2022 influenza, seasonal, injectable Sonia Salinas Other [facility] 02-19-2022 COVID-19 Pfizer Sonia erazo Other [facility] 06-02-2021 Do not use COVID-19 Pfizer 2 dose Sonia Salinas Other [facility] 06-02-2021 Fluzone QIV High-Dos e 65YR+ [employer] Sonia Salinas Work Phone: [facility] 10-11-2020 Do not use COVID-19 Pfizer 2 dose Sonia Salinas Other [facility] 09-16-2020 Do not use COVID-19 Pfizer 2 dose Sonia Salinas Other [facility] 06-11-2013 influenza, seasonal, injectable Sonia Salinas Other [facility] Payers Date Payer Category Payer Medicare (Managed Care) [employer] [id number] 2024 Medicare [id number] 2024 Medicare [id number] 2023 [facility] [id number] 2023 Self-pay [id number] 2023 Medicare [id number] 2023 Medicare [id number] 2021 Medicare [id number] 1959 Medicare [id number] 1945 Unknown [id number] 2.16.840.1.299667.3.579.2. 593 1945 Unknown [id number] 2.16.840.1.922378.3.579.2. 1259 1945 Unknown [id number] 2.16.840.1.140099.3.579.2. 727 1945 Unknown [id number] 2.16.840.1.545021.3.579.2. 727 1945 Unknown [id number] 2.16.840.1.574444.3.579.2. 727 1945 Unknown [id number] 2.16.840.1.250108.3.579.2. 727 1945 Unknown [id number] 2.16.840.1.370056.3.579.2. 1259 1945 Unknown [id number] 2.16.840.1.513362.3.579.2. 125 1945 Unknown [id number] 2.16.840.1.382111.3.579.2. 1259 1945 Unknown [id number] 2.16.840.1.849986.3.579.2. 1258 1945 Unknown [id number] 2.16840.1.281192.3.579.2. 1259 1945 Unknown [id number] 2.16.840.1.337906.3.579.2. [address]9 Medicare AARP Medicare Ad vantage [facility] [id number] Unknown [id number] 2.840.1.640905.3.579.2. 531 Unknown [id number] 2.16840.1.131300.3.579.2. 531 Unknown [id number] 2.16840.1.313040.3.579.2. 531 Unknown [id number] 2.16840.1.944483.3.579.2. 531 Social History Date Type Detail Facility Start: 02-08-2024 Sex Assigned At F [facility] Start: 1945 Sex Assigned At Male F [facility] Start: 10-05-2023 End: 01-12-2024 Tobacco smoking status NHIS Never smoked tobacco (finding) [facility] Start: 12-14-2023 End: 01-25-2024 Tobacco smoking status COIS Ex-smoker (finding) [facility] History of tobacco use Current smoker [facility] History of tobacco use Cigarette Smoker [facility] Start: 12-14-2023 Tobacco use and exposure Smokeless tobacco non-user [facility] Start: 02-08-2024 Alcoholic beverage intake Ex-drinker (finding) [facility] Start: 02-08-2024 History of Social function [facility] Start: 1945 Sex assigned at Not on file [facility] NEGATED: Highlighted rowStart: NINF History of tobacco use Passive smoker [facility] Medical Equipment Procedure Code Equipment [...] 02-25-2024 Functional Status N/A [facility] 01-27-2024 Functional Status N/A [facility] 01-26-2024 Functional status Patient at Baseline [facility] Work Phone: 01-13-2024 Functional status Patient at Baseline [facility] Work Phone: 01-11-2024 Functional status Patient at Baseline [facility] Work Phone: Mental Status Date Assessment Result Facility 01-26-2024 Cognitive function Cognitive Sta tus Patient at Baseline [facility] Work Phone: 01-13-2024 Cognitive function Cognitive Sta tus Patient at Baseline [facility] Work Phone: 01-11-2024 Cognitive function Cognitive Sta tus Patient Not at Baseline [facility] Work Phone: Clinical Notes 04-29-2023 to 03-07-2024 THOMPSON Puri - 03/07/2024 3:45 PM EDT Note Date & Type Note Facility 03-07-2024 History of Present illness Narrative Reason for Appointment: HST Patient: Dagoberto Squires : 1945 Reason for Home Sleep Study: Sleep disturbances Ordering Physician: Dr. Tru Solitario Gripper Attacher: Lauro ORDOÑEZ(R) Pick-up Comments: Procedure was explained to the female terminal gauger supervisor picking up HST device, who expressed understanding. Patient's female terminal gauger supervisor was instructed how to use device and informed to return completed questionnaire with device tomorrow morning...... 03/07/24 Gripper Attacher: Lauro WHELANR) Drop-Off Comments: Patient returned HST device. Study data was successfully uploaded, however, questionnaire was not completed and thus not imported to patient's chart...... 03/08/24 INSUFFICIENT DATA (LESS THAN 1 HOUR) WITH NO CHARGE PER DR. SOLITARIO.... Patient will need to repeat............ Lauro ORDOÑEZ(R) 06/15/24 documented in this encounter [facility] 02-25-2024 Hospital Discharge instructions Patient Education [...] provider. Document Revised: 07/01/2020 Document Reviewed: 07/01/2020 [employer] Patient Education 2022 [employer]. Follow Up Care 01/27/2024 14:08:28 With:SHAYY BARRETO, Garfield Cotter, URL Address: [address] [place] [address]- When: Unknown [facility] 02-25-2024 Note Patient Education Urology Testicular Self-Exam [...] Reviewed: 07/01/2020 Elsevier Patient Education ? 2022 [employer]. [facility] 01-27-2024 Hospital Discharge instructions Patient [...] urethra. Follow these instructions at home: Take bkhs-zim-fmvojuk and prescription medicines only as told by [...] provider. Document Revised: 02/11/2022 Document Reviewed: 02/11/2022 [employer] Patient Education 2022 [employer]. 01/27/2024 13:40:29 Testicular Self-Exam Testicular Self-Exam A [...] provider. Document Revised: 07/01/2020 Document Reviewed: 07/01/2020 [employer] Patient Education 2022 [employer]. Follow Up Care 01/27/2024 09:11:18 With:SHAYY BARRETO, Garfield Cotter, URL Address: [facility] [address] [place] [phone] When:Within 1 Month(s) [facility] 01-26-2024 Discharge summary Note Date/Time January 26, 2024 8:47am [facility] [address] [place] [address] Discharge Summary Signed Patient: Dagoberto Squires MR#: [id number] : 1945 Acct:[id number] Age/Sex: 78 / M Adm Date: 4 Loc: Room: 2I3171-[address]: Nicko Galvan MD Copies to: RITIKA Goyal APRN, AMUSEMENT PARK RIDE MECHANIC Nicko Galvan MD~ Providers Date of Discharge: [...] 60 0RF Follow Up: Sonia Salinas APRN, CONVEYOR BELT OPERATOR-C [Primary Care Provider] - 01/26/24 2:00 [...] % (Auto) N/A, Lymph % (Auto) N/A, [place] % (Auto) N/A, Eos % (Auto) N/A, Baso % (Auto) N/A, Nucleat RBC Rel Count N/A, Neut # (Auto) N/A, Lymph # (Auto) N/A, [place] # (Auto) N/A, Eos # (Auto) N/A, [...] signed by Nicko Galvan MD> 01/26/24 0856 [facility] Work Phone: 1(980) 354-581806-18-2024 [facility] Consult note Author Dao Johnston [facility] January 13, 2024 11:34am Note Date/Time January 12, 2024 3:28p m [facility] [address] [place] [address] Vascular Surgery Consult Note Signed Patient: Dagoberto Squires MR#: [id number] : 1945 Acct:[id number] Age/Sex: 78 / M Adm Date: 4 Loc: 3T Room: [address] [place] [address] Type: ADM IN Attending Dr: Zachary Garcia MD Copies to: MD Mckenna Sanchez APRN Jeffrey L Buehrer, MD Jennifer Rohrbacher, RITIKA, AMUSEMENT PARK RIDE MECHANIC~ HPI Consult HPI Reason for consult: carotid [...] negative unless noted below or in HPI [facility] Medical History Vascular dementia Injected eye, [...] of imaging. We will send imaging to [facility] and evaluate for likely intervention. This [...] signed by MD Dao Johnston> 01/13/24 1134 [facility] Work Phone: 1(927) 706-923506-05-2024 Progress note Author Zachary Garcia [facility] January 12, 2024 5:19pm Note Date/Time January 11, 2024 1:15p m [facility] [address] [place] [address] Hospitalist Progress Note Signed Patient: Dagoberto Squires MR#: [id number] : 1945 Acct:[id number] Age/Sex: 78 / M Adm Date: 4 Loc: 3T Room: [address] [place] [address] Type: ADM IN Attending Dr: Zachary Garcia [...] levels of stenosis of intra and extracranial svesrktpuep-arjh-unyfy stenosis at the proximal right ICA and [...] above. Documented By: Sabrina Lama APRN 11/30 0931 Signed By: <Electronically signed by RITIKA Lama> 01/11/24 1449 <Electronically signed by Zachary Garcia MD> 01/12/24 2959 [facility] Work Phone: 1(241) 858-196306-05-2024 Progress note Author Zahcary Garcia [facility] January 12, 2024 5:18pm Note Date/Time January 12, 2024 9:16a m [facility] [address] [place] [address] Hospitalist Progress Note Signed Patient: Dagoberto Squires MR#: [id number] : 1945 Acct:[id number] Age/Sex: 78 / M Adm Date: 4 Loc: Room: [address] [place] [address] Type: ADM IN Attending Dr: Zachary Garcia MD Copies to: ~ Date of Service: 01/12/2024 Subjective Subjective Narrative: Patient seen and examined. No visitors present. Patient offers no complaints. Remains oriented to place and self, thought it was 2008 and thought he was in [place]. Denies pain or dyspnea. Denies weakness. Slept [...] levels of stenosis of intra and extracranial rzecwsquxkq-bwwc-gszii stenosis at the proximal right ICA and [...] good candidate for TCAR urgently next week. CONVEYOR BELT OPERATOR to see pt today -patient would [...] <Electronically signed by Zachary Garcia MD> 01/12/24 1484 [facility] Work Phone: 1(679) 286-279806-05-2024 Progress note Author Nic Leung [facility] January 12, 2024 12:58pm Note Date/Time January 12, 2024 11:25 am [facility] [address] [place] [address] Neurology Progress Note Signed Patient: Dagoberto Squires MR#: [id number] : 1945 Acct:[id number] Age/Sex: 78 / M Adm Date: 4 Loc: 3T Room: [address] [place] [address] Type: ADM IN Attending Dr: Zachary Garcia [...] signed by Nic Leung DO> 01/12/24 1258 [facility] Work Phone: 1(114) 592-117406-05-2024 History and physical note Author Jc Brown [facility] January 12, 2024 4:30am Note Date/Time January 11, 2024 7:55p ashish [facility] [address] [place] [address] Hospitalist H&P Signed Patient: Dagoberto Squires MR#: [id number] : 1945 Acct:[id number] Age/Sex: 78 / M Adm Date: 4 Loc: 3T Room: [address] [place] [address] Type: ADM IN Attending Dr: Zachary Garcia MD Copies to: MD Sonia Sanchez, [employer], AMUSEMENT PARK RIDE MECHANIC RITIKA Ponce, DO~ HPI DATE OF EXAMINATION: [...] will be admitted as observation to the [facility] telemetry floor. ? Review of Systems Review of Systems Review of systems: A 10 point review of systems was obtained, negative unless noted in the HPI or below. [facility] Medical History (Updated 01/11/24 @ 14:48 [...] 05:52 Lymph % (Auto) N/A 01/11/24 05:52 [place] % (Auto) N/A 01/11/24 05:52 Eos % (Auto) N/A 01/11/24 05:52 Baso % (Auto) N/A 01/11/24 05:52 Nucleat RBC Rel Count N/A 01/11/24 05:52 Neut # (Auto) N/A 01/11/24 05:52 Lymph # (Auto) N/A 01/11/24 05:52 [place] # (Auto) N/A 01/11/24 05:52 Eos # [...] pH 5.5 (5.0-9.0) 01/10/24 23:30 Ur Specific [place] 1.043 (1.001-1.030) H 01/10/24 23:30 Urine Protein [...] signed by Jc Brown DO> 01/12/24 0430 [facility] Work Phone: 1(530) 282-400406-04-2024 History and physical note Author Faiza Mcdonald [facility] January 11, 2024 7:52pm Note Date/Time January 11, 2024 12:40 am [facility] [address] [place] [address] Hospitalist H&P Signed Patient: Dagoberto Squires MR#: [id number] : 1945 Acct:[id number] Age/Sex: 78 / M Adm Date: 4 Loc: Room: [address] [place] [address] Type: ADM IN Attending Dr: Zachary Garcia MD Copies to: MD Sonia Sanchez, [employer], BRIAN Mcdonald APRN~ Documented By: Faiza Mcdonald APRN 01/11/24 004 Signed By: [facility] Work Phone: 1(931) 221-553806-04-2024 Consult note Author Nic Leung [facility] January 11, 2024 1:44pm Note Date/Time January 11, 2024 12:01 pm [facility] [address] [place] [address] Neurology Consult Note Signed Patient: Dagoberto Squires MR#: [id number] : 1945 Acct:[id number] Age/Sex: 78 / M Adm Date: 4 Loc: 3T Room: [address] [place] [address] Type: ADM INOo Attending Dr: Zachary Garcia MD Copies to: DO Zachary Sy MD Jennifer Rohrbacher, [employer], AMUSEMENT PARK RIDE MECHANIC~ HPI Consult Date: 01/11/24 Content Production Specialist: Nic Leung DO [facility] Medical History Injected eye, right Basal [...] Dao Toscano M.D.01/11/2024 8:11 AM Dictation Location: [place] [address] Chest X-Ray 01/10/24 22:14 IMPRESSION: Interstitial prominence is noted with perihilar vascular prominence suggesting volume overload. Impression dictated by: Gómez Alan M.D.01/11/2024 8:45 AM Dictation Location: [place] [address] Head CTA 01/10/24 22:14 IMPRESSION: Multiple levels of stenoses of the intra and extracranial circulation as stated above. Multiple levels of occlusion of the intracranial And extracranial circulation as stated above. Impression dictated by: Dao Toscano M.D.01/11/2024 8:25 AM Dictation Location: [facility] Therapy Recommendations Therapy Recommendations: PT Recommendations PT [...] was a little shaky. 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 And his left [...] <Electronically signed by Nic Leung DO> 01/11/24 1126 [facility] Work Phone: 1(290) 880-824612-01-2023 Evaluation note* Encounter Date Diagnosis Assessment Notes [...] course of antibiotic. Increase fluids and rest. Wkwu-yqn-iufndez antipyretics as needed. Warning signs and symptoms reviewed with patient today. Patient to go immediately to the ER should she experience any of these. Patient to notify office should her symptoms persist and not improve. Patient verbalizes understanding and agrees to treatment plan. [facility] Other 09-21-2023 Evaluation note* Encounter Date Diagnosis [...] understanding and is agreeable to treatment plan. [facility] Other Evaluation + Plan note Future Appointments Appointment Date:02/25/2024 08:45:00 AM Scheduled Provider:Garfield LUCAS MD Location:[facility] Appointment Type:URO Office Visit [facility] evaluation noteNo assessment information available [facility] Work Phone: evaluation note* Diagnosis Onset Date Resolution Status Loud snoring acute Maxillary sinusitis acute Rhinitis medicamentosa acute Screening for colon cancer a cute Aphasia acute Balance problem acute Frequent falls acute Memory changes acute [facility] Work Phone: evaluation note* Diagnosis Onset Date Resolution Status Aphasia acute Balance problem acute Frequent falls acute Memory changes acute Brain TIA acute Carotid stenosis acute Frequent falls acute Memory changes acute [facility] Work Phone: evaluation note* Diagnosis Onset Date Resolution Status Aphasia acute Balance problem acute Frequent falls acute Memory changes acute Atherosclerotic cerebrovascular disease acute Brain TIA acute Carotid stenosis acute Frequent falls acute Hypertension acute Memory changes acute Symptomatic stenosis of right carotid artery acute T2DM (type 2 diabetes mellitus) acute Vascular dementia acute [facility] Work Phone: Evaluation note* Diagnosis Onset Date Resolution Status Aphasia acute Balance problem acute Frequent falls acute Atherosclerotic cerebrovascular disease acute Frequent falls acute Hypertension acute Symptomatic stenosis of right carotid artery acute T2DM (type 2 diabetes mellitus) acute Vascular dementia acute Symptomatic stenosis of right carotid artery acute [facility] Work Phone: evaluation note* Diagnosis Onset Date Resolution Status Aphasia acute Balance problem acute Frequent falls acute Atherosclerotic cerebrovascular disease acute Frequent falls acute Hypertension acute Symptomatic stenosis of right carotid artery acute T2DM (type 2 diabetes mellitus) acute Vascular dementia acute Symptomatic stenosis of right carotid artery acute Scrotal abscess acute [facility] Work Phone: Evaluation note* Diagnosis Onset [...] 2 diabetes mellitus) acute Vascular dementia acute [facility] Work Phone: Evaluation note* Diagnosis Onset Date Resolution Status History of transcarotid artery revascularization (TCAR ) acute [facility] Work Phone: Evaluation note* Diagnosis Hypersomnia Hypersomnia, unspecified Memory loss [facility] - [facility]orted* Type Description Date Surgical History Eye surgery- cataracts [facility] Other Hospital course Narrative No data available for this section [facility] Hospital Discharge instructionsAmbulatory Orders* Referral to Neurology Location: None Selected [facility] Work Phone: Hospital Discharge instructions No data available for this section [facility] No data available for this section [facility] reason for visit Narrative* Other Medical (Routine) - Closed Specialty Diagnoses / Procedures Referred By Contac t Referred To Contact [facility] Diagnoses Hypersomnia Memory loss Procedures Home sleep test Tru Solitario DO [address] [place] [address] Phone: tel: fax: Referral ID Status Reason Start Date Expiration Date Visits Re quested Visits Authorized [id number] Closed 02/24/2024 08/22/2024 1 1 [facility] [...] and content) DATE CREATED AUTHOR 06/28/2020 [facility] DATE CREATED AUTHOR AUTHOR'S ORGANIZ ATION 12/04/2023 [facility] dical Specialists EPIC DATE CREATED AUTHOR AUTHOR'S ORGANIZ ATION 02/06/2024 [facility] DATE CREATED AUTHOR AUTHOR'S ORGANIZ ATION 02/26/2024 [facility] DATE CREATED AUTHOR AUTHOR'S ORGANIZ ATION 03/10/2024 [facility] EPIC DATE CREATED AUTHOR AUTHOR'S ORGANIZ ATION 05/27/2024 [facility] REASON FOR VISIT (unrecogniz ed section and content) Establish, [facility] [facility] Teams (unrecognized sec tion and content) Team Status: Active Member Role Status Dates Sonia Salinas APRN CONVEYOR BELT OPERATOR-C Primary Care Provider Active Team Status: Inactive Member Role Status Dates Sonia Salinas APRN CONVEYOR BELT OPERATOR-C Attending Provider Act joaquina Start: July 09, 2023 End: July 09, 2023 Team Status: Inactive Member Role Status Dates Sonia Salinas APRN CONVEYOR BELT OPERATOR-C Primary Care Provider Active Start: September 222023 End: September 22, 2023 Samuel Coker MD Attending Provider Active Start: September 22, 2023 End: September 22, 2023 Team Status: Inactive Member Role Status Dates Sonia Salinas APRN CONVEYOR BELT OPERATOR-C Primary Care Provider, Attending Provider Active Start: October 05, 2023 End: October 05, 2023 Team Status: Inactive Member Role Status Dates Sonia Salinas APRN CONVEYOR BELT OPERATOR-C Primary Care Provider, Attending Provider Active Start: November 09, 2023 End: November 09, 2023 Team Status: Active Member Role Status Dates Sonia Salinas APRN CONVEYOR BELT OPERATOR-C Primary Care Provider, Attending Provider Active Start: November 10, 2023 Team Status: Active Member Role Status Dates Sonia Salinas APRN CONVEYOR BELT OPERATOR-C Primary Care Provider, Attending Provider Active Start: November 19, 2023 Team Status: Active Member Role Status Dates Sonia Salinas APRN CONVEYOR BELT OPERATOR-C Primary Care Provider Active Start: December 16, 2023 Tru Solitario DO Attending Provider Active Sta rt: December 16, 2023 Team Status: Active Member Role Status Dates Sonia Salinas APRN CONVEYOR BELT OPERATOR-C Primary Care Provider Active Start: January 10 Nicko Grimm DO Emergency Provider Active Start: January 11, 2024 Jc Brown DO Admit Provider, Atte nding Provider Active Start: January 11, 2024 Team Status: Inactive Member Role Status Dates Sonia Salinas APRN CONVEYOR BELT OPERATOR-C Primary Care Provider Active Start: January 11, 2024 End: January 13, 2024 Nicko Grimm DO Emergency Provider Active Start: January 11, 2024 End: January 13, 2024 Jc Brown DO Admit Provider Active Start: January 11, 2024 End: January 13, 2024 Zachary Garcia MD Attending Provider Active Start: January 11, 2024 End: January 13, 2024 Nci Leung DO Other Provider Active Start: January 11, 2024 End: January 13, 2024 Dao Johnston MD Other Provider Active Start : January 11, 2024 End: January 13, 2024 Team Status: Active Member Role Status Dates Sonia Salinas APRN CONVEYOR BELT OPERATOR-C Primary Care Provider Active Start: January [...] Member Role Status Dates Sonia Salinas APRN CONVEYOR BELT OPERATOR-C Primary Care Provider Active Start: January 17, 2024 End: January 17, 2024 Dao Johnston MD Attending Provider Active S tart: January 17, 2024 End: January 17, 2024 Team Status: Active Member Role Status Dates Sonia Salinas APRN CONVEYOR BELT OPERATOR-C Primary Care Provider Active Start: January 17, 2024 Teresa Cowan LPN Attending Provider Active St art: January 17, 2024 Team Status: Inactive Member Role Status Dates Sonia Salinas APRN CONVEYOR BELT OPERATOR-C Primary Care Provider Active Start: January 25, 2024 End: January 26, 2024 Nicko Galvan MD Admit Provider , Attending Provider Active Start: January 25, 2024 End: January 26, 2024 Team Status: Active Member Role Status Dates Sonia Salinas APRN CONVEYOR BELT OPERATOR-C Primary Care Provider Active Start: January 25, 2024 Nicko Galvan MD Admit Provider , Attending Provider, Other Provider Active Start: January 25, 2024 Team Status: Inactive Member Role Status Dates Sonia Salinas APRN CONVEYOR BELT OPERATOR-C Primary Care Provider, Attending Provider Active Start: January 26, 2024 End: January 26, 2024 Team Status: Active Member Role Status Dates Sonia Salinas APRN CONVEYOR BELT OPERATOR-C Primary Care Provider Active Start: January [...] 2024 End: January 13, 2024 Mckenna Campbell CONVEYOR BELT OPERATOR-C Attending Provider Active Start: January 12, 2024 End: January 13, 2024 Team Status: Active Member Role Status Dates Sonia Salinas APRN CONVEYOR BELT OPERATOR-C Primary Care Provider Active Start: January 27, 2024 Sabrina Lama APRN Attending Provider Active Start: January 27, 2024 Team Status: Inactive Member Role Status Dates Sonia Salinas APRN CONVEYOR BELT OPERATOR-C Primary Care Provider Active Start: February 16, 2024 End: February 16, 2024 Nicko Galvan MD Attending Provider Active Start: February 16, 2024 End: February 16, 2024 Team Status: Inactive Member Role Status Dates Sonia Salinas APRN CONVEYOR BELT OPERATOR-C Primary Care Provider Active Start: May End: May 25, 2024 Nicko Galvan MD Attending Provider Active Start: May 25, 2024 End: May 25, 2024 Belt Weaver Relationship Specialty Start Date End Date Sonia Salinas NP [address] [place] [id number] PCP - General Family Medicine 01/18/24 Sonia Salinas NP [address] [place] [id number] Referring Physician Family Medicine 12/14/23 Goals (unrecognized [...] BE BASED ON THE PRIMARY CLINICAL RECORDS. [employer] provides no warranty or guarantee of the accuracy or completeness of information in this document.
--- NOTE | 2024-08-28 20:06 | PM.HP ---
HPI H&P: HPI History of Present Illness Chief complaint: SOB BREATHING FAST, PNEUMONIA, ELEV TROP, RENAL FA Narrative: 79 y o male with hx of dementia was brought over to ED by family for increasing shortness of breath and confusion. Most of the hx was obtained from and patient's sons as patient was confused and unable to provide reliable information and engage in meaningful conversation. Work up in ED revealed acute resp failure with hypoxia with pulse Ox as low as 86%, sec to multifocal Pneumonia and acute on chronic diastolic HF. Pt was also found to have NSTEMI with troponin trending upward with last troponin measured at 5618. Given patient's advanced age, frailty, comorbid conditions and baseline confusion due to dementia, goals of care were discussed by ED provider and after family deliberated, they opted for CC measures and Hospice consult. I personally discussed his prognosis, end of life care and explained everything in detail to the patient's family who were all in agreement to get hospice involved. Opioid HPI Opioid Management Most Recent Pain and Opioid Data: Last Pain Assessment 08/28/24 19:00 Last ORT Total Score 0 08/28/24 17:42 08/28/24 Last ORT Risk Category Low Risk 08/28/24 17:42 08/28/24 Review of Systems ROS Status of ROS unobtainable due to mental status PFSH PFSH Medical History (Updated 08/28/24 @ 20:18 by Shaikh Trish MD) HLD (hyperlipidemia) ?E78.5 - Hyperlipidemia, unspecified (ICD-10) Dementia ?F03.90 - Unspecified dementia, unspecified severity, without behavioral disturbance, psychotic disturbance, mood disturbance, and anxiety (ICD-10) High cholesterol ?E78.00 - Pure hypercholesterolemia, unspecified (ICD-10) Stroke ?I63.9 - Cerebral infarction, unspecified (ICD-10) Type 2 diabetes mellitus ?E11.9 - Type 2 diabetes mellitus without complications (ICD-10) Hyperthyroidism ?E05.90 - Thyrotoxicosis, unspecified without thyrotoxic crisis or storm (ICD-10) Hypertension ?I10 - Essential (primary) hypertension (ICD-10) Surgical History (Updated 08/28/24 @ 17:29 by Roxana Mcdonald) Hx of vasectomy ?Z98.52 - Vasectomy status (ICD-10) H/O: knee surgery ?Z98.890 - Other specified postprocedural states (ICD-10) Presence of internal carotid stent ?Z95.828 - Presence of other vascular implants and grafts (ICD-10) Family History (Updated 08/28/24 @ 17:30 by Roxana Mcdonald) Sister Family history of cancer Father Family history of myocardial infarction Brother Family history of stroke Social History (Updated 08/28/24 @ 17:32 by Roxana Mcdonald) Within the past year, how often did you have a drink containing alcohol: never Within the past year, how often did you have six or more drinks on one occasion: never Score interpretation: A score less than 4 is consistent with normal alcohol consumption. Smoking status: Former smoker Non-prescribed substance use: cannabis (any form) Previous occupational history: retired Highest level of school completed/degree received: high school graduate Are you now , , , , never or living with a partner: In a typical week, how many times do you talk on the telephone with family, friends, or neighbors: 3 or more times per week How often do you get together with friends or relatives: 3 or more times per week Do you belong to any clubs or organizations such as congregation groups unions, [id number] or athletic groups, or school groups: no Little interest or pleasure in doing things: not at all Feeling down, depressed, or hopeless: not at all Feel stressed/tense/nervous/anxious/difficulty sleeping: not at all Do you think of yourself as: straight/heterosexual Gender Identity: female Meds Home Medications and Allergies Home Medications ?Medication ?Instructions ?Recorded ?Confirmed ?Type atorvastatin 80 mg tablet 80 mg PO .QHS 08/28/24 08/28/24 History donepezil 10 mg tablet 10 mg PO .QHS 08/28/24 08/28/24 History glimepiride 2 mg tablet 2 mg PO .QD 08/28/24 08/28/24 History liothyronine 5 mcg tablet 10 mcg PO .QD 08/28/24 08/28/24 History lisinopril 10 mg tablet 10 mg PO DAILY 08/28/24 08/28/24 History metformin 500 mg tablet,extended 500 mg PO .QD 08/28/24 08/28/24 History release 24 hr Allergies Allergy/AdvReac Type Severity Reaction Status Date / Time No Known Drug Allergies Allergy Verified 08/28/24 12:20 Exam Constitutional Vital Signs, click to edit/add: Last Vital Signs Temp 97.0 F L 08/28/24 17:42 Pulse 98 H 08/28/24 18:46 Resp 22 H 08/28/24 17:42 BP 170/89 H 08/28/24 18:46 Pulse Ox 91 L 08/28/24 17:42 O2 Del Method Simple Mask 08/28/24 17:42 O2 Flow Rate 5 08/28/24 17:42 Documenting provider has reviewed patient's vital signs: yes General appearance: cooperative Other: Confused, appears uncomfortable and SOB at rest. HENMT Common normals: normocephalic and head/scalp atraumatic Head and scalp: normocephalic and atraumatic Respiratory Effort & inspection: tachypneic and labored Auscultation: rhonchi and diminished lung sounds Cardio Common normals: regular rhythm, S1 normal heart sound and S2 normal heart sound Rate: tachycardic GI Common normals: Normal to inspection, nondistended, normoactive bowel sounds present, soft to palpation, non-tender and no hepatosplenomegaly Palpation: soft and no hepatosplenomegaly Extremity Common normals: no clubbing, cyanosis or edema Neuro Common normals: moves all extremities and no focal motor deficits Other: Confused/disoriented. Psych Common normals: denies hallucinations, denies homicidal ideation and denies suicidal ideation Attention/concentration: concentration grossly intact, attention grossly impaired and concentration grossly impaired Memory/cognition: memory grossly impaired Insight: poor Judgement: poor Results Labs Labs: Short CBC 08/28/24 Range/Units 12:50 WBC 17.4 H (4.0-11.0) 10^3/uL Hgb 12.3 L (14.0-18.0) g/dL Hct 37.0 L (42.0-54.0) % Plt Count 274 (150-450) 10^3/uL BMP 08/28/24 12:50 Sodium 134 L Potassium 3.7 Chloride 94 L Carbon Dioxide 31.8 BUN 62.0 H Creatinine 3.42 H Glucose 266 H Calcium 9.0 Liver Function 08/28/24 Range/Units 12:50 Total Bilirubin 0.9 (0.2-1.0) mg/dL AST 41 H (15-37) U/L ALT 35 (16-63) U/L Alkaline Phosphatase 162 H (46-116) U/L Albumin 2.6 L (3.4-5.0) g/dL ABG ABG results: 08/28/24 14:04 ABG pH 7.473 H ABG pCO2 41.9 ABG pO2 57.6 L* ABG HCO3 30.6 H ABG O2 Saturation 91.0 ABG Base Excess 7.0 H Assessment and Plan Assessment and Plan (1) NSTEMI (non-ST elevated myocardial infarction): (2) Acute on chronic diastolic (congestive) heart failure: (3) Pneumonia: Qualifiers: Pneumonia type: due to unspecified organism Laterality: bilateral Lung location: unspecified part of lung Qualified Code(s): J18.9 - Pneumonia, unspecified organism (4) Confusion and disorientation: (5) RUSSELL (acute kidney injury): (6) Acute respiratory failure with hypoxia: (7) Hypertension: Qualifiers: Hypertension type: primary hypertension Qualified Code(s): I10 - Essential (primary) hypertension (8) Type 2 diabetes mellitus: Qualifiers: Diabetes mellitus halfway insulin use: without longwall shearer operator use Diabetes mellitus complication status: with kidney complications Diabetes mellitus complication detail: with chronic kidney disease Chronic kidney disease stage: stage 3 (moderate) Chronic kidney disease stage 3 subtype: stage 3a (GFR 45-59) Qualified Code(s): E11.22 - Type 2 diabetes mellitus with diabetic chronic kidney disease; N18.31 - Chronic kidney disease, stage 3a (9) Dementia: Qualifiers: Dementia type: Alzheimer's Alzheimer's disease onset: late onset Dementia severity: severe Dementia behavioral or psychological symptom: with other behavioral disturbance Qualified Code(s): G30.1 - Alzheimer's disease with late onset; F02.C18 - Dementia in other diseases classified elsewhere, severe, with other behavioral disturbance (10) Lactic acidosis: (11) HLD (hyperlipidemia): Qualifiers: Hyperlipidemia type: unspecified Qualified Code(s): E78.5 - Hyperlipidemia, unspecified Plan Patient admitted for Pneumonia, Acute on chronic Diastolic HF resulting in acute respiratory failure with hypoxia. Also has evidence of NSTEMI. Patient also more confused and disoriented than his baseline as per family. After detailed discussion, family decided to opt for CC measures and hospice consult. No aggressive/life prolonging measures and CC measures only. On PO oxycodone and IV morphine as needed. Will need home O2 upon discharge.
[2024-08-28] MEDS: HYDRALAZINE HCL 20 MG/ML VIAL 10 MG IVP (21:10)
[2024-08-28] MEDS: ONDANSETRON PF 4 MG/2 ML VIAL IV (22:49)
[2024-08-28] MEDS: MORPHINE SULFATE 2 MG/ML SYRINGE IV (22:49)
[2024-08-28] MEDS: IPRATROPIUM/ALBUTEROL SULFATE 3 ML AMPUL.NEB IH (22:57)
[2024-08-29 04:00] VITALS: BP 155/96; PULSE 99; TEMP 36.4; O2SAT 92
[2024-08-29 07:49] VITALS: BP 150/83; PULSE 96; TEMP 36.6; O2SAT 90
[2024-08-29] MEDS: LISINOPRIL 10 MG TABLET PO (09:10)
[2024-08-29] MEDS: METFORMIN HCL 500 MG TAB.ER.24H PO (09:10)
[2024-08-29] MEDS: LIOTHYRONINE SODIUM 5 MCG TABLET 10 MCG PO (09:10)
--- NOTE | 2024-08-29 09:25 | SWNOTE1 ---
YVONNE received a message from case management and spoke to [facility] this morning and they are supposed to be calling her back. The goal is for pt to get home today, but will need hospice to come evaluate and needs home oxygen. YVONNE called [facility] intake and let them know we need someone to come complete assessment and we are looking for pt to be discharged home today, but will need oxygen as well. Intake is calling the nurse and someone will call YVONNE back to let us know time. YVONNE sent referral to hospice, inlcuding face sheet, hospice order, DNR paperwork, physician notes, labs, vitals, and med list.
--- NOTE | 2024-08-29 09:45 | SWNOTE1 ---
SW received a call from med/surge clinical services consultant and [facility] called and they will be coming at 11:00. SW stopped in to pt's room and spoke with . She is aware of time and she is of the understanding that pt will likely be discharged today with hospice. She voiced he is doing better today.
--- NOTE | 2024-08-29 10:26 | CM.NOTE ---
Rounds made with Dr. Chambers. Plan of care discussed with family in room-- and son. Awaiting discussion with [facility] [place] for plan. Potential discharge later today.
--- NOTE | 2024-08-29 10:43 | SWNOTE1 ---
Important Message from Medicare reviewed and discussed with patient's and family. Pt's verbalized understanding and signed the form. Pt's and family did ask about appealing. SW did advise they would have to call that number listed and Medicare will make the final determination. They voiced understanding and are going to wait and see what [facility] says and go from there. Original given to patient and copy placed in patient?s chart.
[2024-08-29 11:10] VITALS: BP 146/82; PULSE 80; TEMP 36.6; O2SAT 93
--- NOTE | 2024-08-29 12:16 | SWNOTE1 ---
YVONNE spoke to Hospice nurse, Laura, after meeting with family. Family has signed the consents and they will sign him on once they take him home today. DME will be delivered within 4 hours (oxygen and hospital bed). Once oxygen is delivered family will bring tank to hospital and they will transport patient home. Hospice nurse did request a script for Roxanol if hospitalist will write one. She stated she reached out to his PCP, but they are at lunch. SW to reach out and let Laura know. Hospitalist would like provider to write script. YVONNE called Laura to let her know. YVONNE to send final orders to [facility] once they are completed. YVONNE updated nurse as well. Pt will discharge home today and sign on to [facility] once he is home.
--- NOTE | 2024-08-29 12:30 | P.DS_ITS ---
DS: Providers Provider Date of admission: 08/28/24 17:05 Primary care physician: Vincenzo Pierce MD Admitting clinician: Shaikh Trish Attending physician on admission: Shaikh Trish Consults: 08/28/24 17:48 Consult to Hospice Routine Reason for consultation: End of life care Attending physician on discharge: Shaikh Trish Discharging clinician: Shaikh Trish Anticipated date of discharge: 08/29/24 DS: Diagnosis Discharge Diagnosis (1) NSTEMI (non-ST elevated myocardial infarction): (2) Acute on chronic diastolic (congestive) heart failure: (3) Pneumonia: Qualifiers: Laterality: bilateral Lung location: unspecified part of lung Pneumonia type: due to unspecified organism Qualified Code(s): J18.9 - Pneumonia, unspecified organism (4) Confusion and disorientation: (5) RUSSELL (acute kidney injury): (6) Acute respiratory failure with hypoxia: (7) Hypertension: Qualifiers: Hypertension type: primary hypertension Qualified Code(s): I10 - Essential (primary) hypertension (8) Type 2 diabetes mellitus: Qualifiers: Diabetes mellitus equipment operator intermodal yard insulin use: without detention use Diabetes mellitus complication status: with kidney complications Diabetes mellitus complication detail: with chronic kidney disease Chronic kidney disease stage: stage 3 (moderate) Chronic kidney disease stage 3 subtype: stage 3a (GFR 45-59) Qualified Code(s): E11.22 - Type 2 diabetes mellitus with diabetic chronic kidney disease; N18.31 - Chronic kidney disease, stage 3a (9) Dementia: Qualifiers: Dementia type: Alzheimer's Alzheimer's disease onset: late onset Dementia severity: severe Dementia behavioral or psychological symptom: with other behavioral disturbance Qualified Code(s): G30.1 - Alzheimer's disease with late onset; F02.C18 - Dementia in other diseases classified elsewhere, severe, with other behavioral disturbance (10) Lactic acidosis: (11) HLD (hyperlipidemia): Qualifiers: Hyperlipidemia type: unspecified Qualified Code(s): E78.5 - Hyperlipidemia, unspecified DS: Summary Hospital Course Hospital Course: 79 y o male with hx of dementia was brought over to ED by family for increasing shortness of breath and confusion. Work up in ED revealed acute resp failure with hypoxia with pulse Ox as low as 86%, sec to multifocal Pneumonia and acute on chronic diastolic HF. Pt was also found to have NSTEMI. Given patient's advanced age, frailty, comorbid conditions and baseline confusion due to dementia, goals of care were discussed by ED provider and after family deliberated, they opted for CC measures and Hospice consult. I personally discussed his prognosis, end of life care and explained everything in detail to the patient's family who were all in agreement to get hospice involved. Patient was admitted and was kept on supplemental Ox for hypoxia. He was treated with Rocephin for Pneumonia. Patient also received duonebs and morphine as needed. Patient was evaluated by Hospice. He is stable for discharge on home hospice. Time Spent with Patient Time attestation: Total time spent providing and/or coordinating discharge services: Exam Constitutional Vital Signs, click to edit/add: Last Vital Signs Temp 97.8 F 08/29/24 11:10 Pulse 80 08/29/24 11:10 Resp 18 08/29/24 11:10 BP 146/82 H 08/29/24 11:10 Pulse Ox 93 L 08/29/24 11:10 O2 Del Method Nasal Cannula 08/29/24 11:10 O2 Flow Rate 6 08/29/24 11:10 Documenting provider has reviewed patient's vital signs: yes General appearance: cooperative Other: Confused, appears uncomfortable and SOB at rest. Respiratory Effort & inspection: tachypneic and labored Auscultation: diminished lung sounds Cardio Common normals: regular rhythm, S1 normal heart sound and S2 normal heart sound Rate: tachycardic Extremity Common normals: no clubbing, cyanosis or edema Neuro Common normals: moves all extremities and no focal motor deficits Other: Confused/disoriented. Psych Common normals: denies hallucinations, denies homicidal ideation and denies suicidal ideation Attention/concentration: concentration grossly intact, attention grossly impaired and concentration grossly impaired Memory/cognition: memory grossly impaired Insight: poor Judgement: poor DS: Data Data Completed and Pending Labs on day of discharge: Labs from last 24 hours 08/28/24 08/28/24 08/28/24 14:42 14:04 12:50 WBC 17.4 H RBC 3.94 L Hgb 12.3 L Hct 37.0 L MCV 93.9 MCH 31.2 MCHC 33.2 RDW 15.0 Plt Count 274 MPV 10.7 Neut % (Auto) 87.0 H Lymph % (Auto) 4.7 L Fajardo % (Auto) 4.1 Eos % (Auto) 1.6 Baso % (Auto) 0.5 Neut # (Auto) 15.1 H Lymph # (Auto) 0.8 L Fajardo # (Auto) 0.7 Eos # (Auto) 0.3 Baso # (Auto) 0.1 Abs Immat Gran (auto) 0.36 H Imm/Tot Granulo (auto) 2.1 H PT 11.6 INR 1.11 Puncture Site Rr ABG pH 7.473 H ABG pCO2 41.9 ABG pO2 57.6 L* ABG HCO3 30.6 H ABG O2 Saturation 91.0 ABG Base Excess 7.0 H Pradeep Test Positive O2 Liters/Min 5 Sodium 134 L Potassium 3.7 Chloride 94 L Carbon Dioxide 31.8 Anion Gap 11.9 BUN 62.0 H Creatinine 3.42 H Est GFR ( Amer) 21 L Est GFR (Non-Af Amer) 18 L BUN/Creatinine Ratio 18.1 Glucose 266 H Lactate 3.1 H* 3.7 H* Calcium 9.0 Magnesium 2.1 Total Bilirubin 0.9 AST 41 H ALT 35 Alkaline Phosphatase 162 H Troponin I High Sens 5618.1 H* 3341.0 H* NT-Pro-B Natriuret Pep >76256.0 H* Total Protein 6.3 L Albumin 2.6 L Globulin 3.7 Albumin/Globulin Ratio 0.7 Influenza Type A Ag Influenza Type B Ag RSV Antigen SARS-CoV-2 Ag (CV2AG) 08/28/24 12:45 WBC RBC Hgb Hct MCV MCH MCHC RDW Plt Count MPV Neut % (Auto) Lymph % (Auto) Fajardo % (Auto) Eos % (Auto) Baso % (Auto) Neut # (Auto) Lymph # (Auto) Fajardo # (Auto) Eos # (Auto) Baso # (Auto) Abs Immat Gran (auto) Imm/Tot Granulo (auto) PT INR Puncture Site ABG pH ABG pCO2 ABG pO2 ABG HCO3 ABG O2 Saturation ABG Base Excess Pradeep Test O2 Liters/Min Sodium Potassium Chloride Carbon Dioxide Anion Gap BUN Creatinine Est GFR ( Amer) Est GFR (Non-Af Amer) BUN/Creatinine Ratio Glucose Lactate Calcium Magnesium Total Bilirubin AST ALT Alkaline Phosphatase Troponin I High Sens NT-Pro-B Natriuret Pep Total Protein Albumin Globulin Albumin/Globulin Ratio Influenza Type A Ag Negative Influenza Type B Ag Negative RSV Antigen Not detected SARS-CoV-2 Ag (CV2AG) Negative Discharge Plan Discharge Disposition: Hospice - Home Discharge Medications: New cefuroxime axetil 250 mg tablet 250 mg PO BID 7 Days Qty: 14 0RF Continued atorvastatin 80 mg tablet 80 mg PO .QHS donepezil 10 mg tablet 10 mg PO .QHS glimepiride 2 mg tablet 2 mg PO .QD Rx Instructions: WITH BREAKFAST liothyronine 5 mcg tablet 10 mcg PO .QD metformin 500 mg tablet extended release 24 hr 500 mg PO .QD lisinopril 10 mg tablet 10 mg PO DAILY Activity: increase activity as tolerated Diet: advance to your usual diet Print Language: Tajik Forms: Portal Instructions
--- NOTE | 2024-08-29 12:49 | NUTR.NU ---
Pt admitted 08/28/24 w/dx PNA, ARF, AKF. PO intakes of regular diet are good. Pt to be discharged today and will admit to [facility] care. No dietary recommendations at this time.
[2024-08-29 13:03] VITALS: O2SAT 92
--- NOTE | 2024-08-29 13:15 | SWNOTE1 ---
YVONNE faxed dc med rec and dc summary to [facility],
[2024-08-29 15:35] VITALS: BP 107/52; PULSE 71; TEMP 36.6; O2SAT 90
[2024-08-29] MEDS: CEFTRIAXONE 1,000 MG in 0.9 % SODIUM CHLORIDE 50 ML 100 MG IV (15:48)
--- NOTE | 2024-08-31 14:03 | SWNOTE1 ---
SW received a call from [facility] and they wanted to verify pt's social security number. SW provided what we had for continuity of care.
== END 2024-08-29 17:00 | disposition hospice, home (50) | DRG 193 ==
LOC: ER 16:23 → MS 17:08
PROVIDERS: Admitting Provider Internal Medicine; Emergency Provider Emergency Medicine; PCP Family Medicine; Visit Provider Internal Medicine
DX: J18.9 Pneumonia, unspecified organism (principal); I21.4 Non-ST elevation (NSTEMI) myocardial infarction; I50.33 Acute on chronic diastolic (congestive) heart failure; J96.01 Acute respiratory failure with hypoxia; I13.0 Hypertensive heart and chronic kidney disease with heart failure and stage 1 through stage 4 chronic kidney disease, or unspecified chronic kidney disease; N17.9 Acute kidney failure, unspecified; F02.C18 Dementia in other diseases classified elsewhere, severe, with other behavioral disturbance; E87.20 Acidosis, unspecified; E78.00 Pure hypercholesterolemia, unspecified; Z86.73 Personal history of transient ischemic attack (TIA), and cerebral infarction without residual deficits; E05.90 Thyrotoxicosis, unspecified without thyrotoxic crisis or storm; Z98.52 Vasectomy status; Z95.828 Presence of other vascular implants and grafts; Z87.891 Personal history of nicotine dependence; Z79.84 Long term (current) use of oral hypoglycemic drugs; E11.22 Type 2 diabetes mellitus with diabetic chronic kidney disease; N18.31 Chronic kidney disease, stage 3a; G30.1 Alzheimer's disease with late onset; R41.0 Disorientation, unspecified
CPT/HCPCS: 36415; 36600; 70450; 71045; 71250; 80053; 82805; 83605; 83735; 83880; 84484; 85025; 85610; 87040; 87420; 87804; 87811; 93005; 94640; 94761; 96365; 96367; 99285; J0360; J0456; J0696; J2270; J2405